=== PATIENT | male | born 1935 | race Caucasian/White ===

== ENCOUNTER → 2016-10-28 | Outpatient (CLI) | payer MEDICARE, BC ==
[~2016-10-28] MED LIST: AMIO200T2 PO; ASPI-1085 PO; ATOR10TA64 PO; BUPR-51 PO; BUPR300T57 PO; CHOL100055 PO; CLON2TAB4 PO; CLOP75TA33 PO; DILT120C91 PO; FAMO20TA8 PO; FERR325T40 PO; FURO20TA4 PO; HYDR-4180 PO; ISOS30TA6 PO; LACT1CAP80 PO; NITR0.4T SL; POTA20TA10 PO; PRED10TA PO; RISP0.5T14 PO; SERT100T PO
--- NOTE | 2016-10-28 11:15 | DI ---
Indication: ITS.REASON: R26.89 BALANCE PROBLEMS PROCEDURE: CT HEAD W/O CONTRAST: Encounter: Initial Comparison: Head CT dated May 15, 2016 Technique: Axial CT images through the head were performed without contrast. Iterative Reconstruction dose reducing technique was utilized. FINDINGS: Prominent frontal CSF spaces are again noted. The ventricles are unchanged. Generalized atrophy. There are scattered areas of low attenuation in the white matter which most likely represent changes from chronic microvascular ischemia. The brainstem, cerebellum, and cerebral hemispheres otherwise have a normal morphology and CT attenuation. There is no evidence of midline displacement. No hemorrhage, signs of acute territorial stroke, mass effect, mass lesions, or edema is evident. The visualized portions of the skull base, midface, and calvarium demonstrate no abnormality. The paranasal sinuses are well aerated and free of significant disease. The tympanic and mastoid cavities appear normal. IMPRESSION: No acute intracranial abnormality or hemorrhage. Stable head CT. .
== END ==
LOC: IMA 10:19
PROVIDERS: ATTEND Psychiatry & Neurology Neurology
DX: R26.89 Other abnormalities of gait and mobility (principal)

== ENCOUNTER 2016-11-05 02:41 | Emergency (ER) | payer MEDICARE, BC ==
[~2016-11-05] VITALS: Ht 177.8 cm; Wt 101.8 kg
--- OUTSIDE RECORDS SUMMARY | 2016-11-05 02:45 | XMS REPORT | Referral Summary ---
Author Author [facility] Organization [facility] Address Unknown Phone Unavailable Care Team Providers Care Weaver Apprentice Name Role Phone Codie Bhagat Primary Care Physician [phone] Encounter VC Date(s): 08/31/16 - 08/31/16 [facility] [address] [place] [address] Discharge Diagnosis: Benign essential hypertension Discharge Diagnosis: H/O falling Discharge Diagnosis: Depression Discharge Diagnosis: Chronic kidney disease, stage 4, severely decreased GFR Discharge Diagnosis: CAD (coronary artery disease) Discharge Disposition: 01-Home or Self Care Attending Physician: Roger Bhagat MD Admitting Physician: Roger Bhagat MD Vital Signs Most recent to 1 oldest [Reference Range]: Temperature Tympanic 36.3 degC [36.6-38.1 degC] *LOW* (08/31/16 10:21 AM) Peripheral Pulse 80 bpm Rate [60-100 bpm] (08/31/16 10:21 AM) Blood Pressure 150/68 mmHg [90-140/60-90 mmHg] *HI* (08/31/16 10:21 AM) Problem List Condition Effective Dates Status Health Status Informant Acute Active pain(Confirmed) Anxiety(Confirmed) Active Arthritis(Confirmed) Resolved At risk of pressure Active sore(Confirmed) Benign essential Active hypertension (disorder)(Confirmed ) Bowel Active dysfunction(Confirme d)1 Carpal tunnel Active syndrome (disorder)(Confirmed ) Sleep related Active hypoxia(Confirmed) Chronic kidney Active disease, stage 4, severely decreased GFR(Confirmed) CAD (coronary artery Active disease)(Confirmed) Depression(Confirmed Resolved ) Diastolic Resolved dysfunction(Confirme d) Disorder of kidney Active and/or ureter (disorder)(Confirmed ) Peripheral Active neuropathy(Confirmed ) Fall at 12/28/09 Resolved wsiq-krmjgtnhuhnl-wf tractable back pain(Confirmed) Fluid Active imbalance(Confirmed) 2 Hyperlipidemia(Confi Active rmed) Hypertension(Confirm Resolved ed) Knowledge Active deficit(Confirmed)3 Low back pain Active (finding)(Confirmed) Depression(Confirmed Active ) Morbid obesity Active (disorder)(Confirmed ) DURAN on Active CPAP(Confirmed) Osteoarthritis(Confi Resolved rmed) Renal Resolved cancer(Confirmed) Single major Active depressive episode (disorder)(Confirmed ) Tissue perfusion Active alteration(Confirmed )4 Abnormal gait Active (finding)(Confirmed) Restless leg Active syndrome(Confirmed) 1Problem added automatically by system based on initiation of Bowel Dysfunction Plan of Care 2Problem added automatically by system based on initiation of Fluid Volume Imbalance Plan of Care 3Problem added automatically by system based on initiation of Knowledge Deficit Plan of Care 4Problem added automatically by system based on initiation of Tissue Perfusion Cerebral Plan of Care Allergies, Adverse Reactions, Alerts No Known Allergies Medications amiodarone 200 mg oral tablet 200 mg 1 tabs, Oral, Daily, # 90 tabs, 3 Refill(s), Pharmacy: [facility], 1 tabs Oral TID Start Date: 06/13/15 Status: Ordered amoxicillin 2,000 mg, Oral, Daily, dental appointment, given 1 hour prior to the procedure, 0 Refill(s) Start Date: 05/20/15 Status: Ordered aspirin 81 mg oral tablet 81 mg 1 tabs, Oral, BID, # 30 tabs, 0 Refill(s) Start Date: 11/18/15 Status: Ordered atorvastatin 10 mg oral tablet See Instructions, TAKE ONE TABLET BY MOUTH AT BEDTIME, # 30 tabs, 5 Refill(s), eRx: [facility], TAKE ONE TABLET BY MOUTH AT BEDTIME Start Date: 11/04/15 Status: Ordered buPROPion 150 mg/24 hours (XL) oral tablet, extended release 150 mg 1 tabs, Oral, q24hr, # 30 tabs, 0 Refill(s) Start Date: 04/15/16 Status: Ordered Cardizem CD 120 mg/24 hours oral capsule, extended release 120 mg 1 caps, Oral, Daily, # 60 caps, 6 Refill(s), Pharmacy: [facility] [place], [place], 1 caps Oral BID Start Date: 08/27/15 Status: Ordered cholecalciferol 1000 intl units oral tablet 1,000 Intl_Units 1 tabs, Oral, Daily, # 30 tabs, 0 Refill(s) Start Date: 05/15/16 Status: Ordered clonazePAM 2 mg oral tablet 2 mg 1 tabs, Oral, Bedtime (once a day), 0 Refill(s) Start Date: 05/20/15 Status: Ordered clopidogrel 75 mg oral tablet 75 mg 1 tabs, Oral, Daily, # 90 tabs, 1 Refill(s), Pharmacy: [email or web address], 1 tabs Oral Daily Start Date: 04/22/16 Status: Ordered famotidine 20 mg oral tablet See Instructions, TAKE 1 TABLET BY MOUTH EVERY DAY, # 30 tabs, eRx: [facility], TAKE 1 TABLET BY MOUTH EVERY DAY Start Date: 04/20/16 Status: Ordered ferrous sulfate 325 mg (65 mg elemental iron) oral tablet See Instructions, TAKE 1 TABLET BY MOUTH TWO TIMES A DAY WITH FOOD, # 60 tabs, 5 Refill(s), eRx: [email or web address], TAKE 1 TABLET BY MOUTH TWO TIMES A DAY WITH FOOD Start Date: 11/04/15 Status: Ordered hydrALAZINE 25 mg oral tablet 25 mg 1 tabs, Oral, QID, 0 Refill(s) Start Date: 05/15/16 Status: Ordered isosorbide mononitrate 30 mg oral tablet, extended release 30 mg 1 tabs, Oral, BID, # 60 tabs, 6 Refill(s), Pharmacy: [email or web address] , 1 tabs Oral BID Start Date: 12/02/15 Status: Ordered lactobacillus acidophilus oral capsule 1 caps, Oral, Daily, 0 Refill(s) Start Date: 05/15/16 Status: Ordered Miscellaneous DME DME Item LARGE MANUAL WHEELCHAIR FAX TO [facility] [phone], See Instructions, # 1 Each, 0 Refill(s), Supply Start Date: 04/09/16 Status: Ordered Nitrostat 0.4 mg sublingual tablet 0.4 mg 1 tabs, SubLingual, q5min, as needed for chest pain, # 100 tabs, 0 Refill (s) Start Date: 10/31/15 Status: Ordered predniSONE 10 mg oral tablet 10 mg 1 tabs, Oral, Daily, 0 Refill(s) Start Date: 05/15/16 Status: Ordered risperiDONE 0.5 mg oral tablet 0.5 mg 1 tabs, Oral, Daily, and BID as needed, 0 Refill(s) Start Date: 05/15/16 Status: Ordered Wellbutrin XL 300 mg/24 hours oral tablet, extended release 300 mg 1 tabs, Oral, Daily, # 30 tabs, 6 Refill(s), Pharmacy: [place], [place], 1 tabs Oral Daily Start Date: 08/14/15 Status: Ordered Zoloft 100 mg oral tablet 100 mg 1 tabs, Oral, Daily, take 1.5 tabs daily (150mg), # 30 tabs, 0 Refill(s) , Pharmacy: [facility], 1 tabs Oral Daily Start Date: 01/23/16 Status: Ordered Results Chemistry Most recent to 1 oldest [Reference Range]: Sodium Lvl [135-144 143 mEq/L mEq/L] (08/31/16 11:19 AM) Potassium Lvl 3.7 mEq/L [3.5-5.2 mEq/L] (08/31/16 11:19 AM) Chloride [99-111 106 mEq/L mEq/L] (08/31/16 11:19 AM) CO2 [23-31 mEq/L] 28 mEq/L (08/31/16 11:19 AM) AGAP [3-20] 9 (08/31/16 11:19 AM) BUN [8-26 mg/dL] 31 mg/dL *HI* (08/31/16 11:19 AM) Glucose Lvl [70-99 87 mg/dL mg/dL] (08/31/16 11:19 AM) Creatinine Lvl 1.99 mg/dL [0.72-1.25 mg/dL] *HI* (08/31/16 11:19 AM) eGFR [>60 mL/min] 32 mL/min 1 *ABN* (08/31/16 11:19 AM) Calcium Lvl 8.6 mg/dL 2 [8.4-10.2 mg/dL] (08/31/16 11:19 AM) 1Result Comment: Multiply eGFR results by 1.21 for race. 2Result Comment: Please note reference range change effective 08/28/2016. Immunizations Given and Recorded Vaccine Date Status Refusal Reason influenza virus vaccine, H1N1, inactivat 06/27/09 Given influenza virus vaccine, inactivated 06/04/15 Given influenza virus vaccine, inactivated1 05/03/14 Recorded influenza virus vaccine, live 05/09/13 Given influenza virus vaccine, live 04/05/12 Given influenza virus vaccine, live 04/10/11 Given influenza virus vaccine, live 05/22/10 Given influenza virus vaccine, live 06/27/09 Given influenza virus vaccine, live 05/30/08 Given influenza virus vaccine, live 06/10/07 Given pneumococcal 13-valent conjugate vaccine 01/03/16 Given pneumococcal 23-polyvalent vaccine 05/13/06 Recorded tetanus-diphth toxoids (Td) adult/adol 05/18/09 Given zoster vaccine live 10/22/11 Given 1Result Comment: [05/03/2014] see scanne doc Procedures Procedure Date Related Diagnosis Body Site Colonoscopy1 05/26/15 Colonoscopy2 05/25/15 Colonoscopy 08/04/13 Colonoscopy 01/14/12 Implantation of heart pacemaker 2010 Colonoscopy 02/07/07 Colonoscopy 09/15/06 TKA - Through knee amputation Rt 2006 Surgery-extensive back 1999 History of lumbar spine surgery 1993 Hx of neck surgery 1992 Angiography w/stent Carpal tunnel release Cataract extraction Colonoscopy Hx of shoulder replacement Rt & Lt Knee arthropathy 1auto-populated from documented surgical case 2auto-populated from documented surgical case Social History Social History Type Response Smoking Status Former smoker; Type: Cigarettes1 140 years ago Assessment and Plan Extracted from: Title: HI Follow Up Author: Roger Bhagat MD Date: 08/31/16 Impression and Plan Diagnosis Benign essential hypertension (LFG56-ZV I10, Discharge, Medical). CAD (coronary artery disease) (ISI60-WV I25.10, Discharge, Medical). Chronic kidney disease, stage 4, severely decreased GFR (CYD92-LN N18.4, Discharge, Medical). Depression (ZJE58-WU F32.9, Discharge, Medical). H/O falling (MSE10-GY Z91.81, Discharge, Medical). Orders Orders (Selected) Outpatient Orders Future (On Hold) BMP: .
--- OUTSIDE RECORDS SUMMARY | 2016-11-05 02:49 | XMS REPORT | Referral Summary ---
Author Author [facility] [employer] Organization [facility] [place] Address Unknown Phone Unavailable Care Team Providers Care Cell Stripper Name Role Phone Codie Bhagat Primary Care Physician [phone] Encounter Date(s): 07/31/16 - 07/31/16 [facility] [place] [address] [place] [address] Discharge Diagnosis: DURAN on CPAP Discharge Diagnosis: Sleep related hypoxia Discharge Disposition: 01-Home or Self Care Attending Physician: Kalpesh Biswas MD Admitting Physician: Kalpesh Biswas MD Vital Signs Most recent to 1 oldest [Reference Range]: Peripheral Pulse 73 bpm Rate [60-100 bpm] (07/31/16 11:03 AM) Blood Pressure 140/82 mmHg [90-140/60-90 mmHg] (07/31/16 11:03 AM) SpO2 97 % (07/31/16 11:03 AM) Problem List Condition Effective Dates Status [...] ) Peripheral Active neuropathy(Confirmed ) Fall at 6/5/10 Resolved jqrr-utiwzjqzbokj-td tractable back pain(Confirmed) Fluid Active imbalance(Confirmed) 2 [...] Daily, # 90 tabs, 3 Refill(s), Pharmacy: [facility], 1 tabs Oral TID Start Date: 06/13/15 [...] BEDTIME, # 30 tabs, 5 Refill(s), eRx: [email or web address], TAKE ONE TABLET BY MOUTH AT BEDTIME Start Date: 11/04/15 Status: Ordered buPROPion 150 mg/24 hours (XL) oral tablet, extended release 150 mg 1 tabs, Oral, q24hr, # 30 tabs, 0 Refill(s) Start Date: 04/15/16 Status: Ordered Cardizem CD 120 mg/24 hours oral capsule, extended release 120 mg 1 caps, Oral, Daily, # 60 caps, 6 Refill(s), Pharmacy: [email or web address] [place], [place], 1 caps Oral BID Start Date: [...] Daily, # 90 tabs, 1 Refill(s), Pharmacy: [facility], 1 tabs Oral Daily Start Date: 04/22/16 Status: Ordered famotidine 20 mg oral tablet See Instructions, TAKE 1 TABLET BY MOUTH EVERY DAY, # 30 tabs, eRx: [facility], TAKE 1 TABLET BY MOUTH EVERY DAY Start Date: 04/20/16 Status: Ordered ferrous sulfate 325 mg (65 mg elemental iron) oral tablet See Instructions, TAKE 1 TABLET BY MOUTH TWO TIMES A DAY WITH FOOD, # 60 tabs, 5 Refill(s), eRx: [facility], TAKE 1 TABLET BY MOUTH TWO TIMES A DAY WITH FOOD Start Date: 11/04/15 Status: Ordered hydrALAZINE 25 mg oral tablet 25 mg 1 tabs, Oral, QID, 0 Refill(s) Start Date: 05/15/16 Status: Ordered isosorbide mononitrate 30 mg oral tablet, extended release 30 mg 1 tabs, Oral, BID, # 60 tabs, 6 Refill(s), Pharmacy: [facility] , 1 tabs Oral BID Start Date: 12/02/15 Status: Ordered lactobacillus acidophilus oral capsule 1 caps, Oral, Daily, 0 Refill(s) Start Date: 05/15/16 Status: Ordered Miscellaneous DME DME Item LARGE MANUAL WHEELCHAIR FAX TO [facility] [phone], See Instructions, # 1 Each, 0 Refill(s), [...] Daily, # 30 tabs, 6 Refill(s), Pharmacy: [facility] - [place], [place], 1 tabs Oral Daily Start Date: 08/14/15 Status: Ordered Zoloft 100 mg oral tablet 100 mg 1 tabs, Oral, Daily, take 1.5 tabs daily (150mg), # 30 tabs, 0 Refill(s) , Pharmacy: [facility], 1 tabs Oral Daily Start Date: 01/23/16 Status: Ordered Results No data available for this section Immunizations Given and Recorded Vaccine Date Status [...] 09/15/06 TKA - Through knee amputation Rt 2007 Surgery-extensive back 2000 History of lumbar spine surgery 1993 Hx of neck surgery 1992 Angiography w/stent Carpal tunnel release Cataract extraction Colonoscopy Hx of shoulder replacement Rt & Lt Knee arthropathy 1auto-populated from documented surgical case 2auto-populated from documented surgical case Social History Social History Type Response Smoking Status Former smoker; Type: Cigarettes1 140 years ago Assessment and Plan Extracted from: Title: Office Visit Note Author: Kalpesh Biswas Date: 07/31/16 Assessment/Plan 1.DURAN on CPAP 2.Sleep related hypoxia - Patient will need to resume CPAP. - We cannot make an adequate assessment at this time. - follow up after at least 3 weeks of regular use. We will re-assess at that point. - Patient advised to avoid driving and other potentially harmful activities if feeling sleepy, drowsy or otherwise impaired. Countermeasures such as pulling over to nap and napping before driving discussed. - All questions answered.
--- OUTSIDE RECORDS SUMMARY | 2016-11-05 02:49 | XMS REPORT ---
Author Pascual Hamm Organization [employer] Address Unknown Phone Unavailable Care Team Providers Care Air Shovel Operator Name Role Phone Pascual Hartman CP Unavailable Allergies No Known Allergies Problems Problem Type Condition Code Onset Dates Condition Status Problem Chest pain 786.50 Active Problem S/P cardiac pacemaker procedure Z95.0 Active Problem Syncope R55 Active Problem S/P drug eluting coronary stent placement Z95.5 Active Problem Edema, Lower Extremity Edema 782.3 Active Problem Hypertension I10 Active Problem Orthostatic hypotension I95.1 Active Problem Episodic atrial fibrillation I48.0 Active Problem CAD (coronary artery disease) I25.10 Active Problem Gastrointestinal bleed K92.2 Active Problem Depression F32.9 Active Problem Dyspnea on exertion 786.09 Active Problem 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
[2016-11-05 02:50] VITALS: Ht 177.8 cm; Wt 101.8 kg
--- OUTSIDE RECORDS SUMMARY | 2016-11-05 02:50 | XMS REPORT ---
Author Pascual Hamm Organization [employer] Address Unknown Phone Unavailable Care Team Providers Care Lead Section Supervisor Name Role Phone Pascual Hartman CP Unavailable [...]
--- OUTSIDE RECORDS SUMMARY | 2016-11-05 02:51 | XMS REPORT | Referral Summary ---
Author Author [facility] Organization [facility] Address Unknown Phone Unavailable Care Team Providers Care Pulp Piler Name Role Phone Codie Bhagat Primary Care Physician [phone] Encounter Date(s): 06/25/16 - 06/25/16 [facility] [address] [place] [address] Discharge Diagnosis: Frequent falls Discharge Diagnosis: Benign essential hypertension Discharge Diagnosis: Chronic kidney disease, stage 4, severely decreased GFR Discharge Diagnosis: Hypokalemia Discharge Diagnosis: Depression Discharge Diagnosis: Frail Elderly Discharge Disposition: 01-Home or Self Care Attending Physician: Roger Bhagat MD Admitting Physician: Roger Bhagat MD Vital Signs Most recent to 1 oldest [Reference Range]: Temperature Tympanic 36.2 degC [36.6-38.1 degC] *LOW* (06/25/16 11:24 AM) Peripheral Pulse 84 bpm Rate [60-100 bpm] (06/25/16 11:24 AM) Blood Pressure 147/80 mmHg [90-140/60-90 mmHg] *HI* (06/25/16 11:24 AM) Problem List Condition Effective Dates Status Health Status Informant Acute Active pain(Confirmed) Anxiety(Confirmed) Active Arthritis(Confirmed) Resolved At risk of pressure Active sore(Confirmed) Benign essential Active hypertension (disorder)(Confirmed ) Bowel Active dysfunction(Confirme d)1 Carpal tunnel Active syndrome (disorder)(Confirmed ) Chronic kidney Active disease, stage 4, severely decreased GFR(Confirmed) CAD (coronary artery Active disease)(Confirmed) Depression(Confirmed Resolved ) Diastolic Resolved dysfunction(Confirme d) Disorder of kidney Active and/or ureter (disorder)(Confirmed ) Peripheral Active neuropathy(Confirmed ) Fall at 12/28/09 Resolved ijwm-jbfjldhrysje-kz tractable back pain(Confirmed) Fluid Active imbalance(Confirmed) 2 Hyperlipidemia(Confi Active rmed) Hypertension(Confirm Resolved ed) Knowledge Active deficit(Confirmed)3 Low back pain Active (finding)(Confirmed) Depression(Confirmed Active ) Morbid obesity Active (disorder)(Confirmed ) Osteoarthritis(Confi Resolved rmed) Renal Resolved cancer(Confirmed) Single major Active depressive episode (disorder)(Confirmed ) Sleep apnea Active (disorder)(Confirmed ) Tissue perfusion Active alteration(Confirmed )4 [...] Daily, # 90 tabs, 3 Refill(s), Pharmacy: [facility], 1 tabs Oral TID Start Date: [...] BEDTIME, # 30 tabs, 5 Refill(s), eRx: [facility], TAKE ONE TABLET BY MOUTH AT BEDTIME Start Date: 11/04/15 Status: Ordered buPROPion 150 mg/24 hours (XL) oral tablet, extended release 150 mg 1 tabs, Oral, q24hr, # 30 tabs, 0 Refill(s) Start Date: 04/15/16 Status: Ordered Cardizem CD 120 mg/24 hours oral capsule, extended release 120 mg 1 caps, Oral, Daily, # 60 caps, 6 Refill(s), Pharmacy: [email or web address] [place], [place], 1 caps Oral BID Start Date: [...] Daily, # 90 tabs, 1 Refill(s), Pharmacy: [facility], 1 tabs Oral Daily Start Date: 04/22/16 Status: Ordered famotidine 20 mg oral tablet See Instructions, TAKE 1 TABLET BY MOUTH EVERY DAY, # 30 tabs, eRx: [facility], TAKE 1 TABLET BY MOUTH EVERY DAY Start Date: 04/20/16 Status: Ordered ferrous sulfate 325 mg (65 mg elemental iron) oral tablet See Instructions, TAKE 1 TABLET BY MOUTH TWO TIMES A DAY WITH FOOD, # 60 tabs, 5 Refill(s), eRx: [facility], TAKE 1 TABLET BY MOUTH TWO TIMES A DAY WITH FOOD Start Date: 11/04/15 Status: Ordered hydrALAZINE 25 mg oral tablet 25 mg 1 tabs, Oral, QID, 0 Refill(s) Start Date: 05/15/16 Status: Ordered isosorbide mononitrate 30 mg oral tablet, extended release 30 mg 1 tabs, Oral, BID, # 60 tabs, 6 Refill(s), Pharmacy: [facility] , 1 tabs Oral BID Start Date: 12/02/15 Status: Ordered lactobacillus acidophilus oral capsule 1 caps, Oral, Daily, 0 Refill(s) Start Date: 05/15/16 Status: Ordered Miscellaneous DME DME Item LARGE MANUAL WHEELCHAIR FAX TO [facility] [phone], See Instructions, # 1 Each, 0 Refill(s), [...] Daily, # 30 tabs, 6 Refill(s), Pharmacy: [email or web address] [place], 1 tabs Oral Daily Start Date: 08/14/15 Status: Ordered Zoloft 100 mg oral tablet 100 mg 1 tabs, Oral, Daily, take 1.5 tabs daily (150mg), # 30 tabs, 0 Refill(s) , Pharmacy: [facility], 1 tabs Oral Daily Start Date: 01/23/16 Status: Ordered Results No data available for this section Immunizations Vaccine Date Refusal Reason influenza virus vaccine, H1N1, inactivat 06/27/09 influenza virus vaccine, inactivated 06/04/15 influenza virus vaccine, inactivated1 05/03/14 influenza virus vaccine, live 05/09/13 influenza virus vaccine, live 04/05/12 influenza virus vaccine, live 04/10/11 influenza virus vaccine, live 05/22/10 influenza virus vaccine, live 06/27/09 influenza virus vaccine, live 05/30/08 influenza virus vaccine, live 06/10/07 pneumococcal 13-valent conjugate vaccine 01/03/16 pneumococcal 23-polyvalent vaccine 05/13/06 tetanus-diphth toxoids (Td) adult/adol 05/18/09 zoster vaccine live 10/22/11 1Result Comment: [05/03/2014] see scanne doc Procedures Procedure Date Related Diagnosis Body Site Colonoscopy1 05/26/15 Colonoscopy2 05/25/15 Colonoscopy 08/04/13 Colonoscopy 01/14/12 Implantation of heart pacemaker 2010 Colonoscopy 02/07/07 Colonoscopy 09/15/06 TKA - Through knee amputation Rt 2007 Surgery-extensive back 1999 History of lumbar spine surgery 1993 Hx of neck surgery 1992 Angiography w/stent Carpal tunnel release Cataract extraction Colonoscopy Hx of shoulder replacement Rt & Lt Knee arthropathy 1auto-populated from documented surgical case 2auto-populated from documented surgical case Social History Social History Type Response Smoking Status Former smoker; Type: Cigarettes1 140 years ago Assessment and Plan Extracted from: Title: OV Author: Roger Bhagat MD Date: 06/25/16 Impression and Plan Diagnosis Benign essential hypertension (NGU78-BY I10, Discharge, Medical). Chronic kidney disease, stage 4, severely decreased GFR (MZQ03-TR N18.4, Discharge, Medical). Hypokalemia (OUU34-KW E87.6, Discharge, Medical). Frequent falls (DEA93-GO R29.6, Discharge, Medical). Frail Elderly (CCL45-WY R54, Discharge, Medical). Depression (BCI95-LH F32.9, Discharge, Medical).
--- OUTSIDE RECORDS SUMMARY | 2016-11-05 02:51 | XMS REPORT | Referral Summary ---
Author Author [facility] [place] Organization [facility] [place] Address Unknown Phone Unavailable Care Team Providers Care Generator Mechanic Name Role Phone Codie Bhagat Primary Care Physician [phone] Encounter Date(s): 08/21/16 - 08/21/16 [facility] [place] [address] [place] [address] Discharge Diagnosis: Sleep related hypoxia Discharge Diagnosis: DURAN on CPAP Discharge Disposition: 01-Home or Self Care Attending Physician: Kalpesh Biswas MD Admitting Physician: Kalpesh Biswas MD Vital Signs Most recent to 1 oldest [Reference Range]: Peripheral Pulse 72 bpm Rate [60-100 bpm] (08/21/16 9:41 AM) Blood Pressure 140/80 mmHg [90-140/60-90 mmHg] (08/21/16 9:41 AM) SpO2 93 % (08/21/16 9:41 AM) Problem List Condition Effective Dates Status [...] Active neuropathy(Confirmed ) Fall at 6/5/10 Resolved qzcs-[id number]-mm tractable back pain(Confirmed) Fluid Active imbalance(Confirmed) 2 [...] Daily, # 90 tabs, 3 Refill(s), Pharmacy: [facility], 1 tabs Oral TID Start Date: [...] BEDTIME, # 30 tabs, 5 Refill(s), eRx: [place] [facility], TAKE ONE TABLET BY MOUTH AT BEDTIME Start Date: 11/04/15 Status: Ordered buPROPion 150 mg/24 hours (XL) oral tablet, extended release 150 mg 1 tabs, Oral, q24hr, # 30 tabs, 0 Refill(s) Start Date: 04/15/16 Status: Ordered Cardizem CD 120 mg/24 hours oral capsule, extended release 120 mg 1 caps, Oral, Daily, # 60 caps, 6 Refill(s), Pharmacy: [facility] [place], [place], 1 caps Oral BID Start Date: [...] Daily, # 90 tabs, 1 Refill(s), Pharmacy: [facility], 1 tabs Oral Daily Start Date: 04/22/16 Status: Ordered famotidine 20 mg oral tablet See Instructions, TAKE 1 TABLET BY MOUTH EVERY DAY, # 30 tabs, eRx: [facility], TAKE 1 TABLET BY MOUTH EVERY DAY Start Date: 04/20/16 Status: Ordered ferrous sulfate 325 mg (65 mg elemental iron) oral tablet See Instructions, TAKE 1 TABLET BY MOUTH TWO TIMES A DAY WITH FOOD, # 60 tabs, 5 Refill(s), eRx: [facility], TAKE 1 TABLET BY MOUTH TWO TIMES A DAY WITH FOOD Start Date: 11/04/15 Status: Ordered hydrALAZINE 25 mg oral tablet 25 mg 1 tabs, Oral, QID, 0 Refill(s) Start Date: 05/15/16 Status: Ordered isosorbide mononitrate 30 mg oral tablet, extended release 30 mg 1 tabs, Oral, BID, # 60 tabs, 6 Refill(s), Pharmacy: [facility] , 1 tabs Oral BID Start Date: 12/02/15 Status: Ordered lactobacillus acidophilus oral capsule 1 caps, Oral, Daily, 0 Refill(s) Start Date: 05/15/16 Status: Ordered Miscellaneous DME DME Item LARGE MANUAL WHEELCHAIR FAX TO [facility] [phone], See Instructions, # 1 Each, 0 Refill(s), [...] Daily, # 30 tabs, 6 Refill(s), Pharmacy: [facility] - [place], [place], 1 tabs Oral Daily Start Date: 08/14/15 Status: Ordered Zoloft 100 mg oral tablet 100 mg 1 tabs, Oral, Daily, take 1.5 tabs daily (150mg), # 30 tabs, 0 Refill(s) , Pharmacy: [facility], 1 tabs Oral Daily Start Date: 01/23/16 [...] Office Visit Note Author: Kalpesh Biswas Date: 08/21/16 Assessment/Plan 1.DURAN on CPAP 2.Sleep related hypoxia - Improved CPAP use. Continue current pressures. - Patient needs a new mask, or significant troubleshooting. - Will schedule a visit with RT for this. - May also need new supplies. - Once mask is addressed I would like to see him again. - Patient advised to avoid driving and other potentially harmful activities if feeling sleepy, drowsy or otherwise impaired. Countermeasures such as pulling over to nap and napping before driving discussed.
--- OUTSIDE RECORDS SUMMARY | 2016-11-05 02:52 | XMS REPORT | Referral Summary ---
Author Author [facility] Organization [facility] Address Unknown Phone Unavailable Care Team Providers Care Route Specialist Name Role Phone Codie Bhagat Primary Care Physician [phone] Encounter VC Date(s): 05/22/16 - 05/22/16 [facility] [address] [place] [address] Discharge Disposition: 01-Home or Self Care Attending Physician: Yovany Mckeon APRN Admitting Physician: Yovany Mckeon APRN Vital Signs Most recent to 1 oldest [Reference Range]: Peripheral Pulse 77 bpm Rate [60-100 bpm] (05/22/16 10:41 AM) Respiratory Rate 18 br/min [14-20 br/min] (05/22/16 10:41 AM) Blood Pressure 154/84 mmHg [90-140/60-90 mmHg] *HI* (05/22/16 10:41 AM) SpO2 92 % (05/22/16 10:41 AM) Problem List Condition Effective Dates Status [...] Active neuropathy(Confirmed ) Fall at 6/5/10 Resolved ykej-isyazigkdovi-yh tractable back pain(Confirmed) Fluid Active imbalance(Confirmed) 2 [...] Daily, # 90 tabs, 3 Refill(s), Pharmacy: [facility], 1 tabs Oral TID Start Date: [...] BEDTIME, # 30 tabs, 5 Refill(s), eRx: [facility], TAKE ONE TABLET BY MOUTH AT BEDTIME Start Date: 11/04/15 Status: Ordered buPROPion 150 mg/24 hours (XL) oral tablet, extended release 150 mg 1 tabs, Oral, q24hr, # 30 tabs, 0 Refill(s) Start Date: 04/15/16 Status: Ordered Cardizem CD 120 mg/24 hours oral capsule, extended release 120 mg 1 caps, Oral, Daily, # 60 caps, 6 Refill(s), Pharmacy: [facility] [place], [place], 1 caps Oral BID Start Date: [...] Daily, # 90 tabs, 1 Refill(s), Pharmacy: [facility], 1 tabs Oral Daily Start Date: 04/22/16 Status: Ordered famotidine 20 mg oral tablet See Instructions, TAKE 1 TABLET BY MOUTH EVERY DAY, # 30 tabs, eRx: [facility], TAKE 1 TABLET BY MOUTH EVERY DAY Start Date: 04/20/16 Status: Ordered ferrous sulfate 325 mg (65 mg elemental iron) oral tablet See Instructions, TAKE 1 TABLET BY MOUTH TWO TIMES A DAY WITH FOOD, # 60 tabs, 5 Refill(s), eRx: [facility], TAKE 1 TABLET BY MOUTH TWO TIMES A DAY WITH FOOD Start Date: 11/04/15 Status: Ordered furosemide 20 mg oral tablet 20 mg 1 tabs, Oral, Daily, # 30 tabs, 6 Refill(s), Pharmacy: [facility], 1 tabs Oral Daily Start Date: 04/28/16 Status: Ordered hydrALAZINE 25 mg oral tablet 25 mg 1 tabs, Oral, QID, 0 Refill(s) Start Date: 05/15/16 Status: Ordered isosorbide mononitrate 30 mg oral tablet, extended release 30 mg 1 tabs, Oral, BID, # 60 tabs, 6 Refill(s), Pharmacy: [facility] , 1 tabs Oral BID Start Date: 12/02/15 Status: Ordered lactobacillus acidophilus oral capsule 1 caps, Oral, Daily, 0 Refill(s) Start Date: 05/15/16 Status: Ordered Miscellaneous DME DME Item LARGE MANUAL WHEELCHAIR FAX TO [facility] [phone], See Instructions, # 1 Each, 0 Refill(s), Supply Start Date: 04/09/16 Status: Ordered Nitrostat 0.4 mg sublingual tablet 0.4 mg 1 tabs, SubLingual, q5min, as needed for chest pain, # 100 tabs, 0 Refill (s) Start Date: 10/31/15 Status: Ordered potassium chloride 20 mEq oral tablet, extended release See Instructions, 2 tabs Oral Daily, # 30 tabs, eRx: [facility], 1 tabs Oral Daily Start Date: 08/02/15 Status: Ordered predniSONE 10 mg oral tablet 10 mg 1 tabs, Oral, Daily, 0 Refill(s) Start Date: 05/15/16 Status: Ordered risperiDONE 0.5 mg oral tablet 0.5 mg 1 tabs, Oral, Daily, and BID as needed, 0 Refill(s) Start Date: 05/15/16 Status: Ordered Wellbutrin XL 300 mg/24 hours oral tablet, extended release 300 mg 1 tabs, Oral, Daily, # 30 tabs, 6 Refill(s), Pharmacy: [facility] [place], 1 tabs Oral Daily Start Date: 08/14/15 Status: Ordered Zoloft 100 mg oral tablet 100 mg 1 tabs, Oral, Daily, take 1.5 tabs daily (150mg), # 30 tabs, 0 Refill(s) , Pharmacy: [facility], 1 tabs Oral Daily Start Date: [...] Diagnosis Body Site Colonoscopy1 05/26/15 Colonoscopy2 05/25/15 Implantation of heart pacemaker 2010 Colonoscopy 02/07/07 TKA - Through knee amputation Rt 2007 [...] Cigarettes1 140 years ago Assessment and Plan No data available for this section
--- NOTE | 2016-11-05 03:28 | NUR ---
REST PT RESTING QUIETLY WITH EYES CLOSED AROUSES EASILY TO VERBAL STIMULI DENIES ANY NEEDS
--- NOTE | 2016-11-05 03:32 | NUR ---
WOUND CARE WOUND CLEANED WITH CHLORHEXADINE
--- NOTE | 2016-11-05 03:35 | NUR ---
EXAM EXAM COMPLETED BY DR CIFUENTES PT STATES HE IS GOOD TO GO HOME
--- NOTE | 2016-11-05 03:36 | ERPDOC ---
Departure Disposition Decision Date: Nov 05, 2016 Disposition Decision Time: 03:33 Disposition: 01 DISCHARGED HOME, SELF-CARE Impression Impression Impression: Primary Impression: Avulsion of scalp Encounter type: initial encounter Qualified Codes: S08.0XXA - Avulsion of scalp, initial encounter Severity: Mild Condition: Improved Seen By: Physician only Referrals: EZEQUIEL COLON MD (Family) 1 Week Patient Instructions: Skin Avulsion (ED) Problems/Meds/Labs Reviewed?: Yes Medications reviewed and manag: Yes Additional Instructions: You have a small, partial thickness avulsion (split in the skin) in the skin on the back of your head. Follow up care ordered?: Yes Mental Status: Alert, Oriented HPI - Fall/Injury General Chief Complaint: Fall Stated Complaint: FELL, HIT HEAD Time Seen by Provider: 03:32 Source: patient, EMS Exam Limitations: no limitations HPI - Fall/Injury Initial Comments 81yo man presented to the ER tonight by EMS for a fall. Pt was attempting to stand up from his bed to grab his walker, when he tripped over his own feet and fell. Pt twisted while falling and hit his head on the metal railing of his bed. Pts head was bleeding, so the [facility] home sent him to the ER for further evaluation. Occurred At: home Onset: Rapid Duration: 1 hr Pain Scale: Now & Worst: 2/10 Severity: mild Injuries/Pain Location: head 1 - 1.5cm avusion Context: tripped Loss of Consciousness: no loss of consciousness Modifying Factors: IMPROVES WITH: immobilization, WORSE WITH: jarring, movement Associated Symptoms: denies symptoms Hx of Similar Symptoms: No Allergies: Coded Allergies: No Known Allergies (Unverified , 11/05/16) Past History Patient Surgical History Bilateral shoulder surgery Stent placement Pacemaker Bilateral knee replacements Past Medical History Metabolic: cancer, hypertension ENMT: sleep apnea Cardiac: A-fib, CAD GI: GERD Male: kidney stones, renal insufficiency Neurological: neuropathy Musculoskeletal: back pain, osteoarthritis, other Hematologic: anemia Psychological: anxiety, bipolar, dementia, depression Surgical History General: back, colonoscopy, hernia, neck Cardiac: pacemaker Joint: hip, knee, shoulder Family History Family PMH: FOUND: CAD, OR Vaccines Hx Influenza Vaccination: Yes (06/09) Hx Pneumococcal Vaccination: Yes (10/08) Hx Tetanus Diptheria: Yes (10/2010) Social History Substance Use Type: does not use Alcohol Intake: none, daily, 2+ drinks per day Marital Status: Sexuality: female partner Housing: apartment Household Members: spouse Number of Children: 6 Current Occupational Status: retired Advance Directives: Yes Full Code Review of Systems Integumentary Comments Bleeding and cut. All other Systems All Other Systems: Reviewed and Negative Physical Exam General General Nourishment: well nourished, well developed, appears stated age, no acute distress, adult, obese General Body Habitus: well groomed Vitals and Pain Weight: Kilograms: Height (feet): 5 Height (inches): 10.00 Triage Pain Scale: RN VS reviewed by Provider: Yes ENMT (brief) Comments Avulsion without step off, depression, or pain. Integumentary (brief) Comments 1.5cm partial thickness avulsion. Bleeding had already ceased. No gapping of the wound with tension. Neurologic (brief) Neurological Brief: FOUND: CN w/o gross def to obs, DTR 2/4 all extremities, gait w/o gross def to obs, motor-no gross deficits, sensory-no gross deficits, NOT FOUND: Babinski Psychiatric (brief) Psychiatric Brief: FOUND: alert, normal affect, oriented Supervisory Exam Body Habitus: well groomed Eyes: PERRL Nares: no exudate Neck: trachea midline Chest: symmetric Abdomen: non-distended Musculoskeletal: no deformity or atrophy Neurological: no abnormal movements Psychological: alert, appropriate Differential Diagnoses Considering: Abrasion, Concussion, Contusion, Dislocation, Fracture, Other ( Avulsion, laceration) Progress Progress Progress Pt with partial thickness avulsion; bleeding has stopped. No indication for closure at this time. Pt is not on blood thinners and has no NV deficits. Will d /c pt to home; f/u with PCM as previously arranged. Pt voiced understanding of dx, prognosis, and treatment. No concerns; wants to go home. BETINA CIFUENTES DO Nov 05, 2016 03:36
--- NOTE | 2016-11-05 04:02 | NUR ---
REPORT REPORT CALLED TO [facility] TALKED WITH DIAMOND, WILL SEND TRANSPORT VAN TO GET PT
--- NOTE | 2016-11-05 04:45 | NUR ---
Federico osorio in ED - 11/05/16 at 0711 by JENNIFER REPORT REPORT CALLED TO [facility] TALKED WITH LAZ FIELDS SEND CAMRYN PÉREZ TO [facility]
[2016-11-05 05:45] VITALS: BP 149/86; PULSE 77; RESP 18; TEMP 98.4; O2SAT 91
--- NOTE | 2016-11-05 05:45 | NUR ---
DISMISS PT DISMISSED PER W/C WITH BETO STONE FROM [facility] ASSISTED INTO W/C BY 1 STAFF
[2016-11-05] MEDS ORDERED: DILT120T13 PO (07:08)
== END 2016-11-05 05:45 | disposition home or self-care (01) ==
LOC: ED 02:41
DX: S08.0XXA Avulsion of scalp, initial encounter (principal); W01.190A Fall on same level from slipping, tripping and stumbling with subsequent striking against furniture, initial encounter; Y93.89 Activity, other specified; Y92.122 Bedroom in nursing home as the place of occurrence of the external cause; Y99.8 Other external cause status

== ENCOUNTER → 2016-11-09 | Outpatient (CLI) | payer MEDICARE, BC ==
[~2016-11-09] MED LIST changes: -BUPR-51 PO; -DILT120C91 PO; +DILT120T13 PO; -FURO20TA4 PO; -RISP0.5T14 PO
[2016-11-09 08:51] LABS: ALBUMIN 3.2 G/DL (3.5-5.0); ALBUMIN/GLOBULIN RATIO 1.2 RATIO (1.1-2.2); ALKALINE PHOSPHATASE 85 U/L (38-126); ALT (SGPT) 79 U/L (21-72); AST (SGOT) 65 U/L (17-59); TOTAL PROTEIN 5.8 G/DL (6.3-8.2)
== END ==
LOC: LABN.SV 08:19
PROVIDERS: ATTEND Family Medicine
DX: R94.5 Abnormal results of liver function studies (principal)
CPT/HCPCS: 80076

== ENCOUNTER → 2016-12-18 | Outpatient (CLI) | payer MEDICARE, BC ==
[2016-12-18 16:16] LABS: BLOOD, URINE 1+ (NEGATIVE); COLOR,URINE YELLOW (YELLOW); LEUKOCYTE ESTERASE ,URINE TRACE (NEGATIVE); NITRITE,URINE NEGATIVE (NEGATIVE)
[2016-12-18 16:22] LABS: BACTERIA,URINE 1+ (NEGATIVE); CALCIUM OXALATE CRYSTALS,UR MODERATE; RBC,URINE 0-1 /HPF (0-3); WBC,URINE 0-1 /HPF (0-5)
== END ==
LOC: LABN.SV 16:09
PROVIDERS: ATTEND Urology
DX: Z87.442 Personal history of urinary calculi (principal)
CPT/HCPCS: 81001

== ENCOUNTER 2017-01-09 17:58 | Inpatient (IN) ==
[2017-01-09] MEDS ORDERED: CEFTRIAXONE 1 G in NS 100 ML IV ONE (18:45)
[2017-01-09] MEDS ORDERED: CEFTRIAXONE (ER USE ONLY) 1 GM in NS 100 ML IV ONE (19:10)
--- NOTE | 2017-01-09 19:30 | Emergency Department Report ---
General Adult HPI - General Chief complaint: Fever Stated complaint: fever, congestion, weakness, n/v, hbp Time Seen by Provider: 01/09/17 18:12 Source: patient, EMS, old records reviewed Mode of arrival: EMS Limitations: other (Dementia) - History of Present Illness HPI narrative: 82-year-old male presents to the emergency department with a chief complaint of a fever and elevated blood pressure. Patient was noted to be febrile at 101F by EMS. Patient was noted to have a blood pressure of 220/120 by EMS as well. Patient was given 2 sublingual nitroglycerin by EMS which improved his blood pressure. Patient denies any pain or discomfort. Patient is currently being treated for a urinary tract infection with amoxicillin. Patient was at his care facility when the symptoms began. Symptoms have been persistent in nature since onset. Patient states that he uses oxygen at 2-3 L nasal cannula as needed at his care facility. No other complaints or associated symptoms. - Related Data Home Medications Medication Instructions Recorded Confirmed Potassium Chloride ER Tab [K-Dur] 40 meq PO WB #0 11/17/14 01/09/17 Nitroglycerin [Nitrostat] 0.4 mg SL Q5MIN PRN #0 01/27/15 01/09/17 Amiodarone HCl 200 mg PO DAILY #0 09/16/15 01/09/17 Atorvastatin Calcium 10 mg PO HS #0 09/16/15 01/09/17 Ferrous Sulfate [Iron] 325 mg PO BID #0 09/16/15 01/09/17 Sertraline HCl [Zoloft] 100 mg PO DAILY #0 10/09/15 01/09/17 Aspirin [Aspirin EC] 81 mg PO DAILY #0 02/02/16 01/09/17 Famotidine 20 mg PO DAILY #0 02/02/16 01/09/17 Isosorbide Mononitrate [Isosorbide 30 mg PO BID #0 02/02/16 01/09/17 Mononitrate ER] Lactobacillus Combo No.10 1 cap PO DAILY #0 05/07/16 01/09/17 [Probiotic] Hydralazine HCl 25 mg PO QID #0 05/15/16 01/09/17 Acetaminophen 650 mg PO Q4H PRN 01/09/17 01/09/17 Cholecalciferol (Vitamin D3) 1 cap PO DAILY 01/09/17 01/09/17 [Vitamin D3] ClonazePAM [Klonopin] 1 mg PO HS 01/09/17 01/09/17 Clopidogrel Bisulfate [Clopidogrel] 75 mg PO DAILY 01/09/17 01/09/17 Cyanocobalamin (Vitamin B-12) 1,000 mcg PO DAILY 01/09/17 01/09/17 [Vitamin B-12] DiltiaZEM CD [Cardizem Cd] 240 mg PO DAILY 01/09/17 01/09/17 Guaifenesin/Dextromethorphan 1 - 2 tsp PO Q6-12HR PRN 01/09/17 01/09/17 [Robitussin Cough-Chest Dm Liq] Hydrocodone/APAP 5/325 [[place] 1 tab PO Q4H PRN 01/09/17 01/09/17 5/325] PredniSONE [Deltasone] 2 mg PO DAILY 01/09/17 01/09/17 buPROPion HCl [Bupropion Xl] 300 mg PO DAILY 01/09/17 01/09/17 Allergies Allergy/AdvReac Type Severity Reaction Status Date / Time No Known Allergies Allergy Unverified 11/05/16 03:18 Review of Systems Constitutional: Reports: fever. Denies: weakness Eyes: Denies: eye pain, vision change ENT: Reports: congestion. Denies: throat pain Cardiovascular: Denies: chest pain, dyspnea on exertion Respiratory: Denies: cough, wheezes Gastrointestinal: Denies: abdominal pain, nausea, vomiting, diarrhea Genitourinary: Reports: dysuria, frequency, other (UTI) Musculoskeletal: Denies: back pain, arthralgia Integumentary: Denies: erythema, rash Neurological: Denies: headache, numbness Psychiatric: Denies: anxiety, depression Endocrine: Denies: fatigue, heat or cold intolerance Hematological/Lymphatic: Denies: easy bleeding, easy bruising Allergic/Immunologic: Denies: facial swelling, urticaria PFSH Patient Stated Medical History Cerebrovascular Accident Yes Dementia Yes Peripheral Neuropathy Yes Cardiac Arrhythmia Yes: AFIB Hypertension Yes Sleep Apnea Yes Gastroesophageal Reflux Yes Disease Hx Incontinence Yes Hx Renal Disease Yes: STAGE 3 Anemia Yes Clotting Problems Yes: ON PLAVIX Shingles Yes: FINISHED ACYCLOVIR Bipolar Disorder Yes Dementia, chronic kidney disease, arthritis, heart failure, angiodysplasia, shingles, UTI, Bipolar disorder, CAD, thrombocytopenia Surgical History: Shoulder surgery, total knee replacement, pacemaker Family History: CAD - Social History Smoking status: Former smoker Substance use type: does not use Alcohol intake frequency: former alcohol drinker Physical Exam - Limitations Limitations: other (Dementia) - General General appearance: alert, in no apparent distress - Normal Exams: Head:: Normocephalic without trauma Eyes:: Pupils are PERRLA w/ EOMI, No scleral icterus, irritation, or foreign bodies noted ENMT:: No facial trauma, nasal exudates, pharyngeal erythema, or exudates are noted Dental: No fractured, loose, or missing teeth noted Neck:: Full range of motion, without adenopathy, JVD, bruits or thyromegaly Chest/Respirations:: Clear all ramirez, with good airflow, and symmetry bilaterally Cardiovascular:: Regular rate and rhythm, without murmur or gallop, Pulses 2+ all extremities, capillary refill, <2 seconds all extremities Abdomen:: Bowel sounds positive, soft, non-tender, non-distended, no hepatosplenomegaly, masses or bruits noted Lymphatic:: No lymphadenopathy, or lymphedema noted Musculoskeletal:: No tenderness, or deformity noted, good range of motion, all extremities (Pelvis: stable and nontender to compression. No midline tenderness of the thoracic/lumbar/cervical spine.) Integumentary:: No rashes, hives, or bruising noted, hair and nails, without abnormality (Old resolved rash noted containing scarring and scabs noted from resolved shingles rash to right upper thorax. No sign of infection.) Neurological:: Patient is alert, and oriented, cranial nerves, motor/sensory/ cerebellar, exams w/o gross deficits, to observation Psychiatric:: Patient exhibits, appropriate attention, emotion and affect Course Vital Signs Temperature 98.9 F 01/09/17 18:04 Pulse Rate 97 01/09/17 18:04 Respiratory Rate 24 01/09/17 18:04 Blood Pressure 220/119 H 01/09/17 18:04 Pulse Oximetry 89 L 01/09/17 18:04 Temperature 98.9 F 01/09/17 18:04 Pulse Rate 92 01/09/17 19:30 Respiratory Rate 24 01/09/17 18:04 Blood Pressure 190/92 H 01/09/17 19:30 Pulse Oximetry 92 01/09/17 19:30 Medical Decision Making - MDM Narrative Medical decision making narrative: Labs / imaging were discussed in detail with the patient and questions are answered. Patient is given 250 mL of normal saline intravenously times one. Patient is given Rocephin 1 g intravenously for a potentially partially treated urinary tract infection. Patient was given Rocephin after sepsis was considered at 1845. Patient was given 2 sublingual nitroglycerin which improved his blood pressure from 220 systolic to 181/90. Patient will undergo further lowering of blood pressure at a acceptable rates so as not to damage his cerebral perfusion pressure after admission to the hospital. I am hesitant to lower the patient's blood pressure any more at this time with respect to this. Patient is admitted to the hospital in improved condition. Patient was admitted to the hospital after discussion with Dr. Bhavin Robles. Patient is admitted to the service of Dr. Ibrahim in improved condition. Accepting physician is in agreement with the current plan of management. No further orders. - Differential Diagnosis UTI, Dehydration, Dementia, Metabolic - Lab Data Result diagrams: 01/09/17 18:43 01/09/17 18:43 Lab Results 01/09/17 01/09/17 01/09/17 Range/Units 18:43 18:43 18:43 WBC 10.6 (4.5-11.0) T/MM3 RBC 4.07 L (4.50-5.90) M/MM3 Hgb 12.4 L (13.5-17.5) GM/DL Hct 37.9 L (41-53) % MCV 93.1 (80-100) UM3 MCH 30.5 (26-34) UUG MCHC 32.7 (31-37) GM/DL RDW Std Deviation 50.5 H (36.9-50.2) FL Plt Count 157 (130-400) T/MM3 MPV 9.9 (9.4-12.4) UM3 Immature Gran % (Auto) Not performed Neut % (Auto) Not performed Lymph % (Auto) Not performed [place] % (Auto) Not performed Eos % (Auto) Not performed Baso % (Auto) Not performed Neut # Not performed Lymph # Not performed [place] # Not performed Baso # Not performed Abs Immat Gran (auto) Not performed Neutrophils % (Manual) 96.0 H (33-66) % Lymphocytes % (Manual) 2.0 L (23-45) % Reactive Lymphs % 2.0 H (0-0) % Neutrophils # (Manual) 10.2 H (1.8-7.7) T/MM3 Lymphocytes # (Manual) 0.2 L (1-4.8) T/MM3 Abs React Lymphs (Man) 0.2 H (0-0) T/MM3 RBC Morph Comment Normal Turbidity < 20 (0-20) Sodium 142 (134-144) MEQ/L Potassium 4.1 (3.6-5) MEQ/L Chloride 103 (98-107) MEQ/L Carbon Dioxide 27 (22-30) MEQ/L Anion Gap 12 (5-15) MEQ/L BUN 28.0 H (9-20) MG/DL Creatinine 1.8 H (0.8-1.5) MG/DL GFR Calculation 36 BUN/Creatinine Ratio 16 (6-26) RATIO Glucose 136 H (75-110) MG/DL Calculated Osmolality 281 H (261-280) MOSM/KG Calcium 9.2 (8.4-10.2) MG/DL Total Bilirubin 0.80 (0.20-1.30) MG/DL Icterus Index < 2 (0-7) AST 100 H (17-59) U/L ALT 140 H (21-72) U/L Alkaline Phosphatase 115 (38-126) U/L Troponin I 0.029 (0-0.12) ng/ml Total Protein 6.5 (6.3-8.2) G/DL Albumin 3.9 (3.5-5.0) G/DL Globulin 2.6 (2.4-3.6) G/DL Albumin/Globulin Ratio 1.5 (1.1-2.2) RATIO Plasma Lactate 1.0 (0.6-2.2) MMOL/L Procalcitonin 0.44 NG/ML Specimen Hemolysis < 15 (0-25) Ur Collection Type Urine Color (YELLOW) Urine Clarity Urine pH (5.0-8.0) Ur Specific [place] (1.015-1.025) Urine Protein (NEGATIVE) Urine Glucose (UA) (NEGATIVE) Urine Ketones (NEGATIVE) Urine Occult Blood (NEGATIVE) Urine Nitrate (NEGATIVE) Urine Bilirubin (NEGATIVE) Urine Urobilinogen (NORMAL) EU/DL Ur Leukocyte Esterase (NEGATIVE) Urine RBC (0-3) /HPF Urine WBC (0-5) /HPF Ur Squamous Epith Cells Urine Bacteria (NEGATIVE) Ur Culture Indicated? 01/09/17 Range/Units 19:31 WBC (4.5-11.0) T/MM3 RBC (4.50-5.90) M/MM3 Hgb (13.5-17.5) GM/DL Hct (41-53) % MCV (80-100) UM3 MCH (26-34) UUG MCHC (31-37) GM/DL RDW Std Deviation (36.9-50.2) FL Plt Count (130-400) T/MM3 MPV (9.4-12.4) UM3 Immature Gran % (Auto) Neut % (Auto) Lymph % (Auto) [place] % (Auto) Eos % (Auto) Baso % (Auto) Neut # Lymph # [place] # Baso # Abs Immat Gran (auto) Neutrophils % (Manual) (33-66) % Lymphocytes % (Manual) (23-45) % Reactive Lymphs % (0-0) % Neutrophils # (Manual) (1.8-7.7) T/MM3 Lymphocytes # (Manual) (1-4.8) T/MM3 Abs React Lymphs (Man) (0-0) T/MM3 RBC Morph Comment Turbidity (0-20) Sodium (134-144) MEQ/L Potassium (3.6-5) MEQ/L Chloride (98-107) MEQ/L Carbon Dioxide (22-30) MEQ/L Anion Gap (5-15) MEQ/L BUN (9-20) MG/DL Creatinine (0.8-1.5) MG/DL GFR Calculation BUN/Creatinine Ratio (6-26) RATIO Glucose (75-110) MG/DL Calculated Osmolality (261-280) MOSM/KG Calcium (8.4-10.2) MG/DL Total Bilirubin (0.20-1.30) MG/DL Icterus Index (0-7) AST (17-59) U/L ALT (21-72) U/L Alkaline Phosphatase (38-126) U/L Troponin I (0-0.12) ng/ml Total Protein (6.3-8.2) G/DL Albumin (3.5-5.0) G/DL Globulin (2.4-3.6) G/DL Albumin/Globulin Ratio (1.1-2.2) RATIO Plasma Lactate (0.6-2.2) MMOL/L Procalcitonin NG/ML Specimen Hemolysis (0-25) Ur Collection Type Urine, catheter Urine Color Yellow (YELLOW) Urine Clarity Clear Urine pH 6.5 (5.0-8.0) Ur Specific [place] 1.015 (1.015-1.025) Urine Protein 1+ A (NEGATIVE) Urine Glucose (UA) Negative (NEGATIVE) Urine Ketones Negative (NEGATIVE) Urine Occult Blood Trace-intact (NEGATIVE) Urine Nitrate Negative (NEGATIVE) Urine Bilirubin Negative (NEGATIVE) Urine Urobilinogen 1.0 (NORMAL) EU/DL Ur Leukocyte Esterase Negative (NEGATIVE) Urine RBC 1-3 (0-3) /HPF Urine WBC None seen (0-5) /HPF Ur Squamous Epith Cells 0-5 Urine Bacteria Trace H (NEGATIVE) Ur Culture Indicated? Cult not indicated - Radiology Data CXR - similar to comparison exam. No acute processes. CT HEAD: No acute findings. - EKG Data EKG #1 EKG results narrative: Sinus rhythm with PVCs. No STEMI. 92 bpm. Disposition Clinical Impression: Dehydration UTI (urinary tract infection) Qualifiers: Urinary tract infection type: site unspecified Hematuria presence: without hematuria Qualified Code(s): N39.0 - Urinary tract infection, site not specified Prescriptions: No Action Nitroglycerin [Nitrostat] 0.4 mg SL Q5MIN PRN #0 PRN Reason: CHEST PAIN Atorvastatin Calcium 10 mg PO HS #0 Lactobacillus Combo No.10 [Probiotic] 1 cap PO DAILY #0 Acetaminophen 650 mg PO Q4H PRN PRN Reason: Pain ClonazePAM [Klonopin] 1 mg PO HS PredniSONE [Deltasone] 2 mg PO DAILY Cyanocobalamin (Vitamin B-12) [Vitamin B-12] 1,000 mcg PO DAILY DiltiaZEM CD [Cardizem Cd] 240 mg PO DAILY Cholecalciferol (Vitamin D3) [Vitamin D3] 1 cap PO DAILY Potassium Chloride ER Tab [K-Dur] 40 meq PO WB #0 Amiodarone HCl 200 mg PO DAILY #0 Ferrous Sulfate [Iron] 325 mg PO BID #0 Sertraline HCl [Zoloft] 100 mg PO DAILY #0 Aspirin [Aspirin EC] 81 mg PO DAILY #0 Famotidine 20 mg PO DAILY #0 Isosorbide Mononitrate [Isosorbide Mononitrate ER] 30 mg PO BID #0 Hydralazine HCl 25 mg PO QID #0 Guaifenesin/Dextromethorphan [Robitussin Cough-Chest Dm Liq] 1 - 2 tsp PO Q6- 12HR PRN PRN Reason: Cough buPROPion HCl [Bupropion Xl] 300 mg PO DAILY Hydrocodone/APAP 5/325 [[place] 5/325] 1 tab PO Q4H PRN PRN Reason: Pain Clopidogrel Bisulfate [Clopidogrel] 75 mg PO DAILY Referrals: Roger Bhagat MD [Family Provider] - Time of Disposition: 19:30 - Seen By: physician
[2017-01-09] MEDS: NS 500 ML IV SCH ×4 (20:23→22:34)
--- NOTE | 2017-01-09 20:24 | History & Physical Report ---
History of Present Illness Date: 01/09/17 Chief complaint: high blood pressure, n/v/fever HPI: Very pleasant 82-year-old white male brought to the emergency room with a number of issues. He lives in a custodial. Reportedly had a blood pressure 220/120 field. He's recently been finishing some amoxicillin for reported UTI. Emergency services reported that he had a temperature of 101 202. Upon evaluation in the emergency room he was 98 9. He received 2 nitroglycerin for his elevated blood pressure that brought it down to 190/92. Emergency room physician noted to me some flank bruising and a rash that appeared to be scarring over. In the emergency room he received 1 g of Rocephin. There was concern that this is undertreated urinary tract infection. He is also noted to be oxygen dependent. No reported history of increased cough, etc. Review of Systems - Integumentary/Breasts Integumentary: Absent: erythema, rash PFSH Patient Stated Medical History Cerebrovascular Accident Yes Dementia Yes Peripheral Neuropathy Yes Cardiac Arrhythmia Yes: AFIB Hypertension Yes Sleep Apnea Yes Gastroesophageal Reflux Yes Disease Hx Incontinence Yes Hx Renal Disease Yes: STAGE 3 Anemia Yes Clotting Problems Yes: ON PLAVIX Shingles Yes: FINISHED ACYCLOVIR Bipolar Disorder Yes Surgical History: Shoulder surgery, total knee replacement, pacemaker Family History: noncontributory based on age - Social History Smoking status: Former smoker Medications Home Medications Medication Instructions Recorded Confirmed Type Potassium Chloride ER Tab [K-Dur] 40 meq PO WB #0 11/17/14 01/09/17 History Nitroglycerin [Nitrostat] 0.4 mg SL Q5MIN PRN #0 01/27/15 01/09/17 History Amiodarone HCl 200 mg PO DAILY #0 09/16/15 01/09/17 History Atorvastatin Calcium 10 mg PO HS #0 09/16/15 01/09/17 History Ferrous Sulfate [Iron] 325 mg PO BID #0 09/16/15 01/09/17 History Sertraline HCl [Zoloft] 100 mg PO DAILY #0 10/09/15 01/09/17 History Aspirin [Aspirin EC] 81 mg PO DAILY #0 02/02/16 01/09/17 History Famotidine 20 mg PO DAILY #0 02/02/16 01/09/17 History Isosorbide Mononitrate [Isosorbide 30 mg PO BID #0 02/02/16 01/09/17 History Mononitrate ER] Lactobacillus Combo No.10 1 cap PO DAILY #0 05/07/16 01/09/17 History [Probiotic] Hydralazine HCl 25 mg PO QID #0 05/15/16 01/09/17 History Acetaminophen 650 mg PO Q4H PRN 01/09/17 01/09/17 History Cholecalciferol (Vitamin D3) 1 cap PO DAILY 01/09/17 01/09/17 History [Vitamin D3] ClonazePAM [Klonopin] 1 mg PO HS 01/09/17 01/09/17 History Clopidogrel Bisulfate [Clopidogrel] 75 mg PO DAILY 01/09/17 01/09/17 History Cyanocobalamin (Vitamin B-12) 1,000 mcg PO DAILY 01/09/17 01/09/17 History [Vitamin B-12] DiltiaZEM CD [Cardizem Cd] 240 mg PO DAILY 01/09/17 01/09/17 History Guaifenesin/Dextromethorphan 1 - 2 tsp PO Q6-12HR PRN 01/09/17 01/09/17 History [Robitussin Cough-Chest Dm Liq] Hydrocodone/APAP 5/325 [[place] 1 tab PO Q4H PRN 01/09/17 01/09/17 History 5/325] PredniSONE [Deltasone] 2 mg PO DAILY 01/09/17 01/09/17 History buPROPion HCl [Bupropion Xl] 300 mg PO DAILY 01/09/17 01/09/17 History Allergies Allergy/AdvReac Type Severity Reaction Status Date / Time No Known Allergies Allergy Unverified 11/05/16 03:18 Exam Vital Signs: Temp Pulse Resp BP Pulse Ox 98.9 F 92 24 190/92 H 92 01/09/17 18:04 01/09/17 19:30 01/09/17 18:04 01/09/17 19:30 01/09/17 19:30 Height: 1.8 m Weight: 99.79 kg Results - Labs CBC & Chem 7: 01/09/17 18:43 01/09/17 18:43 Assessment and Plan (1) HTN (hypertension) Current visit: Yes Status: Acute blood pressure quite elevated, received nitroglycerin en route, apparently is on amiodarone, 01/09/17 20:31 (2) Sepsis Current visit: Yes Status: Acute suspected related to under untreated urinary tract infection. was reportedly previously on amoxicillin. he received rocephin in the emergency room. we'll attempt to get culture results from custodial. no iv fluids at this time with his blood pressure markedly elevated. does not have any indicators for severe sepsis at this time. 01/09/17 20:32 01/09/17 20:33 (3) UTI (urinary tract infection) Current visit: Yes Status: Acute 01/09/17 20:33 as noted above, rocephin 1 g given in the emergency room around 1900 within 1 hour of present. (4) Atrial fibrillation Current visit: Yes Status: Acute 01/09/17 20:33 amiodarone is on his medicine list, he is not on anticoagulants for whatever reason. we'll need to investigate. (5) CKD stage G3b/A1, 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 mg/g Current visit: Yes Status: Acute Sepsis Assessment - Focused Exam Vital Signs Temp Pulse Resp BP Pulse Ox 01/09/17 19:30 92 190/92 H 92 01/09/17 19:23 80 96 01/09/17 19:15 125/88 96 01/09/17 18:04 98.9 F 97 24 220/119 H 89 L Hospital Course Summary Disclaimer: The visit summary below is not to be considered part of the above Progress Note.
[2017-01-09] MEDS ORDERED: ONDANSETRON 4 MG/2 ML INJECTION IVP PRN (21:49)
[2017-01-09] MEDS ORDERED: SALINE FLUSH 10ml SYRINGE IVF PRN (21:49)
[2017-01-09] MEDS ORDERED: ACETAMINOPHEN 325 MG TABLET PO PRN (21:54)
[2017-01-09] MEDS ORDERED: NITROGLYCERIN 0.4 MG SUBLINGUAL TABLET SL PRN (21:54)
[2017-01-09] MEDS ORDERED: LEVOFLOXACIN PREMIX 750 MG/150 ML BAG IV SCH (22:00)
[2017-01-09] MEDS: ClonazePAM 1 MG TABLET PO SCH (22:17)
[2017-01-09] MEDS: HYDROCODONE/APAP 5mg/325mg TABLET PO PRN (22:17)
[2017-01-09] MEDS: ISOSORBIDE MONONITRATE ER 30 MG TABLET PO SCH (22:23)
[2017-01-09] MEDS: HYDRALAZINE 25 MG TABLET PO SCH (22:23)
[2017-01-09] MEDS: ATORVASTATIN 10 MG TABLET PO SCH (22:24)
[2017-01-10] MEDS: NS 500 ML IV SCH (01:02)
[2017-01-10] MEDS ORDERED: Pharmacy Consult for Fall Risk MC PRN (01:37)
[2017-01-10] MEDS: HYDROCODONE/APAP 5mg/325mg TABLET PO PRN (03:21)
[2017-01-10] MEDS ORDERED: HYDROMORPHONE 2 MG/ML INJECTION IVP PRN (03:37)
[2017-01-10] MEDS ORDERED: ACETAMINOPHEN 650 MG SUPPOSITORY PR PRN (04:16)
[2017-01-10] MEDS: HYDROMORPHONE 2 MG/ML INJECTION IVP PRN ×4 (05:31→20:07)
--- NOTE | 2017-01-10 08:19 | XRay Report ---
Indication: cough PROCEDURE: XR chest 1V: Encounter: Initial Comparison: May 05, 2016 Findings: The lungs are stable in appearance without new focal airspace consolidation. There is no pleural effusion or pneumothorax. The heart size, pulmonary vascularity and mediastinal contours are unchanged. Left pacemaker. Shoulder replacements. Cervical and thoracolumbar spinal hardware. IMPRESSION: Stable appearance of the chest without acute cardiopulmonary disease. .
--- NOTE | 2017-01-10 08:30 | CT Scan Report ---
Indication: confusion PROCEDURE: CT head/brain wo con: Encounter: Initial Comparison: October 28, 2016 Technique: Axial CT images through the head were performed without contrast. Iterative Reconstruction dose reducing technique was utilized. FINDINGS: Moderate to severe atrophy. The ventricles are unchanged. There are scattered areas of low attenuation in the white matter which most likely represent changes from chronic microvascular ischemia. The brainstem, cerebellum, and cerebral hemispheres otherwise have a normal morphology and CT attenuation. There is no evidence of midline displacement. No hemorrhage, signs of acute territorial stroke, mass effect, mass lesions, or edema is evident. The visualized portions of the skull base, midface, and calvarium demonstrate no abnormality. The paranasal sinuses are well aerated and free of significant disease. The tympanic and mastoid cavities appear normal. IMPRESSION: No acute intracranial abnormality or hemorrhage. Stable head CT. There is a preliminary report by virtual radiologic. .
[2017-01-10] MEDS ORDERED: NON-FORMULARY MEDICATION 1 EACH EACH (Ferrous Sulfate [Iron] 325 MG) PO SCH (09:00)
[2017-01-10] MEDS ORDERED: NON-FORMULARY MEDICATION 1 EACH EACH (Cyanocobalamin (Vitamin B-12) [Vitamin B-12] 1,000 M PO SCH (09:00)
[2017-01-10] MEDS ORDERED: LACTOBACILLUS COMBO NO 10 PO SCH (09:00)
[2017-01-10] MEDS: HYDRALAZINE 25 MG TABLET PO SCH ×4 (10:21→20:54)
[2017-01-10] MEDS: CLOPIDOGREL 75 MG TABLET PO SCH (10:21)
[2017-01-10] MEDS: ISOSORBIDE MONONITRATE ER 30 MG TABLET PO SCH ×2 (10:22→20:55)
[2017-01-10] MEDS: AMIODARONE 200 MG TABLET PO SCH (10:22)
[2017-01-10] MEDS: ASPIRIN *EC* 81 MG TABLET PO SCH (10:22)
[2017-01-10] MEDS: FAMOTIDINE 20 MG TABLET PO SCH (10:22)
[2017-01-10] MEDS: ENOXAPARIN 40 MG/0.4 ML INJECTION SQ SCH (10:23)
[2017-01-10] MEDS: SERTRALINE 100 MG TABLET PO SCH (10:26)
[2017-01-10] MEDS: BuPROPion XL 300mg (24HR) TABLET PO SCH (12:27)
[2017-01-10] MEDS: ATORVASTATIN 10 MG TABLET PO SCH (20:54)
[2017-01-10] MEDS: ClonazePAM 1 MG TABLET PO SCH (20:55)
[2017-01-11] MEDS ORDERED: HALOPERIDOL 5 MG/ML INJECTION IVP ONE (00:57)
[2017-01-11] MEDS: HYDROMORPHONE 2 MG/ML INJECTION IVP PRN (01:24)
[2017-01-11] MEDS: HYDROCODONE/APAP 5mg/325mg TABLET PO PRN (05:04)
[2017-01-11] MEDS: ATORVASTATIN 10 MG TABLET PO SCH (07:47)
[2017-01-11] MEDS: ClonazePAM 1 MG TABLET PO SCH (07:48)
[2017-01-11] MEDS: SERTRALINE 100 MG TABLET PO SCH (09:22)
[2017-01-11] MEDS: AMIODARONE 200 MG TABLET PO SCH (09:22)
[2017-01-11] MEDS: CLOPIDOGREL 75 MG TABLET PO SCH (09:23)
[2017-01-11] MEDS: BuPROPion XL 300mg (24HR) TABLET PO SCH (09:23)
[2017-01-11] MEDS: ASPIRIN *EC* 81 MG TABLET PO SCH (09:23)
[2017-01-11] MEDS: HYDRALAZINE 25 MG TABLET PO SCH (09:24)
[2017-01-11] MEDS: ISOSORBIDE MONONITRATE ER 30 MG TABLET PO SCH (09:24)
[2017-01-11] MEDS: FAMOTIDINE 20 MG TABLET PO SCH (09:24)
[2017-01-11] MEDS: ENOXAPARIN 40 MG/0.4 ML INJECTION SQ SCH (09:35)
--- NOTE | 2017-01-11 10:58 | Discharge Summary ---
Addendum entered and electronically signed by Irais Hunt, PAPER FOLDING MACHINE OPERATOR 01/11/17 12: 15: Saturations decreased to 87% on room air, but on 1L he was maintaining 93%. Will dc with orders to continue daytime oxygen to keep sats at 90% or greater. 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 Paranasal sinuses are well aerated and free of significant disease. History of Present Illness HPI: Very pleasant 82-year-old white male brought to the emergency room with a number of issues. He lives in a fdc. Reportedly had a blood pressure 220/120 field. He's recently been finishing some amoxicillin for reported UTI. Emergency services reported that he had a temperature of 101-102. Upon evaluation in the emergency room he was 98.9. He received 2 nitroglycerin for his elevated blood pressure that brought it down to 190/92. Emergency room physician noted to me some flank bruising and a rash that appeared to be scarring over. In the emergency room he received 1 g of Rocephin. There was concern that this is undertreated urinary tract infection. He is also noted to be oxygen dependent. No reported history of increased cough, etc. Hospital Course Hospital course: Mr. Kyle was admitted on 01/09/17 with concerns for sepsis. Initially he was started on Rocephin but this was later changed to Levaquin. Upon further evaluation, both UA and CXR were negative for acute infection. No other obvious source of infection was identified. He remained afebrile with a normal WBC. He continued to do well and was ready for discharge by 01/11/17. His only complaint was feeling "plugged up" but head CT did not demonstrate sinus disease. His oxygen flow rate had been 4L but was reduced to 2L on 01/11/17. His lung sounds were diminished in the bases but otherwise clear. Heart was RRR and he did not have significant pedal edema. Zoster-like rash persists on back. Abdomen was benign and he tolerated oral intake. He did have some problems with restlessness and agitation, and received Haldol early in the morning of . He was discharged back to [facility] in stable condition. Discharge instructions were provided via nursing staff - with pt's advanced dementia his ability to comprehend instructions is limited. This is a general summation of the patient's hospital course. For more details, please refer to the entire medical record. Time spent in discharge: 35 min. Discharge Plan - Med Rec/Dispo Referrals/Follow Up: Roger Bhagat MD [Family Provider] - 1 Week (Hospital follow up with Dr. Bhagat within 1 week) [place] Instructions: Fever in Adults (GEN) Additional Instructions: Continue CPAP at night with 5L of oxygen Oxygen as needed to maintain sats >90% Prescriptions: New Sodium Chloride [[place]] 1 - 2 drop NS Q2H PRN #1 bottle PRN Reason: Nasal Congestion Continue Nitroglycerin [Nitrostat] 0.4 mg SL Q5MIN PRN #0 PRN Reason: CHEST PAIN Atorvastatin Calcium 10 mg PO HS #0 Lactobacillus Combo No.10 [Probiotic] 1 cap PO DAILY #0 Acetaminophen 650 mg PO Q4H PRN PRN Reason: Pain PredniSONE [Deltasone] 2 mg PO DAILY Cyanocobalamin (Vitamin B-12) [Vitamin B-12] 1,000 mcg PO DAILY DiltiaZEM CD [Cardizem Cd] 240 mg PO DAILY Cholecalciferol (Vitamin D3) [Vitamin D3] 1 cap PO DAILY Hydrocodone/APAP 5/325 [Wall 5/325] 1 tab PO Q4H PRN #20 PRN Reason: Pain Potassium Chloride ER Tab [K-Dur] 40 meq PO WB #0 Amiodarone HCl 200 mg PO DAILY #0 Ferrous Sulfate [Iron] 325 mg PO BID #0 Sertraline HCl [Zoloft] 100 mg PO DAILY #0 Aspirin [Aspirin EC] 81 mg PO DAILY #0 Famotidine 20 mg PO DAILY #0 Isosorbide Mononitrate [Isosorbide Mononitrate ER] 30 mg PO BID #0 Hydralazine HCl 25 mg PO QID #0 Guaifenesin/Dextromethorphan [Robitussin Cough-Chest Dm Liq] 1 - 2 tsp PO Q6- 12HR PRN PRN Reason: Cough buPROPion HCl [Bupropion Xl] 300 mg PO DAILY Clopidogrel Bisulfate [Clopidogrel] 75 mg PO DAILY ClonazePAM [Klonopin] 1 mg PO #15 - Disposition 04 To [facility] Home/Facility <Lily Ibrahim - Last Filed: 01/12/17 11:27> Discharge Information Date of admission: 01/09/17 20:40 Attending Physician: Lily Ibrahim MD Primary care physician: Roger Bhagat MD - Discharge Diagnosis (1) HTN (hypertension) Status: Chronic (2) Sepsis Status: Ruled-out (3) UTI (urinary tract infection) Status: Ruled-out (4) Atrial fibrillation Status: Chronic (5) CKD stage G3b/A1, 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 Further work up did not reveal any source of infection and pt stayed stable the next day so pt was discharged back to facility.
--- NOTE | 2017-01-11 11:28 | Extended Care Facility Orders ---
Admission Orders Admit to:: ICF Allergies/Adverse Reactions: Allergies No Known Allergies Allergy (Verified 01/10/17 02:01) Admitting Diagnosis: fever, vomiting - resolved dementia HTN DURAN Admitting Physician: Lily Ibrahim MD Attending Physician: Lily Ibrahim MD Code Status: DNR Anticiapted Length of Stay: 30 days or less Rehab Potential: fair Rehab Prognosis: fair Diet: Regular Diet [DIET] Wound/Incision Care: Monitor rash on back May use Facility Protocol or Standing Orders: Yes May have flu vaccine: Yes Evaluations/Treatment: as needed Intermediate Certification: I certify that SNF services are required to be given on an Inpatient basis because of the patient's need for halfway care on a continuing basis for the condition(s) for which he received inpatient hospital services prior to his transfer to the SNF. SNF inpatient care is necessary for the following reasons Indication for Intermediate: Not Applicable - Additional Information In Event of Arrest: Do Not Start CPR Resident is Aware of Diagnosis: No (limited by dementia) Referrals: Roger Bhagat MD [Family Provider] - 1 Week (Hospital follow up with Dr. Bhagat within 1 week) Additional Orders: Oxygen as needed during the day to maintain sats >90%. Continue CPAP with 5L of oxygen at night. monitor weight 2x/week
== END 2017-01-11 14:54 | DRG 684 ==
LOC: ED 17:58 → MED 20:40
PROVIDERS: ADMIT Pediatrics; ATTEND Internal Medicine

== ENCOUNTER 2017-01-13 04:49 | Inpatient (IN) ==
[2017-01-13] MEDS ORDERED: ACETAMINOPHEN 500 MG TABLET PO ONE (05:00)
--- NOTE | 2017-01-13 05:03 | Emergency Department Report ---
General Adult HPI - General Stated complaint: pain all over <Sameer James - 01/13/17 09:24> Time Seen by Provider: 01/13/17 04:51 <Sameer James - 01/13/17 09:24> Source: patient, EMS <Porter Bray - 01/13/17 05:06> Limitations: no limitations <Porter Bray - 01/13/17 05:06> - History of Present Illness HPI narrative: Vision is sent from [facility], no nursing report was given. Apparently the patient was heard moaning and groaning in bed, which is not uncommon for him, but due to the patient's perceived decreased level of consciousness or alertness at this hour of the morning the patient was transferred for evaluation of elevated blood pressure and "decreased level of alertness." Patient has no new complaints according to his personal history, states that he hurts everywhere. Patient was seen 3 days ago through the ER for the same complaints, admitted for possible urosepsis, but ruled out. Patient was at that time reported to have a fever, but no fever was found in the ER or during hospitalization. In addition after the patient was watched and evaluated for several days, his blood pressure and all symptoms normalized and patient was dismissed home. Patient does have significant dementia, chronic pain with no certain cause, and hypertension. <Porter Bray - 01/13/17 05:06> - Related Data Home Medications Medication Instructions Recorded Confirmed Potassium Chloride ER Tab [K-Dur] 40 meq PO WB #0 11/17/14 01/09/17 Nitroglycerin [Nitrostat] 0.4 mg SL Q5MIN PRN #0 01/27/15 01/09/17 Amiodarone HCl 200 mg PO DAILY #0 09/16/15 01/09/17 Atorvastatin Calcium 10 mg PO HS #0 09/16/15 01/09/17 Ferrous Sulfate [Iron] 325 mg PO BID #0 09/16/15 01/09/17 Sertraline HCl [Zoloft] 100 mg PO DAILY #0 10/09/15 01/09/17 Aspirin [Aspirin EC] 81 mg PO DAILY #0 02/02/16 01/09/17 Famotidine 20 mg PO DAILY #0 02/02/16 01/09/17 Isosorbide Mononitrate [Isosorbide 30 mg PO BID #0 02/02/16 01/09/17 Mononitrate ER] Lactobacillus Combo No.10 1 cap PO DAILY #0 05/07/16 01/09/17 [Probiotic] Hydralazine HCl 25 mg PO QID #0 05/15/16 01/09/17 Acetaminophen 650 mg PO Q4H PRN 01/09/17 01/09/17 Cholecalciferol (Vitamin D3) 1 cap PO DAILY 01/09/17 01/09/17 [Vitamin D3] Clopidogrel Bisulfate [Clopidogrel] 75 mg PO DAILY 01/09/17 01/09/17 Cyanocobalamin (Vitamin B-12) 1,000 mcg PO DAILY 01/09/17 01/09/17 [Vitamin B-12] DiltiaZEM CD [Cardizem Cd] 240 mg PO DAILY 01/09/17 01/09/17 Guaifenesin/Dextromethorphan 1 - 2 tsp PO Q6-12HR PRN 01/09/17 01/09/17 [Robitussin Cough-Chest Dm Liq] PredniSONE [Deltasone] 2 mg PO DAILY 01/09/17 01/09/17 buPROPion HCl [Bupropion Xl] 300 mg PO DAILY 01/09/17 01/09/17 Previous Rx's Medication Instructions Recorded ClonazePAM [Klonopin] 1 mg PO HS #15 01/11/17 Hydrocodone/APAP 5/325 [Charmco 1 tab PO Q4H PRN #20 01/11/17 5/325] Sodium Chloride [[place]] 1 - 2 drop NS Q2H PRN #1 bottle 01/11/17 <Sameer James - 01/13/17 09:24> Allergies Allergy/AdvReac Type Severity Reaction Status Date / Time No Known Allergies Allergy Verified 01/10/17 02:01 <Sameer James - 01/13/17 09:24> Review of Systems All systems: reviewed and negative except as stated <Porter Bray - 05:06> [facility] Patient Stated Medical History Cerebrovascular Accident Yes: 2005 Dementia Yes Peripheral Neuropathy Yes Cataracts Yes Cardiac Arrhythmia Yes: AFIB Coronary Artery Disease Yes Hypertension Yes Pneumonia Yes Sleep Apnea Yes Gastroesophageal Reflux Yes Disease Gastrointestinal Bleeding Yes Ulcer Yes Other GI Yes: Constipation at times. Hx Incontinence Yes Hx Kidney Stones Yes Hx Renal Disease Yes: STAGE 3 Anemia Yes Clotting Problems Yes: ON PLAVIX MRSA Yes: Nasal Shingles Yes: FINISHED ACYCLOVIR Bipolar Disorder Yes <Sameer James 01/13/17 09:24> Surgical History: Shoulder surgery, total knee replacement, pacemaker [facility]> - Social History Current [facility]: Group Home [facility] 01/13/17 05:06> Physical Exam - Limitations Limitations: altered mental status (dementia, but patient is alert and directable) <[facility] 01/13/17 05:06> - General General appearance: alert (alert but confused), lethargic <[facility] 01/13/17 05:06> - Normal Exams: Head:: Normocephalic without trauma <[facility] 01/13/17 05:06> Eyes:: Pupils are PERRLA w/ EOMI, No scleral icterus, irritation, or foreign bodies noted <Bray,[facility] 01/13/17 05:06> ENMT:: No facial trauma, nasal exudates, pharyngeal erythema, or exudates are noted [facility] 05:06> Neck:: Full range of motion, without adenopathy, JVD, bruits or thyromegaly < Bray,[facility] 01/13/17 05:06> Chest/Respirations:: Clear all ramirez, with good airflow, and symmetry bilaterally <[facility] 01/13/17 05:06> Cardiovascular:: Regular rate and rhythm, without murmur or gallop, Pulses 2+ all extremities, capillary refill, <2 seconds all extremities <Bray,[facility] 01/13/17 05:06> Lymphatic:: No lymphadenopathy, or lymphedema noted <Bray,[facility] 05:06> Musculoskeletal:: No tenderness, or deformity noted, good range of motion, all extremities <Bray,[facility] 01/13/17 05:06> Integumentary:: No rashes, hives, or bruising noted, hair and nails, without abnormality <KatarinaPorter - 01/13/17 05:06> Neurological:: Patient is alert, and oriented, cranial nerves, motor/sensory/ cerebellar, exams w/o gross deficits, to observation <KatarinaPorter - 01/13 05:06> Psychiatric:: Patient exhibits, appropriate attention, emotion and affect < KatarinaPorter Richardson - 01/13/17 05:06> - Abdominal Exam Abdominal exam: Present: soft, tenderness (moderate diffuse tenderness,), hypoactive bowel sounds. Absent: Hussein's sign, Rovsing's sign, tenderness at [place] <[facility]inaPorter [facility] 01/13/17 05:06> Course Vital Signs Temperature 97.8 F 01/13/17 05:00 Pulse Rate 87 01/13/17 05:00 Respiratory Rate 20 01/13/17 05:00 Blood Pressure 185/90 H 01/13/17 05:00 Pulse Oximetry 95 01/13/17 05:00 Temperature 97.8 F 01/13/17 05:00 Pulse Rate 87 01/13/17 05:00 Respiratory Rate 22 01/13/17 05:00 Blood Pressure 185/90 H 01/13/17 05:00 Pulse Oximetry 95 01/13/17 05:00 <Sameer James E - 01/13/17 09:24> Vital Signs Temperature 97.8 F 01/13/17 05:00 Pulse Rate 87 01/13/17 05:00 Respiratory Rate 20 01/13/17 05:00 Blood Pressure 185/90 H 01/13/17 05:00 Pulse Oximetry 95 01/13/17 05:00 Temperature 97.8 F 01/13/17 05:00 Pulse Rate 87 01/13/17 05:00 Respiratory Rate 22 01/13/17 05:00 Blood Pressure 185/90 H 01/13/17 05:00 Pulse Oximetry 95 01/13/17 05:00 <KatarinaPorter Debra - 01/13/17 05:43> Medical Decision Making - [facility] Narrative Medical decision making narrative: Dr. James assumed care at 0600. CT was pending and returned showing distended gallbladder with large stone in gallbladder neck possibly some wall thickening concerning for cholecystitis. Ultrasound of gallbladder was then obtained which showed cholecystitis with stones and thickened wall. I spoke with Dr. Veloz who accepted the patient, recommending Invanz as an antibiotic to be given now by IV, and requested P2 Y 12 test for Pl[address] activity. Dr. Ibrahim was consulted from the hospitalist, and also graciously accepted the admission. He is familiar with the patient from recent admission, and will address patient's complex medical history. At time of transfer patient was stable. <Sameer James - 01/13/17 09:24> Acute abdominal series with chest x-ray - CBC - n CMP/L - n except mild liver enzyme elevation, mild elevated be when UA - pending Patient given Tylenol 1000 mg by mouth and Zofran 4 mg IV- to relief KUB/abdominal series inconclusive with questionable free air, small bowel obstruction. CT scan of the abdomen is ordered Past doctor none at [address] <Porter Bray - 01/13/17 06:11> - Lab Data Result diagrams: 01/13/17 04:57 01/13/17 04:57 <Sameer James - 01/13/17 09:24> Lab Results 01/13/17 01/13/17 01/13/17 Range/Units 04:57 04:57 08:41 WBC 4.8 (4.5-11.0) T/MM3 RBC 3.75 L (4.50-5.90) M/MM3 Hgb 11.4 L (13.5-17.5) GM/DL Hct 34.5 L (41-53) % MCV 92.0 (80-100) UM3 MCH 30.4 (26-34) UUG MCHC 33.0 (31-37) GM/DL RDW Std Deviation 48.3 (36.9-50.2) FL Plt Count 100 L (130-400) T/MM3 MPV 10.5 (9.4-12.4) UM3 Immature Gran % (Auto) 0.4 (0.0-0.5) % Neut % (Auto) 83.8 H (33-66) % Lymph % (Auto) 5.0 L (23-45) % [place] % (Auto) 10.0 H (0-9.0) % Eos % (Auto) 0.6 (0-4) % Baso % (Auto) 0.2 (0-2) % Neut # 4.0 (1.8-7.7) T/MM3 Lymph # 0.2 L (1-4.8) T/MM3 [place] # 0.5 (0-0.8) T/MM3 Eos # 0.0 (0-0.5) T/MM3 Baso # 0.0 (0-0.2) T/MM3 Abs Immat Gran (auto) 0.02 (0.00-0.03) T/MM3 Turbidity < 20 (0-20) Sodium 140 (134-144) MEQ/L Potassium 4.0 (3.6-5) MEQ/L Chloride 101 (98-107) MEQ/L Carbon Dioxide 27 (22-30) MEQ/L Anion Gap 12 (5-15) MEQ/L BUN 34.0 H (9-20) MG/DL Creatinine 1.6 H D (0.8-1.5) MG/DL GFR Calculation 41 BUN/Creatinine Ratio 21 (6-26) RATIO Glucose 96 (75-110) MG/DL Calculated Osmolality 277 (261-280) MOSM/KG Calcium 9.4 (8.4-10.2) MG/DL Total Bilirubin 1.10 (0.20-1.30) MG/DL Conjugated Bilirubin 0.00 (0.00-0.30) MG/DL Unconjugated Bilirubin 0.50 (0.00-11.10) MG/DL Icterus Index < 2 (0-7) AST 176 H (17-59) U/L ALT 174 H (21-72) U/L Alkaline Phosphatase 132 H (38-126) U/L Total Protein 6.2 L (6.3-8.2) G/DL Albumin 3.5 (3.5-5.0) G/DL Globulin 2.7 (2.4-3.6) G/DL Albumin/Globulin Ratio 1.3 (1.1-2.2) RATIO Lipase 35 (23-300) U/L Specimen Hemolysis 20 (0-25) Ur Collection Type Urine, catheter Urine Color Yellow (YELLOW) Urine Clarity Clear Urine pH 5.0 (5.0-8.0) Ur Specific [place] 1.010 L (1.015-1.025) Urine Protein 1+ A (NEGATIVE) Urine Glucose (UA) Negative (NEGATIVE) Urine Ketones Negative (NEGATIVE) Urine Occult Blood Trace-intact (NEGATIVE) Urine Nitrate Negative (NEGATIVE) Urine Bilirubin Negative (NEGATIVE) Urine Urobilinogen 1.0 (NORMAL) EU/DL Ur Leukocyte Esterase Negative (NEGATIVE) Urine RBC 0-1 (0-3) /HPF Urine WBC 0-1 (0-5) /HPF Urine WBC Clumps Few Ur Squamous Epith Cells None seen Urine Bacteria Trace H (NEGATIVE) Hyaline Casts 0-1 /LPF Urine Mucus Present Ur Culture Indicated? Cult not indicated <Sameer James - 01/13/17 09:24> Lab Results 01/13/17 01/13/17 01/13/17 Range/Units 04:57 04:57 08:41 WBC 4.8 (4.5-11.0) T/MM3 RBC 3.75 L (4.50-5.90) M/MM3 Hgb 11.4 L (13.5-17.5) GM/DL Hct 34.5 L (41-53) % MCV 92.0 (80-100) UM3 MCH 30.4 (26-34) UUG MCHC 33.0 (31-37) GM/DL RDW Std Deviation 48.3 (36.9-50.2) FL Plt Count 100 L (130-400) T/MM3 MPV 10.5 (9.4-12.4) UM3 Immature Gran % (Auto) 0.4 (0.0-0.5) % Neut % (Auto) 83.8 H (33-66) % Lymph % (Auto) 5.0 L (23-45) % [place] % (Auto) 10.0 H (0-9.0) % Eos % (Auto) 0.6 (0-4) % Baso % (Auto) 0.2 (0-2) % Neut # 4.0 (1.8-7.7) T/MM3 Lymph # 0.2 L (1-4.8) T/MM3 [place] # 0.5 (0-0.8) T/MM3 Eos # 0.0 (0-0.5) T/MM3 Baso # 0.0 (0-0.2) T/MM3 Abs Immat Gran (auto) 0.02 (0.00-0.03) T/MM3 Turbidity < 20 (0-20) Sodium 140 (134-144) MEQ/L Potassium 4.0 (3.6-5) MEQ/L Chloride 101 (98-107) MEQ/L Carbon Dioxide 27 (22-30) MEQ/L Anion Gap 12 (5-15) MEQ/L BUN 34.0 H (9-20) MG/DL Creatinine 1.6 H D (0.8-1.5) MG/DL GFR Calculation 41 BUN/Creatinine Ratio 21 (6-26) RATIO Glucose 96 (75-110) MG/DL Calculated Osmolality 277 (261-280) MOSM/KG Calcium 9.4 (8.4-10.2) MG/DL Total Bilirubin 1.10 (0.20-1.30) MG/DL Conjugated Bilirubin 0.00 (0.00-0.30) MG/DL Unconjugated Bilirubin 0.50 (0.00-11.10) MG/DL Icterus Index < 2 (0-7) AST 176 H (17-59) U/L ALT 174 H (21-72) U/L Alkaline Phosphatase 132 H (38-126) U/L Total Protein 6.2 L (6.3-8.2) G/DL Albumin 3.5 (3.5-5.0) G/DL Globulin 2.7 (2.4-3.6) G/DL Albumin/Globulin Ratio 1.3 (1.1-2.2) RATIO Lipase 35 (23-300) U/L Specimen Hemolysis 20 (0-25) Ur Collection Type Urine, catheter Urine Color Yellow (YELLOW) Urine Clarity Clear Urine pH 5.0 (5.0-8.0) Ur Specific [place] 1.010 L (1.015-1.025) Urine Protein 1+ A (NEGATIVE) Urine Glucose (UA) Negative (NEGATIVE) Urine Ketones Negative (NEGATIVE) Urine Occult Blood Trace-intact (NEGATIVE) Urine Nitrate Negative (NEGATIVE) Urine Bilirubin Negative (NEGATIVE) Urine Urobilinogen 1.0 (NORMAL) EU/DL Ur Leukocyte Esterase Negative (NEGATIVE) Urine RBC 0-1 (0-3) /HPF Urine WBC 0-1 (0-5) /HPF Urine WBC Clumps Few Ur Squamous Epith Cells None seen Urine Bacteria Trace H (NEGATIVE) Hyaline Casts 0-1 /LPF Urine Mucus Present Ur Culture Indicated? Cult not indicated <Porter Bray H - 01/13/17 05:43> Disposition Clinical Impression: Cholelithiasis and acute cholecystitis with obstruction <Sameer James - 01/13/17 09:24> Disposition: 02 To [facility] <Sameer James 01/13/17 09:24> Condition: Improved <Sameer James 01/13/17 09:24> Instructions: <Sameer James - 01/13/17 09:24> Prescriptions: No Action Nitroglycerin [Nitrostat] 0.4 mg SL Q5MIN PRN #0 PRN Reason: CHEST PAIN Atorvastatin Calcium 10 mg PO HS #0 Lactobacillus Combo No.10 [Probiotic] 1 cap PO DAILY #0 Acetaminophen 650 mg PO Q4H PRN PRN Reason: Pain PredniSONE [Deltasone] 2 mg PO DAILY Cyanocobalamin (Vitamin B-12) [Vitamin B-12] 1,000 mcg PO DAILY DiltiaZEM CD [Cardizem Cd] 240 mg PO DAILY Cholecalciferol (Vitamin D3) [Vitamin D3] 1 cap PO DAILY Hydrocodone/APAP 5/325 [Charmco 5/325] 1 tab PO Q4H PRN #20 PRN Reason: Pain Potassium Chloride ER Tab [K-Dur] 40 meq PO WB #0 Amiodarone HCl 200 mg PO DAILY #0 Ferrous Sulfate [Iron] 325 mg PO BID #0 Sertraline HCl [Zoloft] 100 mg PO DAILY #0 Aspirin [Aspirin EC] 81 mg PO DAILY #0 Famotidine 20 mg PO DAILY #0 Isosorbide Mononitrate [Isosorbide Mononitrate ER] 30 mg PO BID #0 Hydralazine HCl 25 mg PO QID #0 Guaifenesin/Dextromethorphan [Robitussin Cough-Chest Dm Liq] 1 - 2 tsp PO Q6- 12HR PRN PRN Reason: Cough buPROPion HCl [Bupropion Xl] 300 mg PO DAILY Clopidogrel Bisulfate [Clopidogrel] 75 mg PO DAILY ClonazePAM [Klonopin] 1 mg PO HS #15 Sodium Chloride [Mcnab] 1 - 2 drop NS Q2H PRN #1 bottle PRN Reason: Nasal Congestion <Sameer James 01/13/17 09:24> Referrals: Roger Bhagat MD [Family Provider] - <Sameer James 09:24> Forms: <Sameer James - 01/13/17 09:24> Time of Disposition: 09:23 <Sameer James - 01/13/17 09:24> - Seen By: physician <Sameer James - 01/13/17 09:24>
[2017-01-13] MEDS ORDERED: ONDANSETRON 4 MG/2 ML INJECTION IVP ONE (05:05)
[2017-01-13] MEDS ORDERED: NS 1,000 ML IV ONE (05:37)
[2017-01-13] MEDS ORDERED: NS 100 ML ONE (06:15)
[2017-01-13] MEDS ORDERED: SALINE FLUSH 10ml SYRINGE ONE (06:15)
[2017-01-13] MEDS ORDERED: IODIXANOL 320mg/ml 100ml INJECTION IV ONE (06:15)
[2017-01-13] MEDS: SALINE FLUSH 10ml SYRINGE IVF PRN ×2 (06:44→13:50)
--- NOTE | 2017-01-13 07:56 | CT Scan Report ---
Indication: ?? Small bowel obstruction/free abdominal air, abd Pain PROCEDURE: CT abdomen pelvis w con: Encounter: Initial Comparison: CT abdomen and pelvis April 19, 2016 Technique: Axial CT images were performed through the abdomen and pelvis after the administration of intravenous contrast. Coronal and sagittal two-dimensional reformats. Automated Exposure Control and Iterative Reconstruction dose reducing techniques were utilized. Contrast: Visipaque 320 100 mL Findings: Mild atelectasis in the lung bases. Heart is enlarged. Cardiac pacemaker. The liver is grossly unremarkable. Small nodule adjacent to the posterior right lobe of the liver is again seen and unchanged. Gallbladder is distended with a large lamellated gallstone present and some mild gallbladder wall thickening. The spleen is unremarkable. The pancreas, adrenal glands and kidneys are stable with multiple irregular left-sided renal cysts and prominent bilateral renal stones. No evidence of obstructing stone. Bladder is normal. Prostate and rectum are unremarkable. No evidence of bowel obstruction or free air. Bone windows show no acute findings. Degenerative and postoperative changes in the lumbar spine. Impression: Distended gallbladder with possible wall thickening and a large chronic lamellated gallstone could represent acute cholecystitis in the appropriate clinical setting. Further evaluation with gallbladder ultrasound may be helpful. There is a preliminary report by [facility]. .
--- NOTE | 2017-01-13 07:58 | XRay Report ---
Indication: diffuse abdominal pain, hypoxemia, confusion PROCEDURE: PA view of the chest with supine and upright AP views of the abdomen Encounter: Initial Comparison: CT abdomen and pelvis from the same date FINDINGS: Mild bibasilar atelectasis and hypoinflation. No gross pleural effusion or pneumothorax. The heart size, pulmonary vasculature and mediastinum are stable with an enlarged cardiac silhouette and left cardiac pacemaker. Mediastinal contours are widened but unchanged. Pulmonary vascularity is stable. Bilateral shoulder replacements and cervical spine hardware. There is no free air on the upright view. The bowel gas pattern is nonobstructive and nonspecific. Gas is seen in nondilated small and large bowel to the level of the rectum. Moderate stool is seen throughout the colon. Thoracolumbar spinal fusion. IMPRESSION: 1. Lower lobe atelectasis without focal pneumonia. 2. No evidence of acute obstruction or free air. .
--- NOTE | 2017-01-13 08:15 | Ultrasound Report ---
Indication: Abdominal pain, abnormal gallbladder on CT PROCEDURE: US gall bladder: Encounter: Initial Comparison: Abdominal CT from earlier today Technique: Grayscale and color Doppler sonographic imaging of the right upper quadrant of the abdomen was performed. Findings: Hepatic parenchyma is homogeneous without evidence for focal mass. The gallbladder is abnormal with wall thickening up to 7 mm and a large shadowing gallstone present. Both the intra and extrahepatic biliary system are of normal caliber with the common duct measuring 4 mm in dimension. Pancreas is not well seen due to shadowing bowel gas. The right kidney is present without collecting system dilatation. The right kidney measures 10.7 cm in length. Multiple right renal cysts which appear simple Impression: Acute cholecystitis. Surgical consultation is recommended. .
[2017-01-13] MEDS ORDERED: ERTAPENEM 1 G in NS 100 ML IV ONE (09:18)
[2017-01-13] MEDS: MORPHINE SULFATE 2 MG SYRINGE IVP PRN (11:27)
--- NOTE | 2017-01-13 12:27 | General Surgery Consult Note ---
Consult date: 01/14/17 Attending Physician: Lily Ibrahim MD Reason for consult: gallstones History of present illness: Per Dr. Veloz [facility] Patient Stated Medical History Cerebrovascular Accident Yes: 2004 Peripheral Neuropathy Yes Cataracts Yes Cardiac Arrhythmia Yes: AFIB Coronary Artery Disease Yes Hypertension Yes Pneumonia Yes Sleep Apnea Yes Gastroesophageal Reflux Yes Disease Gastrointestinal Bleeding Yes Ulcer Yes Other GI Yes: Constipation at times. 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 Bilateral total knee replacement ,. pacemaker. Cardiac stent Family History: noncontributory to current illness - Social History Smoking status: Former smoker Household members: spouse Current residence: [facility] Medications Home Medications Medication Instructions Recorded Confirmed Type Potassium Chloride ER Tab [K-Dur] 40 meq PO WB #0 11/17/14 01/13/17 History Nitroglycerin [Nitrostat] 0.4 mg SL Q5MIN PRN #0 01/27/15 01/13/17 History Amiodarone HCl 200 mg PO DAILY #0 09/16/15 01/13/17 History Atorvastatin Calcium 10 mg PO HS #0 09/16/15 01/13/17 History Ferrous Sulfate [Iron] 325 mg PO BID #0 09/16/15 01/13/17 History Sertraline HCl [Zoloft] 100 mg PO DAILY #0 10/09/15 01/13/17 History Aspirin [Aspirin EC] 81 mg PO DAILY #0 02/02/16 01/13/17 History Famotidine 20 mg PO DAILY #0 02/02/16 01/13/17 History Isosorbide Mononitrate [Isosorbide 30 mg PO BID #0 02/02/16 01/13/17 History Mononitrate ER] Lactobacillus Combo No.10 1 cap PO DAILY #0 05/07/16 01/13/17 History [Probiotic] Hydralazine HCl 25 mg PO QID #0 05/15/16 01/13/17 History Acetaminophen 650 mg PO Q4H PRN 01/09/17 01/13/17 History Cholecalciferol (Vitamin D3) 1 cap PO DAILY 01/09/17 01/13/17 History [Vitamin D3] Clopidogrel Bisulfate [Clopidogrel] 75 mg PO DAILY 01/09/17 01/13/17 History Cyanocobalamin (Vitamin B-12) 1,000 mcg PO DAILY 01/09/17 01/13/17 History [Vitamin B-12] DiltiaZEM CD [Cardizem Cd] 240 mg PO DAILY 01/09/17 01/13/17 History Guaifenesin/Dextromethorphan 1 - 2 tsp PO Q6-12HR PRN 01/09/17 01/13/17 History [Robitussin Cough-Chest Dm Liq] PredniSONE [Deltasone] 3 mg PO DAILY 01/09/17 01/13/17 History buPROPion HCl [Bupropion Xl] 300 mg PO DAILY 01/09/17 01/13/17 History Allergies Allergy/AdvReac Type Severity Reaction Status Date / Time No Known Allergies Allergy Verified 01/10/17 02:01 Review of Systems 10-point ROS: not fully reviewed ROS unobtainable: due to mental status - Respiratory Respiratory: Present: sleep apnea, use of CPAP - Psychiatric Psychiatric: Present: other (bipolar, , dementia, aggressive type unsocialized behavior) - Vital Signs Last Vital Signs Temp 97.5 F 01/13/17 10:54 Pulse 83 01/13/17 10:54 Resp 20 01/13/17 10:54 BP 180/90 H 01/13/17 10:54 Pulse Ox 94 01/13/17 11:32 - Laboratory Result Diagrams: 01/14/17 04:13 01/14/17 04:13 Plan: Per Dr. Veloz [facility] Course Summary Disclaimer: The visit summary below is not to be considered part of the above Progress Note. Sepsis Assessment - Evaluation Sepsis screening result: No Definite Risk
--- NOTE | 2017-01-13 12:28 | History & Physical Report ---
<Yasemin Victor V - Last Filed: 01/13/17 12:20> History of Present Illness Date: 01/13/17 Chief complaint: Cholecystitis HPI: Patient is an 82-year-old male who is known to the hospitalist services as he was recently admitted on 01/09/17 with fever and possible sepsis. Exact orgin of fever was unknown at that time. He had recently been on antibiotics for a urinary tract infection prior to that time. And had completed a round of amoxicillin. He was discharged on 01/11/17 2 [facility]. Early this morning. He was brought back to the emergency room for evaluation of concerned decreased in alertness a well as well as moaning and groaning. Further evaluation including laboratory studies and CT scan were obtained. WBC count was found to be 4.8, hemoglobin 11.4, hematocrit 34.5, platelet count 100. Sodium is 140, potassium 4.0, BUN 34, creatinine 1.6. LFTs are elevated with an AST of 176, ALT 174, alkaline phosphatase 132. A urinalysis is obtained showing 1+ protein with trace bacteria, otherwise unremarkable. The left function study is 248. Initially a CT scan of the abdomen is obtained does reveal distended gallbladder with questionable wall thickening with a chronic laminated gallstone. This was followed with a gallbladder ultrasound revealing acute cholecystitis. A chest x-ray did reveal some atelectasis without evidence of infiltrate. Given these findings. A hospitalist services were contacted and accepted patient for inpatient admission for further evaluation and treatment. Dr. Veloz was consulted and accepted patient for surgical consultation. Patient is seen on initial examination. He is sleeping, and does not arouse during examination. However, he has just received morphine prior to exam. is at the bedside and she does report that patient has had ongoing "problems" for approximately 1 month. Time he has had abdominal discomfort. She reports that he was treated in the outpatient setting for shingles and completed a course of acyclovir. He was then recently admitted on 01/09 for possible sepsis/ UTI and this was ruled out. This morning he appeared to be in increasing pain with questionable altered mentation in mild distress with moaning. Evaluation is challenging due to patient's chronic dementia. We did discuss advanced directives and patient's does verify that he is a do not resuscitate. Review of Systems ROS unobtainable: due to mental status Review of systems: Unable to obtain ROS due to mentation/Dementia REPLACED BY [facility] Patient Stated Medical History Cerebrovascular Accident Yes: 2004 Dementia Yes Peripheral Neuropathy Yes Cataracts Yes Cardiac Arrhythmia Yes: AFIB Coronary Artery Disease Yes Hypertension Yes Pneumonia Yes Sleep Apnea Yes Gastroesophageal Reflux Yes Disease Gastrointestinal Bleeding Yes Ulcer Yes Other GI Yes: Constipation at times. Hx Incontinence Yes Hx Kidney Stones Yes Hx Renal Disease Yes: STAGE 3 Anemia Yes Clotting Problems Yes: ON PLAVIX MRSA Yes: Nasal Shingles Yes Bipolar Disorder Yes August 2015. Patient was on a ventilator for 8 days with pneumonia. History of tobacco dependence Surgical History: Bilateral shoulder repair. Bilateral knee replacement. Tonsillectomy. Pacemaker placement. Multiple neck and back surgeries 5 Family History: Noncontributory - Social History Smoking status: Former smoker Medications Home Medications Medication Instructions Recorded Confirmed Type Potassium Chloride ER Tab [K-Dur] 40 meq PO WB #0 11/17/14 01/13/17 History Nitroglycerin [Nitrostat] 0.4 mg SL Q5MIN PRN #0 01/27/15 01/13/17 History Amiodarone HCl 200 mg PO DAILY #0 09/16/15 01/13/17 History Atorvastatin Calcium 10 mg PO HS #0 09/16/15 01/13/17 History Ferrous Sulfate [Iron] 325 mg PO BID #0 09/16/15 01/13/17 History Sertraline HCl [Zoloft] 100 mg PO DAILY #0 10/09/15 01/13/17 History Aspirin [Aspirin EC] 81 mg PO DAILY #0 02/02/16 01/13/17 History Famotidine 20 mg PO DAILY #0 02/02/16 01/13/17 History Isosorbide Mononitrate [Isosorbide 30 mg PO BID #0 02/02/16 01/13/17 History Mononitrate ER] Lactobacillus Combo No.10 1 cap PO DAILY #0 05/07/16 01/13/17 History [Probiotic] Hydralazine HCl 25 mg PO QID #0 05/15/16 01/13/17 History Acetaminophen 650 mg PO Q4H PRN 01/09/17 01/13/17 History Cholecalciferol (Vitamin D3) 1 cap PO DAILY 01/09/17 01/13/17 History [Vitamin D3] Clopidogrel Bisulfate [Clopidogrel] 75 mg PO DAILY 01/09/17 01/13/17 History Cyanocobalamin (Vitamin B-12) 1,000 mcg PO DAILY 01/09/17 01/13/17 History [Vitamin B-12] DiltiaZEM CD [Cardizem Cd] 240 mg PO DAILY 01/09/17 01/13/17 History Guaifenesin/Dextromethorphan 1 - 2 tsp PO Q6-12HR PRN 01/09/17 01/13/17 History [Robitussin Cough-Chest Dm Liq] PredniSONE [Deltasone] 3 mg PO DAILY 01/09/17 01/13/17 History buPROPion HCl [Bupropion Xl] 300 mg PO DAILY 01/09/17 01/13/17 History Allergies Allergy/AdvReac Type Severity Reaction Status Date / Time No Known Allergies Allergy Verified 01/10/17 02:01 Exam Vital Signs: Temp Pulse Resp BP Pulse Ox 97.5 F 83 20 180/90 H 94 01/13/17 10:54 01/13/17 10:54 01/13/17 10:54 01/13/17 10:54 01/13/17 11:32 Height: 1.73 m Weight: 97.5 kg Body Mass Index: 32.6 Results - Labs CBC & Chem 7: 01/13/17 04:57 01/13/17 04:57 Assessment and Plan (1) Cholelithiasis and acute cholecystitis with obstruction Current visit: No Status: Acute (2) Elevated LFTs Current visit: Yes Status: Acute (3) Anemia Current visit: Yes Status: Chronic (4) Thrombocytopenia Current visit: Yes Status: Chronic (5) Atrial fibrillation Current visit: No Status: Chronic (6) Pacemaker Current visit: Yes Status: Chronic (7) CKD stage G3b/A1, 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 mg/g Current visit: No Status: Chronic (8) HTN (hypertension) Current visit: No Status: Chronic (9) DURAN (obstructive sleep apnea) Current visit: No Status: Chronic (10) Dementia Current visit: Yes Status: Chronic Assessment and Plan: Admit patient to inpatient status under the care of Dr Ibrahim for acute cholecystitis, elevated LFTs. Appreciate consultation by Dr. Veloz for surgical evaluation and recommendations. Start Invantz IV for empiric antimicrobial coverage as recommended by Dr. Veloz. She was given IV fluid 1 liter of normal saline while in the emergency room. We will continue at 100 ML per hour for gentle hydration. Currently, patient is nothing by mouth until further surgical plan is recommended. Morphine as needed for pain control and Zofran as needed for nausea. Will continue to utilize oxygen as needed to maintain adequate saturations. Patient does have known obstructive sleep apnea and does utilize CPAP at night. Will need to reconcile home medications once patient is no longer nothing by mouth. Again, patient is a do not resuscitate and this orders written Recheck a CBC and CMP tomorrow morning to follow blood counts, renal function, LFTs and electrolytes. Discuss further orders and plan of care with attending, Dr Ibrahim Sepsis Assessment - Evaluation Sepsis screening result: No Definite Risk Hospital Course Summary Disclaimer: The visit summary below is not to be considered part of the above Progress Note. Hospital Course: 01/13/17 12:52 Admit patient to inpatient status under the care of Dr Ibrahim for acute cholecystitis, elevated LFTs. Appreciate consultation by Dr. Veloz for surgical evaluation and recommendations. Start Invantz IV for empiric antimicrobial coverage as recommended by Dr. Veloz. She was given IV fluid 1 liter of normal saline while in the emergency room. We will continue at 100 ML per hour for gentle hydration. Currently, patient is nothing by mouth until further surgical plan is recommended. Morphine as needed for pain control and Zofran as needed for nausea. Will continue to utilize oxygen as needed to maintain adequate saturations. Patient does have known obstructive sleep apnea and does utilize CPAP at night. Will need to reconcile home medications once patient is no longer nothing by mouth. Again, patient is a do not resuscitate and this orders written Recheck a CBC and CMP tomorrow morning to follow blood counts, renal function, LFTs and electrolytes. Discuss further orders and plan of care with attending, Dr Ibrahim <Lily Ibrahim - Last Filed: 01/13/17 13:47> History of Present Illness Date: 01/13/17 REPLACED BY [facility] Patient Stated Medical History Cerebrovascular Accident Yes: 2004 Dementia Yes Peripheral Neuropathy Yes Cataracts Yes Cardiac Arrhythmia Yes: AFIB Coronary Artery Disease Yes Hypertension Yes Pneumonia Yes Sleep Apnea Yes Gastroesophageal Reflux Yes Disease Gastrointestinal Bleeding Yes Ulcer Yes Other GI Yes: Constipation at times. Hx Incontinence Yes Hx Kidney Stones Yes Hx Renal Disease Yes: STAGE 3 Anemia Yes Clotting Problems Yes: ON PLAVIX MRSA Yes: Nasal Shingles Yes Bipolar Disorder Yes Exam Vital Signs: Temp Pulse Resp BP Pulse Ox 97.5 F 83 20 180/90 H 94 01/13/17 10:54 01/13/17 10:54 01/13/17 10:54 01/13/17 10:54 01/13/17 11:32 Height: 1.73 m Weight: 97.5 kg Results - Labs CBC & Chem 7: 01/13/17 04:57 01/13/17 04:57 Assessment and Plan (1) HTN (hypertension) Current visit: No Status: Chronic (2) Atrial fibrillation Current visit: No Status: Chronic (3) CKD stage G3b/A1, 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 mg/g Current visit: No Status: Chronic (4) DURAN (obstructive sleep apnea) Current visit: No Status: Chronic (5) Cholelithiasis and acute cholecystitis with obstruction Current visit: No Status: Acute (6) Elevated LFTs Current visit: Yes Status: Acute (7) Anemia Current visit: Yes Status: Chronic (8) Thrombocytopenia Current visit: Yes Status: Chronic (9) Pacemaker Current visit: Yes Status: Chronic (10) Dementia Current visit: Yes Status: Chronic Assessment and Plan: S: Pt alert but not oriented, not really able to provide much hx. O: Gen: alert but not oriented, in mild distress Cards: RRR, no rubs Resp: CTAB, no wheezes Abd: soft, not distended, mildly tender diffusely Ext: no clubbing or edema Skin: no rash, dry A/P: Cholecystitis -CT/US shows non-obstructing cholecystitis -Plan for surgery later this afternoon per , surgery consulted -Surgery requested Invanz for abx, will do IV fluids -Monitor closely, stable Hospital Course Summary Disclaimer: The visit summary below is not to be considered part of the above Progress Note.
[2017-01-13] MEDS ORDERED: ONDANSETRON 4 MG/2 ML INJECTION IVP PRN (12:49)
[2017-01-13] MEDS: NS 1,000 ML IV SCH ×2 (13:49→17:13)
--- NOTE | 2017-01-13 15:25 | Consultation ---
DATE OF CONSULTATION 01/13/2017 FINDINGS Mr. Kyle is an 82-year-old gentleman who I was asked to see today by the emergency room physician as a result of his history and physical findings of abdominal pain and abnormal radiographic evaluation revealing of possible acute cholecystitis. The patient's was present in the room and did provide the majority of the information. She informs me that her John has unfortunately developed early Alzheimer's. She states that he does live in a nearby [facility] facility. She states that typically he is fairly awake and alert and knows "who she is". Over the last couple of days he has had increasing confusion. She states that staff had found him trying to "escape from the facility". This apparently is quite unusual for the patient. The patient was fairly somnolent upon my entering the room. He at times did answer in one-word replies. It was very difficult to obtain much information from the patient himself. states that he was recently hospitalized at [facility] about a week ago with suspected bladder infection. Apparently he was having a component of some abdominal pain at that time and was found to have fever. She also states that they felt as if he may have had herpes zoster as well. PAST MEDICAL HISTORY Performed by my nurse practitioner, Javy Perdue. PAST SURGICAL HISTORY Performed by my nurse practitioner, Javy Perdue. MEDICATIONS Performed by my nurse practitioner, Javy Perdue. ALLERGIES Performed by my nurse practitioner, Javy Perdue. SOCIAL HISTORY Performed by my nurse practitioner, Javy Perdue. FAMILY HISTORY Performed by my nurse practitioner, Javy Perdue. REVIEW OF SYSTEMS Performed by my nurse practitioner, Javy Perdue. PHYSICAL EXAMINATION GENERAL: Mr. Kyle is an 82-year-old gentleman who, as above, was fairly somnolent and difficult to obtain much history from or examine given his decreased mental status. It did appear that he was in some discomfort. VITALS: Temperature 97.5. Pulse 83. Respirations 20. Blood pressure 180/90. SAO2 94% on 3 liters per nasal cannula.. HEENT: Normocephalic. Pupils are equally round and react to light and accommodation. CHEST: Clear to auscultation bilaterally. HEART: Regular rate and rhythm. Normal S1, S2, without gallops, murmurs or clicks. ABDOMEN: Palpation of the abdomen did indeed reveal what appeared to be localized tenderness to his right upper quadrant. The patient did begin to "moan and groan" upon firm palpation within the right upper quadrant. He did reach up and grab my hand and tried to pull my hand away upon palpating the right upper quadrant. The remaining abdomen appeared to be soft and nontender. I did not appreciate any evidence for hepatomegaly or other abnormal masses. EXTREMITIES: Without clubbing, cyanosis, or edema. NEURO: Cranial nerves II-XII grossly intact. Patient without focal, motor, or sensory deficits. LABORATORY/RADIOGRAPHIC EVALUATION The patient had a CBC upon admission that was unremarkable. White count was 4.8. He did have a left shift with 83% neutrophils. Hemoglobin was 11.4. Platelet count was 100. CMP was obtained and his AST, ALT, and alkaline phosphatase were elevated at 176, 174, and 132, respectively. Total bilirubin was normal at 1.1. UA was obtained and found to be essentially within normal limits. A P2Y12 platelet test was performed. This was normal at 248. Radiographically, the patient had gallbladder ultrasound obtained as well as a CT scan. Gallbladder ultrasound did reveal a large gallstone. Gallbladder was abnormal and the gallbladder wall was thickened up to 7 mm. Findings were consistent with acute cholecystitis and surgical consultation was recommended. There was no evidence for biliary dilatation. A CT scan of his abdomen and pelvis was also obtained. CT scan revealed a distended gallbladder with possible wall thickening and a large gallstone which "could represent acute cholecystitis". ASSESSMENT 82-year-old gentleman with multiple associated medical comorbidities who presents with apparent right upper quadrant abdominal pain, abnormal gallbladder ultrasound and CT scan, elevated liver function tests. PLAN I did have a discussion with the patient's . He did have a DO NOT RESUSCITATE order. The patient's states that they recently had made the patient DNR. I did question the patient's whether or not she would want to proceed with any type of surgical intervention if it was felt that the patient did indeed have acute cholecystitis or would prefer nonsurgical intervention and initiate medical therapy/broad-spectrum antibiotics to see if we can manage his acute cholecystitis nonoperatively. The patient's stated that her preference would be to proceed with surgery if it was indeed felt that he was suffering from acute cholecystitis. Given the fact that he is tender within his right upper quadrant, does have elevation of his liver function tests, and does have abnormal gallbladder ultrasound revealing a component of gallbladder wall thickening in conjunction with a large gallstone, it is my clinical intuition the patient is indeed suffering from acute cholecystitis. It was therefore my recommendation to the patient's that we proceed with surgical intervention/cholecystectomy. I did discuss in detail with the patient's what a robotic assisted laparoscopic cholecystectomy entailed and its associated risks which included but was not exclusive of, bleeding, infection, potential conversion to open procedure, as well as potential injury to adjacent structures, especially the common bile duct. CHANA
--- NOTE | 2017-01-13 15:27 | Anesthesia Preoperative Report ---
Anesthesia Preoperative Record - Date and Time Date: 01/13/17 Proposed Procedure: Lap. Tracey NPO Since Date: 01/12/17 NPO Since Time: 23:59 Allergies/Adverse Reactions: Allergies Allergy/AdvReac Type Severity Reaction Status Date / Time No Known Allergies Allergy Verified 01/10/17 02:01 - Vital Signs Vital Signs: Temp Pulse Resp BP Pulse Ox 97.5 F 83 20 180/90 H 94 01/13/17 10:54 01/13/17 10:54 01/13/17 10:54 01/13/17 10:54 01/13/17 11:32 Height and Weight: Height 5 ft 8 in Weight 97.5 kg Body Mass Index 32.6 - Medications Inpatient Medications: Current Medications Amiodarone HCl (Pacerone) 200 mg PO DAILY JULIA Atorvastatin Calcium (Lipitor) 10 mg PO HS JULIA Bupropion HCl (Wellbutrin Xl) 300 mg PO DAILY JULIA Diltiazem HCl (Cardizem Cd) 240 mg PO DAILY JULIA Famotidine (Pepcid) 20 mg PO DAILY JULIA Sodium Chloride (Normal Saline) 1,000 mls @ 100 mls/hr IV .Q10H JULIA Last Admin: 01/13/17 13:49 Dose: 100 mls/hr Ertapenem 1 g/ Sodium Chloride 100 mls @ 200 mls/hr IV DAILY JULIA Morphine Sulfate (Morphine Sulfate Inj) 1 mg IVP Q2H PRN PRN Reason: Pain Last Admin: 01/13/17 11:27 Dose: 1 mg Ondansetron HCl (Zofran) 4 mg IVP Q6H PRN PRN Reason: Nausea &/or vomiting Sertraline HCl (Zoloft) 100 mg PO DAILY JULIA Sodium Chloride (Iv Flush) 10 - 80 ml IVF PRN PRN PRN Reason: Flushing Last Admin: 01/13/17 13:50 Dose: 10 ml Home Medications: Home Medications Medication Instructions Recorded Confirmed Type Potassium Chloride ER Tab [K-Dur] 40 meq PO WB #0 11/17/14 01/13/17 History Nitroglycerin [Nitrostat] 0.4 mg SL Q5MIN PRN #0 01/27/15 01/13/17 History Amiodarone HCl 200 mg PO DAILY #0 09/16/15 01/13/17 History Atorvastatin Calcium 10 mg PO HS #0 09/16/15 01/13/17 History Ferrous Sulfate [Iron] 325 mg PO BID #0 09/16/15 01/13/17 History Sertraline HCl [Zoloft] 100 mg PO DAILY #0 10/09/15 01/13/17 History Aspirin [Aspirin EC] 81 mg PO DAILY #0 02/02/16 01/13/17 History Famotidine 20 mg PO DAILY #0 02/02/16 01/13/17 History Isosorbide Mononitrate [Isosorbide 30 mg PO BID #0 02/02/16 01/13/17 History Mononitrate ER] Lactobacillus Combo No.10 1 cap PO DAILY #0 05/07/16 01/13/17 History [Probiotic] Hydralazine HCl 25 mg PO QID #0 05/15/16 01/13/17 History Acetaminophen 650 mg PO Q4H PRN 01/09/17 01/13/17 History Cholecalciferol (Vitamin D3) 1 cap PO DAILY 01/09/17 01/13/17 History [Vitamin D3] Clopidogrel Bisulfate [Clopidogrel] 75 mg PO DAILY 01/09/17 01/13/17 History Cyanocobalamin (Vitamin B-12) 1,000 mcg PO DAILY 01/09/17 01/13/17 History [Vitamin B-12] DiltiaZEM CD [Cardizem Cd] 240 mg PO DAILY 01/09/17 01/13/17 History Guaifenesin/Dextromethorphan 1 - 2 tsp PO Q6-12HR PRN 01/09/17 01/13/17 History [Robitussin Cough-Chest Dm Liq] PredniSONE [Deltasone] 3 mg PO DAILY 01/09/17 01/13/17 History buPROPion HCl [Bupropion Xl] 300 mg PO DAILY 01/09/17 01/13/17 History Is Patient on Beta Ramiro?: No - Medical History Respiratory: Reports: Sleep Apnea (CPAP) Cardiovascular: Reports: Arrhythmia (Afib hx), Coronary Artery Disease (stents) , Hypertension Gastrointestional: DENIES: Gastroesophageal Reflux Disease Renal/Endocrine: DENIES: Diabetes Mellitus Type 1 Other History: DENIES: Anesthesia Reactions, Malignant Hyperthermia - Surgical History HEENT Surgeries: Reports: Tonsillectomy Cardiac Surgeries/Treatments: Reports: Cardiac Catheterization (Stents placed), Pacemaker Respiratory Surgery/Treatments: Reports: CPAP Use (At night), Oxygen Administration Surgery/Treatment: REPORT: Other Comment Only: Transurethral Resection (Kidney stones, and Kidney cancer removal) Musculoskeletal Surgery/Tx: Reports: Total Knee Replacement, Other (Shoulders, back, and neck surgery) - Social History Smoking Status: Former smoker (quit at age 29) Hx Chewing Tobacco Use: No Substance Use Type: does not use - Physical Exam Respiratory Exam: Present: lungs clear Cardiovascular Exam: Present: regular rate and rhythm - Airway Assessment Mallampati Score: II TMD: 3 Fingerbreadths Neck Extension: fair Overall Assessment: may be difficult mask vent (full barrientos), may be difficult intubation - ASA ASA Score: 4 - Plan Anesthesia: General Inhalation Gases - Discussion Discussion: Discussed risks/options/alternatives of anesthesia and questions answered. Patient consents. Nursing pain assessment noted. Present for Discussion: spouse Attestation Statement: Prior to the delivery of any anesthetic medication, I examined the patient, developed the plan, obtained the patient's consent and discussed the risk and benefits of the procedure with the patient/guardian. - Additional Information Seen by Anesthesia: Yes
[2017-01-13] MEDS ORDERED: BUPIVACAINE 0.25%/EPI 1:200,000 30ml SDV ONE (15:58)
[2017-01-13] MEDS ORDERED: FentaNYL 100 MCG/2 ML INJECTION ONE (16:02)
[2017-01-13] MEDS ORDERED: MIDAZOLAM 2mg/2ml INJECTION ONE (16:03)
[2017-01-13] MEDS ORDERED: KETAMINE 500 MG/10 ML INJECTION ONE (16:03)
[2017-01-13] MEDS ORDERED: SUCCINYLCHOLINE 20mg/mL 10mL INJECTION ONE (16:04)
[2017-01-13] MEDS ORDERED: ROCURONIUM 50 MG/5 ML INJECTION IVP ONE ×2 (16:04→16:42)
[2017-01-13] MEDS ORDERED: PROPOFOL 20 ML ONE (16:04)
[2017-01-13] MEDS ORDERED: IOHEXOL 300mg/ml 50ml INJECTION ONE (16:29)
[2017-01-13] MEDS ORDERED: LIDOCAINE 2% (100mg/5ml) SYRINGE (PF) IVP ONE (16:40)
[2017-01-13] MEDS ORDERED: BUPIVACAINE 0.25%/EPI 1:200,000 30ml SDV INFIL ONE (16:42)
[2017-01-13] MEDS ORDERED: OMNIPAQUE 300 MG/ML OPSITE ONE (17:30)
[2017-01-13] MEDS ORDERED: NS IRR MIX OPSITE ONE (17:30)
[2017-01-13] MEDS ORDERED: SUGAMMADEX 200mg/2ml INJECTION IVP ONE (17:35)
--- NOTE | 2017-01-13 17:52 | General Surgery Procedure Note ---
Date of Procedure: 01/13/17 Surgeon: Magdiel Elevator Constructor Helper: Javy Perdue APRN Postoperative Diagnosis: Acute cholecystitis cholelithiasis without obstruction Procedure: Laparoscopic cholecystectomy with intraoperative cholangiogram Estimated Blood Loss: See Anesthesia Record.
[2017-01-13] MEDS ORDERED: NITROGLYCERIN 0.4 MG SUBLINGUAL TABLET SL PRN (18:00)
--- NOTE | 2017-01-13 19:06 | Anesthesia Postoperative Note ---
- Date and Time Date: 01/13/17 Time: 19:05 - Status Patient Participated in Evaluation: Patient Participated in Person Vital Signs: Temp Pulse Resp BP Pulse Ox 98 F 78 33 H 200/101 H 96 01/13/17 18:36 01/13/17 18:30 01/13/17 18:30 01/13/17 18:30 01/13/17 18:30 Respiratory Function: Airway Patent (on home CPAP) Cardiovascular Function: Regular Pulse EKG Rhythm: Normal Sinus Rhythm, Premature Ventricular Contractions Mental Status: Alert and Oriented (return to pre op condition) Unable to Assess Pain Due to: Medicated/Sleeping Hydration: IV Infusing Complications During Recover: None Apparent - Follow-Up Instructions Instructions: Per Surgeon
[2017-01-13] MEDS: MORPHINE SULFATE 4 MG SYRINGE IVP PRN (19:51)
[2017-01-13] MEDS ORDERED: HYDRALAZINE 20 MG/ML INJECTION IVP ONE (20:20)
[2017-01-13] MEDS ORDERED: ALBUTEROL 2.5mg/3ml (0.083%) NEB AEROSOL PRN (20:27)
[2017-01-13] MEDS ORDERED: HYDRALAZINE 20 MG/ML INJECTION IVP PRN (20:27)
[2017-01-13] MEDS ORDERED: HYDRALAZINE 25 MG TABLET PO SCH (21:00)
[2017-01-13] MEDS: HYDRALAZINE 20 MG/ML INJECTION IVP PRN (21:15)
[2017-01-13] MEDS ORDERED: Pharmacy Consult for Fall Risk XX PRN (21:33)
[2017-01-13] MEDS: ClonazePAM 1 MG TABLET PO SCH (22:00)
[2017-01-13] MEDS: ATORVASTATIN 10 MG TABLET PO SCH (22:01)
[2017-01-14] MEDS: MORPHINE SULFATE 4 MG SYRINGE IVP PRN ×4 (00:01→14:04)
[2017-01-14] MEDS ORDERED: METOPROLOL 5mg/5ml INJECTION IVP ONE (00:29)
[2017-01-14] MEDS: SALINE FLUSH 10ml SYRINGE IVF PRN (00:36)
[2017-01-14] MEDS: MORPHINE SULFATE 2 MG SYRINGE IVP PRN (07:34)
[2017-01-14] MEDS ORDERED: BISACODYL E.C. 5 MG TABLET PO ONE (07:54)
--- NOTE | 2017-01-14 08:09 | General Surgery Progress Note ---
Subjective Narrative: Nursing is having a hard time getting him to wake up enough to even take PO sips of water. Does not follow commands accurately. He had some hypertension during the night, hospitalist addressed this and BP. Difficult to assess true level of discomfort, although he is moaning and does wince with RUQ palapation. Moderate size of ecchymosis right flank noted on post op exam by jennifer, about 20x11 cm this am, smaller area left flank. - Vital Signs Last Vital Signs Temp 97.9 F 01/14/17 04:08 Pulse 82 01/14/17 06:01 Resp 29 H 01/14/17 06:01 BP 168/81 H 01/14/17 06:01 Pulse Ox 93 01/14/17 06:01 - Laboratory Result Diagrams: 01/14/17 04:13 01/14/17 04:13 Laboratory Tests 01/13/17 01/14/17 04:57 04:13 Total Bilirubin 1.10 1.30 AST 176 H 512 H D ALT 174 H 313 H Alkaline Phosphatase 132 H 240 H D - Abnormal Exam General: other (non-verbal) Respiratory: other (moaning during exam, unable to assess accurately. Nasal bi- pap in place) Abdominal: hypoactive bowel sounds, other (some early ecchymosis at umbilical incision, trocar sites CDI with Dermabond glue in tact) Skin: Ecchymosis right flank, about 20x11 cm, present after surgery. - Normal Exam Cardiovascular: regular rhythm, regular rate, other (paced intermittently) Abdominal: soft, appropriately tender Assessment and Plan (1) Cholelithiasis and acute cholecystitis without obstruction Current Visit: Yes Status: Acute Assessment and plan: now POD #1 post Lap ines with cholangiogram, =GB found to be gangrenous with a VERY large stone stuck in the neck of the GB, making surgery difficult. (2) Postoperative ecchymosis Current Visit: Yes Status: Acute Assessment and plan: He has had some falls at his residence and has been on Plavix, this could account for brusing. There was also more bleeding than usual during surgery, controlled with cautery and clips, but we did not simran the preperitoneal space other than to go thru the peritoneum with trocars. No bleeding noted with repeated irrigation and inspection of surgical area prior to closing. Falls and Plavix could account for this, although bleed from trocars or peritoneal bleed must be considered. HGB stable at 10.8, will repeat this am. Dr. Veloz notified. (3) Atrial fibrillation Current Visit: No Status: Chronic Assessment and plan: Hospitalist team monitoring, currently SR, occasional pacer spikes. (4) Dementia Current Visit: Yes Status: Chronic (5) HTN (hypertension) Current Visit: No Status: Chronic Assessment and plan: HTN during the evening addressed by Hospitalist team, stable now (6) Elevated LFTs Current Visit: Yes Status: Acute Assessment and plan: Bilirubin up just a little, and LFT's markedly up from pre-op. No CDS noted on cholangiogram, dye passed through CD easily. Not unusual to have bump in LFT's after GB surgery, but levels still warrant watching. Plan: Will continue to monitory LFT.s and ecchymosis. Continue Invanz. Abd soft, winces with RUQ palpation, bowel sounds absent this am. Will order dulcolax PO to stimulate bowels. Daily labs, monitory HGB and LFTs Once we are sure he is stable, may restart Plavix. Thank you, hospitalist for management of his multiple comorbidities. Hospital Course Summary Disclaimer: The visit summary below is not to be considered part of the above Progress Note. Hospital Course: 01/13/17 12:52 Admit patient to inpatient status under the care of Dr Ibrahim for acute cholecystitis, elevated LFTs. Appreciate consultation by Dr. Veloz for surgical evaluation and recommendations. Start Invantz IV for empiric antimicrobial coverage as recommended by Dr. Veloz. She was given IV fluid 1 liter of normal saline while in the emergency room. We will continue at 100 ML per hour for gentle hydration. Currently, patient is nothing by mouth until further surgical plan is recommended. Morphine as needed for pain control and Zofran as needed for nausea. Will continue to utilize oxygen as needed to maintain adequate saturations. Patient does have known obstructive sleep apnea and does utilize CPAP at night. Will need to reconcile home medications once patient is no longer nothing by mouth. Again, patient is a do not resuscitate and this orders written Recheck a CBC and CMP tomorrow morning to follow blood counts, renal function, LFTs and electrolytes. Discuss further orders and plan of care with attending, Dr Ibrahim 01/14/17 08:34 Surgery note: Will continue to monitory LFT.s and ecchymosis. Continue Invanz. Abd soft, winces with RUQ palpation, bowel sounds absent this am. Will order dulcolax PO to stimulate bowels. Daily labs, monitory HGB and LFTs Once we are sure he is stable, may restart Plavix. Sepsis Assessment - Evaluation Sepsis screening result: No Definite Risk
--- NOTE | 2017-01-14 08:15 | Remote Fluorsocopy Report ---
Indication: CHOLELITHIASIS PROCEDURE: RF cholangiogram operative: Comparison: Gallbladder ultrasound dated January 13, 2017 Findings: 3 fluoroscopic spot images are submitted from an intraoperative cholangiogram. Images demonstrate injection of contrast into the cystic duct with filling of the common duct and intrahepatic biliary tree. No discrete filling defects are identified. Contrast flows into the duodenum. Impression: Intraoperative fluoroscopy as above. Please refer to the dictated operative note for further details. Fluoroscopy time is 13.6 seconds. Fluoroscopy dose is 536.4 mRad. .
[2017-01-14] MEDS: HYDRALAZINE 25 MG TABLET PO SCH ×4 (08:46→22:15)
[2017-01-14] MEDS: FAMOTIDINE 20 MG TABLET PO SCH (08:47)
[2017-01-14] MEDS: ERTAPENEM 1 G in NS 100 ML IV SCH (08:47)
[2017-01-14] MEDS: AMIODARONE 200 MG TABLET PO SCH (08:47)
[2017-01-14] MEDS: BuPROPion XL 300mg (24HR) TABLET PO SCH (08:47)
[2017-01-14] MEDS: SERTRALINE 100 MG TABLET PO SCH (08:48)
--- NOTE | 2017-01-14 11:52 | Progress Note ---
<Yasemin Vicotr V - Last Filed: 01/14/17 11:51> Subjective: John is seen today in follow up post Cholecystectomy. Nursing staff report that this morning. Patient was less responsive and would wince in pain. However , currently he is alert and answering questions appropriately. On examination. He denies having pain with gentle palpation of the abdomen. Noted. Bowel sounds are present. Blood pressure has been mildly elevated 174/84. Nursing staff reports patient took oral medications earlier this morning without difficulty. Patient is voiding without difficulty. Objective Vital signs: Temp Pulse Resp BP Pulse Ox 99.0 F 82 39 H 174/84 H 98 01/14/17 07:01 01/14/17 11:46 01/14/17 09:12 01/14/17 09:12 01/14/17 09:12 Weight: 94.3 kg - Constitutional Present: no acute distress - Routine HEENT Exam Head: Present: normocephalic Eye: Present: EOMI, PERRL ENT: Present: mucous membranes moist - Routine Respiratory Exam Present: CTA bilaterally - Routine Cardiovascular Exam Present: RRR, S1, S2, no murmur - Routine Abdominal Exam Present: soft, normoactive bowel sounds - Routine Skin Exam Present: intact - Routine Neurological Exam Present: alert, CN II-XII intact - Routine Psychiatric Exam Comments: Intermittently confused, however, history of dementia Results - Labs CBC & Chem 7: 01/14/17 10:23 01/14/17 04:13 Assessment and Plan (1) Elevated LFTs Current visit: Yes Status: Acute (2) Anemia Current visit: Yes Status: Chronic (3) Thrombocytopenia Current visit: Yes Status: Chronic (4) Atrial fibrillation Current visit: No Status: Chronic (5) Pacemaker Current visit: Yes Status: Chronic (6) Dementia Current visit: Yes Status: Chronic (7) CKD stage G3b/A1, 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 Abdomen is soft without tenderness on exam. He is tolerating PO medications without difficulty. [facility] with [facility]. Appreciate ongoing surgical management by Dr Veloz and Sadaf. Continue to follow labs. Renal function improving. Will monitor serial liver function. Can likely resume Plavix later today or tomorrow assuming he remains stable. Will discuss further plan of care with attending, Dr Ibrahim Sepsis Assessment - Evaluation Sepsis screening result: No Definite Risk Hospital Course Summary Disclaimer: The visit summary below is not to be considered part of the above Progress Note. Hospital Course: 01/13/17 12:52 Admit patient to inpatient status under the care of Dr Ibrahim for acute cholecystitis, elevated LFTs. Appreciate consultation by Dr. Veloz for surgical evaluation and recommendations. Start Invantz IV for empiric antimicrobial coverage as recommended by Dr. Veloz. She was given IV fluid 1 liter of normal saline while in the emergency room. We will continue at 100 ML per hour for gentle hydration. Currently, patient is nothing by mouth until further surgical plan is recommended. Morphine as needed for pain control and Zofran as needed for nausea. Will continue to utilize oxygen as needed to maintain adequate saturations. Patient does have known obstructive sleep apnea and does utilize CPAP at night. Will need to reconcile home medications once patient is no longer nothing by mouth. Again, patient is a do not resuscitate and this orders written Recheck a CBC and CMP tomorrow morning to follow blood counts, renal function, LFTs and electrolytes. Discuss further orders and plan of care with attending, Dr Ibrahim 01/14/17 08:34 Surgery note: Will continue to monitory LFT.s and ecchymosis. Continue Invanz. Abd soft, winces with RUQ palpation, bowel sounds absent this am. Will order dulcolax PO to stimulate bowels. Daily labs, monitory HGB and LFTs Once we are sure he is stable, may restart Plavix. 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 Current visit: No Status: Chronic (4) DURAN (obstructive sleep apnea) Current visit: No Status: Chronic (5) Elevated LFTs Current visit: Yes Status: Acute (6) Anemia Current visit: Yes Status: Chronic (7) Thrombocytopenia Current visit: Yes Status: Chronic (8) Pacemaker Current visit: Yes Status: Chronic (9) Dementia Current visit: Yes Status: Chronic (10) S/P cholecystectomy Current visit: Yes Status: Acute Assessment and Plan: Pt this morning was somnolent and wincing in pain as well as an echymoses was noted on right flank so the their was some concern of abdominal complication from surgery and so lipase, lactic acid, and repeat Hgb was ordered as well as the case was discussed with surgery. All labs resulted as unremarkable and PA for surgery noted that pt did have some bleeding during surgery around the area of echymoses. Later that morning pt was awake and much more alert, pt also was in much less abdominal pain but had also gotten pain medications. Pt seems to be doing much better now but will monitor closely and defer to surgery for any further abdominal imaging needed. Discussed case with surgery team. Re-started pt's BP meds last night as pt was having high BPs, doing better today. Hospital Course Summary Disclaimer: The visit summary below is not to be considered part of the above Progress Note.
--- NOTE | 2017-01-14 12:34 | Operative Note ---
DATE OF PROCEDURE 01/13/2017 SURGEON Richmond Veloz MD MANUAL LATHE OPERATOR Javy Perdue APRN PREOPERATIVE DIAGNOSIS Symptomatic cholelithiasis, acute/chronic cholecystitis. POSTOPERATIVE DIAGNOSIS Symptomatic cholelithiasis, acute/chronic cholecystitis. PROCEDURE Laparoscopic cholecystectomy with intraoperative angiogram. ANESTHESIA General endotracheal EBL AND FLUIDS Please see chart. BRIEF HISTORY/INDICATIONS Mr. Kyle is an 82-year-old gentleman whom I was asked to see earlier today as a result of his physical findings of right upper quadrant abdominal pain, finding of cholelithiasis upon ultrasonography, and elevation of his liver function tests. Patient does have a component of dementia. It was somewhat difficult to evaluate the patient earlier today as a result of the fact that he was fairly somnolent. The patient was found, however, to be quite tender upon examination within in the right upper quadrant. As stated above, he did have a CT scan and gallbladder sonogram revealing evidence for cholelithiasis with associated cholecystitis. Upon laboratory evaluation his liver function tests were found to be elevated. It was felt the patient was suffering from acute/ chronic cholecystitis and therefore recommended that he undergo surgical intervention. For completeness please refer to notes included in the patient's chart. FINDINGS Upon laparoscopy, liver edge was smooth without nodularities. Peritoneum, small bowel, colon, omentum which was visualized were within normal limits. The gallbladder was found be quite distended in nature. Gallbladder wall was found also be quite thickened in nature and contained a component of pericholecystic fluid consistent with acute cholecystitis. The patient was found have a fairly large stone within the gallbladder. The infraumbilical incision in fact had to be extended to allow removal of the gallstone and gallbladder. A standard laparoscopic cholecystectomy was able be completed without incident. DESCRIPTION OF PROCEDURE After informed consent was obtained the patient was brought to the operative suite and placed on the table in supine fashion. The abdomen was then prepped and draped in sterile fashion. 0.25% Marcaine with epinephrine was injected just beneath the level of the umbilicus. A 2 cm curved incision was then made through the area of analgesia. Dissection was carried down through deep subcuticular tissues to the underlying fascia. Fascia was then grasped with two Kenny clamp and retracted anteriorly. A 1 cm incision was then made between the two Kenny clamps. A hemostat was then introduced and the fascial incision gently spread. A U-stitch was then placed with 0 Vicryl. A 12 mm Zoraida port was then placed in the peritoneal cavity. Pneumoperitoneum was established to a patient pressure of 15 mmHg utilizing carbon dioxide. Next three additional 5 mm ports were then placed within the epigastric region, right midabdomen and right lateral abdominal wall. Each port site was placed under direct visualization and preinjected with 0.25% Marcaine with epinephrine. Abdominal cavity was explored via the laparoscopic. Findings were as noted above. The fundal portion of the gallbladder was grasped and retracted in an anterior fashion. There were some adhesions between the omentum and the gallbladder indicative of inflammation. These adhesions were taken down under direct visualization with blunt dissection as well as with use of electrocautery. At no point in time was electrocautery performed adjacent to a hollow viscus such as transverse colon, duodenum or stomach. Omentum was continued to be dissected away from the gallbladder, from the fundal portion down towards the infundibular portion of the gallbladder. One could see that the stomach and duodenum were also somewhat adherent to the infundibular portion of gallbladder as a result of the inflammatory changes that were present. The gallbladder wall was found be quite thickened in nature. There was a component pericholecystic fluid. Stomach and duodenum were bluntly and carefully dissected away from the infundibulum of the gallbladder. Gallbladder was then continued to be retracted in a cephalad fashion. Next, an additional grasping Pean was then placed upon the infundibular portion of the gallbladder and retracted in a lateral, slightly caudad fashion to provide exposure of the triangle of Calot. Dissection was begun high upon the infundibulum of the gallbladder. The gallbladder was found to be quite thickened in nature and there was a fair amount of inflammatory changes present. Eventually however the critical view of safety was able to be obtained with the only remaining structures coming forth from the infundibulum of the gallbladder were that of the cystic duct and cystic artery. Posterior aspect of the infundibulum and was also begun to be freed from the liver bed fossa. A single hemoclip was then placed upon the cystic artery upon the midportion of the infundibulum of the gallbladder. Two hemoclips were placed just proximally upon the cystic artery. The cystic artery was then divided between the two distal clips. An additional hemoclip was then placed upon the cystic duct adjacent to the infundibulum of the gallbladder. A ductotomy was then made just proximally upon the cystic duct. A cholangiocatheter was then placed within the cystic duct and a cholangiogram was obtained under fluoroscopy. Under fluoroscopy, one could see a moderate length of the cystic duct before entering the common bile duct. Additionally, one could see good flow of the contrast into the duodenum with an appropriate distal taper of the common bile duct. No filling defects were noted. Proximally, one could see the intrahepatic radicles, left and right hepatic duct and common hepatic. Again, no filling defects were noted. After obtaining a normal cholangiogram, cholangiocatheter was removed. Two hemoclips was just placed proximally upon the cystic duct. The cystic duct was then divided between the two distal clips. The gallbladder was then begun to be dice dissected off the liver bed fossa. There was somewhat of an aberrant vessel entering into the posterior aspect of the infundibulum of the gallbladder. A small amount of bleeding began to occur. Hemoclips were placed upon this vessel resulting in complete hemostasis. The gallbladder was then continued to be dissected off the liver bed fossa. Once the gallbladder had been dissected off of the gallbladder fossa with the exception the fundal portion, one could see an additional apparent vessel entering into the posterior aspect of the fundal portion of the gallbladder. To prevent bleeding , a hemoclip was placed just proximally and the gallbladder was then continued to be dissected off the gallbladder fossa. A few small rents were created within the gallbladder wall as the gallbladder was being dissected off the liver bed. This was considered to be inherent to the procedure given the marked inflammatory changes that were present. Gallbladder, however, was able to be completely excised in its entirety off the gallbladder fossa. Gallbladder and the large stone within it was then placed in a laparoscopic retrieval bag. The gallbladder was initially not able to be delivered up through the initial incision secondary to the large gallstone that was present. Fascial opening was then extended as well as the skin incision to allow delivery of the gallbladder and gallstone. The camera port was then replaced back through the infraumbilical port site and pneumoperitoneum was reestablished to a patient pressure of 15 mmHg utilizing carbon dioxide. No significant bleeding was noted along the gallbladder fossa after releasing the pneumoperitoneum. Prior to removing the gallbladder irrigation had been performed and all irrigant was suctioned until clear. Gallbladder fossa remained hemostatic in nature. Previously placed hemoclips were visualized and remained intact. Additional irrigation was then performed and all irrigant was once again suctioned until clear. Again, no evidence for bleeding was present. Ports were removed under direct visualization. Pneumoperitoneum was then released. The previously placed U stitch had been cut as the original fascial opening had been extended. The fascia at the camera port was now closed by placing three [id number] sutures of 0 Vicryl. All skin incisions were then closed in a subcuticular fashion with 4-0 Monocryl. Dermabond was then placed overlying the incisions. The patient is in the process of awakening from his anesthetic and will be sent back to the ICU once deemed in stable condition. Additionally, it should be noted that Javy Perdue APRN, was present throughout the entire case and played a pivotal role in providing assistance and exposure during the course of the procedure. [facility]
[2017-01-14] MEDS: ATORVASTATIN 10 MG TABLET PO SCH (22:14)
[2017-01-14] MEDS: ClonazePAM 1 MG TABLET PO SCH (22:16)
[2017-01-15] MEDS: MORPHINE SULFATE 4 MG SYRINGE IVP PRN (01:04)
[2017-01-15] MEDS: SALINE FLUSH 10ml SYRINGE IVF PRN (04:45)
[2017-01-15] MEDS: SERTRALINE 100 MG TABLET PO SCH (09:10)
[2017-01-15] MEDS: FAMOTIDINE 20 MG TABLET PO SCH (09:10)
[2017-01-15] MEDS: AMIODARONE 200 MG TABLET PO SCH (09:10)
[2017-01-15] MEDS: HYDRALAZINE 25 MG TABLET PO SCH ×4 (09:10→21:51)
--- NOTE | 2017-01-15 09:13 | Progress Note ---
DATE 01/14/2017 FINDINGS Mr. Kyle was somnolent this afternoon. Nursing states that he continues to have different degrees of level of consciousness. At times he is awake and very conversant and appropriate. Other times, he is quite somnolent and moans and only answers in one-word sentences. The patient did not appear to be in acute distress upon my entering the ICU room. OBJECTIVE VITALS: Temperature 99.0. Pulse 80. Respiratory rate 28. Blood pressure 154/ 93. SAO2 97% on 4 liters per nasal cannula. These are the last recorded vitals. CHEST: Clear auscultation bilaterally. HEART: Regular rate and rhythm. ABDOMEN: Soft, nontender. Some slight ecchymosis noted beneath the infraumbilical incision. There was some ecchymosis noted within the right flank region. It is difficult to know whether or not this was present prior to surgery. The patient has had numerous falls apparently at the correction facility. The ecchymosis does appear to be several days old and is more "purplish" in nature, than surrounding umbilicus. Palpation of the abdomen did not reveal any evidence for guarding or rebound. LABORATORY/RADIOGRAPHIC EVALUATION The patient's hemoglobin overall is stable at 11.0. Liver function tests were elevated today with an AST of 512, ALT of 313, alkaline phosphatase of 240. This is not to be unexpected given the degree of inflammation that was noted at the time of surgery. Bilirubin is normal at 1.3. ASSESSMENT 82-year-old gentleman status post robotic assisted laparoscopic cholecystectomy secondary to cholecystitis. Overall patient doing well. PLAN Will continue with current care. Slowly advance diet as tolerated. Will recheck hemoglobin later today to document stability. Continue with ongoing IV antibiotics given the degree of acute cholecystitis noted intraoperatively. [facility]
[2017-01-15] MEDS: ERTAPENEM 1 G in NS 100 ML IV SCH (09:20)
[2017-01-15] MEDS: BuPROPion XL 300mg (24HR) TABLET PO SCH (09:26)
[2017-01-15] MEDS ORDERED: SENNA + DOCUSATE TABLET PO PRN (09:34)
--- NOTE | 2017-01-15 09:40 | Progress Note ---
<Yasemin Victor V - Last Filed: 01/15/17 09:32> Subjective: John is seen this morning in follow up. He is awake and alert during examination. He is pleasantly confused which is baseline for him given known dementia. He complains of mild abdominal pain on gentle palpation. Bowel signs are present however bowels have note yet moved. Abdominal incisions without drainage or erythema. Ecchymosis noted below umbilicus incision He is voiding without difficulty and is eating well. Objective Vital signs: Temp Pulse Resp BP Pulse Ox 97.8 F 71 34 H 172/95 H 97 01/15/17 04:00 01/15/17 06:01 01/15/17 06:01 01/15/17 06:01 01/15/17 06:13 Weight: 94.3 kg - Constitutional Present: no acute distress, well nourished, well developed - Routine HEENT Exam Eye: Present: EOMI, PERRL - Routine Respiratory Exam Present: CTA bilaterally - Routine Cardiovascular Exam Present: RRR, S1, S2 - Routine Abdominal Exam Present: soft, normoactive bowel sounds Comments: mildly tender on palpation - Routine Extremities Exam Present: full ROM, pulses intact - Routine Back/Spine/Pelvis Exam Back/Spine: Present: full ROM - Routine Skin Exam Present: intact, warm, ecchymosis (below umbilical ) - Routine Neurological Exam Present: alert, CN II-XII intact - Routine Psychiatric Exam Present: normal affect, normal thought process Results - Labs CBC & Chem 7: 01/15/17 04:36 01/15/17 05:42 Assessment and Plan (1) Elevated LFTs Current visit: Yes Status: Acute (2) Anemia Current visit: Yes Status: Chronic (3) Thrombocytopenia Current visit: Yes Status: Chronic (4) Atrial fibrillation Current visit: No Status: Chronic (5) Pacemaker Current visit: Yes Status: Chronic (6) Dementia Current visit: Yes Status: Chronic (7) CKD stage G3b/A1, 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 mg/g Current visit: No Status: Chronic (8) HTN (hypertension) Current visit: No Status: Chronic (9) DURAN (obstructive sleep apnea) Current visit: No Status: Chronic (10) S/P cholecystectomy Current visit: Yes Status: Acute Assessment and Plan: 01/15/17 Will work on bowel motivation today. Obtain KUB Continue with Senna plus. May consider adding additional agents to motivate stools postoperatively Post op blood counts have remained stable. Hgb today is 10.0. Liver enzymes continue to trend down Continue on Invantz for antimicrobial coverage Can work on weaning down oxygen. Monitor blood pressure as it is mildly elevated at 172/95. Can likely move out to surgical floor today Will discuss further with attending Dr Ibrahim Sepsis Assessment - Evaluation Sepsis screening result: No Definite Risk Hospital Course Summary Disclaimer: The visit summary below is not to be considered part of the above Progress Note. Hospital Course: 01/13/17 12:52 Admit patient to inpatient status under the care of Dr Ibrahim for acute cholecystitis, elevated LFTs. Appreciate consultation by Dr. Veloz for surgical evaluation and recommendations. Start Invantz IV for empiric antimicrobial coverage as recommended by Dr. Veloz. She was given IV fluid 1 liter of normal saline while in the emergency room. We will continue at 100 ML per hour for gentle hydration. Currently, patient is nothing by mouth until further surgical plan is recommended. Morphine as needed for pain control and Zofran as needed for nausea. Will continue to utilize oxygen as needed to maintain adequate saturations. Patient does have known obstructive sleep apnea and does utilize CPAP at night. Will need to reconcile home medications once patient is no longer nothing by mouth. Again, patient is a do not resuscitate and this orders written Recheck a CBC and CMP tomorrow morning to follow blood counts, renal function, LFTs and electrolytes. Discuss further orders and plan of care with attending, Dr Ibrahim 01/14/17 08:34 Surgery note: Will continue to monitory LFT.s and ecchymosis. Continue Invanz. Abd soft, winces with RUQ palpation, bowel sounds absent this am. Will order dulcolax PO to stimulate bowels. Daily labs, monitory HGB and LFTs Once we are sure he is stable, may restart Plavix. 01/15/17 Will work on bowel motivation today. Obtain KUB Continue with Senna plus. May consider adding additional agents to motivate stools postoperatively Post op blood counts have remained stable. Hgb today is 10.0. Liver enzymes continue to trend down Continue on Invantz for antimicrobial coverage Can work on weaning down oxygen. Monitor blood pressure as it is mildly elevated at 172/95. Can likely move out to surgical floor today Will discuss further with attending Dr Ibrahim <Lily Ibrahim - Last Filed: 01/15/17 11:25> Objective Vital signs: Temp Pulse Resp BP Pulse Ox 97.8 F 71 34 H 172/95 H 97 01/15/17 04:00 01/15/17 06:01 01/15/17 06:01 01/15/17 06:01 01/15/17 06:13 Results - Labs CBC & Chem 7: 01/15/17 04:36 01/15/17 05:42 Assessment and Plan (1) HTN (hypertension) Current visit: No Status: Chronic (2) Atrial fibrillation Current visit: No Status: Chronic (3) CKD stage G3b/A1, 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 mg/g Current visit: No Status: Chronic (4) DURAN (obstructive sleep apnea) Current visit: No Status: Chronic (5) Elevated LFTs Current visit: Yes Status: Acute (6) Anemia Current visit: Yes Status: Chronic (7) Thrombocytopenia Current visit: Yes Status: Chronic (8) Pacemaker Current visit: Yes Status: Chronic (9) Dementia Current visit: Yes Status: Chronic (10) S/P cholecystectomy Current visit: Yes Status: Acute Assessment and Plan: Pt improving, still has some bowel tenderness diffusely and some distention likely mild ileus and constipation. Pt still tolerating PO intake well, no n/v, will cont. with liquid/soft diet and do bowel regimen and monitor. Get KUB. If any concern for worsening ileus then will back off bowel regimen and diet. Cont. abx, transfer out of icu. Hospital Course Summary Disclaimer: The visit summary below is not to be considered part of the above Progress Note.
--- NOTE | 2017-01-15 10:37 | XRay Report ---
Indication: post gb, no bm PROCEDURE: XR KUB: Encounter: Initial Comparison: January 13, 2017 Findings: Contrast material in the right colon. No abnormally dilated small bowel loops appreciated. Degenerative and postoperative changes throughout the visualized thoracolumbar spine. Moderate stool in the right colon. Impression: Findings compatible with a colonic ileus. .
[2017-01-15] MEDS: HYDRALAZINE 20 MG/ML INJECTION IVP PRN (11:13)
[2017-01-15] MEDS ORDERED: MORPHINE SULFATE 2 MG SYRINGE IVP PRN (11:21)
[2017-01-15] MEDS: POLYETHYL GLYCOL 3350 17gm PACKET PO SCH (12:52)
[2017-01-15] MEDS: HYDROCODONE/APAP 5mg/325mg TABLET PO PRN ×3 (12:53→21:51)
--- NOTE | 2017-01-15 20:07 | Progress Note ---
DATE OF VISIT 01/15/2017 REASON FOR VISIT Covering surgical care for Dr. Veloz. KRYSTIAN Lopez is sitting up in a chair and says that his abdomen is somewhat achy but he is not having any significant pain. He has been tolerating a soft diet. He does have transfer orders to be moved to the floor. OBJECTIVE VITAL SIGNS: Temperature 97.7, pulse 72, respiratory rate 18, blood pressure 152 /72. Oxygen saturation 95% on 4 L/min. GENERAL: The patient is awake and alert, in no acute distress. ABDOMEN: Soft, appropriately tender. He has stable ecchymosis inferior to the umbilicus and ecchymosis of the right flank. His incisions are all clean, dry and intact. LABORATORY DATA Hemoglobin is 10.0 this morning. Yesterday morning was 10.8. His liver enzymes are improving. ASSESSMENT 1. Status post robotic-assisted laparoscopic cholecystectomy for cholecystitis - healing appropriately. 2. Dementia. PLAN 1. Agree with transfer to the floor. 2. Continuation of IV antibiotics was recommended by Dr. Veloz given the degree of acute cholecystitis noted intraoperatively. 3. Advance diet as tolerated. He is currently on a soft diet. [facility]
[2017-01-15] MEDS: ATORVASTATIN 10 MG TABLET PO SCH (21:52)
[2017-01-15] MEDS: ClonazePAM 1 MG TABLET PO SCH (21:52)
[2017-01-16] MEDS: POLYETHYL GLYCOL 3350 17gm PACKET PO SCH (11:26)
[2017-01-16] MEDS: HYDRALAZINE 25 MG TABLET PO SCH ×4 (11:27→21:27)
[2017-01-16] MEDS: AMIODARONE 200 MG TABLET PO SCH (11:27)
[2017-01-16] MEDS: SERTRALINE 100 MG TABLET PO SCH (11:27)
[2017-01-16] MEDS: FAMOTIDINE 20 MG TABLET PO SCH (11:27)
[2017-01-16] MEDS: BuPROPion XL 300mg (24HR) TABLET PO SCH (11:28)
[2017-01-16] MEDS: ERTAPENEM 1 G in NS 100 ML IV SCH (11:28)
[2017-01-16] MEDS: SALINE FLUSH 10ml SYRINGE IVF PRN ×2 (11:31→21:27)
[2017-01-16] MEDS ORDERED: NS FLUSH BAG 500ml IV PRN (11:37)
--- NOTE | 2017-01-16 13:36 | Progress Note ---
Subjective: Mr. Kyle was pleasantly confused when seen. He reported no abdominal pain initially then went on to tell me his abdomen was uncomfortable but improving. He denied nausea or vomiting and is tolerated liquids without difficulty. He denied flatus or bowel movement since surgery. He denied lightheadedness, palpitations, or difficulty breathing. Nursing reports that he is not keeping his oxygen or pulse oximeter on consistently. Objective Vital signs: Temp Pulse Resp BP Pulse Ox 97.7 F 82 18 165/94 H 94 01/16/17 11:20 01/16/17 11:20 01/16/17 11:20 01/16/17 11:20 01/16/17 11:20 EXAM General-NAD, alert, confused HEENT-conjunctiva clear, conjugate gaze, sclera anicteric Lungs-respirations nonlabored, good airflow, breath sounds clear anteriorly/ laterally Cardiac-regular rhythm, S1-S2 Abd-soft, minor tenderness right upper quadrant without guarding, otherwise abdomen is nontender, mild distention but not tight; active bowel sounds. There is moderate bruising around the surgical sites-especially the inferior port but the incisions themselves are clean and dry and healing well. Ext-without edema Neuro-moving all extremities spontaneously Psych-rambling speech, oriented to name only - Weight: 97.1 kg Results - Labs CBC & Chem 7: 01/16/17 11:52 01/16/17 11:52 Labs: Segs 92, lymphocytes 2, monocytes 3, eosinophils 2 AST 135, ALT 190, alkaline phosphatase 239, bilirubin 1.1-all improving - Imaging and Cardiology Abdominal x-ray Status: image reviewed by me (prior spinal fusion, residual contrast in right colon, no evidence of obstruction) Assessment and Plan (1) Cholelithiasis and acute cholecystitis without obstruction Current visit: Yes Status: Acute (2) Elevated LFTs Current visit: Yes Status: Acute (3) HTN (hypertension) Current visit: No Status: Chronic (4) Atrial fibrillation Current visit: No Status: Chronic (5) CKD stage G3b/A1, 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 mg/g Current visit: No Status: Chronic (6) DURAN (obstructive sleep apnea) Current visit: No Status: Chronic (7) Anemia Current visit: Yes Status: Chronic (8) Thrombocytopenia Current visit: Yes Status: Chronic (9) Pacemaker Current visit: Yes Status: Chronic (10) Dementia Current visit: Yes Status: Chronic (11) S/P cholecystectomy Current visit: Yes Status: Acute Personal topic cholecystectomy 01/13/17-Dr. Veloz 01/16/17 13:47 (12) Hypoxia Current visit: Yes Status: Chronic Assessment and Plan: Generally doing well. Poor oral intake per nursing. Recheck KUB in a.m. Increase activity, PT consult. Liver enzymes slowly normalizing-monitor intermittently. Hemoglobin stable. Renal function stable, blood pressure is modestly elevated-on home regimen, continue to monitor. Continues to require supplemental oxygen/CPAP although wears both inconsistently per nursing. Continue IV antibiotics for acute cholecystitis. Discontinue morphine-minimal pain. Sepsis Assessment - Evaluation Sepsis screening result: No Definite Risk Hospital Course Summary Disclaimer: The visit summary below is not to be considered part of the above Progress Note. Hospital Course: 01/13/17 12:52 Admit patient to inpatient status under the care of Dr Ibrahim for acute cholecystitis, elevated LFTs. Appreciate consultation by Dr. Veloz for surgical evaluation and recommendations. Start Invantz IV for empiric antimicrobial coverage as recommended by Dr. Veloz. She was given IV fluid 1 liter of normal saline while in the emergency room. We will continue at 100 ML per hour for gentle hydration. Currently, patient is nothing by mouth until further surgical plan is recommended. Morphine as needed for pain control and Zofran as needed for nausea. Will continue to utilize oxygen as needed to maintain adequate saturations. Patient does have known obstructive sleep apnea and does utilize CPAP at night. Will need to reconcile home medications once patient is no longer nothing by mouth. Again, patient is a do not resuscitate and this orders written Recheck a CBC and CMP tomorrow morning to follow blood counts, renal function, LFTs and electrolytes. Discuss further orders and plan of care with attending, Dr Ibrahim 01/14/17 08:34 Surgery note: Will continue to monitory LFT.s and ecchymosis. Continue Invanz. Abd soft, winces with RUQ palpation, bowel sounds absent this am. Will order dulcolax PO to stimulate bowels. Daily labs, monitory HGB and LFTs Once we are sure he is stable, may restart Plavix. 01/15/17 Will work on bowel motivation today. Obtain KUB Continue with Senna plus. May consider adding additional agents to motivate stools postoperatively Post op blood counts have remained stable. Hgb today is 10.0. Liver enzymes continue to trend down Continue on Invantz for antimicrobial coverage Can work on weaning down oxygen. Monitor blood pressure as it is mildly elevated at 172/95. Can likely move out to surgical floor today Will discuss further with attending Dr Ibrahim 01/16/17 13:57 Generally doing well. Poor oral intake per nursing. Increase activity, PT consult. Liver enzymes slowly normalizing-monitor intermittently. Hemoglobin stable. Renal function stable, blood pressure is modestly elevated-on home regimen, continue to monitor. Continues to require supplemental oxygen/CPAP although wears both inconsistently per nursing. Continue IV antibiotics for acute cholecystitis.
[2017-01-16] MEDS: ClonazePAM 1 MG TABLET PO SCH (21:27)
[2017-01-16] MEDS: ATORVASTATIN 10 MG TABLET PO SCH (21:27)
[2017-01-16] MEDS: HYDROCODONE/APAP 5mg/325mg TABLET PO PRN (23:31)
[2017-01-16] MEDS ORDERED: HALOPERIDOL 5 MG/ML INJECTION IVP PRN (23:55)
[2017-01-17] MEDS: HYDROCODONE/APAP 5mg/325mg TABLET PO PRN ×2 (03:54→21:11)
[2017-01-17] MEDS: HYDRALAZINE 20 MG/ML INJECTION IVP PRN (04:15)
[2017-01-17] MEDS: AMIODARONE 200 MG TABLET PO SCH (09:38)
[2017-01-17] MEDS: HYDRALAZINE 25 MG TABLET PO SCH ×4 (09:38→21:10)
[2017-01-17] MEDS: SERTRALINE 100 MG TABLET PO SCH (09:38)
[2017-01-17] MEDS: BuPROPion XL 300mg (24HR) TABLET PO SCH (09:39)
[2017-01-17] MEDS: FAMOTIDINE 20 MG TABLET PO SCH (09:39)
[2017-01-17] MEDS: ERTAPENEM 1 G in NS 100 ML IV SCH (09:39)
[2017-01-17] MEDS: POLYETHYL GLYCOL 3350 17gm PACKET PO SCH (10:21)
--- NOTE | 2017-01-17 10:51 | Progress Note ---
DATE OF VISIT 01/16/2017 REASON FOR VISIT Covering surgical care for Dr. Veloz. SUBJECTIVE John is confused this evening but is resting comfortably in his chair. He has been eating poorly. He says that dinner is going "poor." He only ate 5% of his lunch. OBJECTIVE VITAL SIGNS: Temperature 97.1, pulse 69, blood pressure 161/94, respiratory rate 18, oxygen saturation 98% on 5 L/nasal cannula. GENERAL: The patient is awake and alert. He is resting in his chair, in no acute distress. ABDOMEN: Soft, appropriately tender. His incisions are clean, dry and intact. There is some increasing ecchymosis around the umbilicus but this appears to be only ongoing evolution of his prior ecchymosis. His right flank ecchymosis is stable. LABORATORY DATA White blood cell count 5.2. ALT and AST are both improved from yesterday. ASSESSMENT 1. Status post robotic-assisted laparoscopic cholecystectomy for acute cholecystitis - healing appropriately. 2. Dementia. PLAN 1. Continue to advance diet as tolerated and improve amount of oral intake. 2. Continue IV antibiotics due to acute cholecystitis and recommendation of Dr. Veloz. CHANA
[2017-01-17] MEDS ORDERED: HYDRALAZINE 25 MG TABLET PO SCH (12:21)
--- NOTE | 2017-01-17 12:28 | Progress Note ---
<KenEdith Emeka - Last Filed: 01/17/17 12:25> Subjective: John is seen today in follow up. He is up in wheelchair, alert but very confused. Nursing is with pt to prevent falls. Chart is reviewed for collateral information. Pt is reportedly not eating much. Not drinking much per I&O record. He denies pain when I ask. Objective Vital signs: Temp Pulse Resp BP Pulse Ox 96.3 F L 79 16 158/92 H 91 01/17/17 12:12 01/17/17 12:12 01/17/17 12:12 01/17/17 12:12 01/17/17 12:12 Weight: 95.1 kg - Constitutional Present: no acute distress, well nourished, well developed, cooperative, other ( Confused) - Routine HEENT Exam Head: Present: normocephalic, atraumatic Eye: Present: EOMI, PERRL ENT: Present: mucous membranes dry - Routine Respiratory Exam Present: decreased breath sounds, CTA bilaterally. Absent: rales, rhonchi, wheezes, crackles - Routine Cardiovascular Exam Present: RRR, S1, S2. Absent: murmur, no murmur - Routine Abdominal Exam Present: soft, non tender, distended. Absent: normoactive bowel sounds (Quiet BS x 4 quad.) - Routine Extremities Exam Present: edema (Trace) - Routine Skin Exam Present: dry, warm - Routine Neurological Exam Present: alert. Absent: oriented X3 - Routine Psychiatric Exam Present: cooperative. Absent: normal thought process, good insight, good judgment Results - Labs CBC & Chem 7: 01/16/17 11:52 01/16/17 11:52 - Impressions KUB- I reviewed images. Appears to have significant stool retention. Colonic ileus? Final report is pending. - Imaging and Cardiology Abdominal x-ray Status: image reviewed by me, pending Assessment and Plan (1) S/P cholecystectomy Current visit: Yes Status: Acute Personal topic cholecystectomy 01/13/17-Dr. Veloz 01/16/17 13:47 (2) Cholelithiasis and acute cholecystitis without obstruction Current visit: Yes Status: Acute (3) HTN (hypertension) Current visit: No Status: Chronic (4) Atrial fibrillation Current visit: No Status: Chronic (5) CKD stage G3b/A1, 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 mg/g Current visit: No Status: Chronic (6) DURAN (obstructive sleep apnea) Current visit: No Status: Chronic (7) Elevated LFTs Current visit: Yes Status: Acute (8) Anemia Current visit: Yes Status: Chronic (9) Thrombocytopenia Current visit: Yes Status: Chronic (10) Pacemaker Current visit: Yes Status: Chronic (11) Dementia Current visit: Yes Status: Chronic (12) Hypoxia Current visit: Yes Status: Chronic DVT Prophylaxis: SCD's GI Prophylaxis: Pepcid Resuscitation Status: Do Not Resuscitate Assessment and Plan: 01/17/17- *Acute Cholecystitis s/p lap ines Christenanz D#4. Surgery 01/13- Will DC Abx and monitor per IDSA guidelines. Poor intake. Will resume IVF until he is eating better. *Colonic ileus, extensive stool burden. Increase Laxatives. Add Dulcolax [place] x 3 days. Continue to monitor. *HTN- Remains quite elevated. Continue Diltiazem. Increase Hydralazine to 25mg PO TID for BP control. Avoid JUAN/ARB given hx CKD. *Atrial Fib- Continue rate control. Hold ASA, Plavix given surgery, low platelets. *Dementia-Continue support and monitoring. Monitor for worsening delirium. *Px- start SCDs. Sepsis Assessment - Evaluation Sepsis screening result: No Definite Risk Hospital Course Summary Disclaimer: The visit summary below is not to be considered part of the above Progress Note. Hospital Course: 01/13/17 12:52 Admit patient to inpatient status under the care of Dr Ibrahim for acute cholecystitis, elevated LFTs. Appreciate consultation by Dr. Veloz for surgical evaluation and recommendations. Start Invantz IV for empiric antimicrobial coverage as recommended by Dr. Veloz. She was given IV fluid 1 liter of normal saline while in the emergency room. We will continue at 100 ML per hour for gentle hydration. Currently, patient is nothing by mouth until further surgical plan is recommended. Morphine as needed for pain control and Zofran as needed for nausea. Will continue to utilize oxygen as needed to maintain adequate saturations. Patient does have known obstructive sleep apnea and does utilize CPAP at night. Will need to reconcile home medications once patient is no longer nothing by mouth. Again, patient is a do not resuscitate and this orders written Recheck a CBC and CMP tomorrow morning to follow blood counts, renal function, LFTs and electrolytes. Discuss further orders and plan of care with attending, Dr Ibrahim 01/14/17 08:34 Surgery note: Will continue to monitory LFT.s and ecchymosis. Continue Invanz. Abd soft, winces with RUQ palpation, bowel sounds absent this am. Will order dulcolax PO to stimulate bowels. Daily labs, monitory HGB and LFTs Once we are sure he is stable, may restart Plavix. 01/15/17 Will work on bowel motivation today. Obtain KUB Continue with Senna plus. May consider adding additional agents to motivate stools postoperatively Post op blood counts have remained stable. Hgb today is 10.0. Liver enzymes continue to trend down Continue on Invantz for antimicrobial coverage Can work on weaning down oxygen. Monitor blood pressure as it is mildly elevated at 172/95. Can likely move out to surgical floor today Will discuss further with attending Dr Ibrahim 01/16/17 13:57 Generally doing well. Poor oral intake per nursing. Increase activity, PT consult. Liver enzymes slowly normalizing-monitor intermittently. Hemoglobin stable. Renal function stable, blood pressure is modestly elevated-on home regimen, continue to monitor. Continues to require supplemental oxygen/CPAP although wears both inconsistently per nursing. Continue IV antibiotics for acute cholecystitis. 01/17/17 12:37 *Acute Cholecystitis s/p lap ines Kyree D#4. Surgery 01/13- Will DC Abx and monitor per IDSA guidelines. Poor intake. Will resume IVF until he is eating better. *Colonic ileus, extensive stool burden. Increase Laxatives. Add Dulcolax [place] x 3 days. Continue to monitor. *HTN- Remains quite elevated. Continue Diltiazem. Increase Hydralazine to 25mg PO TID for BP control. Avoid JUAN/ARB given hx CKD. *Atrial Fib- Continue rate control. Hold ASA, Plavix given surgery, low platelets. *Dementia-Continue support and monitoring. Monitor for worsening delirium. *Px- start SCDs. <Aleshia Sands - Last Filed: 01/17/17 16:22> Objective Vital signs: Temp Pulse Resp BP Pulse Ox 96.3 F L 79 16 158/92 H 91 01/17/17 12:12 01/17/17 12:12 01/17/17 12:12 01/17/17 12:12 01/17/17 12:12 Results - Labs CBC & Chem 7: 01/16/17 11:52 01/16/17 11:52 Assessment and Plan (1) Cholelithiasis and acute cholecystitis without obstruction Current visit: Yes Status: Acute (2) Hypoxia Current visit: Yes Status: Chronic (3) HTN (hypertension) Current visit: No Status: Chronic (4) Atrial fibrillation Current visit: No Status: Chronic (5) CKD stage G3b/A1, 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 mg/g Current visit: No Status: Chronic (6) DURAN (obstructive sleep apnea) Current visit: No Status: Chronic (7) Elevated LFTs Current visit: Yes Status: Acute (8) Anemia Current visit: Yes Status: Chronic (9) Thrombocytopenia Current visit: Yes Status: Chronic (10) Pacemaker Current visit: Yes Status: Chronic (11) Dementia Current visit: Yes Status: Chronic (12) S/P cholecystectomy Current visit: Yes Status: Acute Assessment and Plan: I have independently evaluated and examined this patient. I reviewed the chart, the patient's history, and the HYDROTECHNICAL SPECIALIST's documented findings as above. We discussed and formulated the assessment and plan as above with additions as below: Mr. Escalera was seated at the nursing station when seen. He was talkative but provided little content. He complained of hip pain but denied dyspnea. Nursing reported that he had a bowel movement prior to my visit. He reported that he was sleeping well. Nursing additionally reported that he continues to decline supplemental oxygen and CPAP frequently although oxygen saturations are marginal /low on room air. NAD, drowsy. Respirations are nonlabored with good airflow, breath sounds are clear anteriorly and in the upper posterior ramirez. Regular cardiac rhythm. Abdomen is obese/soft with diminished bowel sounds. KUB reviewed by myself demonstrating nonspecific bowel gas pattern and no dilated bowel loops. There is retained contrast in the colon. Continue bowel motivation. Reassess laboratory data with liver enzymes in a.m. Hydralazine continued at 25 mg 4 times a day as previously dosed for blood pressure, Cardizem increased to 300 mg daily for blood pressure and heart rate control. Supplemental history provided by nursing, KUB reviewed by myself, his medications modified, laboratory data requested for a.. Hospital Course Summary Disclaimer: The visit summary below is not to be considered part of the above Progress Note.
--- NOTE | 2017-01-17 13:21 | XRay Report ---
Indication: post op ines PROCEDURE: XR KUB: Encounter: Initial Comparison: January 15, 2017 Findings: Persistent contrast material in the colon. No gross free air. No abnormally dilated small bowel loops appreciated. Bony structures are unchanged. Impression: Nonobstructive nonspecific bowel gas pattern. .
[2017-01-17] MEDS: NS 1,000 ML IV SCH (15:44)
[2017-01-17] MEDS: BISACODYL 10 MG SUPPOSITORY RECTALLY SCH (16:05)
[2017-01-17] MEDS: ISOSORBIDE MONONITRATE ER 30 MG TABLET PO SCH (20:36)
[2017-01-17] MEDS: ClonazePAM 1 MG TABLET PO SCH (21:10)
[2017-01-17] MEDS: SENNA + DOCUSATE TABLET PO SCH (21:10)
[2017-01-17] MEDS: ATORVASTATIN 10 MG TABLET PO SCH (21:10)
--- NOTE | 2017-01-17 21:32 | Progress Note ---
DATE OF VISIT 01/17/2017 REASON FOR VISIT Covering surgical care for Dr. Veloz. KRYSTIAN Lopez is seated in the wheelchair this evening. He says that his stomach is achy at times but does not complain of any significant pain. He did have a moderate firm bowel movement after a suppository just a little while ago. He still has not been eating well. OBJECTIVE VITAL SIGNS: Temperature 97.6, pulse 71. Blood pressure 156/91, respiratory rate 18, oxygen saturation 91% on 3 L/nasal cannula. GENERAL: The patient is awake and alert, in no acute distress. He is seated in the wheelchair. ABDOMEN: Soft, obese, nontender. His incisions are clean, dry and intact. Ecchymosis of the umbilicus and right flank are stable. ASSESSMENT 1. Status post robotic-assisted laparoscopic cholecystectomy for acute cholecystitis - appropriate clinical progress. 2. Dementia. PLAN 1. Continue to follow oral intake and increase p.o. intake as able. 2. Invanz was discontinued by the hospitalist team. I think this is reasonable given the time frame since surgery. CHANA
[2017-01-18] MEDS: NS 1,000 ML IV SCH ×2 (05:27→18:34)
[2017-01-18] MEDS: ISOSORBIDE MONONITRATE ER 30 MG TABLET PO SCH ×2 (06:04→22:23)
[2017-01-18] MEDS: HYDRALAZINE 25 MG TABLET PO SCH ×4 (08:39→22:23)
[2017-01-18] MEDS: POLYETHYL GLYCOL 3350 17gm PACKET PO SCH (08:40)
[2017-01-18] MEDS: AMIODARONE 200 MG TABLET PO SCH (08:40)
[2017-01-18] MEDS: BuPROPion XL 300mg (24HR) TABLET PO SCH (08:41)
[2017-01-18] MEDS: SERTRALINE 100 MG TABLET PO SCH (08:41)
[2017-01-18] MEDS: SENNA + DOCUSATE TABLET PO SCH ×2 (08:41→23:27)
[2017-01-18] MEDS: FAMOTIDINE 20 MG TABLET PO SCH (08:41)
[2017-01-18] MEDS: BISACODYL 10 MG SUPPOSITORY RECTALLY SCH (09:06)
--- NOTE | 2017-01-18 14:38 | Progress Note ---
<Yasemin Victor Codie - Last Filed: 01/18/17 14:33> Subjective: Mr Kyle is seen today in follow up. He is alert and pleasant during examination. He jokes with staff and asks where his of "56" years is. Nursing staff does report that he continues to require 3 liters of oxygen by nasal cannula to maintain adequate saturations. It is reported that he not normally on home oxygen. He has been using his CPAP at night. He has been having incontinent voids and bowels did move his prior to examination. He complains of lower abdominal pain during transfer from / to bed. Ecchymosis noted to the lower abdomen below the umbilicus. Objective Vital signs: Temp Pulse Resp BP Pulse Ox 96.0 F L 67 16 160/84 H 91 01/18/17 07:49 01/18/17 11:44 01/18/17 11:44 01/18/17 11:44 01/18/17 11:44 Weight: 95.1 kg - Constitutional Present: no acute distress, well nourished, well developed, cooperative, other ( Confused) - Routine HEENT Exam Head: Present: normocephalic, atraumatic Eye: Present: EOMI ENT: Present: mucous membranes moist - Routine Respiratory Exam Present: CTA bilaterally - Routine Cardiovascular Exam Present: RRR, S1, S2 - Routine Abdominal Exam Present: soft, normoactive bowel sounds, distended (mild) Comments: Ecchymosis to lower abdomen as well as around right side to right flank - Routine Extremities Exam Present: full ROM - Routine Back/Spine/Pelvis Exam Back image: 1 - Ecchymosis radiating around right side - Routine Musculoskeletal Exam Musculoskeletal: Present: no tenderness - Routine Skin Exam Present: intact, warm, ecchymosis (right side/flank) - Routine Neurological Exam Present: alert, CN II-XII intact, moving all extremities Intermittent confused Results - Labs CBC & Chem 7: 01/18/17 04:23 01/18/17 04:23 Assessment and Plan (1) HTN (hypertension) Current visit: No Status: Chronic (2) Atrial fibrillation Current visit: No Status: Chronic (3) CKD stage G3b/A1, 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 Veloz 01/16/17 13:47 (12) Hypoxia Current visit: Yes Status: Chronic Assessment and Plan: 01/18/17 Continues to require oxygen therapy to maintain adequate saturations. Currently on 3 liters,work on weaning down. Weight has trended down. Monitor bowel movements. Continues on Senna plus BID, Miralax, and scheduled dulcolax. Will obtain KUB tomorrow morning to follow ileus. Tolerating soft diet SCDs to bilateral lower ext for DVT prophylaxis Hemoglobin has remained stable postoperatively at 10.9 today. Liver function continues to trend down. HTN/cardiac- mildly elevated at times. continue on current regimen including Cardizem, amiodarone, Imdur, hydralazine Did discuss status and plan of care with . She is concerned about his bed at [facility] as he has fell out of bed. Spoke with CM- Ros Dementia appears to be stable without agressive behaviors. Sepsis Assessment - Evaluation Sepsis screening result: No Definite Risk Hospital Course Summary Disclaimer: The visit summary below is not to be considered part of the above Progress Note. Hospital Course: 01/13/17 Admit patient to inpatient status under the care of Dr Ibrahim for acute cholecystitis, elevated LFTs. Appreciate consultation by Dr. Veloz for surgical evaluation and recommendations. Start Invantz IV for empiric antimicrobial coverage as recommended by Dr. Veloz. She was given IV fluid 1 liter of normal saline while in the emergency room. We will continue at 100 ML per hour for gentle hydration. Currently, patient is nothing by mouth until further surgical plan is recommended. Morphine as needed for pain control and Zofran as needed for nausea. Will continue to utilize oxygen as needed to maintain adequate saturations. Patient does have known obstructive sleep apnea and does utilize CPAP at night. Will need to reconcile home medications once patient is no longer nothing by mouth. Again, patient is a do not resuscitate and this orders written Recheck a CBC and CMP tomorrow morning to follow blood counts, renal function, LFTs and electrolytes. Discuss further orders and plan of care with attending, Dr Ibrahim 01/14/17 Surgery note: Will continue to monitory LFT.s and ecchymosis. Continue Invanz. Abd soft, winces with RUQ palpation, bowel sounds absent this am. Will order dulcolax PO to stimulate bowels. Daily labs, monitory HGB and LFTs Once we are sure he is stable, may restart Plavix. 01/15/17 Will work on bowel motivation today. Obtain KUB Continue with Senna plus. May consider adding additional agents to motivate stools postoperatively Post op blood counts have remained stable. Hgb today is 10.0. Liver enzymes continue to trend down Continue on Invantz for antimicrobial coverage Can work on weaning down oxygen. Monitor blood pressure as it is mildly elevated at 172/95. Can likely move out to surgical floor today Will discuss further with attending Dr Ibrahim 01/16/17 Generally doing well. Poor oral intake per nursing. Increase activity, PT consult. Liver enzymes slowly normalizing-monitor intermittently. Hemoglobin stable. Renal function stable, blood pressure is modestly elevated-on home regimen, continue to monitor. Continues to require supplemental oxygen/CPAP although wears both inconsistently per nursing. Continue IV antibiotics for acute cholecystitis. 01/17/17 *Acute Cholecystitis s/p lap ines Invanz D#4. Surgery 01/13- Will DC Abx and monitor per IDSA guidelines. Poor intake. Will resume IVF until he is eating better. *Colonic ileus, extensive stool burden. Increase Laxatives. Add Dulcolax [place] x 3 days. Continue to monitor. *HTN- Remains quite elevated. Continue Diltiazem. Increase Hydralazine to 25mg PO TID for BP control. Avoid JUAN/ARB given hx CKD. *Atrial Fib- Continue rate control. Hold ASA, Plavix given surgery, low platelets. *Dementia-Continue support and monitoring. Monitor for worsening delirium. *Px- start SCDs. 01/18/17 Continues to require oxygen therapy to maintain adequate saturations. Currently on 3 liters,work on weaning down. Weight has trended down. Monitor bowel movements. Continues on Senna plus BID, Miralax, and scheduled dulcolax. Will obtain KUB tomorrow morning to follow ileus. Tolerating soft diet SCDs to bilateral lower ext for DVT prophylaxis Hemoglobin has remained stable postoperatively at 10.9 today. Liver function continues to trend down. HTN/cardiac- mildly elevated at times. continue on current regimen including Cardizem, amiodarone, Imdur, hydralazine Did discuss status and plan of care with . She is concerned about his bed at [facility] as he has fell out of bed. Spoke with CM- Ros Dementia appears to be stable without agressive behaviors. 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 I reviewed the chart, the patient's history, and the VENETIAN BLIND CLEANER AND REPAIRER's documented findings as above. We discussed and formulated the assessment and plan as above with additions as below: Mr. Kyle was eating lunch when seen. He denied dyspnea, nausea, or vomiting. He was in good spirits than was talkative. Nursing reports an oxygen saturation is stable on 3 L but he desaturates quickly when he removes oxygen as he frequently does. The patient has rambling speech. Sclerae anicteric. Respirations are nonlabored with good airflow; breath sounds are clear posteriorly. There is persistent mild tenderness in the right upper quadrant but no guarding and bowel sounds are present. Patient has had several bowel movements in the past 48 hours and liver enzymes continue to improve progressively. Recheck KUBs in a.m.; discussed with Dr. Mayo-agrees with discontinuation of antibiotics. Provided abdominal films stable anticipate discharge to [facility] tomorrow. Hospital Course Summary Disclaimer: The visit summary below is not to be considered part of the above Progress Note. Addendum entered and electronically signed by Yasemin Victor APRN 01/18/17 15 :24:
[2017-01-18] MEDS: SALINE FLUSH 10ml SYRINGE IVF PRN (15:13)
--- NOTE | 2017-01-18 17:08 | Progress Note ---
DATE OF VISIT 01/18/2017 REASON FOR VISIT Covering surgical care for Dr. Veloz. KRYSTIAN Lopez is seated in a wheelchair. He has no complaints today. He says that his stomach is tender at times but not painful. He only ate about 10% of breakfast because he did not like the food. He has not had any more bowel movements since yesterday. OBJECTIVE VITAL SIGNS: Temperature 96.0, pulse 70, blood pressure 156/90, respiratory rate 18, oxygen saturation 92% on 3 L/nasal cannula. GENERAL: The patient is awake and alert in no acute distress. ABDOMEN: Soft, nontender, obese, nondistended. Incisions are clean, dry and intact. Ecchymosis continues to develop in the periumbilical area but is not worsening. Right flank ecchymosis is also stable. LABORATORY DATA White blood cell count remains normal at 6.1. Liver enzymes are all improved. ASSESSMENT 1. Status post robotic-assisted laparoscopic cholecystectomy for acute cholecystitis - appropriate clinical progress. 2. Minimal oral intake. 3. Dementia. PLAN Continue current care. I did encourage the patient to increase his oral intake. MTDD
[2017-01-18] MEDS: ATORVASTATIN 10 MG TABLET PO SCH (22:22)
[2017-01-18] MEDS: ClonazePAM 1 MG TABLET PO SCH (22:22)
[2017-01-19] MEDS: ISOSORBIDE MONONITRATE ER 30 MG TABLET PO SCH (07:06)
[2017-01-19] MEDS: NS 1,000 ML IV SCH (08:00)
--- NOTE | 2017-01-19 08:16 | XRay Report ---
Indication: post-op ileus PROCEDURE: XR KUB w upright: Encounter: Initial Comparison: 01/17/2017 Findings: Residual contrast seen in portions of the colon. No abnormally dilated small bowel appreciated. No gross free air. Gas is seen throughout small and large bowel to the level of the rectum. Postoperative changes in the thoracolumbar spine. Cholecystectomy clips. Impression: Improving ileus. .
[2017-01-19] MEDS ORDERED: DiltiaZEM CD 360 MG CAPSULE PO SCH (09:00)
[2017-01-19] MEDS: POLYETHYL GLYCOL 3350 17gm PACKET PO SCH (09:14)
[2017-01-19] MEDS: HYDRALAZINE 25 MG TABLET PO SCH ×2 (09:14→12:40)
[2017-01-19] MEDS: BISACODYL 10 MG SUPPOSITORY RECTALLY SCH (09:15)
[2017-01-19] MEDS: AMIODARONE 200 MG TABLET PO SCH (09:15)
[2017-01-19] MEDS: BuPROPion XL 300mg (24HR) TABLET PO SCH (09:16)
[2017-01-19] MEDS: SERTRALINE 100 MG TABLET PO SCH (09:16)
[2017-01-19] MEDS: FAMOTIDINE 20 MG TABLET PO SCH (09:16)
[2017-01-19] MEDS: SENNA + DOCUSATE TABLET PO SCH (09:16)
--- NOTE | 2017-01-19 12:25 | Discharge Summary ---
Discharge Plan - Med Rec/Dispo Referrals/Follow Up: Roger Bhagat MD [Family Provider] - 1 Week Richmond Veloz MD [Physician] - 1 Week Prescriptions: New PEG 3350 17gm PACKET [Miralax] 17 gm PO DAILY packet Senna + Docusate [Senna Plus Tablet] 2 tab PO BID tablet DiltiaZEM CD [Cardizem Cd] 360 mg PO DAILY #30 capsule Continue Nitroglycerin [Nitrostat] 0.4 mg SL Q5MIN PRN #0 PRN Reason: CHEST PAIN Atorvastatin Calcium 10 mg PO HS #0 Lactobacillus Combo No.10 [Probiotic] 1 cap PO DAILY #0 Acetaminophen 650 mg PO Q4H PRN PRN Reason: Pain PredniSONE [Deltasone] 3 mg PO DAILY Cyanocobalamin (Vitamin B-12) [Vitamin B-12] 1,000 mcg PO DAILY Cholecalciferol (Vitamin D3) [Vitamin D3] 1 cap PO DAILY ClonazePAM [Klonopin] 1 mg PO HS #15 tablet Hydrocodone/APAP 5/325 [[place] 5/325] 1 tab PO Q4H PRN #20 tablet PRN Reason: Pain Amiodarone HCl 200 mg PO DAILY #0 Ferrous Sulfate [Iron] 325 mg PO BID #0 Sertraline HCl [Zoloft] 100 mg PO DAILY #0 Aspirin [Aspirin EC] 81 mg PO DAILY #0 Famotidine 20 mg PO DAILY #0 Isosorbide Mononitrate [Isosorbide Mononitrate ER] 30 mg PO BID #0 Hydralazine HCl 25 mg PO QID #0 Guaifenesin/Dextromethorphan [Robitussin Cough-Chest Dm Liq] 1 - 2 tsp PO Q6- 12HR PRN PRN Reason: Cough buPROPion HCl [Bupropion Xl] 300 mg PO DAILY Clopidogrel Bisulfate [Clopidogrel] 75 mg PO DAILY Sodium Chloride [Stone] 1 - 2 drop NS Q2H PRN #1 bottle PRN Reason: Nasal Congestion Changed Potassium Chloride ER Tab [K-Dur] 20 meq PO WB #0 Discontinued DiltiaZEM CD [Cardizem Cd] 240 mg PO DAILY Discharge Instructions/Outpatient Orders: Final Provider Discharge Instructions Location: Determined By Patient - [facility]position [facility] ([facility])
--- NOTE | 2017-01-19 12:39 | Extended Care Facility Orders ---
Admission Orders Allergies/Adverse Reactions: Allergies No Known Allergies Allergy (Verified 01/10/17 02:01) Admitting Diagnosis: cholecystitis Admitting Physician: Aleshia Sands MD Attending Physician: Aleshia Sands MD Code Status: Do Not Resuscitate Anticiapted Length of Stay: 30 days or less Rehab Potential: fair Rehab Prognosis: fair Diet: Regular Diet -soft May use Facility Protocol or Standing Orders: Yes May have flu vaccine: Yes Evaluations/Treatment: PT, OT Long Term Certification: I certify that SNF services are required to be given on an Inpatient basis because of the patients need for fdc care on a continuing basis for the condition(s) for which he/she received inpatient hospital services prior to his/her transfer to the SNF. SNF inpatient care is necessary for the following reasons Indication for Long Term: Wound Care/Assessment, Postop Assessment Care, Other (strenghtening) - Additional Information In Event of Arrest: Do Not Start CPR Resident is Aware of Diagnosis: No (dementia) Referrals: Roger Bhagat MD [Family Provider] - 1 Week Richmond Veloz MD [Physician] - 1 Week Additional Orders: CMP, CBC in 1 week-dx cholesystitis, abn LFTs, HTN. Recovering from post-op ileus-may not require bowel stimulants much longer. O2 as needed-has been on 3L most recently but often refuses to wear. Continue CPAP as before.
--- NOTE | 2017-01-19 16:09 | Discharge Summary ---
Discharge Information Date of admission: 01/13/17 10:47 Anticipated date of discharge: 01/19/17 Attending Physician: Aleshia Sands MD Primary care physician: Roger Bhagat MD Consults: Dr. 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 mg/g Status: Chronic (6) DURAN (obstructive sleep apnea) Status: Chronic (7) Elevated LFTs Status: Acute (8) Anemia Qualifiers: Anemia type: unspecified type Qualified Code(s): D64.9 - Anemia, unspecified Status: Chronic (9) Thrombocytopenia Status: Resolved (10) Pacemaker Status: Chronic (11) Dementia Qualifiers: Dementia type: unspecified type Dementia behavioral disturbance: without behavioral disturbance Qualified Code(s): F03.90 - Unspecified dementia without behavioral disturbance Status: Chronic (12) S/P cholecystectomy Status: Acute - Procedures Procedures: Laparoscopic cholecystectomy with intraoperative cholangiogram 01/13/17 - Laboratory Labs: On admission white count 4.8, hemoglobin 11.4, platelet count 100,000. Creatinine 1.6, AST 176, ALT 174, alk phosphatase 132, bilirubin 1.1, and lipase 35. At discharge bilirubin 1.0, AST 93, ALT 116, alk phosphatase 167. 01/19/17 04:20 01/19/17 04:20 - Microbiology Blood cultures 2 drawn 01/13 negative after 5 days - Radiology Radiology: CT of the abdomen/pelvis on 01/13/17: Findings: Mild atelectasis in the lung bases. Heart is enlarged. Cardiac pacemaker. The liver is grossly unremarkable. Small nodule adjacent to the posterior right lobe of the liver is again seen and unchanged. Gallbladder is distended with a large lamellated gallstone present and some mild gallbladder wall thickening. The spleen is unremarkable. The pancreas, adrenal glands and kidneys are stable with multiple irregular left-sided renal cysts and prominent bilateral renal stones. No evidence of obstructing stone. Bladder is normal. Prostate and rectum are unremarkable. No evidence of bowel obstruction or free air. Bone windows show no acute findings. Degenerative and postoperative changes in the lumbar spine. Impression: Distended gallbladder with possible wall thickening and a large chronic lamellated gallstone could represent acute cholecystitis in the appropriate clinical setting. Further evaluation with gallbladder ultrasound may be helpful. Chest x-ray on 01/13/17: Mild bibasilar atelectasis and hypoinflation. No gross pleural effusion or pneumothorax. The heart size, pulmonary vasculature and mediastinum are stable with an enlarged cardiac silhouette and left cardiac pacemaker. Mediastinal contours are widened but unchanged. Pulmonary vascularity is stable. Bilateral shoulder replacements and cervical spine hardware. There is no free air on the upright view. The bowel gas pattern is nonobstructive and nonspecific. Gas is seen in nondilated small and large bowel to the level of the rectum. Moderate stool is seen throughout the colon. Thoracolumbar spinal fusion. Impression: 1. Lower lobe atelectasis without focal pneumonia. 2. No evidence of acute obstruction or free air. Ultrasound of the gallbladder on 01/13/17: Hepatic parenchyma is homogeneous without evidence for focal mass. The gallbladder is abnormal with wall thickening up to 7 mm and a large shadowing gallstone present. Both the intra and extrahepatic biliary system are of normal caliber with the common duct measuring 4 mm in dimension. Pancreas is not well seen due to shadowing bowel gas. The right kidney is present without collecting system dilatation. The right kidney measures 10.7 cm in length. Multiple right renal cysts which appear simple Impression: Acute cholecystitis. Surgical consultation is recommended. KUB 01/15/17 was consistent with a colonic ileus with retained contrast in the right colon. Follow-up KUBs on 01/17 and 01/19 demonstrated nonobstructive bowel gas pattern and slow clearance of contrast although there was some residual contrast on the final film. - Pathology Final surgical pathology reported mild acute and chronic cholecystitis with reactive mucosal atypia but no dysplasia or malignant neoplasia. Benign regional lymph nodes were reported in addition to cholelithiasis. Full report documented in electronic medical record. History of Present Illness HPI: Patient is an 82-year-old male who is known to the hospitalist services as he was recently admitted on 01/09/17 with fever and possible sepsis. Exact orgin of fever was unknown at that time. He had recently been on antibiotics for a urinary tract infection prior to that time. And had completed a round of amoxicillin. He was discharged on 01/11/17 2 [facility]. Early this morning. He was brought back to the emergency room for evaluation of concerned decreased in alertness a well as well as moaning and groaning. Further evaluation including laboratory studies and CT scan were obtained. WBC count was found to be 4.8, hemoglobin 11.4, hematocrit 34.5, platelet count 100. Sodium is 140, potassium 4.0, BUN 34, creatinine 1.6. LFTs are elevated with an AST of 176, ALT 174, alkaline phosphatase 132. A urinalysis is obtained showing 1+ protein with trace bacteria, otherwise unremarkable. The left function study is 248. Initially a CT scan of the abdomen is obtained does reveal distended gallbladder with questionable wall thickening with a chronic laminated gallstone. This was followed with a gallbladder ultrasound revealing acute cholecystitis. A chest x-ray did reveal some atelectasis without evidence of infiltrate. Given these findings. A hospitalist services were contacted and accepted patient for inpatient admission for further evaluation and treatment. Dr. Veloz was consulted and accepted patient for surgical consultation. Patient is seen on initial examination. He is sleeping, and does not arouse during examination. However, he has just received morphine prior to exam. is at the bedside and she does report that patient has had ongoing "problems" for approximately 1 month. Time he has had abdominal discomfort. She reports that he was treated in the outpatient setting for shingles and completed a course of acyclovir. He was then recently admitted on 01/09 for possible sepsis/ UTI and this was ruled out. This morning he appeared to be in increasing pain with questionable altered mentation in mild distress with moaning. Evaluation is challenging due to patient's chronic dementia. We did discuss advanced directives and patient's does verify that he is a do not resuscitate. Hospital Course This is a general summary of the patient's hospital course. For more details refer to the complete medical record. Hospital course: Mr. Kyle was hospitalized on 01/13 with acute cholecystitis and abnormal liver enzymes. He was seen in consultation by Dr. Veloz. He was started on IV fluids and IV antibiotics with Invanz. IV antiemetics and narcotics for utilize for symptomatic management. The patient underwent bypass, cholecystectomy on . Bowel regimen was initiated subsequent days and diet slowly advanced. Liver enzymes trended down slowly although transaminases remain modestly elevated at discharge. Postoperatively the patient developed an ileus but was having frequent bowel movements at discharge after bowel regimen was initiated. IV antibiotics were discontinued on the third postoperative day with stable white counts and temperatures thereafter. Blood pressure medications were resumed postoperatively with persistent hypertension and low-grade tachycardia demonstrated prompting increased dose in diltiazem from 240 mg daily to 360 mg daily. Supplemental oxygen was utilized throughout the hospitalization when the patient would permit, additionally CPAP was used per home regimen as patient tolerated/permitted. Mild hypokalemia was present on the date of discharge at which time potassium supplementation was resumed. Electrolytes and liver enzymes will be reassessed in the outpatient setting in approximately one week. No additional medical problems occurred during the hospital course and the patient was felt stable for discharge to [facility] nursing on . On the morning of discharge the patient denied dyspnea and reported having some abdominal discomfort but clarified that the discomfort occurred only when "the kids throw a softball at him". Confusion was at baseline, respirations nonlabored with diminished airflow but clear breath sounds. Abdomen was soft with mild tenderness in the right lower quadrant and persistent bruising especially in the lower abdomen. Laparoscopic port sites are healing well. Patient is to follow-up with Dr. Veloz in approximately [address] Bhagat in 1-2 weeks. He is on a soft diet without other restrictions and requires assistance to transfer from bed to chair. Changes in medications as noted on the discharge medication list. Time spent with patient: Greater than 35 minutes Discharge Plan - Med Rec/Dispo Referrals/Follow Up: Roger Bhagat MD [Family Provider] - 1 Week Richmond Veloz MD [Physician] - 1 Week Ming Instructions: Laparoscopic Cholecystectomy (DC) Prescriptions: New PEG 3350 17gm PACKET [Miralax] 17 gm PO DAILY packet Senna + Docusate [Senna Plus Tablet] 2 tab PO BID tablet DiltiaZEM CD [Cardizem Cd] 360 mg PO DAILY #30 capsule Continue Nitroglycerin [Nitrostat] 0.4 mg SL Q5MIN PRN #0 PRN Reason: CHEST PAIN Atorvastatin Calcium 10 mg PO HS #0 Lactobacillus Combo No.10 [Probiotic] 1 cap PO DAILY #0 Acetaminophen 650 mg PO Q4H PRN PRN Reason: Pain PredniSONE [Deltasone] 3 mg PO DAILY Cyanocobalamin (Vitamin B-12) [Vitamin B-12] 1,000 mcg PO DAILY Cholecalciferol (Vitamin D3) [Vitamin D3] 1 cap PO DAILY ClonazePAM [Klonopin] 1 mg PO HS #15 tablet Hydrocodone/APAP 5/325 [[place] 5/325] 1 tab PO Q4H PRN #20 tablet PRN Reason: Pain Amiodarone HCl 200 mg PO DAILY #0 Ferrous Sulfate [Iron] 325 mg PO BID #0 Sertraline HCl [Zoloft] 100 mg PO DAILY #0 Aspirin [Aspirin EC] 81 mg PO DAILY #0 Famotidine 20 mg PO DAILY #0 Isosorbide Mononitrate [Isosorbide Mononitrate ER] 30 mg PO BID #0 Hydralazine HCl 25 mg PO QID #0 Guaifenesin/Dextromethorphan [Robitussin Cough-Chest Dm Liq] 1 - 2 tsp PO Q6- 12HR PRN PRN Reason: Cough buPROPion HCl [Bupropion Xl] 300 mg PO DAILY Clopidogrel Bisulfate [Clopidogrel] 75 mg PO DAILY Sodium Chloride [Falls] 1 - 2 drop NS Q2H PRN #1 bottle PRN Reason: Nasal Congestion Changed Potassium Chloride ER Tab [K-Dur] 20 meq PO WB #0 Discontinued DiltiaZEM CD [Cardizem Cd] 240 mg PO DAILY Discharge Instructions/Outpatient Orders: Final Provider Discharge Instructions Location: Determined By Patient - Disposition [facility] ([facility])
--- NOTE | 2017-01-20 12:42 | Right on Track Program ---
Right on Track Program Date of Discharge: 01/19/17 Home Medications: Home Medications Medication Instructions Recorded Confirmed Nitroglycerin [Nitrostat] 0.4 mg SL Q5MIN PRN #0 01/27/15 01/13/17 Amiodarone HCl 200 mg PO DAILY #0 09/16/15 01/13/17 Atorvastatin Calcium 10 mg PO HS #0 09/16/15 01/13/17 Ferrous Sulfate [Iron] 325 mg PO BID #0 09/16/15 01/13/17 Sertraline HCl [Zoloft] 100 mg PO DAILY #0 10/09/15 01/13/17 Aspirin [Aspirin EC] 81 mg PO DAILY #0 02/02/16 01/13/17 Famotidine 20 mg PO DAILY #0 02/02/16 01/13/17 Isosorbide Mononitrate [Isosorbide 30 mg PO BID #0 02/02/16 01/13/17 Mononitrate ER] Lactobacillus Combo No.10 1 cap PO DAILY #0 05/07/16 01/13/17 [Probiotic] Hydralazine HCl 25 mg PO QID #0 05/15/16 01/13/17 Acetaminophen 650 mg PO Q4H PRN 01/09/17 01/13/17 Cholecalciferol (Vitamin D3) 1 cap PO DAILY 01/09/17 01/13/17 [Vitamin D3] Clopidogrel Bisulfate [Clopidogrel] 75 mg PO DAILY 01/09/17 01/13/17 Cyanocobalamin (Vitamin B-12) 1,000 mcg PO DAILY 01/09/17 01/13/17 [Vitamin B-12] Guaifenesin/Dextromethorphan 1 - 2 tsp PO Q6-12HR PRN 01/09/17 01/13/17 [Robitussin Cough-Chest Dm Liq] PredniSONE [Deltasone] 3 mg PO DAILY 01/09/17 01/13/17 buPROPion HCl [Bupropion Xl] 300 mg PO DAILY 01/09/17 01/13/17 Previous Rx's Medication Instructions Recorded Sodium Chloride [[place]] 1 - 2 drop NS Q2H PRN #1 bottle 01/11/17 ClonazePAM [Klonopin] 1 mg PO HS #15 tablet 01/19/17 DiltiaZEM CD [Cardizem Cd] 360 mg PO DAILY #30 capsule 01/19/17 Hydrocodone/APAP 5/325 [[place] 1 tab PO Q4H PRN #20 tablet 01/19/17 5/325] PEG 3350 17gm PACKET [Miralax] 17 gm PO DAILY packet 01/19/17 Potassium Chloride ER Tab [K-Dur] 20 meq PO WB #0 01/19/17 Senna + Docusate [Senna Plus 2 tab PO BID tablet 01/19/17 Tablet] - Right on Track Program PHONE CALL #1 Date: 01/20/17 Right on Track Program: 24 Hour Follow-Up Follow Up: Follow Up Appointment Scheduled (will be scheduled per transportation at [facility] - Dr. Veloz in 2 wks; Dr. Bhagat in 1-2 wks) Education: Diagnosis Education Reviewed, Education Provided To Caregiver Referral: Primary Care Physician Comments: I spoke with Lelo, the nurse taking care of John Kyle. She stated that last night was rough - he was trying to climb out of bed frequently; he thought he lived in [facility] with his . He's required 1:1 care. He threw his first breakfast tray in his lap; but he ate his 2nd tray well. He hasn't been complaining of pain. She denies any questions on the discharge instructions. She noticed that he no longer has a PRN Clonazepam available (only Rx for HS) - she is going to contact Dr. Bhagat to inquire about a PRN Rx. At this time the primary concern is ongoing confusion. Will continue to follow. Recommendations For Follow-up: 1. Continue SNF 2. Provide safe supportive environment 3. F/U with providers as planned 4. [id number] visit next week FACE TO FACE Date: 01/22/17 Right on Track Program: 7-14 Day [id number] Discharge Summary Received: No Care Plan Received: Yes Follow Up: Follow Up Appointment Scheduled Education: Diagnosis Education Reviewed, Education Provided To Caregiver Referral: Primary Care Physician Comments: I visited Mr. Kyle at [facility] on 01/22/17. He was lying supine in his low bed with his feet on the floor. He woke up easily and denied any concerns. He told me someone was just in to check on him and see if he wanted to get up. He stated that he's been very weak but denied other symptoms such as dyspnea, chest pain, abdominal pain, vomiting, or bowel problems. Exam: Gen: drowsy but responded easily, NAD CV: RRR Lungs: CTAB Abd: eccymosis especially lower abd; incisions healing well; soft; hypoactive bowel sounds; nontender Ext: no edema I then visited with his [employer], Stephan. They are worried about his safety - he fell again last night by reportedly sliding out of his wheelchair. He did not injure himself. He's been requiring 2 assists and sometimes the full lift for transfers. He has been extremely confused and requires 1:1 care. Last night he spilled his dinner tray and was having problems with the sequencing of eating and drinking. Since then, speech therapy has been consulted. He hasn't been complaining of pain. There is no evidence of urinary retention and his bowels have been moving. Medications reviewed with Stephan - he is on a handful of centrally acting meds, many of which appear to be long-standing medications. We reviewed delirium and multiple causes; the importance of providing a safe, supportive environment; and the lack of medical treatment for this condition. Discussed With Patient and Caregiver: Yes Recommendations For Follow-up: 1. Will fax this note to Dr. Bhagat to simply let him know that Mr. Kyle continues to have postop delirium. 2. Stephan is going to check with transportation to see when the f/u appointment has been scheduled. 3. Will fax the DC summary to [facility]. We couldn't find this in his chart. 4. Continue to follow through transitional care. 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 mg/g Code(s): N18.3 - Chronic kidney disease, stage 3 (moderate) Status: Chronic (5) Dementia Qualifiers: Dementia type: unspecified type Dementia behavioral disturbance: without behavioral disturbance Qualified Code(s): F03.90 - Unspecified dementia without behavioral disturbance Code(s): F03.90 - Unspecified dementia without behavioral disturbance Status: Chronic (6) HTN (hypertension) Qualifiers: Hypertension type: essential hypertension Qualified Code(s): I10 - Essential (primary) hypertension Code(s): I10 - Essential (primary) hypertension Status: Chronic (7) DURAN (obstructive sleep apnea) Code(s): G47.33 - Obstructive sleep apnea (adult) (pediatric) Status: Chronic
== END 2017-01-19 15:15 | DRG 419 ==
LOC: ED 04:49 → SRG 10:32 → CCU 17:45 → SRG 01-15 19:05
PROVIDERS: ADMIT Internal Medicine; ATTEND Internal Medicine

== ENCOUNTER 2017-04-27 05:10 | Inpatient (IN) ==
[2017-04-27] MEDS ORDERED: ALBUTEROL/IPRATROPIUM 2.5mg-0.5mg/3ml NEB AEROSOL ONE (05:17)
--- NOTE | 2017-04-27 05:27 | Emergency Department Report ---
Asthma HPI - General Stated Complaint: diff breathing <Kevin Reynoso - 04/27/17 07:25> Time Seen by Provider: 04/27/17 05:16 <Kevin Reynoso - 04/27/17 07:25> Source: patient <Porter Bray - 04/27/17 05:27> Mode of arrival: ambulatory <Porter Bray - 04/27/17 05:27> Limitations: no limitations <Porter Bray 04/27/17 05:27> - History of Present Illness HPI Narrative: Patient has had progressive difficulty breathing since around midnight. When the 2 AM nurse check time, patient was mildly hypoxemic, she placed O2 running and that seemed improving to the point that he could sleep. Within an hour however, the patient was having worsening dyspnea, and she had increase his O2 multiple times, without relief. Patient has oxygen when necessary for periodic hypoxemia, but no history of CHF. Patient does have history of pneumonia in the past as well as coronary disease. EMS picked the patient up, he was found to be hypoxemic on 5 L nasal cannula, with a nonrebreather mask at 15 L, he was able to get his oxygen up to 100%, it became more alert and oriented, and states that now he is feeling much better. In the ER when he is taken off the nonrebreather, his O2 sats did drop down into the low 90s to high 80s, but with supplemental oxygen he improves again. <Porter Bray - 04/27/17 05:27> - Related Data Home Medications Medication Instructions Recorded Confirmed Nitroglycerin [Nitrostat] 0.4 mg SL Q5MIN PRN #0 01/27/15 04/27/17 Amiodarone HCl 200 mg PO DAILY #0 09/16/15 04/27/17 Atorvastatin Calcium 10 mg PO HS #0 09/16/15 04/27/17 Ferrous Sulfate [Iron] 325 mg PO BIDLS #0 09/16/15 04/27/17 Sertraline HCl [Zoloft] 150 mg PO DAILY #0 10/09/15 04/27/17 Aspirin [Aspirin EC] 81 mg PO DAILY #0 02/02/16 04/27/17 Isosorbide Mononitrate [Isosorbide 30 mg PO BID #0 02/02/16 04/27/17 Mononitrate ER] Hydralazine HCl 25 mg PO BID #0 05/15/16 04/27/17 Cholecalciferol (Vitamin D3) 1,000 unit PO DAILY 01/09/17 04/27/17 [Vitamin D3] Clopidogrel Bisulfate [Clopidogrel] 75 mg PO DAILY 01/09/17 04/27/17 Cyanocobalamin (Vitamin B-12) 1,000 mcg PO DAILY 01/09/17 04/27/17 [Vitamin B-12] BuPROPion XL [Wellbutrin Xl] 300 mg PO DAILY 02/06/17 04/27/17 Famotidine [Pepcid] 20 mg PO DAILY 02/06/17 04/27/17 Acetaminophen [Acetaminophen Extra 500 mg PO Q4H PRN 03/27/17 04/27/17 Strength] Hydralazine [Apresoline] 25 mg PO HS 03/27/17 04/27/17 Lactobacillus Acidophilus 1 each PO DAILY 04/27/17 04/27/17 [Probiotic] predniSONE [Prednisone] 10 mg PO DAILY 04/27/17 04/27/17 Previous Rx's Medication Instructions Recorded Sodium Chloride [[place]] 1 - 2 drop NS Q2H PRN #1 bottle 01/11/17 ClonazePAM [Klonopin] 1 mg PO HS #15 tablet 01/19/17 DiltiaZEM CD [Cardizem Cd] 360 mg PO DAILY #30 capsule 01/19/17 PEG 3350 17gm PACKET [Miralax] 17 gm PO DAILY packet 01/19/17 Potassium Chloride [K-Dur] 20 meq PO WB #0 01/19/17 Senna + Docusate [Senna Plus 2 tab PO BID tablet 01/19/17 Tablet] <Kevin Reynoso - 04/27/17 07:25> Allergies Allergy/AdvReac Type Severity Reaction Status Date / Time No Known Allergies Allergy Verified 04/27/17 05:26 <Kevin Reynoso - 04/27/17 07:25> Review of Systems All systems: reviewed and negative except as stated <Porter Bray - 05:27> [facility] Patient Stated Medical History Cerebrovascular Accident Yes: 2004 Dementia Yes Peripheral Neuropathy Yes Cataracts Yes Cardiac Arrhythmia Yes: Afib hx Coronary Artery Disease Yes: stents Hypertension Yes Pneumonia Yes Sleep Apnea Yes Diabetes Mellitus Type 1 No Gastroesophageal Reflux Yes Disease Gastrointestinal Bleeding Yes Ulcer Yes Other GI Yes: Constipation at times. Hx Incontinence Yes Hx Kidney Stones Yes Hx Renal Disease Yes Anemia Yes Clotting Problems Yes: ON PLAVIX MRSA Yes: Nasal Shingles Yes Anesthesia Reactions No Malignant Hyperthermia No Bipolar Disorder Yes Clinic Medical History (Last Reviewed 02/25/17 @ 11:05 by YOLANDA Louis) Abnormal gait (Acute Medical) Anxiety (Acute Medical) Arthritis (Acute Medical) Carpal tunnel syndrome (Acute Medical) Chronic kidney disease, stage 4 (severe) (Acute Medical) Coronary artery disease (Acute Medical) Depression (Acute Medical) Essential hypertension (Acute Medical) Hyperlipemia (Acute Medical) Low back pain at multiple sites (Acute Medical) Osteoarthritis (Acute Medical) Renal cancer (Acute Medical) Sleep apnea (Acute Medical) <Kevin Reynoso 04/27/17 07:25> Surgical History: Colonoscopy 2014. Heart pacemaker 2010. Coronary artery stents 03/2014. Back surgeries x5 <Porter Bray 04/27/17 05:27> Family History: Family History (Last Reviewed 02/25/17 @ 11:05 by YOLANDA Louis) Mother Stroke Migraine Depression Father High blood pressure Congestive heart failure due to hypertension Sister Migraine <Kevin Reynoso 04/27/17 07:25> - Social History Smoking status: Never smoker <Porter Bray 04/27/17 05:27> Physical Exam - Limitations Limitations: no limitations <Porter Bray 04/27/17 05:27> - General General appearance: alert <Porter Bray 04/27/17 05:27> - Normal Exams: Head:: Normocephalic without trauma <Porter Bray 04/27/17 05:27> Eyes:: Pupils are PERRLA w/ EOMI, No scleral icterus, irritation, or foreign bodies noted <Porter Bray 04/27/17 05:27> ENMT:: No facial trauma, nasal exudates, pharyngeal erythema, or exudates are noted <Porter Bray 04/27/17 05:27> Neck:: Full range of motion, without adenopathy, JVD, bruits or thyromegaly < Porter Bray 04/27/17 05:27> Abdomen:: Bowel sounds positive, soft, non-tender, non-distended, no hepatosplenomegaly, masses or bruits noted <[facility] 04/27[facility] 05:27> Lymphatic:: No lymphadenopathy, or lymphedema noted <[facility] 05:27> Musculoskeletal:: No tenderness, or deformity noted, good range of motion, all extremities <[facility] 04/27/17 05:27> Integumentary:: No rashes, hives, or bruising noted, hair and nails, without abnormality <[facility] 04/27/17 05:27> Neurological:: Patient is alert, and oriented, cranial nerves, motor/sensory/ cerebellar, exams w/o gross deficits, to observation <[facility] 04/27 05:27> Psychiatric:: Patient exhibits, appropriate attention, emotion and affect < [facility] 04/27/17 05:27> - Chest Chest inspection: Present: normal inspection, symmetric chest wall rise. Absent : tenderness <[facility] 04/27/17 05:27> - Respiratory Respiratory exam: Present: respiratory distress, wheezes, accessory muscle use, prolonged expiratory phase. Absent: normal lung sounds bilaterally (mild bilateral wheezes with extended expiratory phase, inspiratory crackles with coarse rhonchi in the bases bilaterally right greater than left) <[facility] 04/27[facility] 05:27> Course Vital Signs Temperature 98.3 F 04/27/17 05:10 Pulse Rate 87 04/27/17 05:10 Respiratory Rate 24 04/27/17 05:10 Blood Pressure 180/92 H 04/27/17 05:10 Pulse Oximetry 98 04/27/17 05:10 Temperature 98.3 F 04/27/17 05:10 Pulse Rate 79 04/27/17 07:15 Respiratory Rate 24 04/27/17 07:15 Blood Pressure 159/88 H 04/27/17 07:15 Pulse Oximetry 90 04/27/17 06:45 <Kevin Reynoso - 04/27/17 07:25> Vital Signs Temperature 98.3 F 04/27/17 05:10 Pulse Rate 87 04/27/17 05:10 Respiratory Rate 24 04/27/17 05:10 Blood Pressure 180/92 H 04/27/17 05:10 Pulse Oximetry 98 04/27/17 05:10 Temperature 98.3 F 04/27/17 05:10 Pulse Rate 79 04/27/17 07:15 Respiratory Rate 24 04/27/17 07:15 Blood Pressure 159/88 H 04/27/17 07:15 Pulse Oximetry 90 04/27/17 06:45 <Porter Bray - 04/27/17 06:01> Dyspnea - MDM Narrative Medical decision making narrative: Patient was given 324 mg of aspirin by mouth 1 after troponin was found to be elevated. Patient's EKG does not show ST elevation IA and patient has no chest discomfort. Elevated troponin is most likely secondary to pneumonia. Patient was given Levaquin 750 mg intravenously times one in the emergency department after blood cultures and lactic acid were drawn. Patient is admitted to the ICU to the service of the hospitalist Dr. Dennis Wells after discussion with Dr. Taylor from the hospitalist service. Patient is DO NOT RESUSCITATE is verified with durable power of deputy county attorney and family. Patient is admitted to the service of the hospitalist in improved condition. <Kevin Reynoso - 04/27/17 07:25> Patient given DuoNeb treatment 1 - EKG shows a paced atrial rhythm with occasional PVCs only CBC - mild elevation of white cells 14,000, no significant left shift CMP - Pending Troponin - Pending CXR - large right lower lobe consolidation consistent with pneumonia Pro BNP - Pending Lactate/pro-calcitonin - lactate normal Patient remained stable on 10 L nonrebreather mask, tolerates masks poorly, and has to be reminded to leave his mask on. When the mask is on the patient feels "normal"without dyspnea. Patient is started on Levaquin 750 mg IV in the ER, while lab is pending. Was remainder of the lab is back, Dr. Reynoso will reassess the patient and call the hospitalist to let them know of admission. I did forewarned the hospitalist that the patient would be coming in, and they request call later when the patient's lab is all verified. <Porter Bray - 04/27/17 06:01> - Lab Data Result diagrams: 04/27/17 05:26 04/27/17 05:26 <ReynosoKevin - 04/27/17 07:25> Lab Results 04/27/17 04/27/17 04/27/17 Range/Units 05:26 05:26 05:26 WBC 12.2 H (4.5-11.0) T/MM3 RBC 3.38 L (4.50-5.90) M/MM3 Hgb 10.2 L (13.5-17.5) GM/DL Hct 32.3 L (41-53) % MCV 95.6 (80-100) UM3 MCH 30.2 (26-34) UUG MCHC 31.6 (31-37) GM/DL RDW Std Deviation 46.8 (36.9-50.2) FL Plt Count 180 (130-400) T/MM3 MPV 10.2 (9.4-12.4) UM3 Immature Gran % (Auto) 0.2 (0.0-0.5) % Neut % (Auto) 85.9 H (33-66) % Lymph % (Auto) 5.6 L (23-45) % West[place] % (Auto) 7.3 (0-9.0) % Eos % (Auto) 0.8 (0-4) % Baso % (Auto) 0.2 (0-2) % Neut # (Auto) 10.5 H (1.8-7.7) T/MM3 Lymph # (Auto) 0.7 L (1-4.8) T/MM3 Weston # (Auto) 0.9 H (0-0.8) T/MM3 Eos # (Auto) 0.1 (0-0.5) T/MM3 Baso # (Auto) 0.0 (0-0.2) T/MM3 Abs Immat Gran (auto) 0.03 (0.00-0.03) T/MM3 Turbidity (0-20) Sodium (134-144) MEQ/L Potassium (3.6-5) MEQ/L Chloride (98-107) MEQ/L Carbon Dioxide (22-30) MEQ/L Anion Gap (5-15) MEQ/L BUN (9-20) MG/DL Creatinine (0.8-1.5) MG/DL GFR Calculation BUN/Creatinine Ratio (6-26) RATIO Glucose (75-110) MG/DL Calculated Osmolality (261-280) MOSM/KG Calcium (8.4-10.2) MG/DL Total Bilirubin (0.20-1.30) MG/DL Icterus Index (0-7) AST (17-59) U/L ALT (21-72) U/L Alkaline Phosphatase (38-126) U/L Troponin I 0.687 H (0-0.12) ng/ml B-Natriuretic Peptide 6880 H (0-175) pg/mL Total Protein (6.3-8.2) G/DL Albumin (3.5-5.0) G/DL Globulin (2.4-3.6) G/DL Albumin/Globulin Ratio (1.1-2.2) RATIO Plasma Lactate 1.1 (0.6-2.2) MMOL/L Procalcitonin 0.18 NG/ML Specimen Hemolysis < 15 (0-25) 04/27/17 Range/Units 05:26 WBC (4.5-11.0) T/MM3 RBC (4.50-5.90) M/MM3 Hgb (13.5-17.5) GM/DL Hct (41-53) % MCV (80-100) UM3 MCH (26-34) UUG MCHC (31-37) GM/DL RDW Std Deviation (36.9-50.2) FL Plt Count (130-400) T/MM3 MPV (9.4-12.4) UM3 Immature Gran % (Auto) (0.0-0.5) % Neut % (Auto) (33-66) % Lymph % (Auto) (23-45) % Weston % (Auto) (0-9.0) % Eos % (Auto) (0-4) % Baso % (Auto) (0-2) % Neut # (Auto) (1.8-7.7) T/MM3 Lymph # (Auto) (1-4.8) T/MM3 Weston # (Auto) (0-0.8) T/MM3 Eos # (Auto) (0-0.5) T/MM3 Baso # (Auto) (0-0.2) T/MM3 Abs Immat Gran (auto) (0.00-0.03) T/MM3 Turbidity < 20 (0-20) Sodium 146 H (134-144) MEQ/L Potassium 3.6 (3.6-5) MEQ/L Chloride 110 H (98-107) MEQ/L Carbon Dioxide 25 (22-30) MEQ/L Anion Gap 11 (5-15) MEQ/L BUN 31.0 H (9-20) MG/DL Creatinine 1.5 (0.8-1.5) MG/DL GFR Calculation 45 BUN/Creatinine Ratio 21 (6-26) RATIO Glucose 89 (75-110) MG/DL Calculated Osmolality 287 H (261-280) MOSM/KG Calcium 9.4 (8.4-10.2) MG/DL Total Bilirubin 0.70 (0.20-1.30) MG/DL Icterus Index < 2 (0-7) AST 77 H (17-59) U/L ALT 84 H (21-72) U/L Alkaline Phosphatase 119 (38-126) U/L Troponin I (0-0.12) ng/ml B-Natriuretic Peptide (0-175) pg/mL Total Protein 6.3 (6.3-8.2) G/DL Albumin 3.4 L (3.5-5.0) G/DL Globulin 2.9 (2.4-3.6) G/DL Albumin/Globulin Ratio 1.2 (1.1-2.2) RATIO Plasma Lactate (0.6-2.2) MMOL/L Procalcitonin NG/ML Specimen Hemolysis < 15 (0-25) <Reynoso,Kevin C - 04/27/17 07:25> Lab Results 04/27/17 04/27/17 04/27/17 Range/Units 05:26 05:26 05:26 WBC 12.2 H (4.5-11.0) T/MM3 RBC 3.38 L (4.50-5.90) M/MM3 Hgb 10.2 L (13.5-17.5) GM/DL Hct 32.3 L (41-53) % MCV 95.6 (80-100) UM3 MCH 30.2 (26-34) UUG MCHC 31.6 (31-37) GM/DL RDW Std Deviation 46.8 (36.9-50.2) FL Plt Count 180 (130-400) T/MM3 MPV 10.2 (9.4-12.4) UM3 Immature Gran % (Auto) 0.2 (0.0-0.5) % Neut % (Auto) 85.9 H (33-66) % Lymph % (Auto) 5.6 L (23-45) % Weston % (Auto) 7.3 (0-9.0) % Eos % (Auto) 0.8 (0-4) % Baso % (Auto) 0.2 (0-2) % Neut # (Auto) 10.5 H (1.8-7.7) T/MM3 Lymph # (Auto) 0.7 L (1-4.8) T/MM3 Weston # (Auto) 0.9 H (0-0.8) T/MM3 Eos # (Auto) 0.1 (0-0.5) T/MM3 Baso # (Auto) 0.0 (0-0.2) T/MM3 Abs Immat Gran (auto) 0.03 (0.00-0.03) T/MM3 Turbidity (0-20) Sodium (134-144) MEQ/L Potassium (3.6-5) MEQ/L Chloride (98-107) MEQ/L Carbon Dioxide (22-30) MEQ/L Anion Gap (5-15) MEQ/L BUN (9-20) MG/DL Creatinine (0.8-1.5) MG/DL GFR Calculation BUN/Creatinine Ratio (6-26) RATIO Glucose (75-110) MG/DL Calculated Osmolality (261-280) MOSM/KG Calcium (8.4-10.2) MG/DL Total Bilirubin (0.20-1.30) MG/DL Icterus Index (0-7) AST (17-59) U/L ALT (21-72) U/L Alkaline Phosphatase (38-126) U/L Troponin I 0.687 H (0-0.12) ng/ml B-Natriuretic Peptide 6880 H (0-175) pg/mL Total Protein (6.3-8.2) G/DL Albumin (3.5-5.0) G/DL Globulin (2.4-3.6) G/DL Albumin/Globulin Ratio (1.1-2.2) RATIO Plasma Lactate 1.1 (0.6-2.2) MMOL/L Procalcitonin 0.18 NG/ML Specimen Hemolysis < 15 (0-25) 04/27/17 Range/Units 05:26 WBC (4.5-11.0) T/MM3 RBC (4.50-5.90) M/MM3 Hgb (13.5-17.5) GM/DL Hct (41-53) % MCV (80-100) UM3 MCH (26-34) UUG MCHC (31-37) GM/DL RDW Std Deviation (36.9-50.2) FL Plt Count (130-400) T/MM3 MPV (9.4-12.4) UM3 Immature Gran % (Auto) (0.0-0.5) % Neut % (Auto) (33-66) % Lymph % (Auto) (23-45) % Weston % (Auto) (0-9.0) % Eos % (Auto) (0-4) % Baso % (Auto) (0-2) % Neut # (Auto) (1.8-7.7) T/MM3 Lymph # (Auto) (1-4.8) T/MM3 [place]on # (Auto) (0-0.8) T/MM3 Eos # (Auto) (0-0.5) T/MM3 Baso # (Auto) (0-0.2) T/MM3 Abs Immat Gran (auto) (0.00-0.03) T/MM3 Turbidity < 20 (0-20) Sodium 146 H (134-144) MEQ/L Potassium 3.6 (3.6-5) MEQ/L Chloride 110 H (98-107) MEQ/L Carbon Dioxide 25 (22-30) MEQ/L Anion Gap 11 (5-15) MEQ/L BUN 31.0 H (9-20) MG/DL Creatinine 1.5 (0.8-1.5) MG/DL GFR Calculation 45 BUN/Creatinine Ratio 21 (6-26) RATIO Glucose 89 (75-110) MG/DL Calculated Osmolality 287 H (261-280) MOSM/KG Calcium 9.4 (8.4-10.2) MG/DL Total Bilirubin 0.70 (0.20-1.30) MG/DL Icterus Index < 2 (0-7) AST 77 H (17-59) U/L ALT 84 H (21-72) U/L Alkaline Phosphatase 119 (38-126) U/L Troponin I (0-0.12) ng/ml B-Natriuretic Peptide (0-175) pg/mL Total Protein 6.3 (6.3-8.2) G/DL Albumin 3.4 L (3.5-5.0) G/DL Globulin 2.9 (2.4-3.6) G/DL Albumin/Globulin Ratio 1.2 (1.1-2.2) RATIO Plasma Lactate (0.6-2.2) MMOL/L Procalcitonin NG/ML Specimen Hemolysis < 15 (0-25) <Porter Bray 04/27/17 06:01> Critical Care Time Critical Care Time: Yes <Porter Bray 04/27/17 06:01> Total Critical Care Time: 40 <Porter Bray Duong 04/27/17 06:01> Attestation: Patient required aggressive therapy for hypoxemia and tachycardia initially with resultant diagnosis right lower lobe consolidation/pneumonia with hypoxemia <Porter Bray Duong 04/27/17 06:01> Disposition Clinical Impression: Elevated troponin I level Right lower lobe pneumonia Qualifiers: Pneumonia type: due to unspecified organism Qualified Code(s): J18.1 - Lobar pneumonia, unspecified organism <Kevin Reynoso 04/27/17 07:25> Disposition: 02 To [facility] [place] Acute Care <Kevin Reynoso 04/27/17 07:25> Condition: Improved <Kevin Reynoso 04/27/17 07:25> Instructions: <Kevin Reynoso 04/27/17 07:25> Prescriptions: No Action Nitroglycerin [Nitrostat] 0.4 mg SL Q5MIN PRN #0 PRN Reason: CHEST PAIN Atorvastatin Calcium 10 mg PO HS #0 Cyanocobalamin (Vitamin B-12) [Vitamin B-12] 1,000 mcg PO DAILY Cholecalciferol (Vitamin D3) [Vitamin D3] 1,000 unit PO DAILY ClonazePAM [Klonopin] 1 mg PO HS #15 tablet PEG 3350 17gm PACKET [Miralax] 17 gm PO DAILY packet Senna + Docusate [Senna Plus Tablet] 2 tab PO BID tablet BuPROPion XL [Wellbutrin Xl] 300 mg PO DAILY Famotidine [Pepcid] 20 mg PO DAILY Hydralazine [Apresoline] 25 mg PO HS predniSONE [Prednisone] 10 mg PO DAILY Amiodarone HCl 200 mg PO DAILY #0 Ferrous Sulfate [Iron] 325 mg PO BIDLS #0 Sertraline HCl [Zoloft] 150 mg PO DAILY #0 Aspirin [Aspirin EC] 81 mg PO DAILY #0 Isosorbide Mononitrate [Isosorbide Mononitrate ER] 30 mg PO BID #0 Hydralazine HCl 25 mg PO BID #0 Clopidogrel Bisulfate [Clopidogrel] 75 mg PO DAILY Sodium Chloride [[place]] 1 - 2 drop NS Q2H PRN #1 bottle PRN Reason: Nasal Congestion DiltiaZEM CD [Cardizem Cd] 360 mg PO DAILY #30 capsule Potassium Chloride [K-Dur] 20 meq PO WB #0 Acetaminophen [Acetaminophen Extra Strength] 500 mg PO Q4H PRN PRN Reason: Pain Lactobacillus Acidophilus [Probiotic] 1 each PO DAILY <Kevin Reynoso - 10/09 07:25> Referrals: Roger Bhagat MD [Family Provider] - <Kevin Reynoso - 07:25> Forms: <Kevin Reynoso - 04/27/17 07:25> Time of Disposition: 06:30 (Admit. Dr. Boyle. ) <Kevin Reynoso - 04/27/17 07:25> - Seen By: physician <Porter Bray - 04/27/17 06:01>
--- OUTSIDE RECORDS SUMMARY | 2017-04-27 05:43 | External Medical Summary ---
:1935 Author Organization [employer] Care Team Providers Name Role Phone Devan Pascual Provider Role Unavailable Allergies No Known Allergies Problems Problem Type Condition Code Onset Dates Condition Status Problem Chest pain 786.50 Active Problem S/P cardiac pacemaker procedure Z95.0 Active Problem Syncope R55 Active Problem S/P drug eluting coronary stent Z95.5 Active placement Problem Edema, Lower Extremity Edema 782.3 Active [...]
--- OUTSIDE RECORDS SUMMARY | 2017-04-27 05:44 | External Medical Summary ---
:1935 Author Organization [employer] Care Team Providers Name Role Phone Pascual Hartman Provider Role Unavailable Allergies, Adverse Reactions, Alerts Substance Reaction Event Type N.K.D.A. Info Not Available Non Drug Allergy Problems Problem Type Condition Code Onset Dates Condition Status Problem Coronary Artery Disease 414.01 Active Problem Bradycardia 427.89 Active Problem Syncope 780.2 Active Problem CAD (coronary artery disease) I25.10 Active Problem S/P cardiac pacemaker procedure Z95.0 Active Problem Episodic atrial fibrillation I48.0 Active Problem Atrial fibrillation 427.31 Active Problem Esophageal reflux 530.81 Active Problem Syncope R55 Active Problem Chest pain 786.50 Active Assessment CAD (coronary artery disease) I25.10 Active Assessment Episodic atrial fibrillation I48.0 Active Assessment Syncope R55 Active Assessment S/P cardiac pacemaker procedure Z95.0 Active Problem Aortic Valve Stenosis 424.1 Active Problem Dyspnea on exertion 786.09 Active Problem Edema, Lower Extremity Edema 782.3 Active Problem S/P Pacemaker Placement - Dual V45.01 Active Problem Hypertension 401.9 Active Problem s/p stenting, coronary V45.82 Active Medications Medication Code Code Instructions Start End Status Dosage [place] [address]-71 75 MG Orally qd 1 tab Bisulfate 14-05 BuPROPion HCl [facility] 03589-12 150 MG Orally qd 3 tabs 80-01 Isosorbide [facility] 90063-96 60 MG Orally 1 tablet Mononitrate CR 60-01 [place] [address]-18 150 MG Orally hs 1.5 tab 73-01 [place] [address]-83 50 MG Orally bid 1 tablet as 58-01 [place] [address]-53 325 (65 Fe) MG 1 tablet 28-01 Orally [place] [address]-91 120 MG Orally 1 tablet 21-01 [place] [address]-96 20 MG Orally 1 tab 97-25 [place] [address]-70 20 MG Orally 1 tablet at 63-31 Once a day bedtime Lexapro NDC 35623-27 20 MG Orally qd 3 tabs 20-01 MiraLax NDC 00923-68 Orally Once a 1 packet 34-01 day mixed with 8 ounces of fluid Nitrostat NDC 89921-50 0.4 MG not defined 18-13 Sublingual Potassium NDC 31870-67 20 MEQ qd 1 tab Chloride 98-01 Risperidone NDC 76109-29 0.25 MG Orally 1tab 21-05 qd Multivitamins NDC 87653-00 Orally qd 1 tablet 041 Oxygen NDC 0 q[address] dir Vitamin C NDC 61766-12 500 MG Orally 1 tablet 44-20 Once a day Nystatin NDC 60010-25 not defined 42-00 Clonazepam NDC 25514-09 2 MG Orally qd 1 tab 34-01 C-PAP NDC 0 qhs as directed Famotidine NDC 90971-62 20 MG Orally qd 1 tab 28-00 Procedures Procedure Coding System Code Date Ofc Program PM Dual, Staff CPT-4 51472 Jun 26, 2015 Office Visit, Est Pt., Level 3 CPT-4 02129 Jun 26, 2015 Vital Signs Date/Time: Jun 26, 2015 BMI 38.39 Index Weight 260 lbs Height 5 ft 9 in in Cardiac Monitoring Heart Rate 81 /min Oximetry 95 % Blood Pressure Diastolic 80 mm Hg Blood Pressure Systolic 120 mm Hg Results No Known Results Summary Purpose [employer] Submission
--- OUTSIDE RECORDS SUMMARY | 2017-04-27 05:44 | External Medical Summary ---
:1935 Author Organization [employer] Care Team Providers Name Role Phone Devan Pascual Provider Role Unavailable Allergies No Known Allergies Problems Problem Type Condition Code Onset Dates Condition Status Problem Atrial fibrillation 427.31 Active Problem Syncope R55 Active Problem Chest pain 786.50 Active Problem Hypertension I10 Active Problem Gastrointestinal bleed K92.2 Active Problem S/P drug eluting coronary stent Z95.5 Active placement Problem CAD (coronary artery disease) I25.10 Active Problem S/P cardiac pacemaker procedure Z95.0 Active Problem Depression F32.9 Active Problem Episodic atrial fibrillation I48.0 Active Problem Aortic Valve Stenosis 424.1 Active Problem Dyspnea on exertion 786.09 Active Problem Edema, Lower Extremity Edema 782.3 Active Problem Hypertension 401.9 Active Problem Coronary Artery Disease 414.01 Active Problem Syncope 780.2 Active Problem S/P Pacemaker Placement - Dual V45.01 Active Problem Bradycardia 427.89 Active Problem s/p stenting, coronary V45.82 Active Problem Esophageal reflux 530.81 Active Medications No Known Medications Results No Known Results Summary Purpose [employer] App Submission
--- OUTSIDE RECORDS SUMMARY | 2017-04-27 05:45 | External Medical Summary ---
:1935 Author Organization [employer] Care Team Providers Name Role Phone Pascual Hartman Provider Role Unavailable Allergies, Adverse Reactions, Alerts Substance Reaction Event Type N.K.D.A. 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 Problem Chest pain 786.50 Active Problem Coronary Artery Disease 414.01 Active Problem s/p stenting, coronary V45.82 Active Problem Bradycardia 427.89 Active Problem Syncope 780.2 Active Assessment Aortic Valve Stenosis 424.1 Active Assessment Edema, Lower Extremity Edema 782.3 Active Assessment Hypertension 401.9 Active Assessment Atrial fibrillation 427.31 Active Assessment s/p stenting, coronary V45.82 Active Assessment Coronary Artery Disease 414.01 Active Assessment Esophageal reflux 530.81 Active Problem Edema, Lower Extremity Edema 782.3 Active Assessment Dyspnea on exertion 786.09 Active Problem Hypertension 401.9 Active Medications Medication Code Code Instructions Start End Status Dosage System Date Date Furosemide [facility] [place] 86170-32 20 MG Orally 1 tab 97-25 Once a day BuPROPion HCl [facility] [place] 2] 37371-52 150 MG Orally qd 3 tabs 80-01 Metoprolol [facility] [place] 2] 14151-31 50 MG Orally 1 tablet Tartrate 33-01 Twice a day Trazodone HCl [facility] [place] 2] 92838-72 100 MG Orally hs 1.5 tab 60-00 Diltiazem HCl [facility] [place] 2] 35687-16 120 MG Orally 1 tablet 21-01 bid before meals Risperidone [facility] [place] 2] 04636-72 0.25 MG Orally 1tab 21-05 qd Gemfibrozil [facility] [place] 2] 17230-18 600 MG Orally 1 tab 70-05 bid Digoxin [facility] [place] 2] 47922-25 125 MCG Orally 1 tablet 11-01 Once a day Clonazepam [facility] [place]NOTE 2] 44638-19 2 MG Orally qd 1 tab 34-01 Famotidine NDC 59726-39 20 MG Orally qd 1 tab 28-00 Ferrous Sulfate NDC 64182-66 325 (65 Fe) MG 1 tablet 28-01 Orally Once a day Potassium NDC 31742-35 20 MEQ qd 1 tab Chloride 98-01 Tramadol HCl NDC 82517-98 50 MG Orally bid 1 tablet as 58-01 needed Oxygen NDC 0 qhs as dir Multivitamins NDC 15114-41 Orally qd 1 tablet 041 Lexapro NDC 35978-15 20 MG Orally qd 3 tabs 20-01 Vitamin C NDC 41099-55 500 MG Orally 1 tablet 44-20 Once a day Isosorbide NDC 73758-78 60 MG Orally 1 tablet Mononitrate CR 60-01 Once a day Clopidogrel NDC 61231-26 75 MG Orally qd 1 tab Bisulfate 14-05 C-PAP NDC 0 qhs as directed Procedures Procedure Coding System Code Date Ofc Program PM Dual, Staff CPT-4 40972 February 20, 2015 Office Visit, Est Pt., Level 4 CPT-4 46157 February 20, 2015 Vital Signs Date/Time: February 20, 2015 BMI 36.15 Index Weight 244.8 lbs Height 5 ft 9 in in Cardiac Monitoring Heart Rate 84 /min Oximetry 94% % Blood Pressure Diastolic 64 mm Hg Blood Pressure Systolic 110 mm Hg Results No Known Results Summary Purpose [employer] Submission
--- OUTSIDE RECORDS SUMMARY | 2017-04-27 05:47 | External Medical Summary | Continuity of Care Document ---
:1935 Author Organization [facility] Allergies Active Description Code Type Severity Reaction Onset Reported/ Identified Relationship Clinical to Patient Status Yes NKDA N/A N/A Yes Morphine Drug Mild Pruritus 01/10/2010 Aller gy Yes No Known No Drug Unknown . 06/30/2011 Drug Known Aller Allergies Drug gy Aller gies Yes No Known No Drug Unknown . 06/30/2011 Drug Known Aller Allergies Drug gy Aller gies Yes No Known Drug 10/30/2012 Drug Aller Allergies gy Yes No Known Food 10/30/2012 Food Aller Allergies gy Yes No Known Drug N/A N/A 08/04/2013 Allergies Aller gy Yes No Known Drug N/A N/A 08/04/2013 Drug Aller Allergies gy Yes No Known Food N/A N/A 08/04/2013 Food Aller Allergies gy Yes No Known NKMA N/A N/A 03/02/2014 Allergies Yes No Known NKMA N/A N/A 03/02/2014 Allergies Yes No Known No Drug Unknown N/A 07/21/2014 Allergies Known Aller Aller gy gies Medications Medication Packaging Start Stop Route Dosage Sig Date Date 10/01/19 ORAL [id number] 13 daily 01/12/20 ORAL [id number] 13 q6h 1 tabs 02/16/20 Oral 600 mg 14 015 1 tabs, gemfibrozil(gemfi Oral, BID, 60 brozil 600 mg tabs oral tablet) 1 tabs 02/16/20 Oral 20 mg 14 015 1 tabs, famotidine(famoti Oral, Daily, 30 dine 20 mg oral tabs tablet) 1 tabs 02/23/20 Oral 20 mEq potassium 14 015 20 mEq=1 chloride(potassiu tabs, Oral, m chloride 20 mEq Daily, 30 tabs, oral tablet, 5 Refill(s) extended release) 1 tabs 03/01/20 Oral 14 015 1 tabs, multivitamin(mult Oral, Daily ivitamin) 1 tabs 03/01/20 Oral 20 mg 14 015 1 tabs, escitalopram(esci Oral, Daily talopram 20 mg oral tablet) 1 tabs 03/01/20 SubLingual 0.4 mg 14 014 1 tabs, nitroglycerin(nit SubLingual, roglycerin 0.4 mg q5min, 100 sublingual tabs, PRN: as tablet) needed for chest pain 1 tabs 03/01/20 Oral 300 mg 14 015 1 tabs, buPROPion(Wellbut Oral, Daily rin XL 300 mg/24 hours oral tablet, extended release) 1.5 tabs 03/01/20 Oral 150 mg 14 015 1.5 tabs, traZODone(traZODo Oral, Bedtime ne 100 mg oral (once a day) tablet) 1 tabs 03/01/20 Oral 0.25 mg 14 015 1 tabs, risperiDONE(Rispe Oral, Bedtime rDAL 0.25 mg oral (once a day) tablet) 1 tabs 03/01/20 Oral 2 mg 14 015 1 tabs, clonazePAM(clonaz Oral, Bedtime ePAM 2 mg oral (once a day) tablet) 2 tabs 03/01/20 Oral 650 mg 14 014 2 tabs, acetaminophen(Tyl Oral, TID, PRN: enol Regular as needed for Strength 325 mg pain oral tablet) 1 tabs 03/01/20 Oral 20 mg 14 014 1 tabs, famotidine(Pepcid Oral, Daily 20 mg oral tablet) 1 tabs 03/01/20 Oral 81 mg aspirin(aspirin 14 014 1 tabs, 81 mg oral Oral, Daily tablet) 1 tabs 03/01/20 Oral 20 mg 14 014 1 tabs, furosemide(furose Oral, Daily mide 20 mg oral tablet) 1 tabs 03/01/20 Oral 250 mcg digoxin(digoxin 14 014 1 tabs, 250 mcg (0.25 mg) Oral, Daily oral tablet) 1 tabs 03/01/20 Oral 50 mg 14 015 1 tabs, losartan(losartan Oral, Daily 50 mg oral tablet) 1 caps 03/01/20 Oral 120 mg 14 015 1 caps, diltiazem(Cardize Oral, BID m CD 120 mg/24 hours oral capsule, extended release) 1 tabs 03/02/20 Oral 125 mcg digoxin(digoxin 14 014 1 tabs, 125 mcg (0.125 Oral, Daily, 30 mg) oral tablet) tabs 1 tabs 03/02/20 Oral 20 mg 14 015 1 tabs, furosemide(furose Oral, Daily, 90 mide 20 mg oral tabs tablet) 03/22/20 digoxin(digoxin 14 014 See 125 mcg (0.125 Instructions, mg) oral tablet) TAKE 1 TABLET BY MOUTH EVERY DAY AT NOON [1200], 30 tabs 03/27/20 ORAL [id number] 14 at bedtime 1 inch 04/18/20 Topical 1 g 14 014 1 g, nitroglycerin(Nit Topical, Once ro-Bid) 2 mL 04/18/20 IV Push 4 mg 14 014 4 mg, IV morphine(morphine Push, Once, ) PRN: Pain Severe (7-10) 1 tabs 04/18/20 Oral 81 mg 14 014 81 mg, aspirin(aspirin) Oral, Daily 1 caps 04/18/20 Oral 100 mg 14 014 100 mg, docusate(Colace) Oral, BID, PRN: Constipation 2 mL 04/18/20 IV Push 4 mg 14 014 4 mg, IV ondansetron(Zofra Push, q6hr, n) PRN: Nausea 1,000 mL 04/18/20 IV Sodium Chloride 14 014 75 mL/hr, 0.9%(Sodium IV Chloride 0.9% 1,000 mL) 2 tabs 04/18/20 Oral 650 mg 14 014 650 mg, acetaminophen(joann Oral, q4hr, taminophen) PRN: Other (See Comment) 1 tabs 04/18/20 Oral 600 mg 14 014 600 mg, gemfibrozil(gemfi Oral, BID brozil) 1 tabs 04/18/20 Oral 20 mg 14 014 20 mg, famotidine(famoti Oral, Daily dine) 1 tabs 04/18/20 Oral 125 mcg 14 014 125 mcg, digoxin(digoxin) Oral, Daily 3 tabs 04/18/20 Oral 60 mg 14 014 60 mg, escitalopram(esci Oral, Daily talopram) 4 tabs 04/18/20 Oral 2 mg 14 014 2 mg, Oral, clonazePAM(clonaz Bedtime (once a ePAM) day) 1 tabs 04/18/20 Oral 0.25 mg 14 014 0.25 mg, risperiDONE(Rispe Oral, Bedtime rDAL) (once a day) 2 tabs 04/18/20 Oral 300 mg 14 014 300 mg, traZODone(traZODo Oral, Bedtime ne) (once a day) 0.5 mL 04/18/20 IV 1 mg 14 014 1 mg, IV, morphine(morphine q4hr, PRN: 2 mg/mL syringe 1 Other (See mL) Comment) 1 inch 04/18/20 Topical 1 g 14 014 1 g, nitroglycerin(Nit Topical, Daily ro-Bid) 04/18/20 Oral 14 014 1-2 tabs, HYDROcodone-aceta Oral, q4hr, minophen(Lockwood 5 PRN: Pain mg-325 mg oral Moderate (4-6) tablet) 1 tabs 04/19/20 Oral 10 mg 14 014 10 mg, atorvastatin(ator Oral, Bedtime vastatin) (once a day) 1 caps 04/19/20 Oral 120 mg 14 014 120 mg, diltiazem(diltiaz Oral, BID em) 1 tabs 04/20/20 Oral 50 mg 14 014 50 mg, hydrALAZINE(hydrA Oral, BID LAZINE) 04/20/20 IV Push 85.95 mg 14 014 85.95 mg, bivalirudin(Angio IV Push, Once max) 1 mL 04/20/20 IV Push 2 mg 14 014 2 mg, IV morphine(morphine Push, q4hr, ) PRN: Pain Severe (7-10) 2 mL 04/20/20 IV Push 4 mg 14 014 4 mg, IV ondansetron(Zofra Push, q6hr, n) PRN: Nausea 1 tabs 04/20/20 SubLingual 0.4 mg 14 014 0.4 mg, nitroglycerin(nit SubLingual, roglycerin) q5min, PRN: Angina/Chest Pain 1 tabs 04/20/20 Oral 5 mg 14 014 5 mg, Oral, oxyCODONE(Roxicod q4hr, PRN: Pain one) 1 tabs 04/20/20 Oral 75 mg 14 014 75 mg, clopidogrel(Plavi Oral, Daily x) 2 mL 04/20/20 IV Push 10 mg 14 014 10 mg, IV labetalol(labetal Push, q1hr, ol) PRN: Hypertension/Hi gh Blood Pressure 1 tabs 04/20/20 Oral 300 mg 14 014 300 mg, clopidogrel(Plavi Oral, Once x) 1 tabs 04/21/20 Oral 25 mg 14 014 25 mg, hydrALAZINE(hydrA Oral, Once LAZINE) 1 tabs 04/22/20 Oral 10 mg 14 014 1 tabs, atorvastatin(ator Oral, Bedtime vastatin 10 mg (once a day) oral tablet) 1 tabs 04/22/20 Oral 81 mg aspirin(aspirin 14 015 1 tabs, 81 mg oral Oral, Daily delayed release tablet) 1 tabs 04/22/20 Oral 75 mg 14 015 1 tabs, clopidogrel(Plavi Oral, Daily x 75 mg oral tablet) 1 tabs 04/22/20 Oral 25 mg 14 014 1 tabs, hydrALAZINE(hydrA Oral, BID, 60 LAZINE 25 mg oral tabs tablet) 1 tabs 07/30/19 Oral 20 mg 15 015 1 tabs, furosemide(Lasix Oral, Daily 20 mg oral tablet) 1 tabs 07/30/19 Oral 500 mg 15 015 1 tabs, amoxicillin(amoxi Oral, BID cillin 500 mg oral tablet) 1 tabs 07/30/19 Oral 1 mg 15 015 1 tabs, clonazePAM(clonaz Oral, Bedtime ePAM 1 mg oral (once a day), tablet) 30 tabs 09/06/19 15 015 amphetamine(amphe tamine) 09/12/19 15 015 See gemfibrozil(gemfi Instructions, brozil 600 mg TAKE 1 TABLET oral tablet) BY MOUTH TWO TIMES A DAY G/F LOPID [0700,1999], 60 tabs 10/03/19 15 015 See famotidine(famoti Instructions, 1 dine 20 mg oral tabs Oral tablet) Daily, 30 tabs 1 tabs 10/31/19 Oral 600 mg 15 015 1 tabs, gemfibrozil(gemfi Oral, BID, 60 brozil 600 mg tabs oral tablet) 1 tabs 11/16/19 Oral 2 mg 15 015 1 tabs, clonazePAM(clonaz Oral, Bedtime ePAM 2 mg oral (once a day), tablet) filled by marta alegre 11/29/19 15 015 See traZODone(traZODo Instructions, ne 50 mg oral 1-1 2 AT HS tablet) PRESCRIBED BY DR ALEGRE, 0 Refill(s) 1 tabs 11/29/19 Oral 150 mg 15 015 150 mg=1 buPROPion(Wellbut tabs, Oral, rin XL 150 mg/24 q24hr, 0 hours oral Refill(s) tablet, extended release) tabs 11/29/19 Oral mg 15 015 tabs, Oral, clopidogrel(Plavi Daily x 75 mg oral tablet) 1 tabs 11/29/19 Oral 60 mg isosorbide 15 015 1 tabs, mononitrate(Imdur Oral, qAM, 30 60 mg oral tabs tablet, extended release) 1 tabs 11/29/19 Oral 50 mg 15 015 1 tabs, metoprolol(Lopres Oral, BID, 60 sor 50 mg oral tabs tablet) 1 tabs 11/29/19 Oral 1 mg 15 015 1 tabs, clonazePAM(clonaz Oral, Daily ePAM 1 mg oral tablet) 12/04/19 IV 40 mg 15 015 40 mg, IV, pantoprazole(pant Daily, 1 Each, oprazole 40 mg 0 Refill(s) intravenous injection) 1 caps 12/20/19 Oral 120 mg 15 016 120 mg=1 diltiazem(Cardize caps, Oral, m CD 120 mg/24 BID, 60 caps, 6 hours oral Refill(s) capsule, extended release) 1 tabs 12/20/19 Oral 50 mg 15 015 50 mg=1 metoprolol(Lopres tabs, Oral, sor 50 mg oral BID, 60 tabs, 6 tablet) Refill(s) 1 tabs 01/10/20 Oral 20 mg 15 016 20 mg=1 furosemide(Lasix tabs, Oral, 20 mg oral Daily, 30 tabs, tablet) 6 Refill(s) 1 tabs 02/02/20 Oral 20 mg 15 015 20 mg=1 escitalopram(esci tabs, Oral, talopram 20 mg Daily, 30 tabs, oral tablet) 6 Refill(s) 2 tabs 02/13/20 Oral 40 mg 15 015 40 mg=2 escitalopram(esci tabs, Oral, talopram 20 mg Daily, 60 tabs, oral tablet) 0 Refill(s) 1 tabs 02/13/20 Oral 150 mg 15 015 150 mg=1 traZODone(traZODo tabs, Oral, ne 150 mg oral BID, 1 tabs, 0 tablet) Refill(s) 03/27/20 ORAL [id number] 15 at bedtime 2 mL 05/20/20 IV Push 10 mg 15 015 10 mg=2 mL, metoclopramide(Re IV Push, q6hr, glan) PRN: Nausea 0.5 mL 05/20/20 IV Push 1 mg 15 015 1 mg=0.5 morphine(morphine mL, IV Push, ) q2hr, PRN: Pain - Breakthrough 2 mL 05/20/20 IV Push 4 mg 15 015 4 mg=2 mL, ondansetron(Zofra IV Push, q6hr, n) PRN: Nausea 1,000 mL 05/20/20 IV Sodium Chloride 15 015 100 mL/hr, 0.9%(Sodium IV Chloride 0.9% 1,000 mL) 1 tabs 05/20/20 Oral 500 mg calcium 15 015 500 mg=1 carbonate(Tums) tabs, Oral, q4hr, PRN: GERD/Heartburn 1 tabs 05/20/20 Oral 0.25 mg 15 015 0.25 mg=1 risperiDONE(rispe tabs, Oral, riDONE 0.25 mg Bedtime (once a oral tablet) day), 0 Refill(s) 1 tabs 05/20/20 Oral 2 mg 15 017 2 mg=1 clonazePAM(clonaz tabs, Oral, ePAM 2 mg oral Bedtime (once a tablet) day), 0 Refill(s) 1 tabs 05/20/20 Oral 300 mg 15 016 300 mg=1 buPROPion(Wellbut tabs, Oral, rin XL 300 mg/24 Daily, 0 hours oral Refill(s) tablet, extended release) 05/20/20 Oral 2,000 mg 15 2,000 mg, amoxicillin(amoxi Oral, Daily, cillin) given 1 hour prior to the procedure, PRN: dental appointment, 0 Refill(s) 1 tabs 05/20/20 Oral 81 mg aspirin(aspirin 15 015 81 mg=1 81 mg oral tabs, Oral, tablet, chewable) Daily, 0 Refill(s) 05/20/20 Oral 20 mg 15 016 20 mg, famotidine(famoti Oral, Bedtime dine) (once a day), 0 Refill(s) 1 tabs 05/20/20 Oral 60 mg isosorbide 15 016 60 mg=1 mononitrate(Imdur tabs, Oral, 60 mg oral Daily, 0 tablet, extended Refill(s) release) 1 tabs 05/21/20 Oral 15 015 1 tabs, bilberry(bilberry Oral, qAM, 0 ) Refill(s) 1 tabs 05/21/20 Oral vitamin 15 015 1 tabs, E(vitamin E) Oral, Daily, OTC, 0 Refill(s) 05/21/20 Oral 75 mg 15 015 75 mg, clopidogrel(clopi Oral, Daily, 0 dogrel) Refill(s) 1 caps 05/21/20 Oral 520 mg 15 015 520 mg=1 psyllium(psyllium caps, Oral, 520 mg oral Daily, 0 capsule) Refill(s) 1 tabs 05/21/20 Oral 50 mg 15 015 50 mg=1 metoprolol(metopr tabs, Oral, olol tartrate 50 BID, with mg oral tablet) meals, 0 Refill(s) 3 mL 05/21/20 IV Piggyback 150 mg 15 015 150 mg=3 amiodarone(amioda mL, 600 mL/hr, verena) IV Piggyback, Once 0.5 mL 05/21/20 IV Push 1 mg 15 015 1 mg=0.5 LORazepam(Ativan) mL, IV Push, QID, PRN: Anxiety 1 patches 05/21/20 TransDermal 15 015 1 patches, nitroglycerin(Nit TransDermal, ro-Dur 0.3 mg/hr Daily transdermal film, extended release) 0.5 mL 05/21/20 IV Push 10 mg 15 015 10 mg=0.5 hydrALAZINE(hydrA mL, IV Push, LAZINE) q4hr, PRN: Hypertension/Hi gh Blood Pressure 3 tabs 05/22/20 Oral 300 mg 15 015 300 mg=3 buPROPion(buPROPi tabs, Oral, on) Once 50 mL 05/22/20 IV Piggyback 10 mEq potassium 15 015 10 mEq=50 chloride(potassiu mL, 50 mL/hr, m chloride 10 IV Piggyback, mEq/50 mL q1hr intravenous solution) 2 tabs 05/22/20 Oral 40 mg 15 015 40 mg=2 escitalopram(esci tabs, Oral, talopram) Daily 4 tabs 10/28/20 11/02/2 Oral 2 mg 15 015 2 mg=4 clonazePAM(clonaz tabs, Oral, ePAM) Bedtime (once a day) 1 tabs 05/22/20 SubLingual 0.4 mg 15 015 0.4 mg=1 nitroglycerin(Nit tabs, rostat 0.4 mg SubLingual, sublingual q5min, PRN: tablet) Angina/Chest Pain 1 tabs 05/22/20 Oral 60 mg isosorbide 15 015 60 mg=1 mononitrate(Imdur tabs, Oral, ) Daily 1 tabs 05/22/20 Oral 50 mg 15 015 50 mg=1 metoprolol(metopr tabs, Oral, olol tartrate 50 BIDWM mg oral tablet) 1 tabs 05/22/20 Oral 20 mg 15 015 20 mg=1 furosemide(Lasix) tabs, Oral, Daily 1 tabs 05/22/20 Oral 200 mg 15 015 200 mg=1 amiodarone(amioda tabs, Oral, TID verena) 20.3 mL 05/23/20 Oral 650 mg 15 015 650 mg=20.3 acetaminophen(joann mL, Oral, q6hr, taminophen) PRN: Pain 2 tabs 05/23/20 Oral 650 mg 15 015 650 mg=2 acetaminophen(joann tabs, Oral, taminophen) q6hr, PRN: Pain Mild (1-3) 1 tabs 05/23/20 Oral 10 mg 15 015 10 mg=1 atorvastatin(Lipi tabs, Oral, tor) Bedtime (once a day) 4.5 tabs 05/23/20 Oral 225 mg 15 015 225 mg=4.5 traZODone(traZODo tabs, Oral, ne) Bedtime (once a day) 05/24/20 Oral 238 g polyethylene 15 015 238 g, glycol Oral, Once 3350(MiraLax) 1 tabs 05/24/20 Oral 5 mg 15 015 5 mg=1 amLODIPine(Norvas tabs, Oral, c) Daily 1,000 mL 05/25/20 IV Lactated 15 015 10 mL/hr, Ringers IV Injection(Lactate d Ringers Injection 1,000 mL) 1 mL 05/25/20 IV Push 1 mg 15 015 1 mg=1 mL, midazolam(Versed) IV Push, Once 05/25/20 Oral 238 g polyethylene 15 015 238 g, glycol Oral, Once 3350(MiraLax) 1 tabs 05/25/20 Oral 325 mg ferrous 15 015 325 mg=1 sulfate(ferrous tabs, Oral, sulfate) BIDWM 1 tabs 05/25/20 Oral 40 mg 15 015 40 mg=1 pantoprazole(Prot tabs, Oral, BID dayami) 2 packets 05/26/20 Oral 34 g polyethylene 15 015 34 g=2 glycol packets, Oral, 3350(MiraLax) Once 2 tabs 05/26/20 Oral 40 mEq potassium 15 015 40 mEq=2 chloride(potassiu tabs, Oral, QID m chloride 20 mEq oral tablet, extended release) 1 tabs 05/27/20 Oral 20 mEq potassium 15 015 20 mEq=1 chloride(potassiu tabs, Oral, m chloride 20 mEq Daily oral tablet, extended release) 1 tabs 05/27/20 Oral 200 mg 15 015 200 mg=1 amiodarone(amioda tabs, Oral, verena 200 mg oral TID, 90 tabs, 0 tablet) Refill(s) 1 tabs 05/27/20 Oral 10 mg 15 015 10 mg=1 atorvastatin(Lipi tabs, Oral, tor 10 mg oral Bedtime (once a tablet) day), 30 tabs, 0 Refill(s) 1 tabs 05/27/20 Oral 325 mg ferrous 15 015 325 mg=1 sulfate(ferrous tabs, Oral, sulfate 325 mg BIDWM, 60 tabs, (65 mg elemental 0 Refill(s) iron) oral delayed release tablet) 05/27/20 Oral 75 mg 15 016 75 mg, clopidogrel(clopi Oral, Daily, 30 dogrel 75 mg oral tabs, 0 tablet) Refill(s) 0.5 mL 06/04/20 IntraMuscular influenza virus 15 015 0.5 mL, vaccine, IntraMuscular, inactivated(influ Once ivelisse virus vaccine, inactivated) 1 tabs 06/13/20 Oral 200 mg 15 200 mg=1 amiodarone(amioda tabs, Oral, verena 200 mg oral Daily, 90 tabs, tablet) 3 Refill(s) 1 tabs 06/13/20 Oral 10 mg 15 016 10 mg=1 atorvastatin(Lipi tabs, Oral, tor 10 mg oral Bedtime (once a tablet) day), 30 tabs, 3 Refill(s) 1 tabs 06/13/20 Oral 325 mg ferrous 15 016 325 mg=1 sulfate(ferrous tabs, Oral, sulfate 325 mg BIDWM, 60 tabs, (65 mg elemental 3 Refill(s) iron) oral delayed release tablet) 1 tabs 08/14/19 Oral 300 mg 16 300 mg=1 buPROPion(Wellbut tabs, Oral, rin XL 300 mg/24 Daily, 30 tabs, hours oral 6 Refill(s) tablet, extended release) 1 caps 08/27/19 Oral 120 mg 16 017 120 mg=1 diltiazem(Cardize caps, Oral, m CD 120 mg/24 Daily, Inc from hours oral 180 to 240 capsule, extended today., 60 release) caps, 6 Refill(s) 09/09/19 16 See furosemide(furose Instructions, mide 20 mg oral TAKE 2 TABLET tablet) BY MOUTH EVERY DAY, 30 Each, 5 Refill(s) tabs 10/16/19 Oral mg aspirin(aspirin 16 016 mg=tabs, 81 mg oral Oral, Daily, 0 tablet) Refill(s) 1 tabs 10/16/19 Oral 100 mg 16 016 100 mg=1 sertraline(Zoloft tabs, Oral, 100 mg oral Daily, 30 tabs, tablet) 0 Refill(s) 1 tabs 10/16/19 Oral 25 mg 16 016 25 mg=1 QUEtiapine(SEROqu tabs, Oral, el 25 mg oral Daily, 30 tabs, tablet) 0 Refill(s) 10/16/19 Oral 3 mg 16 016 3 mg, Oral, haloperidol(halop every 4 hrs or eridol) prn, 0 Refill(s) 10/31/19 16 016 0 Refill(s) famotidine(Pepcid ) 1 tabs 10/31/19 SubLingual 0.4 mg 16 0.4 mg=1 nitroglycerin(Nit tabs, rostat 0.4 mg SubLingual, sublingual q5min, PRN: as tablet) needed for chest pain, 100 tabs, 0 Refill(s) 11/04/19 16 See atorvastatin(ator Instructions, vastatin 10 mg TAKE ONE TABLET oral tablet) BY MOUTH AT BEDTIME, 30 tabs, 5 Refill(s) 11/04/19 ferrous 16 See sulfate(ferrous Instructions, sulfate 325 mg TAKE 1 TABLET (65 mg elemental BY MOUTH TWO iron) oral TIMES A DAY tablet) WITH FOOD, 60 tabs, 5 Refill(s) 11/04/19 16 016 See famotidine(famoti Instructions, dine 20 mg oral TAKE 1 TABLET tablet) BY MOUTH EVERY DAY, 30 tabs, 5 Refill(s) 11/04/19 16 016 See clopidogrel(clopi Instructions, dogrel 75 mg oral TAKE 1 TABLET tablet) BY MOUTH EVERY DAY (G/F PLAVIX), 90 tabs, 1 Refill(s) 1 tabs 11/18/19 Oral 81 mg aspirin(aspirin 16 81 mg=1 81 mg oral tabs, Oral, tablet) Daily, 30 tabs, 0 Refill(s) 1 tabs 12/02/19 Oral 30 mg isosorbide 16 30 mg=1 mononitrate(isoso tabs, Oral, rbide mononitrate BID, 60 tabs, 6 30 mg oral Refill(s) tablet, extended release) 3 caps 12/16/19 Oral 900 mg 16 016 900 mg=3 gabapentin(gabape caps, Oral, ntin 300 mg oral Bedtime (once a capsule) day), 0 Refill(s) 0.5 mL 01/03/20 IntraMuscular pneumococcal 16 016 0.5 mL, 13-valent IntraMuscular, conjugate Once vaccine(Prevnar 13 intramuscular suspension) 1 caps 02/25/20 Oral 250 mg 16 016 250 mg=1 amoxicillin(amoxi caps, Oral, cillin 250 mg TID, for 10 oral capsule) days, 30 caps, 0 Refill(s) 1 caps 03/23/20 Oral 300 mg 16 016 300 mg=1 cefdinir(cefdinir caps, Oral, 300 mg oral q12hr, for 10 capsule) days, 20 caps, 0 Refill(s) 1 tabs 04/14/20 Oral 50 mg traMADol(Ultram 16 016 50 mg=1 50 mg oral tabs, Oral, tablet) QID, PRN: as needed for pain, 30 tabs, 0 Refill(s) 2 tabs 04/15/20 Oral 300 mg 16 017 300 mg=2 buPROPion(buPROPi tabs, Oral, on 150 mg/24 q24hr, 30 tabs, hours (XL) oral 0 Refill(s) tablet, extended release) 04/20/20 16 See famotidine(famoti Instructions, dine 20 mg oral TAKE 1 TABLET tablet) BY MOUTH EVERY DAY, 30 tabs 1 tabs 04/22/20 Oral 75 mg 16 75 mg=1 clopidogrel(clopi tabs, Oral, dogrel 75 mg oral Daily, 90 tabs, tablet) 1 Refill(s) 1 tabs 04/28/20 Oral 20 mg 16 016 20 mg=1 furosemide(furose tabs, Oral, mide 20 mg oral Daily, 30 tabs, tablet) 6 Refill(s) 1 tabs 12/23/19 Oral 240 mg 17 017 240 mg=1 diltiazem(dilTIAZ tabs, Oral, em 240 mg/24 Daily, 0 hours oral Refill(s) tablet, extended release) 12/23/19 Oral 20 mEq potassium 17 20 mEq, chloride(Klor-Con Oral, Daily, 0 ) Refill(s) 1 caps 12/31/19 Oral 250 mg 17 017 250 mg=1 amoxicillin(amoxi caps, Oral, cillin 250 mg TID, for 10 oral capsule) days, for uti, 0 Refill(s) 1 tabs 01/09/20 Oral 17 017 1 tabs, HYDROcodone-aceta Oral, q4hr, MAY minophen(Lockwood 5 HAVE 3 DOSES IN mg-325 mg oral 24 HRS THIS IS tablet) TO IN 3 WEEKS, PRN: as needed for pain, 63 tabs, 0 Refill(s) 1 tabs 02/03/20 Oral 1 mg 17 1 mg=1 clonazePAM(KlonoP tabs, Oral, IN 1 mg oral Bedtime (once a tablet) day), 0 Refill(s) 1 caps 02/03/20 Oral 360 mg 17 360 mg=1 diltiazem(dilTIAZ caps, Oral, em 360 mg/24 Daily, 0 hours oral Refill(s) capsule, extended release) 1 tabs 02/03/20 Oral 100 mg 17 100 mg=1 sertraline(Zoloft tabs, Oral, 100 mg oral Daily, 0 tablet) Refill(s) 02/03/20 17 See predniSONE(predni Instructions, 3 SONE) MG QD AM AND 1 MG QOD., 0 Refill(s) 02/03/20 Oral 17 g polyethylene 17 17 g, Oral, glycol Daily, 0 3350(MiraLax) Refill(s) 03/12/20 Oral 100 mg 17 017 100 mg, doxycycline(doxyc Oral, BID, for ycline) 7 days, ORDERS GIVEN TO DENITA AT [facility], 0 Refill(s) 1 caps 03/12/20 Oral 10 mEq potassium 17 017 10 mEq=1 chloride(potassiu caps, Oral, m chloride 10 mEq Daily, for 3 oral capsule, days, ORDERS extended release) GIVEN TO DENITA AT [facility], 0 Refill(s) 1 tabs 03/12/20 Oral 20 mg 17 017 20 mg=1 furosemide(Lasix tabs, Oral, 20 mg oral Daily, for 3 tablet) days, ORDERS GIVEN TO [facility] [place], 0 Refill(s) Problems Date Dx Attending Type Code Diagnosis Diagnosed By Coded 03/01/2012 Walker Mayo MD Final 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 03/01/2012 Gael NULL, Walker Admitting 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 03/01/2012 Gael NULL, Walker Final 562.10 COLON DIVERTICULOSIS N 03/01/2012 Gael NULL, Walker Final 574.20 GB CALCULUS W/O CHOL N 03/01/2012 Gael NULL, Walker Final 591 HYDRONEPHROSIS N 03/01/2012 Gael NULL, Walker Final 592.0 KIDNEY CALCULUS N 03/01/2012 Gael NULL, Walker Final 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 03/01/2012 Gael NULL, Walker Final V81.5 NEPHROPATHY SCREENING N 03/23/2012 Gael NULL, Walker Final 300.00 ANXIETY STATE NOS N 03/23/2012 Gael NULL, Walker Final 311 DEPRESSIVE DISORDER N NEC 03/23/2012 Gael NULL, Walker Final 401.9 HYPERTENSION NOS N 03/23/2012 Gael NULL, Walker Final 592.1 URETERAL CALCULUS N 03/23/2012 Gael NULL, Walker Final 716.90 ARTHROPATHY NOS-SITE N NOS 03/23/2012 Gael NULL, Walker Final 780.57 SLEEP APNEA NOS N 07/26/2012 Tiffany NULL, R Final 278.00 OBESITY NOS Alexis 07/26/2012 Tiffany NULL, R Final 311 DEPRESSIVE DISORDER Alexis NEC 07/26/2012 Tiffany NULL, R Final 327.23 OBSTRUCTIVE SLEEP Alexis APNEA 07/26/2012 Tiffany NULL, R Final 403.90 HTN CKD NOS I-IV/NOS Alexis 07/26/2012 Tiffany NULL, R Final 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 07/26/2012 Tiffany NULL, R Final 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 07/26/2012 Tiffany NULL, R Final 535.60 DUODENITIS W/O HEMOR Alexis 07/26/2012 Tiffany NULL, R Admitting 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 07/26/2012 Tiffany NULL, R Final 578.1 BLOOD IN STOOL Alexis 07/26/2012 Tiffany NULL, R Final 585.9 CHRONIC KIDNEY DIS Alexis NOS 07/26/2012 Tiffany NULL, R Final 715.90 OSTEOARTHOSIS NOS-NOS Alexis 09/26/2012 Gael NULL, Walker Admitting 189.0 KIDNEY CA NEC N 09/29/2012 Gael NULL, Walker Final 189.0 KIDNEY CA NEC N 09/29/2012 Gael NULL, Walker Final 429.3 CARDIOMEGALY N 09/29/2012 Gael NULL, Walker Final 562.10 COLON DIVERTICULOSIS N 09/29/2012 Gael NULL, Walker Final 574.20 GB CALCULUS W/O CHOL N 09/29/2012 Gael NULL, Walker Final 592.0 KIDNEY CALCULUS N 09/29/2012 Gael NULL, Walker Admitting 189.0 KIDNEY CA NEC N 09/29/2012 Gael NULL, Walker Admitting 189.0 KIDNEY CA NEC N 10/30/2012 Daylin NULL, Final 401.9 HYPERTENSION NOS Jose D 10/30/2012 Daylin NULL, Final 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 D 10/30/2012 Daylin NULL, Final 574.20 GB CALCULUS W/O CHOL Jose D 10/30/2012 Daylin NULL, Final 592.0 KIDNEY CALCULUS Jose D 10/30/2012 Daylin NULL, Final 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 Jose D 10/30/2012 Daylin NULL, 789.02 LUQ ABDOMINAL PAIN Jose D 10/30/2012 Daylin NULL, Final 789.04 LLQ ABDOMINAL PAIN Jose D 10/30/2012 Daylin NULL, Admitting 789.09 ABDOMINAL PAIN-SITE Jose D NEC 12/05/2012 Vallapu Leslie Final 278.01 MORBID OBESITY , Master K 12/05/2012 Vallapu Leslie Final 311 DEPRESSIVE DISORDER , Master K NEC 12/05/2012 Vallapu Leslie Final 327.23 OBSTRUCTIVE SLEEP , Master K APNEA 12/05/2012 Vallapu Leslie Final 403.90 HTN CKD NOS I-IV/NOS , Master K 12/05/2012 Vallapu Leslie Final 414.01 COR -LA POSTA VESSEL , Master K 12/05/2012 Vallapu Leslie Final 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 , Master K NEC 12/05/2012 Vallapu Leslie Final 427.9 CARDIAC DYSRHYTHMIA , Master K NOS 12/05/2012 Vallapu Leslie Final 585.9 CHRONIC KIDNEY DIS , Master K NOS 12/05/2012 Valbandaru Anuj Final 780.2 SYNCOPE COLLAPSE Master NULL 12/05/2012 Jesse Leslie Admitting 959.01 HEAD INJURY NOS Master NULL 12/05/2012 Jesse Leslie External E888.9 FALL NOS Master NULL 12/05/2012 Jesse Leslie Final V85.38 BMI 38.0-38.9 ADULT Master NULL 05/29/2013 Joshua GURROLA MD, Final 294.20 DEMENTIA NOS W/O Willis J BEHAV 05/29/2013 Joshua GURROLA MD, Final 401.9 HYPERTENSION NOS Willis J 05/29/2013 Joshua GURROLA MD, Final 719.45 JOINT PAIN-PELVIS Willis J 05/29/2013 Joshua GURROLA MD, Final 780.57 SLEEP APNEA NOS Willis J 05/29/2013 Joshua GURROLA MD, Admitting 789.09 ABDOMINAL PAIN-SITE Willis J NEC 05/29/2013 Joshua GURROLA MD, Final 843.9 HIP THIGH SPRAIN Willis J NOS 05/29/2013 Joshua GURROLA MD, External E927.3 CUM TRAUM REPETIT Willis J MOTION 07/13/2013 Tiffany NULL, R Final 278.01 MORBID OBESITY Alexis 07/13/2013 Tiffany NULL, R Final 327.23 OBSTRUCTIVE SLEEP Alexis APNEA 07/13/2013 Tiffany NULL, R Final 403.90 HTN CKD NOS I-IV/NOS Alexis 07/13/2013 Tiffany NULL, R Final 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 07/13/2013 Tiffany NULL, R Final 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 07/13/2013 Tiffany NULL, R Final 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 07/13/2013 Tiffany NULL, R Final 585.9 CHRONIC KIDNEY DIS Alexis NOS 07/13/2013 Tiffany NULL, R Final V85.34 BMI 34.0-34.9 ADULT Alexis 08/04/2013 Tiffany NULL, R Final 285.1 ACUTE POSTHEMOR Alexis ANEMIA 08/04/2013 Tiffany NULL, R Final 403.90 HTN CKD NOS I-IV/NOS Alexis 08/04/2013 Tiffany NULL, R Final 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 08/04/2013 Tiffany NULL, R Final 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 08/04/2013 Tiffany NULL, R Final 562.12 COLON DIVERTICULOS W Alexis HEM 08/04/2013 Tiffany NULL, R Admitting 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 08/04/2013 Tiffany NULL, R Final 585.9 CHRONIC KIDNEY DIS Alexis NOS 08/04/2013 Tiffany NULL, R Final 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 10/03/2013 Gael NULL, Walker Final 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 10/03/2013 Gael NULL, Walker Final V64.3 NO PX/REASONS NEC N 10/03/2013 Gael NULL, Walker Final V81.5 NEPHROPATHY SCREENING N 10/03/2013 Gael NULL, Walker Admitting 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 05/11/2014 Nay NULL, Hillary F 272.4 HYPERLIPIDEMIA T NEC/NOS 05/11/2014 Nay NULL, Hillary F 276.51 DEHYDRATION T 05/11/2014 Nay NULL, Hillary F 278.00 OBESITY, NOS T 05/11/2014 Nay NULL, Hillary F 294.10 DEMENTIA IN T CONDITIONS W/O BEHAVIORAL DISTURB 05/11/2014 Nay NULL, Hillary F 300.00 ANXIETY STATE NOS T 05/11/2014 Nay NULL, Hillary F 311 DEPRESSIVE DISORDER T NEC 05/11/2014 Nay NULL, Hillary F 327.23 OBSTRUCTIVE SLEEP T APNEA (ADULT) (PEDIATRIC) 05/11/2014 Nay NULL, Hillary F 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 05/11/2014 Nay NULL, Hillary F 333.94 RESTLESS LEGS T SYNDROME 05/11/2014 Nay NULL, Hillary F 338.29 OTHER CHRONIC PAIN T 05/11/2014 Nay NULL, Hillary F 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 05/11/2014 Nay NULL, Hillary F 403.90 HYPTNSV CHR KID DIS, T UNSPEC, W CHR KD STAGE I-IV O 05/11/2014 Nay NULL, Hillary F 414.01 CORONARY T ATHEROSCLEROSIS OF [place] CORONARY VESSEL 05/11/2014 Nay NULL, Hillary F 428.0 CONGESTIVE HEART T FAILURE NOS 05/11/2014 Nay NULL, Hillary F 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 05/11/2014 Nay NULL, Hillary F 458.0 ORTHOSTATIC T HYPOTENSION 05/11/2014 Nay NULL, Hillary F 530.81 ESOPHAGEAL REFLUX T 05/11/2014 Nay NULL, Hillary F 584.9 ACUTE RENAL FAILURE, T UNSPECIFIED 05/11/2014 Nay NULL, Hillary F 585.4 CHRONIC KIDNEY T DISEASE, STAGE IV (SEVERE) 05/11/2014 Nay NULL, Hillary F 592.0 CALCULUS OF KIDNEY T 05/11/2014 Nay NULL, Hillary F V10.52 HX OF KIDNEY T MALIGNANCY 05/11/2014 Nay NULL, Hillary F V15.82 HISTORY OF TOBACCO T USE 05/11/2014 Nay NULL, Hillary F V15.88 HISTORY OF FALL T 05/11/2014 Nay NULL, Hillary F 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 05/11/2014 Nay NULL, Hillary F V45.82 PERCUTANEOUS TRANSLUM T CORON ANGIOPLASTY STATUS 05/11/2014 Nay NULL, Hillary F V85.38 BODY MASS INDEX T 38.0-38.9, ADULT 05/31/2015 Joan Yang Final D62 Acute posthemorrhagic anemia 05/31/2015 Asaf Yanga Final D69.6 Thrombocytopenia, unspecified 05/31/2015 Trey Joan Final E66.01 Morbid (severe) obesity due to excess calories 05/31/2015 Trey Joan Final F32.9 Major depressive disorder, single episode, unspecified 05/31/2015 Trey Joan Final F41.9 Anxiety disorder, unspecified 05/31/2015 Trey Joan Final G47.33 Obstructive sleep apnea (adult) (pediatric) 05/31/2015 Asaf Yanga Final 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 05/31/2015 Trey Joan Final I25.119 Atherosclerotic heart disease of [place] coronary artery with unspecified an 05/31/2015 Asaf Yanga Final I48.91 Unspecified atrial fibrillation 05/31/2015 Tannoury, Joan Admitting K92.2 Gastrointestinal hemorrhage, unspecified 05/31/2015 Asaf Yanga Final N18.3 Chronic kidney disease, stage 3 (moderate) 05/31/2015 Asaf Yanga Final 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 05/31/2015 Asaf Yanga Final Z66 Do not resuscitate 05/31/2015 Asaf Yanga Final 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 07/02/2015 Asaf Yanga Final K57.31 Diverticulosis of large intestine without perforation or abscess with bleed 12/16/2015 Goering, Final 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 Goering, Final I10 Essential (primary) Roger V hypertension 2016 Goering, Final I25.10 Atherosclerotic heart Roger V disease of [place] coronary artery without angina pectoris 2016 Goering, Final N18.4 Chronic kidney Roger V disease, stage 4 (severe) 2016 Goering, Final R05 Cough Roger V 2016 Goering, Final G62.9 Polyneuropathy, Roger V unspecified 2016 Goering, Final R79.89 Other specified Roger V abnormal findings of blood chemistry 2016 Goering, Final M62.81 Muscle weakness Roger V (generalized) 2016 Goering, Final R29.6 Repeated falls Roger V 01/30/2016 Goering, Final G25.81 Restless legs Roger V syndrome 01/30/2016 Goering, Final R05 Cough Roger V 01/30/2016 Goering, Final S50.01XA Contusion of right Roger V elbow, initial encounter 01/30/2016 Goering, Final W19.XXXA Unspecified fall, Roger V initial encounter 02/20/2016 Goering, Final I10 Essential (primary) Roger V hypertension 02/20/2016 Goering, Final I95.1 Orthostatic Roger V hypotension 02/20/2016 Goering, Final G62.9 Polyneuropathy, Roger V unspecified 02/20/2016 Goering, Final R13.10 Dysphagia, Roger V unspecified 02/20/2016 Goering, Final R29.6 Repeated falls Roger V 02/20/2016 Goering, Final R44.3 Hallucinations, Roger V unspecified 02/20/2016 Goering, Final R05 Cough Roger V 03/05/2016 Goering, Final N39.0 Urinary tract Roger V infection, site not specified 03/05/2016 Goering, Final R29.6 Repeated falls Roger V 03/09/2016 Goering, Final N18.4 Chronic kidney Roger V disease, stage 4 (severe) 03/09/2016 Goering, Final R29.6 Repeated falls Roger V 03/09/2016 Goering, Final R44.3 Hallucinations, Roger V unspecified 03/09/2016 Goering, Final Z71.89 Other specified Roger V counseling 03/23/2016 Mckeon, Final J18.9 Pneumonia, Yovany A unspecified organism 03/23/2016 Mckeon, Final J98.8 Other specified Yovany A respiratory disorders 03/31/2016 Mckeon, Final R53.83 Other fatigue Yovany A 05/25/2016 Mckeon, Final W19.XXXA Unspecified fall, Yovany A initial encounter 06/25/2016 Goering, Final I10 Essential (primary) Roger V hypertension 06/25/2016 Goering, Final E87.6 Hypokalemia Roger V 06/25/2016 Goering, Final N18.4 Chronic kidney Roger V disease, stage 4 (severe) 06/25/2016 Goering, Final F32.9 Major depressive Roger V disorder, single episode, unspecified 06/25/2016 Goering, Final R29.6 Repeated falls Roger V 06/25/2016 Goering, Final R54 Age-related physical Roger V debility 08/01/2016 Vinod Final G47.33 Obstructive sleep Arellano, apnea (adult) Kalpesh A (pediatric) 08/01/2016 Vinod Final 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, related Kalpesh A nonobstructive alveolar hypoventilation 08/21/2016 Vinod Final G47.33 Obstructive sleep Arellano, apnea (adult) Kalpesh A (pediatric) 08/21/2016 Vinod Final 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, related Kalpesh A nonobstructive alveolar hypoventilation 08/31/2016 Goering, Final I10 Essential (primary) Roger V hypertension 08/31/2016 Goering, Final F32.9 Major depressive Roger V disorder, single episode, unspecified 08/31/2016 Goering, Final I25.10 Atherosclerotic heart Roger V disease of [place] coronary artery without angina pectoris 08/31/2016 Goering, Final N18.4 Chronic kidney Roger V disease, stage 4 (severe) 08/31/2016 Goering, Final Z91.81 History of falling Roger V 10/29/2016 Goering, Final I10 Essential (primary) Roger V hypertension 10/29/2016 Goering, Final J06.9 Acute upper Roger V respiratory infection, unspecified 10/29/2016 Goering, Final R29.6 Repeated falls Roger V 10/29/2016 Goering, Final N18.4 Chronic kidney Roger V disease, stage 4 (severe) 10/29/2016 Goering, Final Z51.81 Encounter for Roger V therapeutic drug level monitoring 11/10/2016 Catalina Pacheco Final I10 Essential (primary) E hypertension 11/10/2016 Catalina Pacheco Final W19.XXXA Unspecified fall, E initial encounter 12/22/2016 Goering, Final B02.9 Zoster without Roger V complications 12/22/2016 Goering, Final F32.9 Major depressive Roger V disorder, single episode, unspecified 12/22/2016 Goering, Final I10 Essential (primary) Roger V hypertension 12/22/2016 Goering, Final N18.4 Chronic kidney Roger V disease, stage 4 (severe) 12/22/2016 Goering, Final R29.6 Repeated falls Roger V 12/22/2016 Goering, Final Z92.241 Personal history of Roger V systemic steroid therapy 12/22/2016 Goering, Final R41.89 Other symptoms and Roger V signs involving cognitive functions and awareness 12/25/2016 Luinstra, Final B02.9 Zoster without Sampson W complications 12/25/2016 Luinstra, Final 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, except renal pelvis 12/25/2016 Luinstra, Final E66.01 Morbid (severe) Sampson W obesity due to excess calories 12/25/2016 Luinstra, Final F32.9 Major depressive Sampson W disorder, single episode, unspecified 12/25/2016 Luinstra, Final G47.33 Obstructive sleep Sampson Santiago apnea (adult) (pediatric) 12/25/2016 Luinstra, Final I10 Essential (primary) Sampson Santiago hypertension 12/25/2016 Luinstra, Final I25.10 Atherosclerotic heart Sampson Santiago disease of [place] coronary artery without angina pectoris 12/25/2016 Luinstra, Final N18.4 Chronic kidney Sampson Santiago disease, stage 4 (severe) 12/25/2016 Luinstra, Final R41.0 Disorientation, Sampson W unspecified 12/25/2016 Luinstra, Final R50.9 Fever, unspecified Sampson W 12/25/2016 Luinstra, Final R94.5 Abnormal results of Sampson Santiago liver function studies 01/04/2017 Vinod Final Z78.9 Other specified Arellano, health status Kalpesh A 01/04/2017 Vinod Final Z91.14 Patient''s other Arellano, noncompliance with Kalpesh A medication regimen 01/04/2017 Vinod Final G47.33 Obstructive sleep Arellano, apnea (adult) Kalpesh A (pediatric) 01/28/2017 Catalina Pacheco Final R41.0 Disorientation, E unspecified 01/28/2017 Catalina Pacheco Final R53.83 Other fatigue E 01/28/2017 Catalina Pacheco Final R63.0 Anorexia E 02/02/2017 Richmond Alarcon Final Z90.49 Acquired absence of M other specified parts of digestive tract 02/11/2017 Goering, Final R10.11 Right upper quadrant Roger V pain 02/11/2017 Goering, Final D64.9 Anemia, unspecified Roger V 02/11/2017 Goering, Final F31.9 Bipolar disorder, Roger V unspecified 02/11/2017 Goering, Final I25.10 Atherosclerotic heart Roger V disease of [place] coronary artery without angina pectoris 02/11/2017 Goering, Final R29.6 Repeated falls Roger V 02/11/2017 Goering, Final R41.89 Other symptoms and Roger V signs involving cognitive functions and awareness 02/11/2017 Goering, Final E78.5 Hyperlipidemia, Roger V unspecified 02/11/2017 Goering, Final I10 Essential (primary) Roger V hypertension 03/01/2017 Goering, Final M54.5 Low back pain Roger V 03/01/2017 Goering, Final R29.6 Repeated falls Roger V 03/01/2017 Goering, Final R63.4 Abnormal weight loss Roger V 03/01/2017 Goering, Final D64.9 Anemia, unspecified Roger V 03/01/2017 Goering, Final F32.9 Major depressive Roger V disorder, single episode, unspecified 03/01/2017 Goering, Final R10.84 Generalized abdominal Roger V pain 03/01/2017 Goering, Final R41.0 Disorientation, Roger V unspecified 03/23/2017 Richmond Brown Final G47.33 Obstructive sleep apnea (adult) (pediatric) 03/23/2017 Richmond Brown Final Z86.69 Personal history of other diseases of the nervous system and sense organs 04/08/2017 Goering, Final D64.9 Anemia, unspecified Roger V 04/08/2017 Goering, Final F03.90 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 04/08/2017 Goering, Final R29.6 Repeated falls Roger V 04/08/2017 Goering, Final R53.83 Other fatigue Roger V 04/08/2017 Goering, Final R54 Age-related physical Roger V debility 04/08/2017 Goering, Final R70.0 Elevated erythrocyte Roger V sedimentation rate 04/08/2017 Goering, Final Z87.01 Personal history of Roger V pneumonia (recurrent) Procedures Code Description Performed By Performed On Gael NULL, Walker N 03/23/2012 27890 CYSTOSCOPY AND TREATMENT Gael NULL, Walker N 03/23/2012 65288 CYSTOURETERO W/LITHOTRIPSY EGD Karina Allen MD 07/28/2012 45.16 WITH CLOSED BIOPSY Karina Allen MD 08/04/2013 44000 DIAGNOSTIC COLONOSCOPY Nay NULL, [facility] 05/11/2014 93.90 NON-INVASIVE MECHANICAL VENTILATION 05/21/2015 [id number] Fluoroscopy of Superior Mesenteric Artery using Low Osmolar Contrast 05/26/2015 [id number] Inspection of Lower Intestinal Tract, Via Natural or Artificial Opening End 2016 79724 Radiologic examination, chest, 2 views, frontal and lateral; 2016 10392 Immunization administration (includes percutaneous, intradermal, subcutaneous, or intramuscular injections); 1 vaccine (single or combination vaccine/toxoid).. 2016 15711 Pneumococcal conjugate vaccine, 13 valent (PCV13), for intramuscular use Office 2016 or other outpatient visit for the evaluation and management of an established patient, which requires at least 2 of these 3 dumont components: A detailed history; A detailed examination; Medical d Office 01/30/2016 or other outpatient visit for the evaluation and management of an established patient, which requires at least 2 of these 3 dumont components: A detailed history; A detailed examination; Medical d Office 02/20/2016 or other outpatient visit for the evaluation and management of an established patient, which requires at least 2 of these 3 dumont components: A comprehensive history; A comprehensive examination; Office 03/05/2016 or other outpatient visit for the evaluation and management of an established patient, which requires at least 2 of these 3 dumont components: An expanded problem focused history; An expanded prob Office 03/09/2016 or other outpatient visit for the evaluation and management of an established patient, which requires at least 2 of these 3 dumont components: A comprehensive history; A comprehensive examination; 03/09/2016 26428 Advance care planning including the explanation and discussion of advance directives such as standard forms (with completion of such forms, when performed), by the physician or other qualified health 03/23/2016 70891 Radiologic examination, chest, 2 views, frontal and lateral; Office 03/23/2016 or other outpatient visit for the evaluation and management of an established patient, which requires at least 2 of these 3 dumont components: A detailed history; A detailed examination; Medical d 03/31/2016 88668 Radiologic examination, chest, 2 views, frontal and lateral; Office 03/31/2016 or other outpatient visit for the evaluation and management of an established patient, which requires at least 2 of these 3 dumont components: A detailed history; A detailed examination; Medical d Office 05/22/2016 or other outpatient visit for the evaluation and management of an established patient, which requires at least 2 of these 3 dumont components: A detailed history; A detailed examination; Medical d Office 06/25/201698396 or other outpatient visit for the evaluation and management of an established patient, which requires at least 2 of these 3 dumont components: A detailed history; A detailed examination; Medical d Office 07/31/2016 29795 or other outpatient visit for the evaluation and management of an established patient, which requires at least 2 of these 3 dumont components: An expanded problem focused history; An expanded prob Office 08/21/2016 19627 or other outpatient visit for the evaluation and management of an established patient, which requires at least 2 of these 3 dumont components: An expanded problem focused history; An expanded prob Office 08/31/2016 24428 or other outpatient visit for the evaluation and management of an established patient, which requires at least 2 of these 3 dumont components: A detailed history; A detailed examination; Medical d Office 10/29/201650565 or other outpatient visit for the evaluation and management of an established patient, which requires at least 2 of these 3 dumont components: A detailed history; A detailed examination; Medical d Office 11/10/2016 82745 or other outpatient visit for the evaluation and management of an established patient, which requires at least 2 of these 3 dumont components: An expanded problem focused history; An expanded prob Office 12/22/201634845 or other outpatient visit for the evaluation and management of an established patient, which requires at least 2 of these 3 dumont components: A detailed history; A detailed examination; Medical d 12/25/2016 60747 Radiologic examination, chest, 2 views, frontal and lateral; Office 12/25/2016 53382 or other outpatient visit for the evaluation and management of an established patient, which requires at least 2 of these 3 dumont components: A comprehensive history; A comprehensive examination; Office 01/04/201710172 or other outpatient visit for the evaluation and management of an established patient, which requires at least 2 of these 3 dumont components: A detailed history; A detailed examination; Medical d Office 01/28/2017 59308 or other outpatient visit for the evaluation and management of an established patient, which requires at least 2 of these 3 dumont components: An expanded problem focused history; An expanded prob 02/02/2017 18121 Postoperative follow-up visit, normally included in the surgical package, to indicate that an evaluation and management service was performed during a postoperative period for a reason(s) related to t Office 02/11/2017 81895 or other outpatient visit for the evaluation and management of an established patient, which requires at least 2 of these 3 dumont components: A detailed history; A detailed examination; Medical d Office 03/01/2017 72701 or other outpatient visit for the evaluation and management of an established patient, which requires at least 2 of these 3 dumont components: A comprehensive history; A comprehensive examination; Office 03/23/2017 90221 or other outpatient visit for the evaluation and management of an established patient, which requires at least 2 of these 3 dumont components: An expanded problem focused history; An expanded prob Office 04/08/2017 99260 or other outpatient visit for the evaluation and management of an established patient, which requires at least 2 of these 3 dumont components: A comprehensive history; A comprehensive examination; Encounters ACCT No. Visit Discharge Status Pt. Type Provider Facility Loc./Unit Complaint Date/Time [id number] 06/30/2013 06/30/2013 CLS Outpatien 11:18:00 23:59:59 t [id number] 10/03/2013 10/03/2013 CLS Outpatien Gael NULL, Via TOP 3 10:01:00 23:59:59 t [facility] [id number] 08/04/2013 08/04/2013 CLS Outpatien Tiffany Via FOP 5 06:08:00 23:59:59 t Karina NULL [facility] [id number] 08/04/2013 08/04/2013 DIS Outpatien Tiffany Via F3E 0 06:27:00 17:45:00 Karina garcia MD [facility] [id number] 07/13/2013 07/15/2013 DIS Outpatien Tiffany Via F5SE 9 12:40:00 18:16:00 Karina garcia MD [facility] [id number] 06/04/2013 06/04/2013 CLS Emergency Dena NULL, Via JERM 8 02:24:00 23:59:59 [facility] [id number] 05/29/2013 05/29/2013 DIS Emergency Joshua III Via FERM 9 16:25:00 17:35:00 Maryann NULL [facility] [id number] 04/24/2013 04/24/2013 CLS Emergency Other Via JERM 7 18:27:00 23:59:59 Doctor, [facility] on [facility] [id number] 12/05/2012 12/07/2012 DIS Inpatient Vallapu Via F4SE 2 11:20:00 17:40:00 Anuj NULL, [facility] [place] [id number] 10/30/2012 10/30/2012 DIS Emergency Meinecke Via FERM 8 09:15:00 12:25:00 Jose NULL [facility] [place] [id number] 09/29/2012 09/29/2012 JEFFREY Mayo MD, Via FOP 9 09:29:00 23:59:59 [facility] [id number] 09/26/2012 09/26/2012 CLS Amanda Mayo MD, Via FOP 2 09:45:00 23:59:59 [facility] [id number] 07/26/2012 07/29/2012 DIS Inpatient Tiffany Via F8SE 3 13:53:00 12:22:00 Karina NULL [facility] [id number] 03/01/2012 04/22/2012 DIS Amanda Mayo MD, Via JOP 2 10:00:00 18:45:00 [facility] [id number] 03/23/2012 03/24/2012 DIS Amanda Mayo MD, Via J7W 1 12:32:00 10:10:00 [facility] [id number] 03/01/2012 03/01/2012 CLS Amanda Mayo MD, Via JOP 8 11:09:00 23:59:59 [facility] [id number] 05/11/2014 05/16/2014 DIS Inpatient Nay Meraz7TN 67 13:40:00 16:28:00 , [facility] [id number] 08/03/2014 Document 84 15:00:00 Registrat ion [id number] 03/27/2015 03/27/2015 CLS Outpatien [id number] 16:53:41 23:59:59 t 1 [id number] 03/27/2015 03/27/2015 CLS Outpatien [id number] 14:22:19 23:59:59 t 9 [id number] 03/27/2015 03/27/2015 CLS Outpatien [id number] 14:22:13 23:59:59 t 3 [id number] 03/27/2015 03/27/2015 CLS Outpatien [id number] 14:21:37 23:59:59 t 7 [id number] 03/27/2015 03/27/2015 CLS Outpatien [id number] 14:20:20 23:59:59 t 0 [id number] 03/27/2015 03/27/2015 DIS Outpatien [id number] 14:19:42 14:19:45 t 2 [id number] 03/28/2015 Document 1058 07:10:58 Registrat ion [id number] 03/28/2015 Document 1056 07:10:56 Registrat ion [id number] 03/28/2015 Document 1053 07:10:53 Registrat ion [id number] 03/28/2015 Document 1051 07:10:51 Registrat ion [id number] 03/28/2015 Document 1048 07:10:48 Registrat ion [id number] 03/28/2015 Document 1045 07:10:45 Registrat ion [id number] 03/28/2015 Document 1043 07:10:43 Registrat ion [id number] 03/28/2015 Document 1040 07:10:40 Registrat ion [id number] 03/28/2015 Document 1037 07:10:37 Registrat ion [id number] 03/28/2015 Document 1035 07:10:35 Registrat ion [id number] 03/28/2015 Document 1031 07:10:31 Registrat ion [id number] 03/28/2015 Document 1029 07:10:29 Registrat ion [id number] 03/28/2015 Document 1026 07:10:26 Registrat ion [id number] 03/28/2015 Document 1023 07:10:23 Registrat ion [id number] 03/28/2015 Document 1021 07:10:21 Registrat ion [id number] 03/28/2015 Document 1018 07:10:18 Registrat ion [id number] 03/28/2015 Document 1015 07:10:15 Registrat ion [id number] 03/28/2015 Document 1012 07:10:12 Registrat ion [id number] 03/28/2015 Document 1004 07:10:04 Registrat ion [id number] 03/28/2015 Document 1002 07:10:02 Registrat ion [id number] 03/28/2015 Document 0956 07:09:56 Registrat ion [id number] 03/28/2015 Document 0953 07:09:53 Registrat ion [id number] 03/28/2015 Document 0951 07:09:51 Registrat ion [id number] 03/28/2015 Document 0948 07:09:48 Registrat ion [id number] 03/28/2015 Document 0945 07:09:45 Registrat ion [id number] 03/28/2015 Document 0943 07:09:43 Registrat ion [id number] 03/28/2015 Document 0937 07:09:37 Registrat ion [id number] 03/28/2015 Document 0935 07:09:35 Registrat ion [id number] 03/28/2015 Document 0932 07:09:32 Registrat ion [id number] 03/28/2015 Document 0918 07:09:18 Registrat ion [id number] 03/28/2015 Document 0915 07:09:15 Registrat ion [id number] 03/27/2015 Document [id number] 14:35:00 Registrat ion [id number] 03/27/2015 Document [id number] 14:34:00 Registrat ion [id number] 05/20/2015 05/27/2015 DIS Inpatient Tannoury, Via VCF F4SW [facility] Bleed 74 18:41:00 14:18:00 [facility] [id number] 03/13/2017 Document 1623 05:16:23 Registrat ion [id number] 02/03/2017 Document 1532 05:15:32 Registrat ion [id number] 01/09/2017 Document 1552 05:15:52 Registrat ion [id number] 12/31/2016 Document 1550 05:15:50 Registrat ion [id number] 12/23/2016 Document 1553 05:15:53 Registrat ion [id number] 04/29/2016 Document 1629 05:16:29 Registrat ion [id number] 04/23/2016 Document 1655 05:16:55 Registrat ion [id number] 04/21/2016 Document 1631 05:16:31 Registrat ion [id number] 04/16/2016 Document 1728 05:17:28 Registrat ion [id number] 04/15/2016 Document 1707 05:17:07 Registrat ion [id number] 03/24/2016 Document 1857 05:18:57 Registrat ion [id number] 02/26/2016 Document 1610 05:16:10 Registrat ion [id number] 01/04/2016 Document 1644 05:16:44 Registrat ion [id number] 12/17/2015 Document 1657 05:16:57 Registrat ion [id number] 12/03/2015 Document 1702 05:17:02 Registrat ion [id number] 11/19/2015 Document 1701 05:17:01 Registrat ion [id number] 11/05/2015 Document 1714 05:17:14 Registrat ion [id number] 11/01/2015 Document 1554 05:15:54 Registrat ion [id number] 10/17/2015 Document 1615 05:16:15 Registrat ion [id number] 09/10/2015 Document 1701 05:17:01 Registrat ion [id number] 08/28/2015 Document 1706 05:17:06 Registrat ion [id number] 08/15/2015 Document 1651 05:16:51 Registrat ion [id number] 06/14/2015 Document 1630 05:16:30 Registrat ion [id number] 06/05/2015 Document 1611 05:16:11 Registrat ion [id number] 05/28/2015 Document 1614 05:16:14 Registrat ion [id number] 05/27/2015 Document 1531 05:15:31 Registrat ion [id number] 05/26/2015 Document 1537 05:15:37 Registrat ion [id number] 05/25/2015 Document 1626 05:16:26 Registrat ion [id number] 05/24/2015 Document 1640 05:16:40 Registrat ion [id number] 05/23/2015 Document 1552 05:15:52 Registrat ion [id number] 05/22/2015 Document 1821 05:18:21 Registrat ion [id number] 05/21/2015 Document 1645 05:16:45 Registrat ion [id number] 05/15/2015 Document 1226 13:12:26 Registrat ion [id number] 05/15/2015 Document 0444 13:04:44 Registrat ion [id number] 05/15/2015 Document 4340 12:43:40 Registrat ion [id number] 05/15/2015 Document 3547 12:35:47 Registrat ion [id number] 05/15/2015 Document 2831 12:28:31 Registrat ion [id number] 05/15/2015 Document 2120 12:21:20 Registrat ion [id number] 05/15/2015 Document 1437 12:14:37 Registrat ion [id number] 05/15/2015 Document 0727 12:07:27 Registrat ion [id number] 05/15/2015 Document 0031 12:00:31 Registrat ion [id number] 05/15/2015 Document 4727 11:47:27 Registrat ion [id number] 05/15/2015 Document 3313 11:33:13 Registrat ion [id number] 05/15/2015 Document 4932 10:49:32 Registrat ion [id number] 05/15/2015 Document 3143 10:31:43 Registrat ion [id number] 05/15/2015 Document 2634 10:26:34 Registrat ion [id number] 05/15/2015 Document 2114 10:21:14 Registrat ion [id number] 05/15/2015 Document 5806 09:58:06 Registrat ion [id number] 05/15/2015 Document 5311 09:53:11 Registrat ion [id number] 05/15/2015 Document 3703 09:37:03 Registrat ion [id number] 05/15/2015 Document 2708 09:27:08 Registrat ion [id number] 05/15/2015 Document 1903 09:19:03 Registrat ion [id number] 02/24/2015 Document 85 10:44:00 Registrat ion [id number] 09/19/2015 10/03/2015 DIS Inpatient Frank NULL, Bryan MoonT4 43 20:00:00 13:10:00 [facility] & [id number] 04/08/2017 04/08/2017 DIS Outpatien Leola, Via [facility] New FM recheck per 66 11:16:00 23:59:00 t Roger Bhagat Clinic request [id number] 03/23/2017 03/23/2017 DIS Outpatien Kevin, Via [facility] REF BY 95 13:15:00 23:59:00 t [place] Wolf CP VINOD 4 Clinic TO 8 WK CK CPAP [id number] 03/11/2017 03/11/2017 DIS Outpatien Goering, Via [facility] New 80 13:03:00 23:59:00 t Roger Wolf Rad Clinic [id number] 03/01/2017 03/01/2017 DIS Outpatien Goering, Via [facility] FM 20LB WEIGHT 92 15:39:00 23:59:00 jose Wolf LOSS IN Clinic LAST MONTH [id number] 02/11/2017 02/11/2017 DIS Outpatien Goering, Via [facility] FM 2 mo 09:57:00 23:59:00 jose Wolf recheck Clinic [id number] 02/02/2017 02/02/2017 DIS Outpatien Dorian [facility] post op 50 13:13:00 23:59:00 [place] garcia Surg Clinic [id number] 01/28/2017 01/28/2017 DIS Outpatien Tandoc, Via [facility] FM TCM, IP, 95 08:23:00 23:59:00 jose Wolf [facility] [place] 01/19/17 [id number] 01/04/2017 01/04/2017 CLS Outpatien Vinod [facility] MASK FIT 10 14:35:00 23:59:59 Maryann Parra CP [facility] [id number] 01/04/2017 01/04/2017 CLS Outpatien Vinod [facility] 2 mo ck 89 13:25:00 23:59:59 Maryann Parra CP with new [facility] supplies [id number] 12/25/2016 12/25/2016 DIS Outpatien Luinstra, Via [facility] FM DOC Fever 48 15:02:00 23:59:00 jose Wolf Clinic [id number] 12/22/2016 12/22/2016 DIS Outpatien Goering, Via [facility] FM consult 94 13:10:00 23:59:00 jose Wolf indepen, Clinic living [id number] 11/10/2016 11/10/2016 DIS Outpatien Tandoc, Via [facility] FM TCM ER NMC 72 14:59:00 23:59:00 jose Wolf 11.05.2016 Clinic FALL FOLLOW UP [id number] 10/29/2016 10/29/2016 DIS Outpatien Goering, Via [facility] FM FOLLOW UP 69 09:14:00 23:59:00 t Roger Wolf HIGH BP Clinic [id number] 08/31/2016 08/31/2016 DIS Outpatien Goering, Via [facility] FM 2 mth F/U 52 10:17:00 23:59:00 jose Wolf Clinic [id number] 08/21/2016 08/21/2016 DIS Outpatien Vinod [facility] 3 week rck 96 09:27:00 23:59:00 Maryann Parra CP cpap [facility] [id number] 07/31/2016 07/31/2016 DIS Outpatien Vinod [facility] 1 yr rck 86 10:41:00 23:59:00 Maryann Parra CP cpap [facility] [id number] 06/25/2016 06/25/2016 DIS Outpatien Goering, Via [facility] FM 1 mth 23 11:15:00 23:59:00 jose Wolf recheck Clinic [id number] 05/22/2016 05/22/2016 DIS Outpatien Mckeon, Via [facility] FM 1 wk fu 81 10:19:00 23:59:00 jose Wolf from hosp A Clinic [id number] 03/31/2016 03/31/2016 DIS Outpatien Mckeon, [facility] FM 1 week 32 10:36:00 23:59:00 jose Wolf follow up A Clinic [id number] 03/23/2016 03/23/2016 CLS Outpatien Mckeon, [facility] FM POSSIBLE 22 13:05:00 23:59:59 jose Wolf SINUS A Clinic INFECTION [id number] 03/09/2016 03/09/2016 DIS Outpatien Goering, [facility] FM TCPA 53 09:28:00 23:59:00 jose oWlf hallucinati Clinic on. falling [id number] 03/05/2016 03/05/2016 DIS Outpatien Goering, Via [facility] New FM TCPA follow 14 16:11:00 23:59:00 jose Wolf up from Clinic 7.28 [id number] 02/20/2016 02/20/2016 DIS Outpatien Goering, Via [facility] New FM no balance 99 09:39:00 23:59:00 jose Wolf ongoing Clinic issue [id number] 01/30/2016 01/30/2016 DIS Outpatien Goering, Via [facility] New FM FINISHED 17 10:14:00 23:59:00 jose Wolf ANTIBIOTIC Clinic STILL HAS COLD SX [id number] 2016 2016 CLS Outpatien Goering, Via [facility] New FM 2 WK RCK 90 12:55:00 23:59:59 jose Wolf FROM Clinic 5.23.16 [id number] 12/16/2015 12/16/2015 DIS Outpatien Goering, Via [facility] New FM CONCERNS 77 12:55:00 23:59:00 jose Wolf FOR Clinic HEMOTOMA PER FEELS HE IS DECLINING [id number] 11/18/2015 11/18/2015 DIS Outpatien Goering, Via [facility] New FM 2-3 week 43 12:44:00 23:59:00 jose Wolf follow up Clinic [id number] 10/31/2015 10/31/2015 DIS Outpatien Goering, Via [facility] New FM WOULD 44 13:47:00 23:59:00 jose Wolf LIKE TO Clinic HAVE HIM GO HOME FROM SKILLED [facility]URSING [id number] 10/16/2015 10/16/2015 DIS Outpatien Goering, Via [facility] New FM follow up 20 09:51:00 23:59:00 jose Wolf from ER Clinic [id number] 10/11/2015 10/11/2015 DIS Outpatien Mckeon, Via [facility] New FM RCK RT 92 10:17:00 23:59:00 jose Wolf SHOULDER A Clinic AFTER ER VISIT ON 3.16 [id number] 08/05/2015 08/05/2015 DIS Outpatien Goering, Via [facility] New FM RECHECK 59 11:21:00 23:59:00 jose Wolf Clinic [id number] 08/02/2015 08/02/2015 CLS Outpatien Vinod [facility] Sleep YRLY GEORGE 27 11:08:00 23:59:59 Maryann Parra CP CPAP [facility] MEDICARE [id number] 06/27/2015 06/27/2015 DIS Outpatien Goering, Via [facility] New FM SNU follow 32 14:48:00 23:59:00 t Roger Wolf up Clinic [id number] 06/04/2015 06/04/2015 DIS Outpatien Goering, Via [facility] New FM HOS FU NEW 51 15:43:00 23:59:00 t Roger Wolf RES TO Clinic [facility] [id number] 06/04/2015 06/04/2015 DIS Outpatien Goering, Via [facility] New FM HOS FU NEW 27 14:53:00 23:59:00 t Roger Wolf RES Clinic [id number] 02/12/2015 02/12/2015 DIS Outpatien Goering, Via [facility] New FM FU HOS STAY 91 10:22:00 23:59:00 t Roger Wolf [facility] [place] [facility] ANEMIA [id number] 02/05/2015 02/05/2015 DIS Outpatien Goering, Via [facility] New FM 3 month 72 10:53:00 23:59:00 t Roger Wolf followup Clinic [id number] 01/15/2015 01/15/2015 DIS Outpatien Goering, Via [facility] New FM 1mth fu bp 81 09:45:00 23:59:00 jose Wolf Clinic [id number] 09/06/2014 09/06/2014 DIS Outpatien Goering, Via [facility] New FM NPT EST 40 09:56:00 23:59:00 jose Wolf VISIT Clinic [id number] 07/30/2014 07/30/2014 DIS Outpatien Skinner, Via [facility] Cyp FM med check 89 10:23:00 23:59:00 jose Wolf 7-11 ck Clinic [id number] 07/03/2014 07/03/[address] [facility] Sleep ref dr 79 10:18:00 23:59:00 jose skinner[facility] sl apnea/[place]st [place] pt [id number] 12/03/2014 Document 75 09:49:00 Registrat ion [id number] 11/28/2014 Document 70 10:33:00 Registrat ion [id number] 11/06/2014 Document 25 09:53:00 Registrat ion
[2017-04-27] MEDS ORDERED: SALINE FLUSH 10ml SYRINGE IVF PRN (05:49)
[2017-04-27] MEDS ORDERED: LEVOFLOXACIN PB 750 MG/150 ML BAG IV ONE (05:50)
[2017-04-27] MEDS ORDERED: NS 1,000 ML IV SCH ×2 (06:00→09:45)
[2017-04-27] MEDS: SALINE FLUSH 10ml SYRINGE IVF PRN ×2 (06:35→21:30)
[2017-04-27] MEDS ORDERED: ASPIRIN 81 MG CHEWABLE TABLET PO ONE (06:36)
[2017-04-27] MEDS ORDERED: MORPHINE SULFATE 2mg INJECTION IVP PRN (06:37)
[2017-04-27] MEDS ORDERED: ONDANSETRON 4 MG/2 ML INJECTION IVP PRN (06:37)
[2017-04-27] MEDS ORDERED: AZITHROMYCIN IV 500 MG in NS 250ml 250 ML IV SCH (06:45)
[2017-04-27] MEDS ORDERED: LR 1,000 ML IV SCH (06:45)
--- NOTE | 2017-04-27 07:02 | History & Physical Report ---
History of Present Illness Date: 04/27/17 Chief complaint: chest tightness/ cough HPI: The pt is a 82 yo who was [facility] from his [facility] after being found hypoxic with worsening cough and confusion. He states he has had a cough for the past 4 weeks. no fevers, chills, but c/o worsening dyspnea but he is not very active. During my exam he was very confused and fell asleep a couple of times. Review of Systems - Constitutional Constitutional: Present: as per HPI, chills, daytime sleepiness. Absent: fever( s) - Cardiovascular Cardiovascular: Present: chest pain - Respiratory Respiratory: Present: cough, dyspnea, chest congestion. Absent: hemoptysis, dyspnea on exertion, wheezing PFSH Patient Stated Medical History Cerebrovascular Accident Yes: 2005 Dementia Yes Peripheral Neuropathy Yes Cataracts Yes Cardiac Arrhythmia Yes: Afib hx Coronary Artery Disease Yes: stents Hypertension Yes Pneumonia Yes Sleep Apnea Yes Diabetes Mellitus Type 1 No Gastroesophageal Reflux Yes Disease Gastrointestinal Bleeding Yes Ulcer Yes Other GI Yes: Constipation at times. Hx Incontinence Yes Hx Kidney Stones Yes Hx Renal Disease Yes Anemia Yes Clotting Problems Yes: ON PLAVIX MRSA Yes: Nasal Shingles Yes Anesthesia Reactions No Malignant Hyperthermia No Bipolar Disorder Yes Clinic Medical History (Last Reviewed 02/25/17 @ 11:05 by YOLANDA Louis) Abnormal gait (Acute Medical) Anxiety (Acute Medical) Arthritis (Acute Medical) Carpal tunnel syndrome (Acute Medical) Chronic kidney disease, stage 4 (severe) (Acute Medical) Coronary artery disease (Acute Medical) Depression (Acute Medical) Essential hypertension (Acute Medical) Hyperlipemia (Acute Medical) Low back pain at multiple sites (Acute Medical) Osteoarthritis (Acute Medical) Renal cancer (Acute Medical) Sleep apnea (Acute Medical) Surgical History: Colonoscopy 2014. Heart pacemaker 2010. Coronary artery stents 03/2014. Back surgeries x5 Family History: Family History (Last Reviewed 02/25/17 @ 11:05 by YOLANDA Louis) Mother Stroke Migraine Depression Father High blood pressure Congestive heart failure due to hypertension Sister Migraine - Social History Smoking status: Never smoker Medications Home Medications Medication Instructions Recorded Confirmed Type Nitroglycerin [Nitrostat] 0.4 mg SL Q5MIN PRN #0 01/27/15 04/27/17 History Amiodarone HCl 200 mg PO DAILY #0 09/16/15 04/27/17 History Atorvastatin Calcium 10 mg PO HS #0 09/16/15 04/27/17 History Ferrous Sulfate [Iron] 325 mg PO BIDLS #0 09/16/15 04/27/17 History Sertraline HCl [Zoloft] 150 mg PO DAILY #0 10/09/15 04/27/17 History Aspirin [Aspirin EC] 81 mg PO DAILY #0 02/02/16 04/27/17 History Isosorbide Mononitrate [Isosorbide 30 mg PO BID #0 02/02/16 04/27/17 History Mononitrate ER] Hydralazine HCl 25 mg PO BID #0 05/15/16 04/27/17 History Cholecalciferol (Vitamin D3) 1,000 unit PO DAILY 01/09/17 04/27/17 History [Vitamin D3] Clopidogrel Bisulfate [Clopidogrel] 75 mg PO DAILY 01/09/17 04/27/17 History Cyanocobalamin (Vitamin B-12) 1,000 mcg PO DAILY 01/09/17 04/27/17 History [Vitamin B-12] BuPROPion XL [Wellbutrin Xl] 300 mg PO DAILY 02/06/17 04/27/17 History Famotidine [Pepcid] 20 mg PO DAILY 02/06/17 04/27/17 History Acetaminophen [Acetaminophen Extra 500 mg PO Q4H PRN 03/27/17 04/27/17 History Strength] Hydralazine [Apresoline] 25 mg PO HS 03/27/17 04/27/17 History Lactobacillus Acidophilus 1 each PO DAILY 04/27/17 04/27/17 History [Probiotic] predniSONE [Prednisone] 10 mg PO DAILY 04/27/17 04/27/17 History Allergies Allergy/AdvReac Type Severity Reaction Status Date / Time No Known Allergies Allergy Verified 04/27/17 05:26 Exam Vital Signs: Temperature 98.3 F 04/27/17 05:10 Pulse Rate 79 04/27/17 06:45 Respiratory Rate 24 04/27/17 06:45 Blood Pressure 164/100 H 04/27/17 06:45 Pulse Oximetry 90 04/27/17 06:45 Height/Weight/BMI: Height 1.78 m Weight 89.6 kg - Constitutional Present: somnolent - Routine HEENT Exam Head: Present: normocephalic - Routine Neck Exam Present: supple - Routine Respiratory Exam Present: rales, rhonchi. Absent: respiratory distress, wheezes - Routine Cardiovascular Exam Present: RRR, no murmur - Routine Abdominal Exam Present: soft, normoactive bowel sounds - Routine Extremities Exam Present: edema Comments: R>L Results - Labs CBC & Chem 7: 04/27/17 05:26 04/27/17 05:26 Microbiology Results: Microbiology 04/27/17 06:18 Peripheral/Iv Start Blood Culture - Preliminary Culture Initiated - Results Pending 04/27/17 06:33 Peripheral/Iv Start Blood Culture - Preliminary Culture Initiated - Results Pending Assessment and Plan (1) Right lower lobe pneumonia Current visit: Yes Status: Acute (2) Elevated troponin I level Current visit: Yes Status: Acute (3) HTN (hypertension) Current visit: No Status: Chronic (4) Atrial fibrillation Current visit: No Status: Chronic Hospital Course Summary Disclaimer: The visit summary below is not to be considered part of the above Progress Note.
[2017-04-27] MEDS ORDERED: INFLUENZA VAC. INJ. ADMIN CHARGE INJ ONE (07:38)
[2017-04-27] MEDS ORDERED: NITROGLYCERIN 0.4 MG SUBLINGUAL TABLET SL PRN (07:50)
[2017-04-27] MEDS ORDERED: ACETAMINOPHEN 500 MG TABLET PO PRN (07:50)
--- NOTE | 2017-04-27 08:09 | XRay Report ---
Indication: dyspnea, hypoxemia PROCEDURE: XR chest 1V: Encounter: Initial Comparison: January 09, 2017 Findings: New airspace consolidation in the right lower lobe. No pneumothorax or pleural effusion. Heart size and mediastinal contours are stable. Pulmonary vascularity is prominent. Impression: Right lower lobe pneumonia or aspiration with mild superimposed edema. .
[2017-04-27 08:23] VITALS: BMI 29.2
[2017-04-27] MEDS: CEFTRIAXONE 1 G in NS 100 ML IV SCH (08:30)
[2017-04-27] MEDS ORDERED: PredniSONE 10 MG TABLET PO SCH (09:00)
[2017-04-27] MEDS ORDERED: ISOSORBIDE MONONITRATE ER 30 MG TABLET PO SCH (09:00)
[2017-04-27] MEDS ORDERED: DiltiaZEM CD 360 MG CAPSULE PO SCH (09:00)
[2017-04-27] MEDS ORDERED: BISACODYL 10 MG SUPPOSITORY RECTALLY PRN (09:52)
[2017-04-27] MEDS: LACTOBACILLUS (15B cfu) CAPSULE PO SCH (10:15)
[2017-04-27] MEDS: POLYETHYL GLYCOL 3350 17gm PACKET PO SCH (10:16)
[2017-04-27] MEDS: SENNA + DOCUSATE TABLET PO SCH ×2 (10:16→21:11)
[2017-04-27] MEDS: AMIODARONE 200 MG TABLET PO SCH (10:16)
[2017-04-27] MEDS: FAMOTIDINE 20 MG TABLET PO SCH (10:16)
[2017-04-27] MEDS: CLOPIDOGREL 75 MG TABLET PO SCH (10:16)
[2017-04-27] MEDS: BuPROPion XL 300mg (24HR) TABLET PO SCH (10:16)
[2017-04-27] MEDS: SERTRALINE 100 MG TABLET PO SCH (10:16)
[2017-04-27] MEDS: ASPIRIN *EC* 81 MG TABLET PO SCH (10:19)
[2017-04-27] MEDS: BUDESONIDE INH.SOLN 0.5mg/2ml NEB AEROSOL SCH ×2 (10:58→19:49)
[2017-04-27] MEDS ORDERED: FUROSEMIDE 20 MG/2 ML INJECTION IVP ONE (12:18)
[2017-04-27] MEDS ORDERED: INFLUENZA VAC High Dose 2017-18 (Fluzone HD*) (>=65yo) 0.5ml IM ONE (12:18)
--- NOTE | 2017-04-27 13:30 | Cardiology Consult Note ---
History of Present Illness Consult date: 04/27/17 <Jennifer Caicedo - 04/27/17 14:32> Requesting physician: Dennis Wells <Jennifer Caicedo - 04/27/17 14:32> Consult reason: shortness of breath <Jennifer Caicedo - 04/27/17 13:31> Chief complaint: breathing difficulty <Jennifer Caicedo - 04/27/17 13:31> History of present illness: John is a 82 year old male who has a history of CAD with stents, atrial fibrillation and PPM who presented to [facility] ED via EMS secondary to difficulty breathing. Uses CPAP at night but not oxygen. Nursing checked on patient and found he was having increasing work to breath and saturations low. Applies O2 which helped initially, but about 1 hour later respiratory distress increased and sats very decreased despite high flow O2. Reports cough and chest congestion and pain. No pain with breathing, but hard to take deep breath due to congestion. Reports cough 'for weeks' - but increased overnight. No increased pedal edema. More tired, weak, and less active. He was found to have RLL pneumonia and troponin is elevated 0.687 and BNP 6880. Patient was admitted to CCU under the care of the hospitalist and Dr. Beck is consulted. <Jennifer Caicedo 04/28/17 14:13> Review of Systems - Constitutional Constitutional: Present: fatigue. Absent: chills, fever(s) <Jennifer Caicedo [facility] 04/27/17 14:32> - EENMT Eyes: Absent: change in vision <Jennifer Caicedo 04/27/17 14:32> Balance: Absent: vertigo <Jennifer Caicedo [facility] 04/27/17 14:32> Mouth/Throat: Absent: sore throat <Jennifer Caicedo [facility] 04/27/17 14:32> - Cardiovascular Cardiovascular: Present: dyspnea on exertion, orthopnea. Absent: chest pain, palpitations, syncope <Jennifer Caicedo 04/27/17 14:32> - Respiratory Respiratory: Present: cough, dyspnea, dyspnea on exertion, chest congestion < MariferJennifer Banks 04/27/17 14:32> - Gastrointestinal Gastrointestinal: Present: diarrhea. Absent: abdominal pain, nausea, vomiting <Jennifer Caicedo - 04/27/17 14:32> - Genitourinary Genitourinary: Absent: dysuria <Jennifer Caicedo 04/27/17 14:32> - Integumentary/Breasts Integumentary: Absent: rash <Jennifer Caicedo - 04/27/17 14:32> - Neurological Neurological: Absent: dizziness <Jennifer Caicedo - 04/27/17 14:32> [facility] Medical History (Last Reviewed 02/25/17 @ 11:05 by YOLANDA Louis) Abnormal gait (Acute Medical) Anxiety (Acute Medical) Arthritis (Acute Medical) Carpal tunnel syndrome (Acute Medical) Chronic kidney disease, stage 4 (severe) (Acute Medical) Coronary artery disease (Acute Medical) Depression (Acute Medical) Essential hypertension (Acute Medical) Hyperlipemia (Acute Medical) Low back pain at multiple sites (Acute Medical) Osteoarthritis (Acute Medical) Renal cancer (Acute Medical) Sleep apnea (Acute Medical) <Benjie Beck - 04/30/17 15:40> Clinic Medical History (Last Reviewed 02/25/17 @ 11:05 by YOLANDA Louis) Abnormal gait (Acute Medical) Anxiety (Acute Medical) Arthritis (Acute Medical) Carpal tunnel syndrome (Acute Medical) Chronic kidney disease, stage 4 (severe) (Acute Medical) Coronary artery disease (Acute Medical) Depression (Acute Medical) Essential hypertension (Acute Medical) Hyperlipemia (Acute Medical) Low back pain at multiple sites (Acute Medical) Osteoarthritis (Acute Medical) Renal cancer (Acute Medical) Sleep apnea (Acute Medical) <Jennifer Caicedo 04/27/17 13:31> Surgical History: Colonoscopy 2014. Heart pacemaker 2010. Coronary artery stents 03/2014. Back surgeries x5 <Jennifer Caicedo 04/27/17 13:31> Family History: Family History (Last Reviewed 02/25/17 @ 11:05 by YOLANDA Louis) Mother Stroke Migraine Depression Father High blood pressure Congestive heart failure due to hypertension Sister Migraine <Benjie Beck 04/30/17 15:40> Family History (Last Reviewed 02/25/17 @ 11:05 by Helene Shantz, RMA) Mother Stroke Migraine Depression Father High blood pressure Congestive heart failure due to hypertension Sister Migraine <Jennifer Caicedo M - 04/27/17 13:31> - Social History Smoking status: Never smoker <Jennifer Caicedo - 04/28/17 14:13> Substance use type: does not use <Jennifer Caicedo - 04/28/17 14:13> Alcohol intake frequency: does not drink <Jennifer Caicedo - 04/28/17 14:13> Housing: custodial <Jennifer Caicedo - 04/27/17 13:37> Current residence: [place] <Jennifer Caicedo - 04/27/17 13:31> Medications Home Medications Medication Instructions Recorded Confirmed Type Nitroglycerin [Nitrostat] 0.4 mg SL Q5MIN PRN #0 01/27/15 04/27/17 History Amiodarone HCl 200 mg PO DAILY #0 09/16/15 04/27/17 History Atorvastatin Calcium 10 mg PO HS #0 09/16/15 04/27/17 History Ferrous Sulfate [Iron] 325 mg PO BIDLS #0 09/16/15 04/27/17 History Sertraline HCl [Zoloft] 150 mg PO DAILY #0 10/09/15 04/27/17 History Aspirin [Aspirin EC] 81 mg PO DAILY #0 02/02/16 04/27/17 History Isosorbide Mononitrate [Isosorbide 30 mg PO BID #0 02/02/16 04/27/17 History Mononitrate ER] Hydralazine HCl 25 mg PO BID #0 05/15/16 04/27/17 History Cholecalciferol (Vitamin D3) 1,000 unit PO DAILY 01/09/17 04/27/17 History [Vitamin D3] Clopidogrel Bisulfate [Clopidogrel] 75 mg PO DAILY 01/09/17 04/27/17 History Cyanocobalamin (Vitamin B-12) 1,000 mcg PO DAILY 01/09/17 04/27/17 History [Vitamin B-12] BuPROPion XL [Wellbutrin Xl] 300 mg PO DAILY 02/06/17 04/27/17 History Famotidine [Pepcid] 20 mg PO DAILY 02/06/17 04/27/17 History Acetaminophen [Acetaminophen Extra 500 mg PO Q4H PRN 03/27/17 04/27/17 History Strength] Hydralazine [Apresoline] 25 mg PO HS 03/27/17 04/27/17 History Lactobacillus Acidophilus 1 each PO DAILY 04/27/17 04/27/17 History [Probiotic] predniSONE [Prednisone] 10 mg PO DAILY 04/27/17 04/27/17 History <Benjie Beck - 04/30/17 15:40> Allergies Allergy/AdvReac Type Severity Reaction Status Date / Time No Known Allergies Allergy Verified 04/27/17 05:26 <Benjie Beck - 04/30/17 15:40> Exam Vital signs: Temperature 95.4 F L 04/30/17 13:03 Pulse Rate 65 04/30/17 13:03 Respiratory Rate 21 04/30/17 13:03 Blood Pressure 123/76 04/30/17 13:03 Pulse Oximetry 96 04/30/17 13:03 <Benjie Beck - 04/30/17 15:40> Temperature 97.6 F 04/27/17 12:01 Pulse Rate 69 04/27/17 12:45 Respiratory Rate 24 04/27/17 12:45 Blood Pressure 160/93 H 04/27/17 12:01 Pulse Oximetry 94 04/27/17 12:45 <Jennifer Caicedo - 04/27/17 13:31> - Constitutional mild distress, cooperative <Jennifer Caicedo - 04/27/17 14:32> - Routine HEENT Exam Head: Present: normocephalic <Jennifer Caicedo - 04/27/17 14:32> ENT: Present: mucous membranes moist <Jennifer Caicedo - 04/27/17 14:32> - Routine Neck Exam Absent: JVD, carotid bruit <Jennifer Caicedo - 04/27/17 14:32> - Routine Chest/Breast/Axilla Exam Chest wall: Absent: tenderness <Jennifer Caicedo - 04/27/17 14:32> - Routine Respiratory Exam Present: diminished air movement <Jennifer Caicedo - 04/27/17 13:37> - Routine Cardiovascular Exam Present: no murmur, irregularly irregular. Absent: JVD <Jennifer Caicedo - 10/09 14:32> - Routine Abdominal Exam Present: soft, normoactive bowel sounds <Jennifer Caicedo - 04/27/17 14:32> - Routine Extremities Exam Present: no edema <Jennifer Caicedo - 04/27/17 14:32> - Routine Skin Exam Present: intact, dry, warm <Jennifer Caicedo - 04/27/17 14:32> - Routine Neurological Exam Present: alert <Jennifer Caicedo - 04/27/17 14:32> - Routine Psychiatric Exam Present: normal affect <Jennifer Caicedo - 04/27/17 14:32> Results 04/30/17 06:52 04/30/17 04:53 <KiranCarliBenjie - 04/30/17 15:40> CBC 04/30/17 Range/Units 06:52 WBC 7.7 (4.5-11.0) T/MM3 RBC 3.32 L (4.50-5.90) M/MM3 Hgb 10.0 L (13.5-17.5) GM/DL Hct 32.6 L (41-53) % Plt Count 149 (130-400) T/MM3 Neut # (Auto) 6.5 (1.8-7.7) T/MM3 Lymph # (Auto) 0.5 L (1-4.8) T/MM3 [place] # (Auto) 0.6 (0-0.8) T/MM3 Eos # (Auto) 0.2 (0-0.5) T/MM3 Baso # (Auto) 0.0 (0-0.2) T/MM3 Comprehensive Metabolic Panel 04/30/17 Range/Units 04:53 Sodium 146 H (134-144) MEQ/L Potassium 3.7 (3.6-5) MEQ/L Chloride 108 H (98-107) MEQ/L Carbon Dioxide 27 (22-30) MEQ/L BUN 30.0 H (9-20) MG/DL Creatinine 1.7 H D (0.8-1.5) MG/DL Glucose 83 (75-110) MG/DL Calcium 9.2 (8.4-10.2) MG/DL Intake and Output 04/30/17 04/30/17 04/30/17 06:59 14:59 22:59 Intake Total 460 / 460 150 / 150 Output Total 1000 / 1000 350 / 350 Balance -540 / -540 -200 / -200 Intake: IV 100 / 100 Ceftriaxone 1 g In Ns 100 100 / 100 ml @ 200 mls/hr IV Q24H PENDING SALE TO [facility] Rx#:[id number] Oral 360 / 360 150 / 150 Output: Urine Amount (Catheter) 1000 / 1000 350 / 350 Other: Urine Appearance Cloudy Cloudy Hematuria Urine Color Light Janet Straw Urine Odor Normal Stool Color Brown Brown Stool Consistency Soft Soft Size of Bowel Movement Smear Moderate # Bowel Movements 1 # Incontinent Bowel 1 Movements Weight 84.9 kg Patient Weight 05/01/17 06:59 Weight 84.9 kg <Benjie Beck - 04/30/17 15:40> Cardiac Enzymes 04/27/17 Range/Units 10:13 Troponin I 0.738 H (0-0.12) ng/ml Intake and Output 04/26/17 04/27/17 04/27/17 22:59 06:59 14:59 Intake Total 638.75 / 881.25 Output Total 315 / 315 Balance 323.75 / 566.25 Intake: IV 638.75 / 881.25 Zithromax 500 mg In 250 / 250 Normal Saline 250 ml @ 167 mls/hr IV O PENDING SALE TO [facility] Rx#: [id number] Rocephin 1 G In Normal 100 / 100 Saline 100 ml @ 200 mls/ hr IV Q24H PENDING SALE TO [facility] Rx#: [id number] LEVAQUIN PREMIX 750 mg In 55 / 150 150 ml @ 100 mls/hr IV Q24H ONE Rx#:[id number] Normal Saline 1,000 ml @ 233.75 / 381.25 150 mls/hr IV .Q6H40M PENDING SALE TO [facility] Rx#:[id number] Output: Urine Amount (Catheter) 315 / 315 Other: Urine Appearance Clear Urine Color Yellow Weight 192 lb 0.362 oz Patient Weight 04/28/17 06:59 Weight 192 lb 0.362 oz Laboratory Results - last 48 hr 04/27/17 04/27/17 04/27/17 05:26 05:26 05:26 WBC 12.2 H RBC 3.38 L Hgb 10.2 L Hct 32.3 L MCV 95.6 MCH 30.2 MCHC 31.6 RDW Std Deviation 46.8 Plt Count 180 MPV 10.2 Immature Gran % (Auto) 0.2 Neut % (Auto) 85.9 H Lymph % (Auto) 5.6 L [place] % (Auto) 7.3 Eos % (Auto) 0.8 Baso % (Auto) 0.2 Neut # (Auto) 10.5 H Lymph # (Auto) 0.7 L [place] # (Auto) 0.9 H Eos # (Auto) 0.1 Baso # (Auto) 0.0 Abs Immat Gran (auto) 0.03 Turbidity Sodium Potassium Chloride Carbon Dioxide Anion Gap BUN Creatinine GFR Calculation BUN/Creatinine Ratio Glucose Calculated Osmolality Calcium Total Bilirubin Icterus Index AST ALT Alkaline Phosphatase Troponin I 0.687 H C-Reactive Protein B-Natriuretic Peptide 6880 H Total Protein Albumin Globulin Albumin/Globulin Ratio Prealbumin Plasma Lactate 1.1 Procalcitonin 0.18 Specimen Hemolysis < 15 Ur Collection Type Urine Color Urine Clarity Urine pH Ur Specific [place] Urine Protein Urine Glucose (UA) Urine Ketones Urine Occult Blood Urine Nitrate Urine Bilirubin Urine Urobilinogen Ur Leukocyte Esterase Urine RBC Urine WBC Ur Squamous Epith Cells Calcium Oxalate Crystal Urine Bacteria Hyaline Casts Ur Culture Indicated? Adenovirus (PCR) B.parapertussis DNA PCR C. pneumoniae DNA (PCR) Coronavirus OC43 (PCR) Coronavirus HKU1 (PCR) Coronavirus 229E (PCR) Coronavirus NL63 (PCR) Human Metapneumovir PCR Influenza Type A (PCR) Influenza Type B (PCR) M. pneumoniae (PCR) Parainfluenza 1 (PCR) Parainfluenza 2 (PCR) Parainfluenza 3 (PCR) Parainfluenza 4 (PCR) RSV (PCR) Entero/Rhino (PCR) 04/27/17 04/27/17 04/27/17 05:26 08:18 08:18 WBC RBC Hgb Hct MCV MCH MCHC RDW Std Deviation Plt Count MPV Immature Gran % (Auto) Neut % (Auto) Lymph % (Auto) [place] % (Auto) Eos % (Auto) Baso % (Auto) Neut # (Auto) Lymph # (Auto) [place] # (Auto) Eos # (Auto) Baso # (Auto) Abs Immat Gran (auto) Turbidity < 20 Sodium 146 H Potassium 3.6 Chloride 110 H Carbon Dioxide 25 Anion Gap 11 BUN 31.0 H Creatinine 1.5 GFR Calculation 45 BUN/Creatinine Ratio 21 Glucose 89 Calculated Osmolality 287 H Calcium 9.4 Total Bilirubin 0.70 Icterus Index < 2 AST 77 H ALT 84 H Alkaline Phosphatase 119 Troponin I C-Reactive Protein B-Natriuretic Peptide Total Protein 6.3 Albumin 3.4 L Globulin 2.9 Albumin/Globulin Ratio 1.2 Prealbumin Plasma Lactate Procalcitonin Specimen Hemolysis < 15 Ur Collection Type Urine, clean catch Urine Color Yellow Urine Clarity Clear Urine pH 5.0 Ur Specific [place] 1.025 Urine Protein 1+ A Urine Glucose (UA) Negative Urine Ketones Negative Urine Occult Blood Trace-intact Urine Nitrate Negative Urine Bilirubin Negative Urine Urobilinogen 0.2 Ur Leukocyte Esterase Trace A Urine RBC 0-1 Urine WBC 0-1 Ur Squamous Epith Cells 0-5 Calcium Oxalate Crystal Few Urine Bacteria 2+ H Hyaline Casts 1-3 Ur Culture Indicated? Cult not indicated Adenovirus (PCR) Negative B.parapertussis DNA PCR Negative C. pneumoniae DNA (PCR) Negative Coronavirus OC43 (PCR) Negative Coronavirus HKU1 (PCR) Negative Coronavirus 229E (PCR) Negative Coronavirus NL63 (PCR) Negative Human Metapneumovir PCR Negative Influenza Type A (PCR) Negative Influenza Type B (PCR) Negative M. pneumoniae (PCR) Negative Parainfluenza 1 (PCR) Negative Parainfluenza 2 (PCR) Negative Parainfluenza 3 (PCR) Negative Parainfluenza 4 (PCR) Negative RSV (PCR) Negative Entero/Rhino (PCR) Negative 04/27/17 04/27/17 10:13 10:13 WBC RBC Hgb Hct MCV MCH MCHC RDW Std Deviation Plt Count MPV Immature Gran % (Auto) Neut % (Auto) Lymph % (Auto) [place] % (Auto) Eos % (Auto) Baso % (Auto) Neut # (Auto) Lymph # (Auto) [place] # (Auto) Eos # (Auto) Baso # (Auto) Abs Immat Gran (auto) Turbidity Sodium Potassium Chloride Carbon Dioxide Anion Gap BUN Creatinine GFR Calculation BUN/Creatinine Ratio Glucose Calculated Osmolality Calcium Total Bilirubin Icterus Index AST ALT Alkaline Phosphatase Troponin I 0.738 H C-Reactive Protein 19.5 H B-Natriuretic Peptide Total Protein Albumin Globulin Albumin/Globulin Ratio Prealbumin 20.9 Plasma Lactate 1.1 Procalcitonin Specimen Hemolysis < 15 Ur Collection Type Urine Color Urine Clarity Urine pH Ur Specific [place] Urine Protein Urine Glucose (UA) Urine Ketones Urine Occult Blood Urine Nitrate Urine Bilirubin Urine Urobilinogen Ur Leukocyte Esterase Urine RBC Urine WBC Ur Squamous Epith Cells Calcium Oxalate Crystal Urine Bacteria Hyaline Casts Ur Culture Indicated? Adenovirus (PCR) B.parapertussis DNA PCR C. pneumoniae DNA (PCR) Coronavirus OC43 (PCR) Coronavirus HKU1 (PCR) Coronavirus 229E (PCR) Coronavirus NL63 (PCR) Human Metapneumovir PCR Influenza Type A (PCR) Influenza Type B (PCR) M. pneumoniae (PCR) Parainfluenza 1 (PCR) Parainfluenza 2 (PCR) Parainfluenza 3 (PCR) Parainfluenza 4 (PCR) RSV (PCR) Entero/Rhino (PCR) <Jennifer Caicedo - 04/27/17 13:37> - Imaging and Cardiology Echo: report reviewed <Jennifer Caicedo - 04/27/17 14:32> EKG results: image reviewed <Jennifer Caicedo - 04/27/17 14:32> Imaging & Cardiology Narrative: Date of Exam: 04/27/17 Ordering Provider: Porter Bray MD Type of Exam(s): XR chest 1V Reason for Exam(s): dyspnea, hypoxemia Indication: dyspnea, hypoxemia PROCEDURE: XR chest 1V: Encounter: Initial Comparison: January 09, 2017 Findings: New airspace consolidation in the right lower lobe. No pneumothorax or pleural effusion. Heart size and mediastinal contours are stable. Pulmonary vascularity is prominent. Impression: Right lower lobe pneumonia or aspiration with mild superimposed edema. 13:35 <Jennifer Caicedo - 04/27/17 13:37> EKG interpretations - [place], pacemaker, normal Pacemaker: atrial pacing w/capture (except when refractory) <Jennifer Caicedo - 04/27/17 13:37> Assessment and Plan - Attestation Attestation Narrative: 04/30/17 15:40 Recommendation After examining the patient I agree with the above assessment. I am involved in the formulation of the patient's plan of care. <Benjie Beck - 04/30/17 15:40> - Assessment and Plan (1) HTN (hypertension) Current visit: Yes Status: Chronic (2) Atrial fibrillation Current visit: Yes Status: Chronic (3) CKD stage G3b/A1, 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 mg/g Current visit: No Status: Chronic (4) Pacemaker Current visit: No Status: Chronic (5) Hypoxia Current visit: No Status: Acute (6) Right lower lobe pneumonia Current visit: Yes Status: Acute (7) Elevated troponin I level Problem details: NSTEMI type II Current visit: Yes Status: Acute (8) Systolic CHF Current visit: Yes Status: Acute <KiranStaceyBenjie - 04/30/17 15:40> (1) Right lower lobe pneumonia Current visit: Yes Status: Acute per attending (2) Elevated troponin I level Problem details: NSTEMI type II Current visit: Yes Status: Acute Trend serial troponins, have been flat: 1)0.738, 2) 0,794, 3) 0.807 (3) Hypoxia Current visit: No Status: Acute Wears Bi-PAP as needed (4) Pacemaker Current visit: No Status: Chronic (5) Atrial fibrillation Current visit: No Status: Chronic Continue amiodarone. Stop Cardizem, Start Metoprolol 50mg po BID (6) HTN (hypertension) Current visit: No Status: Chronic Amlodipine 5mg and Metoprolol 50mg BID. Continue Imdur and Hydralazine. (7) CKD stage G3b/A1, 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 mg/g Current visit: No Status: Chronic (8) Systolic CHF Current visit: Yes Status: Acute - EF is 40% - PAP 57 - Diurese with Lasix 20mg IV BID <Jennifer Caicedo - 04/28/17 14:01> Hospital Course Summary Disclaimer: The visit summary below is not to be considered part of the above Progress Note. <Benjie Beck - 04/30/17 15:40> The visit summary below is not to be considered part of the above Progress Note. <Jennifer Caicedo - 04/27/17 13:31> Hospital Course: 04/27/17 Systolic HF: - EF is 40% - PAP 57 - Diurese with Lasix 20mg IV BID RLL pneumonia Hypoxia Elevated troponin - NSTEMI type II - Trend serial troponins, have been flat: 1)0.738, 2) 0,794, 3) 0.807 AFib: Continue amiodarone. Stop Cardizem, Start Metoprolol 50mg po BID HTN: Amlodipine 5mg and Metoprolol 50mg BID. Continue Imdur and Hydralazine. PPM: [employer] CKD 04/28/17 14:12 <Jennifer Caicedo - 04/28/17 14:13>
[2017-04-27] MEDS ORDERED: HYDRALAZINE 25 MG TABLET PO SCH (13:36)
[2017-04-27] MEDS ORDERED: AMLODIPINE 5 MG TABLET PO SCH (14:30)
[2017-04-27] MEDS: HYDRALAZINE 25 MG TABLET PO SCH ×2 (16:10→17:07)
--- NOTE | 2017-04-27 16:27 | Echocardiogram ---
DATE OF PROCEDURE April 27, 2017 This is a two-dimensional echo with spectral Doppler, color-flow and M-mode. It was obtained in a patient with elevated troponin. Left atrium is dilated. Left ventricular end-diastolic dimension is increased. Left ventricular wall thickness is normal. Global hypokinesia is present with ejection fraction of about 40%. Right atrium is dilated. Right ventricle is normal. Aortic root dimension is normal. Mitral annulus is calcified. Mitral valve leaflets are normal with mild mitral regurgitation. Aortic valve shows fibrocalcific changes with no stenosis. Mild aortic insufficiency is present. Tricuspid valve shows mild tricuspid regurgitation with moderate pulmonary hypertension with estimated pulmonary artery systolic pressure of 57. Pulmonary valve shows no pulmonary insufficiency. There is no pericardial effusion. Pacemaker present in right heart. IMPRESSION 1. Global hypokinesia with ejection fraction of 40%. 2. Pacemaker present in right heart. 3. Biatrial dilation. 4. Left ventricular dilation. 5. Mitral annulus calcification with mild mitral regurgitation. 6. Aortic sclerosis with mild aortic insufficiency. 7. Mild tricuspid regurgitation with moderate pulmonary hypertension with estimated pulmonary artery systolic pressure of 57. MTDD
[2017-04-27] MEDS: HEPARIN SUB-Q 5,000 UNITS/0.5 ML INJECTION SQ SCH (17:07)
[2017-04-27] MEDS: ATORVASTATIN 10 MG TABLET PO SCH (21:12)
[2017-04-27] MEDS: FUROSEMIDE 20 MG/2 ML INJECTION IVP SCH (21:12)
[2017-04-27] MEDS: ClonazePAM 1 MG TABLET PO SCH (21:12)
[2017-04-27] MEDS: ISOSORBIDE MONONITRATE ER 30 MG TABLET PO SCH (21:12)
[2017-04-28] MEDS: HEPARIN SUB-Q 5,000 UNITS/0.5 ML INJECTION SQ SCH ×3 (01:46→18:07)
[2017-04-28] MEDS ORDERED: ALBUTEROL/IPRATROPIUM 2.5mg-0.5mg/3ml NEB AEROSOL PRN ×2 (02:36→02:40)
[2017-04-28] MEDS: ISOSORBIDE MONONITRATE ER 30 MG TABLET PO SCH ×2 (06:26→20:36)
[2017-04-28] MEDS: CEFTRIAXONE 1 G in NS 100 ML IV SCH (06:38)
[2017-04-28] MEDS: BUDESONIDE INH.SOLN 0.5mg/2ml NEB AEROSOL SCH ×2 (07:24→19:11)
[2017-04-28] MEDS: ALBUTEROL/IPRATROPIUM 2.5mg-0.5mg/3ml NEB AEROSOL SCH ×2 (07:45→19:11)
[2017-04-28] MEDS: AMIODARONE 200 MG TABLET PO SCH (08:40)
[2017-04-28] MEDS: CLOPIDOGREL 75 MG TABLET PO SCH (08:41)
[2017-04-28] MEDS: HYDRALAZINE 25 MG TABLET PO SCH ×3 (08:41→18:01)
[2017-04-28] MEDS: BuPROPion XL 300mg (24HR) TABLET PO SCH (08:42)
[2017-04-28] MEDS: PredniSONE 10 MG TABLET PO SCH (08:42)
[2017-04-28] MEDS: LACTOBACILLUS (15B cfu) CAPSULE PO SCH (08:43)
[2017-04-28] MEDS: SENNA + DOCUSATE TABLET PO SCH ×2 (08:44→20:36)
[2017-04-28] MEDS: SERTRALINE 100 MG TABLET PO SCH (08:44)
[2017-04-28] MEDS: ASPIRIN *EC* 81 MG TABLET PO SCH (08:44)
--- NOTE | 2017-04-28 08:49 | XRay Report ---
Indication: F/U PROCEDURE: XR chest 1V: Encounter: Initial Comparison: April 27, 2017 Findings: Persistent airspace consolidation in the right lung somewhat diffusely. No gross pneumothorax. Small pleural effusions. Cardiac silhouette remains enlarged. Mediastinal contours are stable. Pulmonary vascularity is indistinct. Left pacemaker. Impression: Continued diffuse airspace disease in the right lung. .
[2017-04-28] MEDS: FUROSEMIDE 20 MG/2 ML INJECTION IVP SCH ×2 (08:50→20:37)
[2017-04-28] MEDS ORDERED: AZITHROMYCIN IV 500 MG in NS 250ml 250 ML IV SCH (09:00)
[2017-04-28] MEDS: POLYETHYL GLYCOL 3350 17gm PACKET PO SCH (09:17)
[2017-04-28] MEDS: AMLODIPINE 10 MG TABLET PO SCH (12:13)
--- NOTE | 2017-04-28 14:17 | Cardiology Progress Note ---
Subjective Principal diagnosis: systolic HF, elevated troponin, afib <Jennifer Caicedo - 14:20> Interval history: John is seen in follow up for systolic heart failure, elevated troponins - NSTEMI, typeII,. and Afib. He is in bed in CCU. He requires occasional reorientation to place. He denies chest pain or palpitations. <Jennifer Caicedo - 04/28/17 14:20> Exam Vital signs: Temperature 95.4 F L 04/30/17 13:03 Pulse Rate 65 04/30/17 13:03 Respiratory Rate 21 04/30/17 13:03 Blood Pressure 123/76 04/30/17 13:03 Pulse Oximetry 96 04/30/17 13:03 <SelmajonahBenjie - 04/30/17 15:42> Temperature 98.6 F 04/28/17 11:45 Pulse Rate 69 04/28/17 11:45 Respiratory Rate 39 H 04/28/17 11:45 Blood Pressure 134/72 04/28/17 11:01 Pulse Oximetry 93 04/28/17 11:45 <Jennifer Caicedo - 04/28/17 14:20> - Constitutional no acute distress, well nourished, cooperative <MariferJennifer [facility] 04/28/17 14: 20> - Routine HEENT Exam Head: Present: normocephalic <Jennifer Caicedo 04/28/17 14:20> ENT: Present: mucous membranes moist <MariferJennifer [facility] 04/28/17 14:20> - Routine Neck Exam Absent: JVD, carotid bruit <MariferJennifer [facility] 04/28/17 14:20> - Routine Chest/Breast/Axilla Exam Chest wall: Absent: tenderness <MariferJennifer [facility] 04/28/17 14:20> - Routine Respiratory Exam Present: rales (bibasilar), diminished air movement. Absent: CTA bilaterally <MariferJennifer willams Jocelyn 04/28/17 14:20> - Routine Cardiovascular Exam Present: no murmur, irregularly irregular. Absent: JVD <Jennifer Caicedo Jocelyn 11/09 14:20> - Routine Abdominal Exam Present: soft, normoactive bowel sounds <Jennifer Caicedo - 04/28/17 14:20> - Routine Extremities Exam Present: no edema <Jennifer Caicedo - 04/28/17 14:20> - Routine Skin Exam Present: intact, dry, warm <Jennifer Caicedo - 04/28/17 14:20> - Routine Neurological Exam Present: alert <Jennifer aCicedo - 04/28/17 14:20> - Routine Psychiatric Exam Present: normal affect <Jennifer Caicedo - 04/28/17 14:20> - Additional findings Additional findings: Date of Exam: 04/27/17 Type of Exam(s): US echo doppler complete DATE OF PROCEDURE April 27, 2017 This is a two-dimensional echo with spectral Doppler, color-flow and M-mode. It was obtained in a patient with elevated troponin. Left atrium is dilated. Left ventricular end-diastolic dimension is increased. Left ventricular wall thickness is normal. Global hypokinesia is present with ejection fraction of about 40%. Right atrium is dilated. Right ventricle is normal. Aortic root dimension is normal. Mitral annulus is calcified. Mitral valve leaflets are normal with mild mitral regurgitation. Aortic valve shows fibrocalcific changes with no stenosis. Mild aortic insufficiency is present. Tricuspid valve shows mild tricuspid regurgitation with moderate pulmonary hypertension with estimated pulmonary artery systolic pressure of 57. Pulmonary valve shows no pulmonary insufficiency. There is no pericardial effusion. Pacemaker present in right heart. IMPRESSION 1. Global hypokinesia with ejection fraction of 40%. 2. Pacemaker present in right heart. 3. Biatrial dilation. 4. Left ventricular dilation. 5. Mitral annulus calcification with mild mitral regurgitation. 6. Aortic sclerosis with mild aortic insufficiency. 7. Mild tricuspid regurgitation with moderate pulmonary hypertension with estimated pulmonary artery systolic pressure of 57. Date of Exam: 04/28/17 Ordering Provider: Dennis Wells MD Type of Exam(s): XR chest 1V Reason for Exam(s): F/U Indication: F/U PROCEDURE: XR chest 1V: Encounter: Initial Comparison: April 27, 2017 Findings: Persistent airspace consolidation in the right lung somewhat diffusely. No gross pneumothorax. Small pleural effusions. Cardiac silhouette remains enlarged. Mediastinal contours are stable. Pulmonary vascularity is indistinct. Left pacemaker. Impression: Continued diffuse airspace disease in the right lung <Jennifer Caicedo - 04/28/17 14:20> - Urinary Catheter Management Urethral Cath placed during this visit: no <Benjie Beck - 04/30/17 15:42> yes <Jennifer Caicedo - 04/29/17 12:01> Insertion date: 04/27/17 <Jennifer Caicedo - 04/28/17 14:20> Insertion time: 09:24 <Jennifer Caicedo - 04/28/17 14:20> Assessment and Plan - Assessment and Plan (1) HTN (hypertension) Current visit: Yes Status: Chronic (2) Atrial fibrillation Current visit: Yes Status: Chronic (3) CKD stage G3b/A1, 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 mg/g Current visit: No Status: Chronic (4) Pacemaker Current visit: No Status: Chronic (5) Hypoxia Current visit: No Status: Acute (6) Right lower lobe pneumonia Current visit: Yes Status: Acute (7) Elevated troponin I level Problem details: NSTEMI type II Current visit: Yes Status: Acute (8) Systolic CHF Current visit: Yes Status: Acute <Benjie Beck - 04/30/17 15:42> (1) Right lower lobe pneumonia Current visit: Yes Status: Acute (2) Elevated troponin I level Problem details: NSTEMI type II Current visit: Yes Status: Acute (3) Hypoxia Current visit: No Status: Acute (4) Pacemaker Current visit: No Status: Chronic (5) Atrial fibrillation Current visit: Yes Status: Chronic (6) HTN (hypertension) Current visit: Yes Status: Chronic Increase Amlodipine to 10mg (7) CKD stage G3b/A1, 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 mg/g Current visit: No Status: Chronic (8) Systolic CHF Current visit: Yes Status: Acute Continue IV Lasix 20mg IV BID <Jennifer Caicedo - 04/29/17 12:01> - Attestation Attestation Narrative: 04/30/17 15:42 Recommendation After examining the patient I agree with the above assessment. I am involved in the formulation of the patient's plan of care. <Benjie Beck - 04/30/17 15:42> Hospital Course Summary Disclaimer: The visit summary below is not to be considered part of the above Progress Note. <Benjie Beck - 04/30/17 15:42> The visit summary below is not to be considered part of the above Progress Note. <Jennifer Caicedo - 04/28/17 14:20> Hospital Course: 04/27/17 Systolic HF: - EF is 40% - PAP 57 - Diurese with Lasix 20mg IV BID RLL pneumonia Hypoxia Elevated troponin - NSTEMI type II - Trend serial troponins, have been flat: 1)0.738, 2) 0,794, 3) 0.807 AFib: Continue amiodarone. Stop Cardizem, Start Metoprolol 50mg po BID HTN: Amlodipine 5mg and Metoprolol 50mg BID. Continue Imdur and Hydralazine. PPM: [employer] CKD 04/28/17 Increase Amlodipine to 10mg daily. Continue Lasix 20mg IV BID repeat troponin and BNP <Jennifer Caicedo - 04/28/17 14:25>
--- NOTE | 2017-04-28 16:09 | Progress Note ---
Subjective: F/U: Pneumonia, Acute respiratory insufficiency, pulmonary edema, NSTEMI-Type II Doing fair. Still feeling SOA and congested. O2 needs decreased to 5L. Frequent cough-patient feels is moving some secretions but nursing reports mostly dry and nonproductive. No pain with breathing. No chest wall pain. Not reporting nausea or ab pain. Oral drive variable, but is getting some foods in. Feels weak in general. Objective Vital signs: Temperature 97.4 F 04/28/17 12:00 Pulse Rate 72 04/28/17 15:15 Respiratory Rate 35 H 04/28/17 15:15 Blood Pressure 115/55 04/28/17 15:01 Pulse Oximetry 92 04/28/17 15:15 Height/Weight/BMI: Height 1.73 m Weight 84.2 kg Body Mass Index 29.2 - Constitutional Present: mild distress, well nourished, well developed, cooperative - Routine HEENT Exam Head: Present: normocephalic, atraumatic Eye: Present: EOMI, PERRL ENT: Present: mucous membranes moist - Routine Respiratory Exam Present: decreased breath sounds (Congested, shallow respirations. ), respiratory distress. Absent: rhonchi, stridor, wheezes, crackles - Routine Cardiovascular Exam Present: RRR - Routine Abdominal Exam Present: soft, non distended, non tender. Absent: normoactive bowel sounds ( decreased ), guarding - Routine Extremities Exam Present: no edema, pulses intact. Absent: cyanosis, clubbing - Routine Musculoskeletal Exam Musculoskeletal: Present: no clubbing or cyanosis - Routine Skin Exam Present: dry, warm - Routine Neurological Exam Present: alert, CN II-XII intact, moving all extremities, vision grossly intact , hearing grossly intact - Routine Psychiatric Exam Present: normal affect, cooperative. Absent: anxious, agitated Results - Labs CBC & Chem 7: 04/28/17 04:18 04/28/17 04:18 Assessment and Plan (1) Right lower lobe pneumonia Current visit: Yes Status: Acute (2) Elevated troponin I level Problem details: NSTEMI type II Current visit: Yes Status: Acute (3) HTN (hypertension) Current visit: Yes Status: Chronic (4) Atrial fibrillation Current visit: Yes Status: Chronic DVT Prophylaxis: SQ Heparin Resuscitation Status: Do Not Resuscitate Assessment and Plan: ASSESSMENT Pneumonia Acute respiratory insufficiency Pulmonary edema Elevated troponin - Type II NSTEMI Leukocytosis Acute systolic Heart failure - EF decreased to 40% CAD HTN HDL Chronic afib DURAN Stage III CKD Bipolar affective disorder 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 WBC with decrease to 7.7 this morning. Start Mucinex DM BID to help decrease cough and secretions. Ricola prn. Continue with supplemental O2, weaning as able. Lasix 20mg IV BID to help decrease edema. Creatinine stable, potassium with decrease secondary to loop diuretics. Start oral potassium 20mEq BID with meals. Will add lisinopril 5mg at night as EF with decrease. Recheck BMP and Mg in am due to diuretics. Monitor CBC due to pneumonia and leukocytosis. Continue supportive CCU care. Clinically improving, but do not feel stable enough for floor transition. Case discussed with CCU nursing and patient's . Time spent with patient care 25 minutes. - Time spent with patient Time with patient PN: 25 minutes Hospital Course Summary Disclaimer: The visit summary below is not to be considered part of the above Progress Note. 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 IVF started - decrease secondary to pulmonary edema and discontinued. Trend troponin and lactate (of note-repeat lactate delayed secondary to patient refusing blood draw) ECHO due to elevated troponin and pulm edema Consult Dr Beck due to elevated troponin. SCD for DVT prevention Monitor lab. DNR as per his requests. Care to return to Dr Bhagat at time of discharge from [facility]. 04/27/17 Cardiology Systolic HF: - EF is 40% - PAP 57 - Diurese with Lasix 20mg IV BID RLL pneumonia Hypoxia Elevated troponin - NSTEMI type II - Trend serial troponins, have been flat: 1)0.738, 2) 0,794, 3) 0.807 AFib: Continue amiodarone. Stop Cardizem, Start Metoprolol 50mg po BID HTN: Amlodipine 5mg and Metoprolol 50mg BID. Continue Imdur and Hydralazine. PPM: [employer] CKD 04/28/17 Cardiology Increase Amlodipine to 10mg daily. Continue Lasix 20mg IV BID repeat troponin and BNP 04/28/17 Hospitalist Continue Rocephin for pulmonary coverage, will stop azithromycin secondary to potential interaction with amiodarone. WBC with decrease to 7.7 this morning. Start Mucinex DM BID to help decrease cough and secretions. Ricola prn. Continue with supplemental O2, weaning as able. Lasix 20mg IV BID to help decrease edema. Creatinine stable, potassium with decrease secondary to loop diuretics. Start oral potassium 20mEq BID with meals. Will add lisinopril 5mg at night as EF with decrease. Recheck BMP and Mg in am due to diuretics. Monitor CBC due to pneumonia and leukocytosis. Continue supportive CCU care. Clinically improving, but do not feel stable enough for floor transition.
[2017-04-28] MEDS ORDERED: MENTHOL COUGH DROPS (RICOLA) MM PRN (16:23)
[2017-04-28] MEDS: FAMOTIDINE 20 MG TABLET PO SCH (16:52)
[2017-04-28] MEDS: GUAIFENESIN/D-METHORPHAN 600mg/30mg TABLET PO SCH ×2 (18:01→20:36)
[2017-04-28] MEDS: ClonazePAM 1 MG TABLET PO SCH (20:36)
[2017-04-28] MEDS: LISINOPRIL 5 MG TABLET PO SCH (20:36)
[2017-04-28] MEDS: ATORVASTATIN 10 MG TABLET PO SCH (20:36)
[2017-04-28] MEDS: SALINE FLUSH 10ml SYRINGE IVF PRN (20:37)
[2017-04-29] MEDS: HEPARIN SUB-Q 5,000 UNITS/0.5 ML INJECTION SQ SCH ×3 (00:16→18:09)
[2017-04-29] MEDS: SALINE FLUSH 10ml SYRINGE IVF PRN (01:35)
[2017-04-29] MEDS: ISOSORBIDE MONONITRATE ER 30 MG TABLET PO SCH ×2 (06:08→21:59)
[2017-04-29] MEDS: CEFTRIAXONE 1 G in NS 100 ML IV SCH (06:08)
[2017-04-29] MEDS: NS FLUSH BAG 500ml IV PRN (06:09)
[2017-04-29] MEDS: LACTOBACILLUS (15B cfu) CAPSULE PO SCH (09:00)
[2017-04-29] MEDS: PredniSONE 10 MG TABLET PO SCH (09:00)
[2017-04-29] MEDS: BuPROPion XL 300mg (24HR) TABLET PO SCH (09:00)
[2017-04-29] MEDS: ASPIRIN *EC* 81 MG TABLET PO SCH (09:00)
[2017-04-29] MEDS: POLYETHYL GLYCOL 3350 17gm PACKET PO SCH (09:00)
[2017-04-29] MEDS: GUAIFENESIN/D-METHORPHAN 600mg/30mg TABLET PO SCH ×2 (09:00→21:59)
[2017-04-29] MEDS: FUROSEMIDE 20 MG/2 ML INJECTION IVP SCH (09:00)
[2017-04-29] MEDS: SENNA + DOCUSATE TABLET PO SCH ×2 (09:00→21:59)
[2017-04-29] MEDS: CLOPIDOGREL 75 MG TABLET PO SCH (09:00)
[2017-04-29] MEDS: AMIODARONE 200 MG TABLET PO SCH (09:00)
[2017-04-29] MEDS: HYDRALAZINE 25 MG TABLET PO SCH ×3 (09:00→18:26)
[2017-04-29] MEDS: AMLODIPINE 10 MG TABLET PO SCH (09:00)
[2017-04-29] MEDS: SERTRALINE 100 MG TABLET PO SCH (09:00)
[2017-04-29] MEDS: BUDESONIDE INH.SOLN 0.5mg/2ml NEB AEROSOL SCH ×2 (09:20→21:25)
[2017-04-29] MEDS: ALBUTEROL/IPRATROPIUM 2.5mg-0.5mg/3ml NEB AEROSOL SCH ×2 (09:20→21:25)
[2017-04-29] MEDS ORDERED: acetaZOLAMIDE 250 MG TABLET PO ONE (10:15)
--- NOTE | 2017-04-29 12:00 | Progress Note ---
Subjective: F/U: Pneumonia, Acute respiratory insufficiency, pulmonary edema, NSTEMI-Type II Resting in bed this morning. Feels like he is doing well. Breathing improving- not feeling SOA or congested. Cough decreasing. No pain with breathing or chest wall pain. Able to take deep breaths well. Denies chest pressure, pain, or fullness. Appetite stable. No nausea or ab pain. Stools slow. Strength 'average. ' No f/c. Nursing reports has been up in chair today. Objective Vital signs: Temperature 97.6 F 04/29/17 04:00 Pulse Rate 69 04/29/17 06:00 Respiratory Rate 16 04/29/17 09:20 Blood Pressure 152/80 H 04/29/17 05:00 Pulse Oximetry 98 04/29/17 09:20 Height/Weight/BMI: Height 1.73 m Weight 84.2 kg Body Mass Index 29.2 - Constitutional Present: well nourished, well developed, cooperative. Absent: agitated - Routine HEENT Exam Head: Present: normocephalic, atraumatic Eye: Present: EOMI, PERRL ENT: Present: mucous membranes moist - Routine Respiratory Exam Present: decreased breath sounds (Upper airway noises. ). Absent: respiratory distress, wheezes, crackles - Routine Cardiovascular Exam Present: RRR, no murmur - Routine Abdominal Exam Present: soft, normoactive bowel sounds, non distended, non tender. Absent: guarding - Routine Extremities Exam Present: no edema. Absent: cyanosis, clubbing Comments: SCD in place - Routine Musculoskeletal Exam Musculoskeletal: Present: no clubbing or cyanosis, no joint swelling - Routine Skin Exam Present: dry, warm - Routine Neurological Exam Present: alert, CN II-XII intact, vision grossly intact, hearing grossly intact. Absent: motor deficit - Routine Psychiatric Exam Present: normal affect, cooperative. Absent: anxious, agitated Results - Labs CBC & Chem 7: 04/29/17 05:33 04/29/17 05:33 Assessment and Plan (1) Right lower lobe pneumonia Current visit: Yes Status: Acute (2) Elevated troponin I level Problem details: NSTEMI type II Current visit: Yes Status: Acute (3) HTN (hypertension) Current visit: Yes Status: Chronic (4) Atrial fibrillation Current visit: Yes Status: Chronic DVT Prophylaxis: SCD's, SQ Heparin Resuscitation Status: Do Not Resuscitate Assessment and Plan: ASSESSMENT Pneumonia Acute respiratory insufficiency Pulmonary edema Elevated troponin - Type II NSTEMI Leukocytosis Acute systolic Heart failure - EF decreased to 40% CAD HTN HDL Chronic afib DURAN Stage III CKD Bipolar affective disorder 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 WBC normalized. O2 needs decreasing. No febrile process. Continue with Rocephin. Recheck CXR for f/u pneumonia and pulmonary edema. Discussed with cardiology about decreasing Lasix - could move to 20mg BID. Sodium with increase to 146. Additional potassium give as potassium low. Diamox 500mg orally x1 as CO2 with increase. Bladder retraining with cath. Work on bowel function. Medically improving, possible floor transfer unless cardiology wants cath. Will recheck BMP and Magnesium in am due to hypokalemia and med use. Check CBC in am due to pneumonia. Case discussed with cardiology and CCU nursing. Time spent with patient care 25 minutes. Hospital Course Summary Disclaimer: The visit summary below is not to be considered part of the above Progress Note. 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 IVF started - decrease secondary to pulmonary edema and discontinued. Trend troponin and lactate (of note-repeat lactate delayed secondary to patient refusing blood draw) ECHO due to elevated troponin and pulm edema Consult Dr Beck due to elevated troponin. SCD for DVT prevention Monitor lab. DNR as per his requests. Care to return to Dr Bhagat at time of discharge from [facility]. 04/27/17 Cardiology Systolic HF: - EF is 40% - PAP 57 - Diurese with Lasix 20mg IV BID RLL pneumonia Hypoxia Elevated troponin - NSTEMI type II - Trend serial troponins, have been flat: 1)0.738, 2) 0,794, 3) 0.807 AFib: Continue amiodarone. Stop Cardizem, Start Metoprolol 50mg po BID HTN: Amlodipine 5mg and Metoprolol 50mg BID. Continue Imdur and Hydralazine. PPM: [employer] CKD 04/28/17 Cardiology Increase Amlodipine to 10mg daily. Continue Lasix 20mg IV BID repeat troponin and BNP 04/28/17 Hospitalist Continue Rocephin for pulmonary coverage, will stop azithromycin secondary to potential interaction with amiodarone. WBC with decrease to 7.7 this morning. Start Mucinex DM BID to help decrease cough and secretions. Ricola prn. Continue with supplemental O2, weaning as able. Lasix 20mg IV BID to help decrease edema. Creatinine stable, potassium with decrease secondary to loop diuretics. Start oral potassium 20mEq BID with meals. Will add lisinopril 5mg at night as EF with decrease. Recheck BMP and Mg in am due to diuretics. Monitor CBC due to pneumonia and leukocytosis. Continue supportive CCU care. Clinically improving, but do not feel stable enough for floor transition. 04/29/17 Hospitalist Pneumonia improving clinically. WBC normalized. O2 needs decreasing. No febrile process. Continue with Rocephin. Recheck CXR for f/u pneumonia and pulmonary edema. Discussed with cardiology about decreasing Lasix - could move to 20mg BID. Sodium with increase to 146. Additional potassium give as potassium low. Diamox 500mg orally x1 as CO2 with increase. Bladder retraining with cath. Work on bowel function. Medically improving, possible floor transfer unless cardiology wants cath.
--- NOTE | 2017-04-29 12:07 | Cardiology Progress Note ---
Subjective Principal diagnosis: systolic HF, elevated troponin, afib <Jennifer Caicedo - 12:08> Interval history: John is seen in follow up for systolic heart failure, elevated troponins - NSTEMI, typeII,. and Afib. He is in bed in CCU. He is confused about his health and thinks he is ready to discharge, he continues to require reorientation to place. He denies chest pain or palpitations. <Jennifer Caciedo - 04/29/17 12:08> Exam Vital signs: Temperature 98.5 F 05/03/17 08:00 Pulse Rate 71 05/03/17 08:00 Respiratory Rate 20 05/03/17 08:00 Blood Pressure 139/82 05/03/17 08:00 Pulse Oximetry 96 05/03/17 08:00 <Benjie Beck - 05/03/17 13:11> Temperature 97.6 F 04/29/17 04:00 Pulse Rate 69 04/29/17 06:00 Respiratory Rate 16 04/29/17 09:20 Blood Pressure 152/80 H 04/29/17 05:00 Pulse Oximetry 98 04/29/17 09:20 <Jennifer Caicedo - 04/29/17 12:08> - Constitutional no acute distress, well nourished, cooperative <Jennifer Caicedo 04/29/17 12: 08> - Routine HEENT Exam Head: Present: normocephalic <Jennifer Caicedo 04/29/17 12:08> ENT: Present: mucous membranes moist <Jennifer Caicedo 04/29/17 12:08> - Routine Neck Exam Absent: JVD, carotid bruit <Jennifer Caicdeo 04/29/17 12:08> - Routine Chest/Breast/Axilla Exam Chest wall: Absent: tenderness <Jennifer Caicedo 04/29/17 12:08> - Routine Respiratory Exam Present: decreased breath sounds, diminished air movement. Absent: CTA bilaterally <Jennifer Caicedo 04/29/17 12:08> - Routine Cardiovascular Exam Present: no murmur. Absent: JVD <Jennifer Caicedo 04/29/17 12:08> - Routine Abdominal Exam Present: soft, normoactive bowel sounds <Jennifer Caicedo - 04/29/17 12:08> - Routine Extremities Exam Present: no edema <Jennifer Caicedo - 04/29/17 12:08> - Routine Skin Exam Present: intact, dry, warm <Jennifer Caicedo - 04/29/17 12:08> - Routine Neurological Exam Present: alert, oriented X3 <Jennifer Caicedo - 04/29/17 12:08> - Routine Psychiatric Exam Present: normal affect, normal thought process <Jennifer Caicedo - 04/29/17 12: 08> - Additional findings Additional findings: Laboratory Results - last 24 hr 04/28/17 04/29/17 04/29/17 04:10 05:33 05:33 WBC 6.6 RBC 3.15 L Hgb 9.6 L Hct 30.5 L MCV 96.8 MCH 30.5 MCHC 31.5 RDW Std Deviation 47.3 Plt Count 143 MPV 10.1 Immature Gran % (Auto) Not performed Neut % (Auto) Not performed Lymph % (Auto) Not performed [place] % (Auto) Not performed Eos % (Auto) Not performed Baso % (Auto) Not performed Neut # (Auto) Not performed Lymph # (Auto) Not performed [place] # (Auto) Not performed Eos # (Auto) Not performed Baso # (Auto) Not performed Abs Immat Gran (auto) Not performed Neutrophils % (Manual) 89.0 H Lymphocytes % (Manual) 3.0 L Monocytes % (Manual) 8.0 Neutrophils # (Manual) 5.9 Lymphocytes # (Manual) 0.2 L Monocytes # (Manual) 0.5 Anisocytosis 1+ RBC Morph Comment Abnormal Turbidity < 20 Sodium 146 H Potassium 3.2 L Chloride 105 Carbon Dioxide 34 H Anion Gap 7 BUN 27.0 H Creatinine 1.5 GFR Calculation 45 BUN/Creatinine Ratio 18 Glucose 77 Calculated Osmolality 285 H Calcium 9.0 Magnesium 2.0 Icterus Index < 2 Troponin I 0.987 H B-Natriuretic Peptide 8850 H Specimen Hemolysis < 15 < 15 Acetaminophen (Tylenol) 500 mg PO Q4H PRN PRN Reason: Pain Albuterol/Ipratropium (Duoneb) 3 ml AEROSOL BID JULIA Last Admin: 04/29/17 09:20 Dose: 3 ml Albuterol/Ipratropium (Duoneb) 3 ml AEROSOL PRN PRN Amiodarone HCl (Pacerone) 200 mg PO DAILY [facility] Last Admin: 04/29/17 09:00 Dose: 200 mg Amlodipine Besylate (Norvasc) 10 mg PO DAILY [facility] Last Admin: 04/29/17 09:00 Dose: 10 mg Aspirin (Ecotrin) 81 mg PO DAILY [facility] Last Admin: 04/29/17 09:00 Dose: 81 mg Atorvastatin Calcium (Lipitor) 10 mg PO HS [facility] Last Admin: 04/28/17 20:36 Dose: 10 mg Bisacodyl (Dulcolax) 10 mg RECTALLY DAILY PRN PRN Reason: Constipation Budesonide (Pulmicort Inhalation) 0.5 mg AEROSOL RTBID [facility] Last Admin: 04/29/17 09:20 Dose: 0.5 mg Bupropion HCl (Wellbutrin Xl) 300 mg PO DAILY [facility] Last Admin: 04/29/17 09:00 Dose: 300 mg Clonazepam (Klonopin) 1 mg PO HS [facility] Last Admin: 04/28/17 20:36 Dose: 1 mg Clopidogrel Bisulfate (Plavix) 75 mg PO DAILY [facility] Last Admin: 04/29/17 09:00 Dose: 75 mg Famotidine (Pepcid) 20 mg PO DAILY [facility] Last Admin: 04/28/17 16:52 Dose: 20 mg Furosemide (Lasix) 20 mg IVP Q12HR [facility] Last Admin: 04/29/17 09:00 Dose: 20 mg Guaifenesin/Dextromethorphan (Mucinex Dm) 1 tab PO BID [facility] Last Admin: 04/29/17 09:00 Dose: 1 tab Heparin Sodium (Porcine) (Heparin Sq) 5,000 units SQ Q8HR [facility] Last Admin: 04/29/17 09:00 Dose: 5,000 units Hydralazine HCl (Apresoline) 25 mg PO TIDWM [facility] Last Admin: 04/29/17 09:00 Dose: 25 mg Ceftriaxone Sodium 1 g/ Sodium (Chloride) 100 mls @ 200 mls/hr IV Q24H [facility] Last Infusion: 04/29/17 06:46 Dose: Infused Isosorbide Mononitrate (Imdur) 30 mg PO BID/E [facility] Last Admin: 04/29/17 06:08 Dose: 30 mg Lactobacillus Acidophilus (Culturelle) 1 cap PO DAILY [facility] Last Admin: 04/29/17 09:00 Dose: 1 cap Lisinopril (Prinivil) 5 mg PO HS [facility] Last Admin: 04/28/17 20:36 Dose: 5 mg Lorazepam (Ativan Inj) 0.5 mg IVP Q6H PRN Last Admin: 04/29/17 01:34 Dose: 0.5 mg Magnesium Hydroxide (Mom) 30 ml PO DAILY PRN PRN Reason: Constipation Menthol (Ricola Sf) 1 lozenge MM PRN PRN PRN Reason: Cough Metoprolol Tartrate (Lopressor) 50 mg PO BIDWM [facility] Last Admin: 04/29/17 09:00 Dose: 50 mg Morphine Sulfate (Morphine Sulfate Inj) 1 - 2 mg IVP Q2H PRN PRN Reason: Pain Last Admin: 04/27/17 19:38 Dose: 2 mg Nitroglycerin (Nitrostat) 0.4 mg SL Q5MIN PRN PRN Reason: CHEST PAIN Ondansetron HCl (Zofran) 4 mg IVP Q6H PRN PRN Reason: Nausea Polyethylene Glycol (Miralax) 17 gm PO DAILY [facility] Last Admin: 04/29/17 09:00 Dose: 17 gm Potassium Chloride (K-Dur) 20 meq PO BIDWM [facility] Last Admin: 04/29/17 09:00 Dose: 20 meq Potassium Chloride (K-Dur) 20 meq PO O ONE Stop: 04/29/17 12:31 Prednisone (Deltasone) 10 mg PO WB [facility] Last Admin: 04/29/17 09:00 Dose: 10 mg Senna/Docusate Sodium (Senna Plus Tablet) 2 tab PO BID [facility] Last Admin: 04/29/17 09:00 Dose: 2 tab Sertraline HCl (Zoloft) 150 mg PO DAILY [facility] Last Admin: 04/29/17 09:00 Dose: 150 mg Sodium Chloride (Iv Flush) 10 - 80 ml IVF PRN PRN PRN Reason: Flushing Last Admin: 04/29/17 01:35 Dose: 10 ml Sodium Chloride (Normal Saline) 500 ml IV PRN PRN Last Admin: 04/29/17 06:09 Dose: 500 ml <Jennifer Caicedo - 04/29/17 12:08> - Urinary Catheter Management Urethral Cath placed during this visit: no <Benjie Bcek - 05/03/17 13:11> yes <MariferJennifer willams - 04/30/17 16:51> Insertion date: 04/27/17 <Jennifer Caicedo - 04/29/17 12:08> Insertion time: 09:24 <Jennifer Caicedo - 04/29/17 12:08> Assessment and Plan - Assessment and Plan (1) HTN (hypertension) Current visit: Yes Status: Chronic (2) Atrial fibrillation Current visit: Yes Status: Chronic (3) CKD stage G3b/A1, 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 mg/g Current visit: No Status: Chronic (4) Pacemaker Current visit: No Status: Chronic (5) Hypoxia Current visit: No Status: Acute (6) Right lower lobe pneumonia Current visit: Yes Status: Acute (7) Elevated troponin I level Problem details: NSTEMI type II Current visit: Yes Status: Acute (8) Systolic CHF Current visit: Yes Status: Acute <Benjie Beck - 05/03/17 13:11> (1) Right lower lobe pneumonia Current visit: Yes Status: Acute (2) Elevated troponin I level Problem details: NSTEMI type II Current visit: Yes Status: Acute (3) Hypoxia Current visit: No Status: Acute (4) Pacemaker Current visit: No Status: Chronic (5) Atrial fibrillation Current visit: Yes Status: Chronic (6) HTN (hypertension) Current visit: Yes Status: Chronic (7) CKD stage G3b/A1, 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 I am involved in the formulation of the patient's plan of care. <Benjie Beck - 05/03/17 13:11> Hospital Course Summary Disclaimer: The visit summary below is not to be considered part of the above Progress Note. <Benjie Beck - 05/03/17 13:11> The visit summary below is not to be considered part of the above Progress Note. <Jennifer Caicedo - 04/29/17 12:08> Hospital Course: 04/27/17 Systolic HF: - EF is 40% - PAP 57 - Diurese with Lasix 20mg IV BID RLL pneumonia Hypoxia Elevated troponin - NSTEMI type II - Trend serial troponins, have been flat: 1)0.738, 2) 0,794, 3) 0.807 AFib: Continue amiodarone. Stop Cardizem, Start Metoprolol 50mg po BID HTN: Amlodipine 5mg and Metoprolol 50mg BID. Continue Imdur and Hydralazine. PPM: [employer] CKD 04/28/17 Increase Amlodipine to 10mg daily. Continue Lasix 20mg IV BID repeat troponin and BNP 04/29/17 16:48 Change Lasix to oral, continue to monitor. <Jennifer Caicedo - 04/30/17 16:48>
[2017-04-29] MEDS: FAMOTIDINE 20 MG TABLET PO SCH (17:02)
[2017-04-29] MEDS: FUROSEMIDE 20 MG TABLET PO SCH (17:50)
[2017-04-29] MEDS: ATORVASTATIN 10 MG TABLET PO SCH (21:59)
[2017-04-29] MEDS: ClonazePAM 1 MG TABLET PO SCH (21:59)
[2017-04-29] MEDS: LISINOPRIL 5 MG TABLET PO SCH (21:59)
[2017-04-30] MEDS: SALINE FLUSH 10ml SYRINGE IVF PRN ×2 (00:30→12:24)
[2017-04-30] MEDS: HEPARIN SUB-Q 5,000 UNITS/0.5 ML INJECTION SQ SCH ×3 (02:19→17:17)
[2017-04-30] MEDS: ISOSORBIDE MONONITRATE ER 30 MG TABLET PO SCH ×2 (05:47→22:23)
[2017-04-30] MEDS: CEFTRIAXONE 1 G in NS 100 ML IV SCH (05:59)
[2017-04-30] MEDS: NS FLUSH BAG 500ml IV PRN (06:01)
[2017-04-30] MEDS: BUDESONIDE INH.SOLN 0.5mg/2ml NEB AEROSOL SCH ×2 (08:37→20:45)
[2017-04-30] MEDS: ALBUTEROL/IPRATROPIUM 2.5mg-0.5mg/3ml NEB AEROSOL SCH ×2 (08:38→20:45)
--- NOTE | 2017-04-30 09:26 | XRay Report ---
Indication: dyspnea PROCEDURE: XR chest 1V: Encounter: Initial Comparison: April 28, 2017 Findings: Improving aeration of the right lung with a mild amount of residual consolidation. No new infiltrates. No pneumothorax. Unchanged small effusions. Heart size and mediastinal contours are stable. Left pacemaker. Impression: Improving aeration of the lungs. .
[2017-04-30] MEDS: LACTOBACILLUS (15B cfu) CAPSULE PO SCH (10:19)
[2017-04-30] MEDS: HYDRALAZINE 25 MG TABLET PO SCH ×3 (10:19→17:17)
[2017-04-30] MEDS: SERTRALINE 100 MG TABLET PO SCH (10:20)
[2017-04-30] MEDS: AMIODARONE 200 MG TABLET PO SCH (10:20)
[2017-04-30] MEDS: PredniSONE 10 MG TABLET PO SCH (10:20)
[2017-04-30] MEDS: CLOPIDOGREL 75 MG TABLET PO SCH (10:20)
[2017-04-30] MEDS: GUAIFENESIN/D-METHORPHAN 600mg/30mg TABLET PO SCH ×2 (10:21→22:24)
[2017-04-30] MEDS: ASPIRIN *EC* 81 MG TABLET PO SCH (10:21)
[2017-04-30] MEDS: BuPROPion XL 300mg (24HR) TABLET PO SCH (10:21)
[2017-04-30] MEDS: AMLODIPINE 10 MG TABLET PO SCH (10:21)
[2017-04-30] MEDS: FUROSEMIDE 20 MG TABLET PO SCH (10:22)
[2017-04-30] MEDS: FAMOTIDINE 20 MG TABLET PO SCH (10:22)
[2017-04-30] MEDS: POLYETHYL GLYCOL 3350 17gm PACKET PO SCH (10:22)
[2017-04-30] MEDS: SENNA + DOCUSATE TABLET PO SCH ×2 (10:22→22:24)
--- NOTE | 2017-04-30 11:10 | Progress Note ---
<Yasmein Victor V - Last Filed: 04/30/17 10:58> Subjective: John is seen in follow up this morning. He was just placed back on Bi-pap by RT prior to exam and is currently sleeping. He will not arouse or open eyes only moans on verbal stimulation. Nursing staff reports agitated and confused overnight. Baseline mentation is orientation to person only per [facility] staff. Objective Vital signs: Temperature 96 F L 04/30/17 07:57 Pulse Rate 74 04/30/17 07:57 Respiratory Rate 18 04/30/17 08:48 Blood Pressure 144/85 H 04/30/17 07:57 Pulse Oximetry 82 L 04/30/17 08:48 Height/Weight/BMI: Height 1.73 m Weight 84.9 kg Body Mass Index 29.2 - Constitutional Present: well nourished, well developed - Routine HEENT Exam Eye: Present: EOMI ENT: Present: mucous membranes moist, dentition normal - Routine Respiratory Exam Present: CTA bilaterally. Absent: wheezes - Routine Cardiovascular Exam Present: RRR, S1, S2. Absent: murmur - Routine Abdominal Exam Present: soft, normoactive bowel sounds, non distended. Absent: tenderness - Routine Skin Exam Present: intact, dry, warm - Routine Neurological Exam Present: altered mental status (chronically) - Routine Lymphatic Exam Lymphatic: Absent: adenopathy - Routine Psychiatric Exam Present: unable to assess Results - Labs CBC & Chem 7: 04/30/17 06:52 04/30/17 04:53 Assessment and Plan (1) HTN (hypertension) Current visit: Yes Status: Chronic (2) Atrial fibrillation Current visit: Yes Status: Chronic (3) Right lower lobe pneumonia Current visit: Yes Status: Acute (4) Elevated troponin I level Problem details: NSTEMI type II Current visit: Yes Status: Acute Assessment and Plan: ASSESSMENT Pneumonia Acute respiratory insufficiency Pulmonary edema Elevated troponin - Type II NSTEMI Leukocytosis Acute systolic Heart failure - EF decreased to 40% CAD HTN HDL Chronic afib DURAN Stage III CKD Bipolar affective disorder 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 Repeat Chest X-ray this morning revels improvement of right ling consolidation. Lasix twice a day for gentle diuresis Cardiology consultation- increased Norvasc to 10mg daily Continue with oxygen, BiPAP and scheduled DuoNeb breathing treatments. Ativan as needed for acute behaviors and agitation Continue to trend daily labs, sodium remains slightly elevated 146, creatinine increased to 1.7. Further plan discussed with attending, Dr. Wells Hospital Course Summary Disclaimer: The visit summary below is not to be considered part of the above Progress Note. 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 IVF started - decrease secondary to pulmonary edema and discontinued. Trend troponin and lactate (of note-repeat lactate delayed secondary to patient refusing blood draw) ECHO due to elevated troponin and pulm edema Consult Dr Beck due to elevated troponin. SCD for DVT prevention Monitor lab. DNR as per his requests. Care to return to Dr Bhagat at time of discharge from [facility]. 04/27/17 Cardiology Systolic HF: - EF is 40% - PAP 57 - Diurese with Lasix 20mg IV BID RLL pneumonia Hypoxia Elevated troponin - NSTEMI type II - Trend serial troponins, have been flat: 1)0.738, 2) 0,794, 3) 0.807 AFib: Continue amiodarone. Stop Cardizem, Start Metoprolol 50mg po BID HTN: Amlodipine 5mg and Metoprolol 50mg BID. Continue Imdur and Hydralazine. 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 Continue Lasix 20mg IV BID repeat troponin and BNP 04/28/17 Hospitalist Continue Rocephin for pulmonary coverage, will stop azithromycin secondary to potential interaction with amiodarone. WBC with decrease to 7.7 this morning. Start Mucinex DM BID to help decrease cough and secretions. Ricola prn. Continue with supplemental O2, weaning as able. Lasix 20mg IV BID to help decrease edema. Creatinine stable, potassium with decrease secondary to loop diuretics. Start oral potassium 20mEq BID with meals. Will add lisinopril 5mg at night as EF with decrease. Recheck BMP and Mg in am due to diuretics. Monitor CBC due to pneumonia and leukocytosis. Continue supportive CCU care. Clinically improving, but do not feel stable enough for floor transition. 04/29/17 Hospitalist Pneumonia improving clinically. WBC normalized. O2 needs decreasing. No febrile process. Continue with Rocephin. Recheck CXR for f/u pneumonia and pulmonary edema. Discussed with cardiology about decreasing Lasix - could move to 20mg BID. Sodium with increase to 146. Additional potassium give as potassium low. Diamox 500mg orally x1 as CO2 with increase. Bladder retraining with cath. Work on bowel function. Medically improving, possible floor transfer unless cardiology wants cath. 04/30-Plan Continue on Rocephin for antimicrobial coverage. Repeat Chest X-ray this morning revels improvement of right ling consolidation. Lasix twice a day for gentle diuresis Cardiology consultation- increased Norvasc to 10mg daily Continue with oxygen, BiPAP and scheduled DuoNeb breathing treatments. Ativan as needed for acute behaviors and agitation Continue to trend daily labs, sodium remains slightly elevated 146, creatinine increased to 1.7. Further plan discussed with attending, Dr. Wells <Dennis Wells - Last Filed: 04/30/17 16:00> Objective Vital signs: Temperature 95.4 F L 04/30/17 13:03 Pulse Rate 65 04/30/17 13:03 Respiratory Rate 21 04/30/17 13:03 Blood Pressure 123/76 04/30/17 13:03 Pulse Oximetry 96 04/30/17 13:03 Height/Weight/BMI: Height 1.73 m Weight 84.9 kg Body Mass Index 29.2 Results - Labs CBC & Chem 7: 04/30/17 06:52 04/30/17 04:53 - ABG Interpretation ABG results: 04/30/17 12:38 ABG pH 7.370 ABG pCO2 48 H ABG pO2 89 ABG HCO3 28 H ABG Total CO2 29 H ABG O2 Saturation 96.0 ABG Base Excess 2.0 Assessment and Plan (1) Right lower lobe pneumonia Current visit: Yes Status: Acute (2) Elevated troponin I level Problem details: NSTEMI type II Current visit: Yes Status: Acute (3) HTN (hypertension) Current visit: Yes Status: Chronic (4) Atrial fibrillation Current visit: Yes Status: Chronic DVT Prophylaxis: SCD's, SQ Heparin Resuscitation Status: Do Not Resuscitate Assessment and Plan: ASSESSMENT Pneumonia Acute respiratory insufficiency Pulmonary edema Elevated troponin - Type II NSTEMI Leukocytosis Acute systolic Heart failure - EF decreased to 40% CAD HTN HDL Chronic afib DURAN - treated with CPAP Stage III CKD Bipolar affective disorder 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 Chart reviewed. Case discussed with my HOUSE STEWARD/STEWARDESS. Care plan developed with my supervision; agree with above. Rough morning-more SOA and hypoxic. Needed BiPAP for support. Doing better this afternoon-breathing comfortably on RA. Notes some SOA and cough/congestion. No pain with breathing . Lungs: decreased, no distress CV: irregularly irregular AB: soft nt/nd BS decreased EXT: thin, no edema MSE: awake alert Plan: Continue Rocephin for pulmonary coverage. Monitor breathing off BiPAP. has brought his home CPAP. Monitor lab. Increase activities as able- patient chronically unsteady and ataxic. Will decrease Lasix to 20mg daily as creatinine with increase. - Time spent with patient Time with patient PN: 25 minutes Hospital Course Summary Disclaimer: The visit summary below is not to be considered part of the above Progress Note.
--- NOTE | 2017-04-30 18:01 | Cardiology Progress Note ---
Subjective Principal diagnosis: systolic HF, elevated troponin, afib <Jennifer Caicedo - 18:06> Interval history: John is seen in in his room on Medical to follow up for systolic heart failure , elevated troponins -NSTEMI, typeII,. and Afib. He is in bed and states that he "is goofy today." He denies chest pain or palpitations. <Jennifer Caicedo - 04/30/17 18:06> Exam Vital signs: Temperature 98.5 F 05/03/17 08:00 Pulse Rate 71 05/03/17 08:00 Respiratory Rate 20 05/03/17 08:00 Blood Pressure 139/82 05/03/17 08:00 Pulse Oximetry 96 05/03/17 08:00 <Benjie Beck - 05/03/17 13:12> Temperature 96.3 F L 04/30/17 16:00 Pulse Rate 72 04/30/17 16:00 Respiratory Rate 18 04/30/17 16:00 Blood Pressure 147/88 H 04/30/17 16:00 Pulse Oximetry 92 04/30/17 16:00 <Jennifer Caicedo - 04/30/17 18:06> - Constitutional no acute distress, well nourished, cooperative <Jennifer Caicedo - 04/30/17 18: 06> - Routine HEENT Exam Head: Present: normocephalic <Jennifer Caicedo - 04/30/17 18:06> ENT: Present: mucous membranes moist <Jennifer Caicedo - 04/30/17 18:06> - Routine Neck Exam Absent: JVD, carotid bruit <Jennifer Caicedo - 04/30/17 18:06> - Routine Chest/Breast/Axilla Exam Chest wall: Absent: tenderness <Jennifer Caicedo - 04/30/17 18:06> - Routine Respiratory Exam Present: CTA bilaterally. Absent: respiratory distress, wheezes <Jennifer Caicedo - 04/30/17 18:06> - Routine Cardiovascular Exam Present: RRR, no murmur. Absent: JVD <Jennifer Caicedo - 04/30/17 18:06> - Routine Abdominal Exam Present: soft, normoactive bowel sounds <Jennifer Caicedo - 04/30/17 18:06> - Routine Extremities Exam Present: no edema <Jennifer Caicedo - 04/30/17 18:06> - Routine Skin Exam Present: intact, dry, warm <Jennifer Caicedo - 04/30/17 18:06> - Routine Neurological Exam Present: alert, oriented X3 <Jennifer Caicedo - 04/30/17 18:06> - Additional findings Additional findings: Laboratory Results - last 24 hr 04/30/17 04/30/17 04/30/17 04:53 06:52 12:38 WBC 7.7 RBC 3.32 L Hgb 10.0 L Hct 32.6 L MCV 98.2 MCH 30.1 MCHC 30.7 L RDW Std Deviation 48.5 Plt Count 149 MPV 9.7 Immature Gran % (Auto) 0.1 Neut % (Auto) 84.2 H Lymph % (Auto) 5.9 L [place] % (Auto) 7.2 Eos % (Auto) 2.2 Baso % (Auto) 0.4 Neut # (Auto) 6.5 Lymph # (Auto) 0.5 L [place] # (Auto) 0.6 Eos # (Auto) 0.2 Baso # (Auto) 0.0 Abs Immat Gran (auto) 0.01 ABG pH 7.370 ABG pCO2 48 H ABG pO2 89 ABG HCO3 28 H ABG Total CO2 29 H ABG O2 Saturation 96.0 ABG Base Excess 2.0 O2 Delivery Method Bpap, % FiO2 % 35 Turbidity < 20 Sodium 146 H Potassium 3.7 Chloride 108 H Carbon Dioxide 27 Anion Gap 11 BUN 30.0 H Creatinine 1.7 H D GFR Calculation 39 BUN/Creatinine Ratio 18 Glucose 83 Calculated Osmolality 286 H Calcium 9.2 Icterus Index < 2 Specimen Hemolysis 38 H Acetaminophen (Tylenol) 500 mg PO Q4H PRN PRN Reason: Pain Albuterol/Ipratropium (Duoneb) 3 ml AEROSOL BID [facility] Last Admin: 04/30/17 08:38 Dose: 3 ml Albuterol/Ipratropium (Duoneb) 3 ml AEROSOL PRN PRN Amiodarone HCl (Pacerone) 200 mg PO DAILY [facility] Last Admin: 04/30/17 10:20 Dose: 200 mg Amlodipine Besylate (Norvasc) 10 mg PO DAILY [facility] Last Admin: 10/06/17 10:21 Dose: 10 mg Aspirin (Ecotrin) 81 mg PO DAILY [facility] Last Admin: 04/30/17 10:21 Dose: 81 mg Atorvastatin Calcium (Lipitor) 10 mg PO HS [facility] Last Admin: 04/29/17 21:59 Dose: 10 mg Bisacodyl (Dulcolax) 10 mg RECTALLY DAILY PRN PRN Reason: Constipation Budesonide (Pulmicort Inhalation) 0.5 mg AEROSOL RTBID [facility] Last Admin: 04/30/17 08:37 Dose: 0.5 mg Bupropion HCl (Wellbutrin Xl) 300 mg PO DAILY [facility] Last Admin: 04/30/17 10:21 Dose: 300 mg Clonazepam (Klonopin) 1 mg PO HS [facility] Last Admin: 04/29/17 21:59 Dose: 1 mg Clopidogrel Bisulfate (Plavix) 75 mg PO DAILY [facility] Last Admin: 04/30/17 10:20 Dose: 75 mg Famotidine (Pepcid) 20 mg PO DAILY [facility] Last Admin: 04/30/17 10:22 Dose: 20 mg Furosemide (Lasix) 20 mg PO DAILY [facility] Guaifenesin/Dextromethorphan (Mucinex Dm) 1 tab PO BID [facility] Last Admin: 04/30/17 10:21 Dose: 1 tab Heparin Sodium (Porcine) (Heparin Sq) 5,000 units SQ Q8HR [facility] Last Admin: 04/30/17 17:17 Dose: 5,000 units Hydralazine HCl (Apresoline) 25 mg PO TIDWM [facility] Last Admin: 04/30/17 17:17 Dose: 25 mg Ceftriaxone Sodium 1 g/ Sodium (Chloride) 100 mls @ 200 mls/hr IV Q24H [facility] Last Infusion: 04/30/17 06:51 Dose: Infused Isosorbide Mononitrate (Imdur) 30 mg PO BID/E [facility] Last Admin: 04/30/17 05:47 Dose: 30 mg Lactobacillus Acidophilus (Culturelle) 1 cap PO DAILY [facility] Last Admin: 04/30/17 10:19 Dose: 1 cap Lisinopril (Prinivil) 5 mg PO HS [facility] Last Admin: 04/29/17 21:59 Dose: 5 mg Lorazepam (Ativan Inj) 0.5 mg IVP Q6H PRN Last Admin: 04/30/17 12:23 Dose: 0.5 mg Magnesium Hydroxide (Mom) 30 ml PO DAILY PRN PRN Reason: Constipation Menthol (Ricola Sf) 1 lozenge MM PRN PRN PRN Reason: Cough Metoprolol Tartrate (Lopressor) 50 mg PO BIDWM [facility] Last Admin: 04/30/17 17:17 Dose: 50 mg Morphine Sulfate (Morphine Sulfate Inj) 1 - 2 mg IVP Q2H PRN PRN Reason: Pain Last Admin: 04/27/17 19:38 Dose: 2 mg Nitroglycerin (Nitrostat) 0.4 mg SL Q5MIN PRN PRN Reason: CHEST PAIN Ondansetron HCl (Zofran) 4 mg IVP Q6H PRN PRN Reason: Nausea Polyethylene Glycol (Miralax) 17 gm PO DAILY [facility] Last Admin: 04/30/17 10:22 Dose: 17 gm Potassium Chloride (K-Dur) 20 meq PO BIDWM [facility] Last Admin: 04/30/17 17:17 Dose: 20 meq Prednisone (Deltasone) 10 mg PO WB [facility] Last Admin: 04/30/17 10:20 Dose: 10 mg Senna/Docusate Sodium (Senna Plus Tablet) 2 tab PO BID [facility] Last Admin: 04/30/17 10:22 Dose: 2 tab Sertraline HCl (Zoloft) 150 mg PO DAILY [facility] Last Admin: 04/30/17 10:20 Dose: 150 mg Sodium Chloride (Iv Flush) 10 - 80 ml IVF PRN PRN PRN Reason: Flushing Last Admin: 04/30/17 12:24 Dose: 10 ml Sodium Chloride (Normal Saline) 500 ml IV PRN PRN Last Admin: 04/30/17 06:01 Dose: 500 ml <Jennifer Caicedo - 04/30/17 18:06> - Urinary Catheter Management Urethral Cath placed during this visit: no <Benjie Beck - 05/03/17 13:12> yes <Jennifer Caicedo - 04/30/17 18:06> Insertion date: 04/27/17 <Jennifer Caicedo - 04/30/17 18:06> Insertion time: 09:24 <Jennifer Caicedo - 04/30/17 18:06> Assessment and Plan - Assessment and Plan (1) HTN (hypertension) Current visit: Yes Status: Chronic (2) Atrial fibrillation Current visit: Yes Status: Chronic (3) CKD stage G3b/A1, 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 mg/g Current visit: No Status: Chronic (4) Pacemaker Current visit: No Status: Chronic (5) Hypoxia Current visit: No Status: Acute (6) Right lower lobe pneumonia Current visit: Yes Status: Acute (7) Elevated troponin I level Problem details: NSTEMI type II Current visit: Yes Status: Acute (8) Systolic CHF Current visit: Yes Status: Acute <Benjie Beck - 05/03/17 13:12> (1) Right lower lobe pneumonia Current visit: Yes Status: Acute (2) Elevated troponin I level Problem details: NSTEMI type II Current visit: Yes Status: Acute (3) Hypoxia Current visit: No Status: Acute (4) Pacemaker Current visit: No Status: Chronic (5) Atrial fibrillation Current visit: Yes Status: Chronic (6) HTN (hypertension) Current visit: Yes Status: Chronic (7) CKD stage G3b/A1, 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 I am involved in the formulation of the patient's plan of care. <Benjie Beck - 05/03/17 13:12> Hospital Course Summary Disclaimer: The visit summary below is not to be considered part of the above Progress Note. <Benjie Beck - 05/03/17 13:12> The visit summary below is not to be considered part of the above Progress Note. <Jennifer Caicedo - 04/30/17 18:06> Hospital Course: 04/27/17 Systolic HF: - EF is 40% - PAP 57 - Diurese with Lasix 20mg IV BID RLL pneumonia Hypoxia Elevated troponin - NSTEMI type II - Trend serial troponins, have been flat: 1)0.738, 2) 0,794, 3) 0.807 AFib: Continue amiodarone. Stop Cardizem, Start Metoprolol 50mg po BID HTN: Amlodipine 5mg and Metoprolol 50mg BID. Continue Imdur and Hydralazine. PPM: [employer] CKD 04/28/17 Increase Amlodipine to 10mg daily. Continue Lasix 20mg IV BID repeat troponin and BNP 04/29/17 16:48 Change Lasix to oral, continue to monitor. 04/30/17 Stable, remains confused. <Jennifer Caicedo - 04/30/17 18:06>
[2017-04-30] MEDS: ATORVASTATIN 10 MG TABLET PO SCH (22:24)
[2017-04-30] MEDS: LISINOPRIL 5 MG TABLET PO SCH (22:24)
[2017-04-30] MEDS: ClonazePAM 1 MG TABLET PO SCH (22:24)
[2017-05-01] MEDS: HEPARIN SUB-Q 5,000 UNITS/0.5 ML INJECTION SQ SCH ×3 (02:28→17:47)
[2017-05-01] MEDS: CEFTRIAXONE 1 G in NS 100 ML IV SCH (06:16)
[2017-05-01] MEDS: ISOSORBIDE MONONITRATE ER 30 MG TABLET PO SCH ×2 (06:36→20:50)
[2017-05-01] MEDS: BUDESONIDE INH.SOLN 0.5mg/2ml NEB AEROSOL SCH ×2 (07:49→21:48)
[2017-05-01] MEDS: ALBUTEROL/IPRATROPIUM 2.5mg-0.5mg/3ml NEB AEROSOL SCH ×2 (07:49→21:48)
[2017-05-01] MEDS: SENNA + DOCUSATE TABLET PO SCH ×2 (09:20→20:52)
[2017-05-01] MEDS: FAMOTIDINE 20 MG TABLET PO SCH (09:20)
[2017-05-01] MEDS: FUROSEMIDE 20 MG TABLET PO SCH (09:20)
[2017-05-01] MEDS: ASPIRIN *EC* 81 MG TABLET PO SCH (09:20)
[2017-05-01] MEDS: LACTOBACILLUS (15B cfu) CAPSULE PO SCH (09:20)
[2017-05-01] MEDS: SERTRALINE 100 MG TABLET PO SCH (09:20)
[2017-05-01] MEDS: GUAIFENESIN/D-METHORPHAN 600mg/30mg TABLET PO SCH ×2 (09:20→20:50)
[2017-05-01] MEDS: CLOPIDOGREL 75 MG TABLET PO SCH (09:20)
[2017-05-01] MEDS: BuPROPion XL 300mg (24HR) TABLET PO SCH (09:21)
[2017-05-01] MEDS: HYDRALAZINE 25 MG TABLET PO SCH ×3 (09:21→17:47)
[2017-05-01] MEDS: PredniSONE 10 MG TABLET PO SCH (09:21)
[2017-05-01] MEDS: AMLODIPINE 10 MG TABLET PO SCH (09:21)
[2017-05-01] MEDS: AMIODARONE 200 MG TABLET PO SCH (09:21)
[2017-05-01] MEDS: POLYETHYL GLYCOL 3350 17gm PACKET PO SCH (09:22)
--- NOTE | 2017-05-01 15:47 | Progress Note ---
Subjective: F/U: Pneumonia, Acute respiratory insufficiency, pulmonary edema, NSTEMI-Type II Has been sleeping all day-went to check on him before and after lunch but sleeping. Still somnolent at this time. Will arouse, but not waking up. No lorazepam or MS given today. Has been able to take his medications. Nursing documents intake of 75% breakfast and 100% of lunch. Breathing comfortably on RA. Not always able to wear CPAP (will take off). Objective Vital signs: Temperature 97.8 F 05/01/17 08:00 Pulse Rate 70 05/01/17 08:00 Respiratory Rate 18 05/01/17 08:00 Blood Pressure 144/74 H 05/01/17 08:00 Pulse Oximetry 92 05/01/17 08:00 Height/Weight/BMI: Height 1.73 m Weight 82 kg Body Mass Index 29.2 - Constitutional Present: well nourished, well developed, somnolent - Routine HEENT Exam Head: Present: normocephalic, atraumatic ENT: Present: mucous membranes moist - Routine Respiratory Exam Present: decreased breath sounds. Absent: respiratory distress, rhonchi, wheezes, crackles - Routine Cardiovascular Exam Present: irregular rhythm, irregularly irregular - Routine Abdominal Exam Present: soft, normoactive bowel sounds, non distended, non tender. Absent: guarding - Routine Extremities Exam Present: no edema, pulses intact. Absent: cyanosis, clubbing - Routine Musculoskeletal Exam Musculoskeletal: Present: no clubbing or cyanosis - Routine Skin Exam Present: dry, warm - Routine Neurological Exam Present: moving all extremities - Routine Psychiatric Exam Comments: Somnolent Results - Labs CBC & Chem 7: 05/01/17 03:59 05/01/17 03:59 - ABG Interpretation ABG results: 04/30/17 12:38 ABG pH 7.370 ABG pCO2 48 H ABG pO2 89 ABG HCO3 28 H ABG Total CO2 29 H ABG O2 Saturation 96.0 ABG Base Excess 2.0 Assessment and Plan (1) Right lower lobe pneumonia Current visit: Yes Status: Acute (2) Elevated troponin I level Problem details: NSTEMI type II Current visit: Yes Status: Acute (3) HTN (hypertension) Current visit: Yes Status: Chronic (4) Atrial fibrillation Current visit: Yes Status: Chronic DVT Prophylaxis: SCD's, SQ Heparin Resuscitation Status: Do Not Resuscitate Assessment and Plan: ASSESSMENT Pneumonia Acute respiratory insufficiency Pulmonary edema Elevated troponin - Type II NSTEMI Leukocytosis Acute systolic Heart failure - EF decreased to 40% CAD HTN HDL Chronic afib DURAN - treated with CPAP Stage III CKD Bipolar affective disorder 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 Creatinine 1.7. Potassium 4.1. CO2 28. Decrease potassium to 10 mEq with breakfast as Lasix decreased. Encourage CPAP when sleeping. Will continue with Rocephin for pulmonary coverage-breathing improving and WBC normal. Continue with supportive care. Time spent with patient care 25 minutes. Hospital Course Summary Disclaimer: The visit summary below is not to be considered part of the above Progress Note. 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 IVF started - decrease secondary to pulmonary edema and discontinued. Trend troponin and lactate (of note-repeat lactate delayed secondary to patient refusing blood draw) ECHO due to elevated troponin and pulm edema Consult Dr Beck due to elevated troponin. SCD for DVT prevention Monitor lab. DNR as per his requests. Care to return to Dr Bhagat at time of [place] [facility] [place] [place] 04/27/17 Cardiology Systolic HF: - EF is 40% - PAP 57 - Diurese with Lasix 20mg IV BID RLL pneumonia Hypoxia Elevated troponin - NSTEMI type II - Trend serial troponins, have been flat: 1)0.738, 2) 0,794, 3) 0.807 AFib: Continue amiodarone. Stop Cardizem, Start Metoprolol 50mg po BID HTN: Amlodipine 5mg and Metoprolol 50mg BID. Continue Imdur and Hydralazine. 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 Continue Lasix 20mg IV BID repeat troponin and BNP 04/28/17 Hospitalist Continue Rocephin for pulmonary coverage, will stop azithromycin secondary to potential interaction with amiodarone. WBC with decrease to 7.7 this morning. Start Mucinex DM BID to help decrease cough and secretions. Ricola prn. Continue with supplemental O2, weaning as able. Lasix 20mg IV BID to help decrease edema. Creatinine stable, potassium with decrease secondary to loop diuretics. Start oral potassium 20mEq BID with meals. Will add lisinopril 5mg at night as EF with decrease. Recheck BMP and Mg in am due to diuretics. Monitor CBC due to pneumonia and leukocytosis. Continue supportive CCU care. Clinically improving, but do not feel stable enough for floor transition. 04/29/17 Hospitalist Pneumonia improving clinically. WBC normalized. O2 needs decreasing. No febrile process. Continue with Rocephin. Recheck CXR for f/u pneumonia and pulmonary edema. Discussed with cardiology about decreasing Lasix - could move to 20mg orally BID. Sodium with increase to 146. Additional potassium give as potassium low. Diamox 500mg orally x1 as CO2 with increase. Bladder retraining with cath. Work on bowel function. Medically improving, transfer to medical floor for continuation of care. 04/29/17 Cardiology Change Lasix to oral, continue to monitor. 04/30/17 Hospitalist Continue on Rocephin for antimicrobial coverage. Repeat Chest X-ray this morning revels improvement of right lung consolidation. Decrease Lasix to once a day. Continue with oxygen, BiPAP and scheduled DuoNeb breathing treatments. Ativan as needed for acute behaviors and agitation. Continue to trend daily labs, sodium remains slightly elevated 146, creatinine increased to 1.7. 04/30/17 Cardiology Stable, remains confused. 05/01/17 Hospitalist Somnolent today, but able to take medications and foods. Creatinine 1.7. Potassium 4.1. CO2 28. Decrease potassium to 10 mEq with breakfast as Lasix decreased. Encourage CPAP when sleeping. Will continue with Rocephin for pulmonary coverage-breathing improving and WBC normal. Continue with supportive care.
[2017-05-01] MEDS: LISINOPRIL 5 MG TABLET PO SCH (20:50)
[2017-05-01] MEDS: ATORVASTATIN 10 MG TABLET PO SCH (20:50)
[2017-05-01] MEDS: ClonazePAM 1 MG TABLET PO SCH (20:53)
[2017-05-02] MEDS: HEPARIN SUB-Q 5,000 UNITS/0.5 ML INJECTION SQ SCH ×3 (01:06→18:16)
[2017-05-02] MEDS: CEFTRIAXONE 1 G in NS 100 ML IV SCH (06:10)
[2017-05-02] MEDS: NS FLUSH BAG 500ml IV PRN (06:11)
[2017-05-02] MEDS: ISOSORBIDE MONONITRATE ER 30 MG TABLET PO SCH ×3 (06:45→21:35)
[2017-05-02] MEDS: CLOPIDOGREL 75 MG TABLET PO SCH (09:44)
[2017-05-02] MEDS: SERTRALINE 100 MG TABLET PO SCH (09:44)
[2017-05-02] MEDS: SENNA + DOCUSATE TABLET PO SCH ×2 (09:44→21:34)
[2017-05-02] MEDS: ASPIRIN *EC* 81 MG TABLET PO SCH (09:44)
[2017-05-02] MEDS: POLYETHYL GLYCOL 3350 17gm PACKET PO SCH (09:44)
[2017-05-02] MEDS: GUAIFENESIN/D-METHORPHAN 600mg/30mg TABLET PO SCH ×2 (09:44→21:35)
[2017-05-02] MEDS: AMLODIPINE 10 MG TABLET PO SCH (09:44)
[2017-05-02] MEDS: FAMOTIDINE 20 MG TABLET PO SCH (09:44)
[2017-05-02] MEDS: AMIODARONE 200 MG TABLET PO SCH (09:45)
[2017-05-02] MEDS: HYDRALAZINE 25 MG TABLET PO SCH ×3 (09:45→18:17)
[2017-05-02] MEDS: BuPROPion XL 300mg (24HR) TABLET PO SCH (09:45)
[2017-05-02] MEDS: FUROSEMIDE 20 MG TABLET PO SCH (09:45)
[2017-05-02] MEDS: PredniSONE 10 MG TABLET PO SCH (09:45)
[2017-05-02] MEDS: LACTOBACILLUS (15B cfu) CAPSULE PO SCH (10:04)
[2017-05-02] MEDS: BUDESONIDE INH.SOLN 0.5mg/2ml NEB AEROSOL SCH ×2 (10:20→19:15)
[2017-05-02] MEDS: ALBUTEROL/IPRATROPIUM 2.5mg-0.5mg/3ml NEB AEROSOL SCH ×2 (10:21→19:15)
[2017-05-02] MEDS: SALINE FLUSH 10ml SYRINGE IVF PRN ×2 (14:23→21:34)
--- NOTE | 2017-05-02 15:02 | Progress Note ---
<Zelda Campos - Last Filed: 05/02/17 15:42> Subjective: Patient is seen lying in bed today. He says he is not doing well. He is nauseous. He 50% of dinner last night and 25% of breakfast this morning. He also complains of back pain. Nurses report that he was more lucid this morning and conversational. Obi was DC'd yesterday. He has been able to urinate since removal - he was incontinent last night. He had a bowel movement yesterday. Objective Vital signs: Temperature 95.7 F L 05/02/17 07:31 Pulse Rate 64 05/02/17 07:31 Respiratory Rate 18 05/02/17 10:21 Blood Pressure 162/86 H 05/02/17 07:31 Pulse Oximetry 95 05/02/17 10:21 Height/Weight/BMI: Height 1.73 m Weight 79.5 kg Body Mass Index 29.2 - Constitutional Present: mild distress (patient is moaning. Has some coughing/gagging during exam. Nurse reports he's been coughing up some mucus, has not had any significant amount of emesis.), well nourished, well developed - Routine Respiratory Exam Present: CTA bilaterally. Absent: wheezes - Routine Cardiovascular Exam Present: irregular rhythm. Absent: murmur - Routine Abdominal Exam Present: soft, normoactive bowel sounds, tenderness (appears to have tenderness to palpation in the right upper quadrant.), non distended - Routine Extremities Exam Present: no edema, normal capillary refill - Routine Skin Exam Present: dry, warm - Routine Neurological Exam Present: alert, moving all extremities - Routine Lymphatic Exam Lymphatic: Absent: adenopathy - Routine Psychiatric Exam Present: cooperative Results - Labs CBC & Chem 7: 05/02/17 04:34 05/02/17 04:34 - ABG Interpretation ABG results: 04/30/17 12:38 ABG pH 7.370 ABG pCO2 48 H ABG pO2 89 ABG HCO3 28 H ABG Total CO2 29 H ABG O2 Saturation 96.0 ABG Base Excess 2.0 Assessment and Plan (1) HTN (hypertension) Current visit: Yes Status: Chronic (2) Atrial fibrillation Current visit: Yes Status: Chronic (3) Right lower lobe pneumonia Current visit: Yes Status: Acute (4) Elevated troponin I level Problem details: NSTEMI type II Current visit: Yes Status: Acute Assessment and Plan: ASSESSMENT Pneumonia Hypernatremia Acute respiratory insufficiency Pulmonary edema Elevated troponin - Type II NSTEMI Leukocytosis Acute systolic Heart failure - EF decreased to 40% CAD HTN HDL Chronic afib DURAN - treated with CPAP Stage III CKD Bipolar affective disorder 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 He was given some Zofran. Will continue to monitor. Sodium levels are gradually climbing. 148 today. DC Lasix Creatinine remains at 1.7. Potassium 3.9. CO2 27. Will continue with Rocephin for pulmonary coverage-breathing improving and WBC normal. Hospital Course Summary Disclaimer: The visit summary below is not to be considered part of the above Progress Note. 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 IVF started - decrease secondary to pulmonary edema and discontinued. Trend troponin and lactate (of note-repeat lactate delayed secondary to patient refusing blood draw) ECHO due to elevated troponin and pulm edema Consult Dr Beck due to elevated troponin. SCD for DVT prevention Monitor lab. DNR as per his requests. Care to return to Dr Bhagat at time of discharge from [facility] [place]. 04/27/17 Cardiology Systolic HF: - EF is 40% - PAP 57 - Diurese with Lasix 20mg IV BID RLL pneumonia Hypoxia Elevated troponin - NSTEMI type II - Trend serial troponins, have been flat: 1)0.738, 2) 0,794, 3) 0.807 AFib: Continue amiodarone. Stop Cardizem, Start Metoprolol 50mg po BID HTN: Amlodipine 5mg and Metoprolol 50mg BID. Continue Imdur and Hydralazine. 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 Continue Lasix 20mg IV BID repeat troponin and BNP 04/28/17 Hospitalist Continue Rocephin for pulmonary coverage, will stop azithromycin secondary to potential interaction with amiodarone. WBC with decrease to 7.7 this morning. Start Mucinex DM BID to help decrease cough and secretions. Ricola prn. Continue with supplemental O2, weaning as able. Lasix 20mg IV BID to help decrease edema. Creatinine stable, potassium with decrease secondary to loop diuretics. Start oral potassium 20mEq BID with meals. Will add lisinopril 5mg at night as EF with decrease. Recheck BMP and Mg in am due to diuretics. Monitor CBC due to pneumonia and leukocytosis. Continue supportive CCU care. Clinically improving, but do not feel stable enough for floor transition. 04/29/17 Hospitalist Pneumonia improving clinically. WBC normalized. O2 needs decreasing. No febrile process. Continue with Rocephin. Recheck CXR for f/u pneumonia and pulmonary edema. Discussed with cardiology about decreasing Lasix - could move to 20mg orally BID. Sodium with increase to 146. Additional potassium give as potassium low. Diamox 500mg orally x1 as CO2 with increase. Bladder retraining with cath. Work on bowel function. Medically improving, transfer to medical floor for continuation of care. 04/29/17 Cardiology Change Lasix to oral, continue to monitor. 04/30/17 Hospitalist Continue on Rocephin for antimicrobial coverage. Repeat Chest X-ray this morning revels improvement of right lung consolidation. Decrease Lasix to once a day. Continue with oxygen, BiPAP and scheduled DuoNeb breathing treatments. Ativan as needed for acute behaviors and agitation. Continue to trend daily labs, sodium remains slightly elevated 146, creatinine increased to 1.7. 04/30/17 Cardiology Stable, remains confused. 05/01/17 Hospitalist Somnolent today, but able to take medications and foods. Creatinine 1.7. Potassium 4.1. CO2 28. Decrease potassium to 10 mEq with breakfast as Lasix decreased. Encourage CPAP when sleeping. Will continue with Rocephin for pulmonary coverage-breathing improving and WBC normal. Continue with supportive care. 05/02/17 Patient currently with nausea and some pain in the right upper quadrant with palpation. He was given some Zofran. Will continue to monitor. Sodium levels are gradually climbing. 148 today. DC Lasix Creatinine remains at 1.7. Potassium 3.9. CO2 27. Will continue with Rocephin for pulmonary coverage-breathing improving and WBC normal. <Dennis Wells - Last Filed: 05/02/17 17:02> Objective Vital signs: Temperature 95.9 F L 05/02/17 15:18 Pulse Rate 70 05/02/17 15:18 Respiratory Rate 20 05/02/17 15:18 Blood Pressure 147/79 H 05/02/17 15:18 Pulse Oximetry 94 05/02/17 15:18 Height/Weight/BMI: Height 1.73 m Weight 79.5 kg Body Mass Index 29.2 Results - Labs CBC & Chem 7: 05/02/17 04:34 05/02/17 04:34 - ABG Interpretation ABG results: 04/30/17 12:38 ABG pH 7.370 ABG pCO2 48 H ABG pO2 89 ABG HCO3 28 H ABG Total CO2 29 H ABG O2 Saturation 96.0 ABG Base Excess 2.0 Assessment and Plan (1) Right lower lobe pneumonia Current visit: Yes Status: Acute (2) Elevated troponin I level Problem details: NSTEMI type II Current visit: Yes Status: Acute (3) HTN (hypertension) Current visit: Yes Status: Chronic (4) Atrial fibrillation Current visit: Yes Status: Chronic DVT Prophylaxis: SQ Heparin Resuscitation Status: Do Not Resuscitate Assessment and Plan: ASSESSMENT Pneumonia Hypernatremia (POA) Acute respiratory insufficiency Pulmonary edema Elevated troponin - Type II NSTEMI Leukocytosis - resolved Acute systolic Heart failure - EF decreased to 40% CAD HTN HDL Chronic afib DURAN - treated with CPAP Stage III CKD Bipolar affective disorder 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 Chart reviewed. Case discussed with my PA. Care plan developed with my supervision; agree with above. Resting peacefully in bed with CPAP on. Easily awakened to verbal stimuli. Feels berthing okay-not congested or SOA. No chest pain. Lungs: decrease bilaterally, but improved air movement. No distress CV: regular AB: soft nt/nd +bs MSE: awake alert appropriate Plan: Will stop Lasix secondary to increasing sodium. Recheck CXR in am for f/u infiltrate and edema. Continue Rocephin for pulmonary coverage. Clinically improving. Possible discharge in upcoming days. Hospital Course Summary Disclaimer: The visit summary below is not to be considered part of the above Progress Note.
[2017-05-02] MEDS: ATORVASTATIN 10 MG TABLET PO SCH (21:35)
[2017-05-02] MEDS: ClonazePAM 1 MG TABLET PO SCH (21:35)
[2017-05-02] MEDS: LISINOPRIL 5 MG TABLET PO SCH (21:35)
[2017-05-03] MEDS: HEPARIN SUB-Q 5,000 UNITS/0.5 ML INJECTION SQ SCH ×3 (01:16→17:26)
[2017-05-03] MEDS ORDERED: FALL RISK - PHARMACY CONSULT XX ONE (01:42)
[2017-05-03] MEDS: CEFTRIAXONE 1 G in NS 100 ML IV SCH (06:28)
[2017-05-03] MEDS: SALINE FLUSH 10ml SYRINGE IVF PRN ×2 (06:28→20:23)
[2017-05-03] MEDS: ISOSORBIDE MONONITRATE ER 30 MG TABLET PO SCH ×2 (06:29→20:23)
[2017-05-03] MEDS: GUAIFENESIN/D-METHORPHAN 600mg/30mg TABLET PO SCH ×2 (08:35→20:23)
[2017-05-03] MEDS: FAMOTIDINE 20 MG TABLET PO SCH (08:35)
[2017-05-03] MEDS: SENNA + DOCUSATE TABLET PO SCH ×2 (08:35→20:22)
[2017-05-03] MEDS: SERTRALINE 100 MG TABLET PO SCH (08:35)
[2017-05-03] MEDS: ASPIRIN *EC* 81 MG TABLET PO SCH (08:35)
[2017-05-03] MEDS: LACTOBACILLUS (15B cfu) CAPSULE PO SCH (08:35)
[2017-05-03] MEDS: BuPROPion XL 300mg (24HR) TABLET PO SCH (08:35)
[2017-05-03] MEDS: POLYETHYL GLYCOL 3350 17gm PACKET PO SCH (08:35)
[2017-05-03] MEDS: CLOPIDOGREL 75 MG TABLET PO SCH (08:36)
[2017-05-03] MEDS: AMIODARONE 200 MG TABLET PO SCH (08:36)
[2017-05-03] MEDS: AMLODIPINE 10 MG TABLET PO SCH (08:36)
[2017-05-03] MEDS: HYDRALAZINE 25 MG TABLET PO SCH ×3 (08:36→17:26)
[2017-05-03] MEDS: PredniSONE 10 MG TABLET PO SCH (08:36)
--- NOTE | 2017-05-03 09:26 | XRay Report ---
Indication: F/U Procedure: XR chest 2V: Encounter: Subsequent Comparison: 04/30/2017, 04/28/2017 Technique: AP and lateral radiographs of the chest were obtained. Findings: Life support devices: Unchanged left pectoral dual-chamber pacer device. Lungs and airways: Decreased lung volumes. No focal airspace consolidation. Normal pulmonary vasculature. Pleura: No pleural effusion or pneumothorax. Heart and mediastinum: Cardiomegaly. Aortic atherosclerosis Osseous structures and soft tissues: No acute osseous abnormality is seen. Postoperative changes of bilateral shoulder arthroplasty, anterior cervical discectomy and fusion, and thoracolumbar fusion. Degenerative disc disease of the thoracic spine. Impression: No acute cardiopulmonary process appreciated with resolution of previously noted right-sided airspace disease. .
--- NOTE | 2017-05-03 12:11 | Progress Note ---
<Yasemin Victor V - Last Filed: 05/03/17 12:08> Subjective: Mr Kyle is seen this morning in follow up. He is pleasant and orientated during examination. He denies having any pain or shortness of breath. He is comfortably breathing on room air without evidence of distress. He verbalizes his wish to be discharged so he can go home. Overall, appetite has improved, he ate 75% of breakfast this morning. Last reported bowel movement 04/30. Objective Vital signs: Temperature 98.5 F 05/03/17 08:00 Pulse Rate 71 05/03/17 08:00 Respiratory Rate 20 05/03/17 08:00 Blood Pressure 139/82 05/03/17 08:00 Pulse Oximetry 96 05/03/17 08:00 Height/Weight/BMI: Height 1.73 m Weight 81 kg Body Mass Index 29.2 - Constitutional Present: no acute distress, well nourished, well developed - Routine HEENT Exam Eye: Present: EOMI ENT: Present: mucous membranes moist, dentition normal - Routine Respiratory Exam Present: CTA bilaterally. Absent: wheezes - Routine Cardiovascular Exam Present: RRR, S1, S2. Absent: murmur - Routine Abdominal Exam Present: soft, normoactive bowel sounds, non distended. Absent: tenderness - Routine Skin Exam Present: intact, dry, warm - Routine Neurological Exam Present: alert, CN II-XII intact, moving all extremities - Routine Lymphatic Exam Lymphatic: Absent: adenopathy - Routine Psychiatric Exam Present: normal affect Results - Labs CBC & Chem 7: 05/03/17 06:45 05/03/17 06:45 - ABG Interpretation ABG results: 04/30/17 12:38 ABG pH 7.370 ABG pCO2 48 H ABG pO2 89 ABG HCO3 28 H ABG Total CO2 29 H ABG O2 Saturation 96.0 ABG Base Excess 2.0 Assessment and Plan (1) HTN (hypertension) Current visit: Yes Status: Chronic (2) Atrial fibrillation Current visit: Yes Status: Chronic (3) Right lower lobe pneumonia Current visit: Yes Status: Acute (4) Elevated troponin I level Problem details: NSTEMI type II Current visit: Yes Status: Acute Assessment and Plan: ASSESSMENT Pneumonia Hypernatremia (POA) Acute respiratory insufficiency Pulmonary edema Elevated troponin - Type II NSTEMI Leukocytosis - resolved Acute systolic Heart failure - EF decreased to 40% CAD HTN HDL Chronic afib DURAN - treated with CPAP Stage III CKD Bipolar affective disorder 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 Breathing on room air without difficulty. Repeat Chest Xray this morning revels improvement in Pneumonia. Lasix was stopped after yesterday's dose. Creatinine today has increased to 2.0. Lisinopril placed on hold. Will continue to monitor. Hopeful to return to [facility] soon. Hospital Course Summary Disclaimer: The visit summary below is not to be considered part of the above Progress Note. 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 IVF started - decrease secondary to pulmonary edema and discontinued. Trend troponin and lactate (of note-repeat lactate delayed secondary to patient refusing blood draw) ECHO due to elevated troponin and pulm edema Consult Dr Beck due to elevated troponin. SCD for DVT prevention Monitor lab. DNR as per his requests. Care to return to Dr Bhagat at time of discharge from [facility] [place]. 04/27/17 Cardiology Systolic HF: - EF is 40% - PAP 57 - Diurese with Lasix 20mg IV BID RLL pneumonia Hypoxia Elevated troponin - NSTEMI type II - Trend serial troponins, have been flat: 1)0.738, 2) 0,794, 3) 0.807 AFib: Continue amiodarone. Stop Cardizem, Start Metoprolol 50mg po BID HTN: Amlodipine 5mg and Metoprolol 50mg BID. Continue Imdur and Hydralazine. 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 Continue Lasix 20mg IV BID repeat troponin and BNP 04/28/17 Hospitalist Continue Rocephin for pulmonary coverage, will stop azithromycin secondary to potential interaction with amiodarone. WBC with decrease to 7.7 this morning. Start Mucinex DM BID to help decrease cough and secretions. Ricola prn. Continue with supplemental O2, weaning as able. Lasix 20mg IV BID to help decrease edema. Creatinine stable, potassium with decrease secondary to loop diuretics. Start oral potassium 20mEq BID with meals. Will add lisinopril 5mg at night as EF with decrease. Recheck BMP and Mg in am due to diuretics. Monitor CBC due to pneumonia and leukocytosis. Continue supportive CCU care. Clinically improving, but do not feel stable enough for floor transition. 04/29/17 Hospitalist Pneumonia improving clinically. WBC normalized. O2 needs decreasing. No febrile process. Continue with Rocephin. Recheck CXR for f/u pneumonia and pulmonary edema. Discussed with cardiology about decreasing Lasix - could move to 20mg orally BID. Sodium with increase to 146. Additional potassium give as potassium low. Diamox 500mg orally x1 as CO2 with increase. Bladder retraining with cath. Work on bowel function. Medically improving, transfer to medical floor for continuation of care. 04/29/17 Cardiology Change Lasix to oral, continue to monitor. 04/30/17 Hospitalist Continue on Rocephin for antimicrobial coverage. Repeat Chest X-ray this morning revels improvement of right lung consolidation. Decrease Lasix to once a day. Continue with oxygen, BiPAP and scheduled DuoNeb breathing treatments. Ativan as needed for acute behaviors and agitation. Continue to trend daily labs, sodium remains slightly elevated 146, creatinine increased to 1.7. 04/30/17 Cardiology Stable, remains confused. 05/01/17 Hospitalist Somnolent today, but able to take medications and foods. Creatinine 1.7. Potassium 4.1. CO2 28. Decrease potassium to 10 mEq with breakfast as Lasix decreased. Encourage CPAP when sleeping. Will continue with Rocephin for pulmonary coverage-breathing improving and WBC normal. Continue with supportive care. 05/02/17 Patient currently with nausea and some pain in the right upper quadrant with palpation. He was given some Zofran. Will continue to monitor. Sodium levels are gradually climbing. 148 today. DC Lasix Creatinine remains at 1.7. Potassium 3.9. CO2 27. Will continue with Rocephin for pulmonary coverage-breathing improving and WBC normal. 05/03/17- Repeat Chest Xray this morning revels improvement in Pneumonia. Lasix was stopped after yesterday's dose. Creatinine today has increased to 2.0. Lisinopril placed on hold. Will continue to monitor. Hopeful to return to [facility] soon. <Aleshia Sands - Last Filed: 05/03/17 19:21> Objective Vital signs: Temperature 96.6 F L 05/03/17 15:46 Pulse Rate 85 05/03/17 17:25 Respiratory Rate 17 05/03/17 17:25 Blood Pressure 106/73 05/03/17 17:25 Pulse Oximetry 96 05/03/17 17:25 Height/Weight/BMI: Height 1.73 m Weight 81 kg Body Mass Index 29.2 Results - Labs CBC & Chem 7: 05/03/17 06:45 05/03/17 06:45 - ABG Interpretation ABG results: 04/30/17 12:38 ABG pH 7.370 ABG pCO2 48 H ABG pO2 89 ABG HCO3 28 H ABG Total CO2 29 H ABG O2 Saturation 96.0 ABG Base Excess 2.0 Assessment and Plan (1) HTN (hypertension) Current visit: Yes Status: Chronic (2) Atrial fibrillation Current visit: Yes Status: Chronic (3) Right lower lobe pneumonia Current visit: Yes Status: Acute (4) Elevated troponin I level Problem details: NSTEMI type II Current visit: Yes Status: Acute Resuscitation Status: Do Not Resuscitate Assessment and Plan: I have independently evaluated and examined this patient. I reviewed the chart, the patient's history, and the [facility]/PA's documented findings as above. We discussed and formulated the assessment and plan as above with additions as below: Mr. Kyle expressed concern about who "all these girls are"and told me he just bought this house. He reported some weakness but denied dyspnea. Patient was pleasantly confused, respirations were nonlabored with good airflow and clear breath sounds Cardiac rhythm is regular, lower extremities without edema Overall doing well however creatinine is up today as is sodium; furosemide on hold-reassess electrolytes/creatinine in a.m. Provided metabolic parameters are stable or improved I anticipate discharge to his home facility tomorrow. Chest x-ray reviewed by myself demonstrating left shoulder replacement, pacemaker, spinal fusion, borderline cardiomegaly but clear lung ramirez. Discussed with nursing and case management. Hospital Course Summary Disclaimer: The visit summary below is not to be considered part of the above Progress Note.
--- NOTE | 2017-05-03 12:54 | Cardiology Progress Note ---
Subjective Principal diagnosis: systolic HF, elevated troponin, afib <Jennifer Caicedo - 12:55> Interval history: John is seen in in his room on Medical to follow up for systolic heart failure , elevated troponins -NSTEMI, typeII,. and Afib. He is sleeping, sitting up in bed and has his noo0n meal in front of him. He is oriented to place and person, but not time. He asks me who I am, as he does every time I see him. He denies chest pain or palpitations or difficulty breathing. <Jennifer Caicedo - 05/03/17 12:55> Exam Vital signs: Temperature 95.3 F L 05/05/17 00:00 Pulse Rate 71 05/05/17 00:00 Respiratory Rate 20 05/05/17 00:00 Blood Pressure 143/78 H 05/05/17 00:00 Pulse Oximetry 96 05/05/17 00:00 <Benjie Beck - 05/05/17 07:39> Temperature 98.5 F 05/03/17 08:00 Pulse Rate 71 05/03/17 08:00 Respiratory Rate 20 05/03/17 08:00 Blood Pressure 139/82 05/03/17 08:00 Pulse Oximetry 96 05/03/17 08:00 <Jennifer Caicedo - 05/03/17 12:55> - Constitutional no acute distress, well nourished, cooperative <Jennifer Caicedo - 05/03/17 12: 55> - Routine HEENT Exam Head: Present: normocephalic <Jennifer Caicedo - 05/03/17 12:55> Eye: Present: cataracts <Jennifer Caicedo - 05/03/17 12:55> ENT: Present: mucous membranes moist <Jennifer Caicedo - 05/03/17 12:55> - Routine Neck Exam Absent: JVD, carotid bruit <Jennifer Caicedo - 05/03/17 12:55> - Routine Chest/Breast/Axilla Exam Chest wall: Absent: tenderness <Jennifer Caicedo - 05/03/17 12:55> - Routine Respiratory Exam Present: CTA bilaterally. Absent: rales, wheezes <Jennifer Caicedo - 05/03/17 12:55> - Routine Cardiovascular Exam Present: RRR, no murmur. Absent: JVD <Jennifer Caicedo - 05/03/17 12:55> - Routine Abdominal Exam Present: soft, normoactive bowel sounds <Jennifer Caicedo - 05/03/17 12:55> - Routine Extremities Exam Present: no edema <Jennifer Caicedo - 05/03/17 12:55> - Routine Skin Exam Present: intact, dry, warm <Jennifer Caicedo - 05/03/17 12:55> - Routine Neurological Exam Present: alert <Jennifer Caicedo - 05/03/17 12:55> - Routine Psychiatric Exam Present: normal affect <Jennifer Caicedo - 05/03/17 12:55> - Additional findings Additional findings: Laboratory Results - last 48 hr 05/02/17 05/02/17 05/03/17 04:34 04:34 06:45 WBC 7.8 6.0 RBC 3.56 L 3.55 L Hgb 10.8 L 10.9 L Hct 34.7 L 34.7 L MCV 97.5 97.7 MCH 30.3 30.7 MCHC 31.1 31.4 RDW Std Deviation 48.5 49.7 Plt Count 166 164 MPV 10.4 10.5 Immature Gran % (Auto) 0.3 0.2 Neut % (Auto) 80.8 H 80.4 H Lymph % (Auto) 6.3 L 8.7 L [place] % (Auto) 8.9 7.9 Eos % (Auto) 3.3 2.3 Baso % (Auto) 0.4 0.5 Neut # (Auto) 6.3 4.8 Lymph # (Auto) 0.5 L 0.5 L [place] # (Auto) 0.7 0.5 Eos # (Auto) 0.3 0.1 Baso # (Auto) 0.0 0.0 Abs Immat Gran (auto) 0.02 0.01 Turbidity < 20 Sodium 148 H Potassium 3.9 Chloride 112 H Carbon Dioxide 27 Anion Gap 9 BUN 32.0 H Creatinine 1.7 H GFR Calculation 39 BUN/Creatinine Ratio 19 Glucose 78 Calculated Osmolality 290 H Calcium 9.6 Icterus Index < 2 Specimen Hemolysis < 15 05/03/17 06:45 WBC RBC Hgb Hct MCV MCH MCHC RDW Std Deviation Plt Count MPV Immature Gran % (Auto) Neut % (Auto) Lymph % (Auto) [place] % (Auto) Eos % (Auto) Baso % (Auto) Neut # (Auto) Lymph # (Auto) [place] # (Auto) Eos # (Auto) Baso # (Auto) Abs Immat Gran (auto) Turbidity < 20 Sodium 147 H Potassium 4.4 Chloride 111 H Carbon Dioxide 28 Anion Gap 8 BUN 36.0 H Creatinine 2.0 H D GFR Calculation 32 BUN/Creatinine Ratio 18 Glucose 79 Calculated Osmolality 289 H Calcium 9.0 Icterus Index < 2 Specimen Hemolysis 26 H Acetaminophen (Tylenol) 500 mg PO Q4H PRN PRN Reason: Pain Last Admin: 05/01/17 15:36 Dose: 500 mg Albuterol/Ipratropium (Duoneb) 3 ml AEROSOL BID [facility] Last Admin: 05/02/17 19:15 Dose: 3 ml Albuterol/Ipratropium (Duoneb) 3 ml AEROSOL PRN PRN Amiodarone HCl (Pacerone) 200 mg PO DAILY [facility] Last Admin: 05/03/17 08:36 Dose: 200 mg Amlodipine Besylate (Norvasc) 10 mg PO DAILY [facility] Last Admin: 05/03/17 08:36 Dose: 10 mg Aspirin (Ecotrin) 81 mg PO DAILY [facility] Last Admin: 05/03/17 08:35 Dose: 81 mg Atorvastatin Calcium (Lipitor) 10 mg PO HS [facility] Last Admin: 05/02/17 21:35 Dose: 10 mg Bisacodyl (Dulcolax) 10 mg RECTALLY DAILY PRN PRN Reason: Constipation Budesonide (Pulmicort Inhalation) 0.5 mg AEROSOL RTBID [facility] Last Admin: 05/02/17 19:15 Dose: 0.5 mg Bupropion HCl (Wellbutrin Xl) 300 mg PO DAILY [facility] Last Admin: 05/03/17 08:35 Dose: 300 mg Clonazepam (Klonopin) 1 mg PO HS [facility] Last Admin: 05/02/17 21:35 Dose: 1 mg Clopidogrel Bisulfate (Plavix) 75 mg PO DAILY [facility] Last Admin: 05/03/17 08:36 Dose: 75 mg Famotidine (Pepcid) 20 mg PO DAILY [facility] Last Admin: 05/03/17 08:35 Dose: 20 mg Guaifenesin/Dextromethorphan (Mucinex Dm) 1 tab PO BID [facility] Last Admin: 05/03/17 08:35 Dose: 1 tab Heparin Sodium (Porcine) (Heparin Sq) 5,000 units SQ Q8HR [facility] Last Admin: 05/03/17 08:35 Dose: 5,000 units Hydralazine HCl (Apresoline) 25 mg PO TIDWM [facility] Last Admin: 05/03/17 12:27 Dose: 25 mg Ceftriaxone Sodium 1 g/ Sodium (Chloride) 100 mls @ 200 mls/hr IV Q24H [facility] Last Infusion: 05/03/17 07:10 Dose: Infused Isosorbide Mononitrate (Imdur) 30 mg PO BID/E [facility] Last Admin: 05/03/17 06:29 Dose: 30 mg Lactobacillus Acidophilus (Culturelle) 1 cap PO DAILY [facility] Last Admin: 05/03/17 08:35 Dose: 1 cap Lisinopril (Prinivil) 5 mg PO HS [facility] Last Admin: 05/02/17 21:35 Dose: 5 mg Lorazepam (Ativan Inj) 0.5 mg IVP Q6H PRN Last Admin: 04/30/17 12:23 Dose: 0.5 mg Magnesium Hydroxide (Mom) 30 ml PO DAILY PRN PRN Reason: Constipation Menthol (Ricola Sf) 1 lozenge MM PRN PRN PRN Reason: Cough Last Admin: 05/02/17 21:35 Dose: 1 lozenge Metoprolol Tartrate (Lopressor) 50 mg PO BIDWM [facility] Last Admin: 05/03/17 08:36 Dose: 50 mg Morphine Sulfate (Morphine Sulfate Inj) 1 - 2 mg IVP Q2H PRN PRN Reason: Pain Last Admin: 04/27/17 19:38 Dose: 2 mg Nitroglycerin (Nitrostat) 0.4 mg SL Q5MIN PRN PRN Reason: CHEST PAIN Ondansetron HCl (Zofran) 4 mg IVP Q6H PRN PRN Reason: Nausea Last Admin: 05/02/17 14:23 Dose: 4 mg Polyethylene Glycol (Miralax) 17 gm PO DAILY [facility] Last Admin: 05/03/17 08:35 Dose: 17 gm Prednisone (Deltasone) 10 mg PO WB [facility] Last Admin: 05/03/17 08:36 Dose: 10 mg Senna/Docusate Sodium (Senna Plus Tablet) 2 tab PO BID [facility] Last Admin: 05/03/17 08:35 Dose: 2 tab Sertraline HCl (Zoloft) 150 mg PO DAILY [facility] Last Admin: 05/03/17 08:35 Dose: 150 mg Sodium Chloride (Iv Flush) 10 - 80 ml IVF PRN PRN PRN Reason: Flushing Last Admin: 05/03/17 06:28 Dose: 10 ml Sodium Chloride (Normal Saline) 500 ml IV PRN PRN Last Admin: 05/02/17 06:11 Dose: 500 ml <Jennifer Caicedo - 05/03/17 12:55> - Urinary Catheter Management Urethral Cath placed during this visit: no <Benjie Beck - 05/05/17 07:39> yes, but has since been removed by the nurse <Jennifer Caicedo - 05/04/17 11:44> Insertion date: 04/27/17 <Jennifer Caicedo - 05/03/17 12:55> Insertion time: 09:24 <Jennifer Caicedo - 05/03/17 12:55> Removal date: 05/01/17 <Jennifer Caicedo - 05/03/17 12:55> Removal time: 12:09 <Jennifer Caicedo - 05/03/17 12:55> Assessment and Plan - Assessment and Plan (1) HTN (hypertension) Current visit: Yes Status: Chronic (2) Atrial fibrillation Current visit: Yes Status: Chronic (3) CKD stage G3b/A1, 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 mg/g Current visit: No Status: Chronic (4) Pacemaker Current visit: No Status: Chronic (5) Hypoxia Current visit: No Status: Acute (6) Right lower lobe pneumonia Current visit: Yes Status: Acute (7) Elevated troponin I level Problem details: NSTEMI type II Current visit: Yes Status: Acute (8) Systolic CHF Current visit: Yes Status: Acute <Benjie Beck - 05/05/17 07:39> (1) Right lower lobe pneumonia Current visit: Yes Status: Acute (2) Elevated troponin I level Problem details: NSTEMI type II Current visit: Yes Status: Acute (3) Hypoxia Current visit: No Status: Acute (4) Pacemaker Current visit: No Status: Chronic (5) Atrial fibrillation Current visit: Yes Status: Chronic (6) HTN (hypertension) Current visit: Yes Status: Chronic (7) CKD stage G3b/A1, 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 I am involved in the formulation of the patient's plan of care. <Benjie Beck - 05/05/17 07:39> Hospital Course Summary Disclaimer: The visit summary below is not to be considered part of the above Progress Note. <Benjie Beck - 05/05/17 07:39> The visit summary below is not to be considered part of the above Progress Note. 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 IVF started - decrease secondary to pulmonary edema and discontinued. Trend troponin and lactate (of note-repeat lactate delayed secondary to patient refusing blood draw) ECHO due to elevated troponin and pulm edema Consult Dr Beck due to elevated troponin. SCD for DVT prevention Monitor lab. DNR as per his requests. Care to return to Dr Bhagat at time of discharge from [facility]. 04/27/17 Cardiology Systolic HF: - EF is 40% - PAP 57 - Diurese with Lasix 20mg IV BID RLL pneumonia Hypoxia Elevated troponin - NSTEMI type II - Trend serial troponins, have been flat: 1)0.738, 2) 0,794, 3) 0.807 AFib: Continue amiodarone. Stop Cardizem, Start Metoprolol 50mg po BID HTN: Amlodipine 5mg and Metoprolol 50mg BID. Continue Imdur and Hydralazine. 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 Continue Lasix 20mg IV BID repeat troponin and BNP 04/28/17 Hospitalist Continue Rocephin for pulmonary coverage, will stop azithromycin secondary to potential interaction with amiodarone. WBC with decrease to 7.7 this morning. Start Mucinex DM BID to help decrease cough and secretions. Ricola prn. Continue with supplemental O2, weaning as able. Lasix 20mg IV BID to help decrease edema. Creatinine stable, potassium with decrease secondary to loop diuretics. Start oral potassium 20mEq BID with meals. Will add lisinopril 5mg at night as EF with decrease. Recheck BMP and Mg in am due to diuretics. Monitor CBC due to pneumonia and leukocytosis. Continue supportive CCU care. Clinically improving, but do not feel stable enough for floor transition. 04/29/17 Hospitalist Pneumonia improving clinically. WBC normalized. O2 needs decreasing. No febrile process. Continue with Rocephin. Recheck CXR for f/u pneumonia and pulmonary edema. Discussed with cardiology about decreasing Lasix - could move to 20mg orally BID. Sodium with increase to 146. Additional potassium give as potassium low. Diamox 500mg orally x1 as CO2 with increase. Bladder retraining with cath. Work on bowel function. Medically improving, transfer to medical floor for continuation of care. 04/29/17 Cardiology Change Lasix to oral, continue to monitor. 04/30/17 Hospitalist Continue on Rocephin for antimicrobial coverage. Repeat Chest X-ray this morning revels improvement of right lung consolidation. Decrease Lasix to once a day. Continue with oxygen, BiPAP and scheduled DuoNeb breathing treatments. Ativan as needed for acute behaviors and agitation. Continue to trend daily labs, sodium remains slightly elevated 146, creatinine increased to 1.7. 04/30/17 Cardiology Stable, remains confused. 05/01/17 Hospitalist Somnolent today, but able to take medications and foods. Creatinine 1.7. Potassium 4.1. CO2 28. Decrease potassium to 10 mEq with breakfast as Lasix decreased. Encourage CPAP when sleeping. Will continue with Rocephin for pulmonary coverage-breathing improving and WBC normal. Continue with supportive care. 05/02/17 Patient currently with nausea and some pain in the right upper quadrant with palpation. He was given some Zofran. Will continue to monitor. Sodium levels are gradually climbing. 148 today. DC Lasix Creatinine remains at 1.7. Potassium 3.9. CO2 27. Will continue with Rocephin for pulmonary coverage-breathing improving and WBC normal. 05/03/17- Repeat Chest Xray this morning revels improvement in Pneumonia. Lasix was stopped after yesterday's dose. Creatinine today has increased to 2.0. Lisinopril placed on hold. Will continue to monitor. Hopeful to return to [facility] soon. <Jennifer Caicedo - 05/04/17 11:44>
[2017-05-03] MEDS: BUDESONIDE INH.SOLN 0.5mg/2ml NEB AEROSOL SCH (19:42)
[2017-05-03] MEDS: ALBUTEROL/IPRATROPIUM 2.5mg-0.5mg/3ml NEB AEROSOL SCH (19:42)
[2017-05-03] MEDS: ClonazePAM 1 MG TABLET PO SCH (20:23)
[2017-05-03] MEDS: ATORVASTATIN 10 MG TABLET PO SCH (20:23)
[2017-05-04] MEDS: HEPARIN SUB-Q 5,000 UNITS/0.5 ML INJECTION SQ SCH ×3 (00:06→17:35)
[2017-05-04] MEDS: ISOSORBIDE MONONITRATE ER 30 MG TABLET PO SCH ×2 (06:16→20:52)
[2017-05-04] MEDS: SALINE FLUSH 10ml SYRINGE IVF PRN ×2 (06:17→10:14)
[2017-05-04] MEDS: NS FLUSH BAG 500ml IV PRN (06:19)
[2017-05-04] MEDS: CEFTRIAXONE 1 G in NS 100 ML IV SCH (06:20)
[2017-05-04] MEDS: BUDESONIDE INH.SOLN 0.5mg/2ml NEB AEROSOL SCH ×3 (08:10→23:03)
[2017-05-04] MEDS: ALBUTEROL/IPRATROPIUM 2.5mg-0.5mg/3ml NEB AEROSOL SCH ×2 (08:10→23:03)
[2017-05-04] MEDS: LACTOBACILLUS (15B cfu) CAPSULE PO SCH (09:25)
[2017-05-04] MEDS: PredniSONE 10 MG TABLET PO SCH (09:25)
[2017-05-04] MEDS: SENNA + DOCUSATE TABLET PO SCH ×2 (09:25→20:53)
[2017-05-04] MEDS: HYDRALAZINE 25 MG TABLET PO SCH ×3 (09:25→17:36)
[2017-05-04] MEDS: AMIODARONE 200 MG TABLET PO SCH (09:26)
[2017-05-04] MEDS: FAMOTIDINE 20 MG TABLET PO SCH (09:26)
[2017-05-04] MEDS: BuPROPion XL 300mg (24HR) TABLET PO SCH (09:26)
[2017-05-04] MEDS: AMLODIPINE 10 MG TABLET PO SCH (09:26)
[2017-05-04] MEDS: CLOPIDOGREL 75 MG TABLET PO SCH (09:26)
[2017-05-04] MEDS: ASPIRIN *EC* 81 MG TABLET PO SCH (09:26)
[2017-05-04] MEDS: GUAIFENESIN/D-METHORPHAN 600mg/30mg TABLET PO SCH ×2 (09:27→20:52)
[2017-05-04] MEDS: POLYETHYL GLYCOL 3350 17gm PACKET PO SCH (09:27)
[2017-05-04] MEDS: SERTRALINE 100 MG TABLET PO SCH (09:45)
[2017-05-04] MEDS ORDERED: NS 1,000 ML IV SCH (10:15)
--- NOTE | 2017-05-04 13:44 | Cardiology Progress Note ---
Subjective Principal diagnosis: systolic HF, elevated troponin, afib <Jennifer Caicedo - 13:44> Interval history: John is seen in in his room on Medical to follow up for systolic heart failure , elevated troponins -NSTEMI, typeII,. and Afib. He is sitting up in in the recliner. He states that he is waiting for someone to come and take him home. He is oriented to place and person, but not time. He denies chest pain or palpitations or difficulty breathing. <Jennifer Caicedo - 05/04/17 13:44> Exam Vital signs: Temperature 97.3 F 05/05/17 08:00 Pulse Rate 84 05/05/17 08:00 Respiratory Rate 18 05/05/17 08:00 Blood Pressure 133/76 05/05/17 08:00 Pulse Oximetry 91 05/05/17 08:00 <SelmaalejandrinasanjivBenjie - 05/05/17 12:23> Temperature 96.7 F L 05/04/17 08:06 Pulse Rate 70 05/04/17 08:06 Respiratory Rate 20 05/04/17 08:06 Blood Pressure 133/80 05/04/17 08:06 Pulse Oximetry 95 05/04/17 08:06 <Jennifer Caicedo - 05/04/17 13:44> - Constitutional no acute distress, well nourished, cooperative <Jennifer Caicedo - 05/04/17 13: 44> - Routine HEENT Exam Head: Present: normocephalic <Jennifer Caicedo 05/04/17 13:44> ENT: Present: mucous membranes moist <Jennifer Caicedo - 05/04/17 13:44> - Routine Neck Exam Absent: JVD, carotid bruit <Jennifer Caicedo 05/04/17 13:44> - Routine Chest/Breast/Axilla Exam Chest wall: Absent: tenderness <Jennifer Caicedo 05/04/17 13:44> - Routine Respiratory Exam Present: CTA bilaterally. Absent: rales, wheezes <Jennifer Caicedo 05/04/17 13:44> - Routine Cardiovascular Exam Present: RRR, no murmur. Absent: JVD <Jennifer Caicedo 05/04/17 13:44> - Routine Abdominal Exam Present: soft, normoactive bowel sounds <Jennifer Caicedo - 05/04/17 13:44> - Routine Extremities Exam Present: no edema <Jennifer Caicedo - 05/04/17 13:44> - Routine Skin Exam Present: intact, dry, warm <Jennifer Caicedo - 05/04/17 13:44> - Routine Neurological Exam Present: alert <Jennifer Caicedo - 05/04/17 13:44> - Routine Psychiatric Exam Present: normal affect, normal thought process <Jennifer Caicedo - 05/04/17 13: 44> - Additional findings Additional findings: Laboratory Results - last 24 hr 05/04/17 04:48 Turbidity < 20 Sodium 147 H Potassium 4.0 Chloride 110 H Carbon Dioxide 28 Anion Gap 9 BUN 38.0 H Creatinine 2.2 H D GFR Calculation 29 BUN/Creatinine Ratio 17 Glucose 74 L Calculated Osmolality 290 H Calcium 9.1 Icterus Index < 2 Specimen Hemolysis < 15 Acetaminophen (Tylenol) 500 mg PO Q4H PRN PRN Reason: Pain Last Admin: 05/01/17 15:36 Dose: 500 mg Albuterol/Ipratropium (Duoneb) 3 ml AEROSOL BID [facility] Last Admin: 05/04/17 08:10 Dose: 3 ml Albuterol/Ipratropium (Duoneb) 3 ml AEROSOL PRN PRN Amiodarone HCl (Pacerone) 200 mg PO DAILY [facility] Last Admin: 05/04/17 09:26 Dose: 200 mg Amlodipine Besylate (Norvasc) 10 mg PO DAILY [facility] Last Admin: 05/04/17 09:26 Dose: 10 mg Aspirin (Ecotrin) 81 mg PO DAILY [facility] Last Admin: 05/04/17 09:26 Dose: 81 mg Atorvastatin Calcium (Lipitor) 10 mg PO HS [facility] Last Admin: 05/03/17 20:23 Dose: 10 mg Bisacodyl (Dulcolax) 10 mg RECTALLY DAILY PRN PRN Reason: Constipation Budesonide (Pulmicort Inhalation) 0.5 mg AEROSOL RTBID [facility] Last Admin: 05/04/17 08:11 Dose: 0.5 mg Bupropion HCl (Wellbutrin Xl) 300 mg PO DAILY [facility] Last Admin: 05/04/17 09:26 Dose: 300 mg Clonazepam (Klonopin) 1 mg PO HS [facility] Last Admin: 05/03/17 20:23 Dose: 1 mg Clopidogrel Bisulfate (Plavix) 75 mg PO DAILY [facility] Last Admin: 05/04/17 09:26 Dose: 75 mg Famotidine (Pepcid) 20 mg PO DAILY [facility] Last Admin: 05/04/17 09:26 Dose: 20 mg Guaifenesin/Dextromethorphan (Mucinex Dm) 1 tab PO BID [facility] Last Admin: 05/04/17 09:27 Dose: 1 tab Heparin Sodium (Porcine) (Heparin Sq) 5,000 units SQ Q8HR [facility] Last Admin: 05/04/17 09:26 Dose: 5,000 units Hydralazine HCl (Apresoline) 25 mg PO TIDWM [facility] Last Admin: 05/04/17 12:20 Dose: 25 mg Ceftriaxone Sodium 1 g/ Sodium (Chloride) 100 mls @ 200 mls/hr IV Q24H [facility] Last Infusion: 05/04/17 06:52 Dose: Infused Sodium Chloride (Normal Saline) 1,000 mls @ 100 mls/hr IV .Q10H [facility] Last Admin: 05/04/17 10:13 Dose: 100 mls/hr Isosorbide Mononitrate (Imdur) 30 mg PO BID/E [facility] Last Admin: 05/04/17 06:16 Dose: 30 mg Lactobacillus Acidophilus (Culturelle) 1 cap PO DAILY [facility] Last Admin: 05/04/17 09:25 Dose: 1 cap Lorazepam (Ativan Inj) 0.5 mg IVP Q6H PRN Last Admin: 04/30/17 12:23 Dose: 0.5 mg Magnesium Hydroxide (Mom) 30 ml PO DAILY PRN PRN Reason: Constipation Menthol (Ricola Sf) 1 lozenge MM PRN PRN PRN Reason: Cough Last Admin: 05/02/17 21:35 Dose: 1 lozenge Metoprolol Tartrate (Lopressor) 50 mg PO BIDWM [facility] Last Admin: 05/04/17 09:25 Dose: 50 mg Morphine Sulfate (Morphine Sulfate Inj) 1 - 2 mg IVP Q2H PRN PRN Reason: Pain Last Admin: 04/27/17 19:38 Dose: 2 mg Nitroglycerin (Nitrostat) 0.4 mg SL Q5MIN PRN PRN Reason: CHEST PAIN Ondansetron HCl (Zofran) 4 mg IVP Q6H PRN PRN Reason: Nausea Last Admin: 05/02/17 14:23 Dose: 4 mg Polyethylene Glycol (Miralax) 17 gm PO DAILY [facility] Last Admin: 05/04/17 09:27 Dose: 17 gm Prednisone (Deltasone) 10 mg PO WB [facility] Last Admin: 05/04/17 09:25 Dose: 10 mg Senna/Docusate Sodium (Senna Plus Tablet) 2 tab PO BID [facility] Last Admin: 05/04/17 09:25 Dose: 2 tab Sertraline HCl (Zoloft) 150 mg PO DAILY [facility] Last Admin: 05/04/17 09:45 Dose: 150 mg Sodium Chloride (Iv Flush) 10 - 80 ml IVF PRN PRN PRN Reason: Flushing Last Admin: 05/04/17 10:14 Dose: 10 ml Sodium Chloride (Normal Saline) 500 ml IV PRN PRN Last Admin: 05/04/17 06:19 Dose: 500 ml <Jennifer Caicedo - 05/04/17 13:44> - Urinary Catheter Management Urethral Cath placed during this visit: no <Benjie Beck - 05/05/17 12:23> yes, but has since been removed by the nurse <Jennifer Caicedo - 05/04/17 13:44> Insertion date: 04/27/17 <Jennifer Caicedo - 05/04/17 13:44> Insertion time: 09:24 <Jennifer Caicedo - 05/04/17 13:44> Removal date: 05/01/17 <Jennifer Caicedo - 05/04/17 13:44> Removal time: 12:09 <Jennifer Caicedo - 05/04/17 13:44> Assessment and Plan - Assessment and Plan (1) HTN (hypertension) Current visit: Yes Status: Chronic (2) Atrial fibrillation Current visit: Yes Status: Chronic (3) CKD stage G3b/A1, 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 mg/g Current visit: No Status: Chronic (4) Pacemaker Current visit: No Status: Chronic (5) Hypoxia Current visit: No Status: Acute (6) Right lower lobe pneumonia Current visit: Yes Status: Acute (7) Elevated troponin I level Problem details: NSTEMI type II Current visit: Yes Status: Acute (8) Systolic CHF Current visit: Yes Status: Acute <Benjie Beck - 05/05/17 12:23> (1) Right lower lobe pneumonia Current visit: Yes Status: Acute (2) Elevated troponin I level Problem details: NSTEMI type II Current visit: Yes Status: Acute (3) Hypoxia Current visit: No Status: Acute (4) Pacemaker Current visit: No Status: Chronic (5) Atrial fibrillation Current visit: Yes Status: Chronic (6) HTN (hypertension) Current visit: Yes Status: Chronic (7) CKD stage G3b/A1, 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 mg/g Current visit: No Status: Chronic (8) Systolic CHF Current visit: Yes Status: Acute <Jennifer Caicedo - 05/04/17 13:42> - Attestation Attestation Narrative: 05/05/17 12:22 Recommendation After examining the patient I agree with the above assessment. I am involved in the formulation of the patient's plan of care. <Benjie Beck - 05/05/17 12:23> Hospital Course Summary Disclaimer: The visit summary below is not to be considered part of the above Progress Note. <Benjie Beck - 05/05/17 12:23> The visit summary below is not to be considered part of the above Progress Note. 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 IVF started - decrease secondary to pulmonary edema and discontinued. Trend troponin and lactate (of note-repeat lactate delayed secondary to patient refusing blood draw) ECHO due to elevated troponin and pulm edema Consult Dr Beck due to elevated troponin. SCD for DVT prevention Monitor lab. DNR as per his requests. Care to return to Dr Bhagat at time of discharge from [facility]. 04/27/17 Cardiology Systolic HF: - EF is 40% - PAP 57 - Diurese with Lasix 20mg IV BID RLL pneumonia Hypoxia Elevated troponin - NSTEMI type II - Trend serial troponins, have been flat: 1)0.738, 2) 0,794, 3) 0.807 AFib: Continue amiodarone. Stop Cardizem, Start Metoprolol 50mg po BID HTN: Amlodipine 5mg and Metoprolol 50mg BID. Continue Imdur and Hydralazine. 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 Continue Lasix 20mg IV BID repeat troponin and BNP 04/28/17 Hospitalist Continue Rocephin for pulmonary coverage, will stop azithromycin secondary to potential interaction with amiodarone. WBC with decrease to 7.7 this morning. Start Mucinex DM BID to help decrease cough and secretions. Ricola prn. Continue with supplemental O2, weaning as able. Lasix 20mg IV BID to help decrease edema. Creatinine stable, potassium with decrease secondary to loop diuretics. Start oral potassium 20mEq BID with meals. Will add lisinopril 5mg at night as EF with decrease. Recheck BMP and Mg in am due to diuretics. Monitor CBC due to pneumonia and leukocytosis. Continue supportive CCU care. Clinically improving, but do not feel stable enough for floor transition. 04/29/17 Hospitalist Pneumonia improving clinically. WBC normalized. O2 needs decreasing. No febrile process. Continue with Rocephin. Recheck CXR for f/u pneumonia and pulmonary edema. Discussed with cardiology about decreasing Lasix - could move to 20mg orally BID. Sodium with increase to 146. Additional potassium give as potassium low. Diamox 500mg orally x1 as CO2 with increase. Bladder retraining with cath. Work on bowel function. Medically improving, transfer to medical floor for continuation of care. 04/29/17 Cardiology Change Lasix to oral, continue to monitor. 04/30/17 Hospitalist Continue on Rocephin for antimicrobial coverage. Repeat Chest X-ray this morning revels improvement of right lung consolidation. Decrease Lasix to once a day. Continue with oxygen, BiPAP and scheduled DuoNeb breathing treatments. Ativan as needed for acute behaviors and agitation. Continue to trend daily labs, sodium remains slightly elevated 146, creatinine increased to 1.7. 04/30/17 Cardiology Stable, remains confused. 05/01/17 Hospitalist Somnolent today, but able to take medications and foods. Creatinine 1.7. Potassium 4.1. CO2 28. Decrease potassium to 10 mEq with breakfast as Lasix decreased. Encourage CPAP when sleeping. Will continue with Rocephin for pulmonary coverage-breathing improving and WBC normal. Continue with supportive care. 05/02/17 Patient currently with nausea and some pain in the right upper quadrant with palpation. He was given some Zofran. Will continue to monitor. Sodium levels are gradually climbing. 148 today. DC Lasix Creatinine remains at 1.7. Potassium 3.9. CO2 27. Will continue with Rocephin for pulmonary coverage-breathing improving and WBC normal. 05/03/17- Repeat Chest Xray this morning revels improvement in Pneumonia. Lasix was stopped after yesterday's dose. Creatinine today has increased to 2.0. Lisinopril placed on hold. Will continue to monitor. Hopeful to return to [facility] soon. <Jennifer Caicedo - 05/04/17 13:44>
--- NOTE | 2017-05-04 20:41 | Progress Note ---
Subjective: Mr. Kyle was seen earlier today for reassessment and possible discharge. He denied dyspnea, chest pain, nausea, or pain. No fevers reported by nursing. He was cooperative and more lucid than when seen yesterday. Objective Vital signs: Temperature 95.5 F L 05/04/17 15:07 Pulse Rate 71 05/04/17 15:07 Respiratory Rate 18 05/04/17 15:07 Blood Pressure 125/77 05/04/17 15:07 Pulse Oximetry 97 05/04/17 15:07 EXAM General-NAD, up in chair, fluent speech HEENT-conjunctiva clear Lungs-respirations nonlabored, good airflow, breath sounds clear Cardiac-regular rhythm, S1-S2 Abd-soft, nontender Ext-without edema Neuro-MAEW Psych-calm, pleasantly confused when seen - Height/Weight/BMI: Height 1.73 m Weight 81.3 kg Body Mass Index 29.2 Results - Labs CBC & Chem 7: 05/03/17 06:45 05/04/17 15:04 Labs: Sodium this morning 147, BUN 38, creatinine 2.2 - ABG Interpretation ABG results: 04/30/17 12:38 ABG pH 7.370 ABG pCO2 48 H ABG pO2 89 ABG HCO3 28 H ABG Total CO2 29 H ABG O2 Saturation 96.0 ABG Base Excess 2.0 Assessment and Plan (1) Right lower lobe pneumonia Current visit: Yes Status: Acute (2) Atrial fibrillation Current visit: Yes Status: Chronic (3) Elevated troponin I level Problem details: NSTEMI type II Current visit: Yes Status: Acute DVT Prophylaxis: SQ Heparin Resuscitation Status: Do Not Resuscitate Assessment and Plan: ASSESSMENT Pneumonia Hypernatremia (POA) Acute respiratory insufficiency Pulmonary edema Elevated troponin - Type II NSTEMI Leukocytosis - resolved Acute systolic Heart failure - EF decreased to 40% CAD HTN HDL Chronic afib DURAN - treated with CPAP Stage III CKD Bipolar affective disorder 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 Kyle is doing well clinically. Antibiotics have been completed for treatment of pneumonia. Ceftriaxone discontinued today after 8 days treatment. Oxygenating well on room air. Cardiac rhythm stable and no longer in pulmonary edema. However creatinine is slightly higher again today despite holding diuretics/ lisinopril yesterday. Low-volume saline given throughout the day and electrolytes/creatinine repeated midafternoon showing minimal improvement. Will complete 1 L normal saline today, reassess electrolytes/renal function in a.m. and provided no deterioration seen anticipate discharge to home facility tomorrow. Discussed with cardiology. Blood pressure stable off lisinopril. Discussed with case management and the patient's . Hospital Course Summary Disclaimer: The visit summary below is not to be considered part of the above Progress Note. 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 IVF started - decrease secondary to pulmonary edema and discontinued. Trend troponin and lactate (of note-repeat lactate delayed secondary to patient refusing blood draw) ECHO due to elevated troponin and pulm edema Consult Dr Beck due to elevated troponin. SCD for DVT prevention Monitor lab. DNR as per his requests. Care to return to Dr Bhagat at time of discharge from [facility]. 04/27/17 Cardiology Systolic HF: - EF is 40% - PAP 57 - Diurese with Lasix 20mg IV BID RLL pneumonia Hypoxia Elevated troponin - NSTEMI type II - Trend serial troponins, have been flat: 1)0.738, 2) 0,794, 3) 0.807 AFib: Continue amiodarone. Stop Cardizem, Start Metoprolol 50mg po BID HTN: Amlodipine 5mg and Metoprolol 50mg BID. Continue Imdur and Hydralazine. 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 Continue Lasix 20mg IV BID repeat troponin and BNP 04/28/17 Hospitalist Continue Rocephin for pulmonary coverage, will stop azithromycin secondary to potential interaction with amiodarone. WBC with decrease to 7.7 this morning. Start Mucinex DM BID to help decrease cough and secretions. Ricola prn. Continue with supplemental O2, weaning as able. Lasix 20mg IV BID to help decrease edema. Creatinine stable, potassium with decrease secondary to loop diuretics. Start oral potassium 20mEq BID with meals. Will add lisinopril 5mg at night as EF with decrease. Recheck BMP and Mg in am due to diuretics. Monitor CBC due to pneumonia and leukocytosis. Continue supportive CCU care. Clinically improving, but do not feel stable enough for floor transition. 04/29/17 Hospitalist Pneumonia improving clinically. WBC normalized. O2 needs decreasing. No febrile process. Continue with Rocephin. Recheck CXR for f/u pneumonia and pulmonary edema. Discussed with cardiology about decreasing Lasix - could move to 20mg orally BID. Sodium with increase to 146. Additional potassium give as potassium low. Diamox 500mg orally x1 as CO2 with increase. Bladder retraining with cath. Work on bowel function. Medically improving, transfer to medical floor for continuation of care. 04/29/17 Cardiology Change Lasix to oral, continue to monitor. 04/30/17 Hospitalist Continue on Rocephin for antimicrobial coverage. Repeat Chest X-ray this morning revels improvement of right lung consolidation. Decrease Lasix to once a day. Continue with oxygen, BiPAP and scheduled DuoNeb breathing treatments. Ativan as needed for acute behaviors and agitation. Continue to trend daily labs, sodium remains slightly elevated 146, creatinine increased to 1.7. 04/30/17 Cardiology Stable, remains confused. 05/01/17 Hospitalist Somnolent today, but able to take medications and foods. Creatinine 1.7. Potassium 4.1. CO2 28. Decrease potassium to 10 mEq with breakfast as Lasix decreased. Encourage CPAP when sleeping. Will continue with Rocephin for pulmonary coverage-breathing improving and WBC normal. Continue with supportive care. 05/02/17 Patient currently with nausea and some pain in the right upper quadrant with palpation. He was given some Zofran. Will continue to monitor. Sodium levels are gradually climbing. 148 today. DC Lasix Creatinine remains at 1.7. Potassium 3.9. CO2 27. Will continue with Rocephin for pulmonary coverage-breathing improving and WBC normal. 05/03/17- Repeat Chest Xray this morning revels improvement in Pneumonia. Lasix was stopped after yesterday's dose. Creatinine today has increased to 2.0. Lisinopril placed on hold. Will continue to monitor. Hopeful to return to [facility] soon. 05/04/17 Mr. Kyle is doing well clinically. Antibiotics have been completed for treatment of pneumonia. Ceftriaxone discontinued today after 8 days treatment. Oxygenating well on room air. Cardiac rhythm stable and no longer in pulmonary edema. However creatinine is slightly higher again today despite holding diuretics/ lisinopril yesterday. Low-volume saline given throughout the day and electrolytes/creatinine repeated midafternoon showing minimal improvement. Will complete 1 L normal saline today, reassess electrolytes/renal function in a.m. and provided no deterioration seen anticipate discharge to home facility tomorrow. Discussed with cardiology. Blood pressure stable off lisinopril.
[2017-05-04] MEDS: ATORVASTATIN 10 MG TABLET PO SCH (20:52)
[2017-05-04] MEDS: ClonazePAM 1 MG TABLET PO SCH (20:52)
[2017-05-05] MEDS: HEPARIN SUB-Q 5,000 UNITS/0.5 ML INJECTION SQ SCH ×2 (00:57→09:30)
[2017-05-05] MEDS: ISOSORBIDE MONONITRATE ER 30 MG TABLET PO SCH (05:32)
[2017-05-05 09:21] VITALS: BP 133/76; PULSE 84; RESP 18; TEMP 97.3; O2SAT 91
[2017-05-05] MEDS: SENNA + DOCUSATE TABLET PO SCH (09:30)
[2017-05-05] MEDS: SERTRALINE 100 MG TABLET PO SCH (09:30)
[2017-05-05] MEDS: ASPIRIN *EC* 81 MG TABLET PO SCH (09:30)
[2017-05-05] MEDS: AMLODIPINE 10 MG TABLET PO SCH (09:31)
[2017-05-05] MEDS: PredniSONE 10 MG TABLET PO SCH (09:31)
[2017-05-05] MEDS: GUAIFENESIN/D-METHORPHAN 600mg/30mg TABLET PO SCH (09:31)
[2017-05-05] MEDS: HYDRALAZINE 25 MG TABLET PO SCH ×2 (09:31→12:00)
[2017-05-05] MEDS: POLYETHYL GLYCOL 3350 17gm PACKET PO SCH (09:31)
[2017-05-05] MEDS: BuPROPion XL 300mg (24HR) TABLET PO SCH (09:31)
[2017-05-05] MEDS: CLOPIDOGREL 75 MG TABLET PO SCH (09:31)
[2017-05-05] MEDS: LACTOBACILLUS (15B cfu) CAPSULE PO SCH (09:31)
[2017-05-05] MEDS: AMIODARONE 200 MG TABLET PO SCH (09:31)
[2017-05-05] MEDS: FAMOTIDINE 20 MG TABLET PO SCH (09:31)
[2017-05-05] MEDS ORDERED: ALBUTEROL/IPRATROPIUM 2.5mg-0.5mg/3ml NEB AEROSOL PRN (10:00)
--- NOTE | 2017-05-05 10:38 | Discharge Instructions ---
Discharge Plan - Med Rec/Dispo Referrals/Follow Up: Roger Bhagat MD [Family Provider] - (Follow up in 1 week. Will need BMP at that time sent to Dr Bhagat) Prescriptions: New Amlodipine [Norvasc] 10 mg PO DAILY tablet Bisacodyl Supp [Dulcolax] 10 mg RECTALLY DAILY PRN supp PRN Reason: Constipation Hydralazine [Apresoline] 25 mg PO TIDWM tablet Milk of Magnesia [Mom] 30 ml PO DAILY PRN udc PRN Reason: Constipation Albuterol/Ipratropium [Duoneb] 3 ml AEROSOL PRN PRN #30 neb PRN Reason: wheezing Guaifenesin/Dm [Mucinex Dm] 1 tab PO BID tablet Metoprolol Tartrate [Lopressor] 50 mg PO BIDWM tablet Continue Nitroglycerin [Nitrostat] 0.4 mg SL Q5MIN PRN #0 PRN Reason: CHEST PAIN Atorvastatin Calcium 10 mg PO HS #0 Cyanocobalamin (Vitamin B-12) [Vitamin B-12] 1,000 mcg PO DAILY Cholecalciferol (Vitamin D3) [Vitamin D3] 1,000 unit PO DAILY PEG 3350 17gm PACKET [Miralax] 17 gm PO DAILY packet Senna + Docusate [Senna Plus Tablet] 2 tab PO BID tablet BuPROPion XL [Wellbutrin Xl] 300 mg PO DAILY Famotidine [Pepcid] 20 mg PO DAILY predniSONE [Prednisone] 10 mg PO DAILY ClonazePAM [Klonopin] 1 mg PO HS #15 tab Amiodarone HCl 200 mg PO DAILY #0 Ferrous Sulfate [Iron] 325 mg PO BIDLS #0 Sertraline HCl [Zoloft] 150 mg PO DAILY #0 Aspirin [Aspirin EC] 81 mg PO DAILY #0 Isosorbide Mononitrate [Isosorbide Mononitrate ER] 30 mg PO BID #0 Clopidogrel Bisulfate [Clopidogrel] 75 mg PO DAILY Sodium Chloride [[place]] 1 - 2 drop NS Q2H PRN #1 bottle PRN Reason: Nasal Congestion Acetaminophen [Acetaminophen Extra Strength] 500 mg PO Q4H PRN PRN Reason: Pain Lactobacillus Acidophilus [Probiotic] 1 each PO DAILY Discontinued Hydralazine [Apresoline] 25 mg PO HS Hydralazine HCl 25 mg PO BID #0 DiltiaZEM CD [Cardizem Cd] 360 mg PO DAILY #30 capsule Potassium Chloride [K-Dur] 20 meq PO WB #0 Discharge Instructions/Outpatient Orders: Provider Discharge Instructions Location: Determined By Patient - Disposition [facility] ([facility])
--- NOTE | 2017-05-05 10:42 | Extended Care Facility Orders ---
Admission Orders Admit to:: Prison Allergies/Adverse Reactions: Allergies No Known Allergies Allergy (Verified 04/27/17 05:26) Admitting Diagnosis: Pneumonia STEMI Admitting Physician: Dennis Wells MD Attending Physician: Dennis Wells MD Code Status: Do Not Resuscitate Anticiapted Length of Stay: 30 days or less Rehab Potential: fair Rehab Prognosis: fair Diet: 05/04/17 Lunch Regular Diet [DIET] Diet Modifications: Fluid Consistency: SYRNEC Food Consistency: GRMEAT Comment: SOFT DIET WITH GROUND MEAT May use Facility Protocol or Standing Orders: Yes May have flu vaccine: Yes Evaluations/Treatment: Speech, PT, OT Prison Certification: I certify that SNF services are required to be given on an Inpatient basis because of the patients need for longterm care on a continuing basis for the condition(s) for which he/she received inpatient hospital services prior to his/her transfer to the SNF. SNF inpatient care is necessary for the following reasons Indication for Prison: Other (PT,OT,ST) - Additional Information In Event of Arrest: Do Not Start CPR Referrals: Roger Bhagat MD [Family Provider] - (Follow up in 1 week. Will need BMP at that time sent to Dr Bhagat)
--- NOTE | 2017-05-05 10:47 | Discharge Summary ---
<Yasemin Victor V - Last Filed: 05/05/17 10:42> Discharge Information Date of admission: 04/27/17 07:58 Attending Physician: Dennis Wells MD Primary care physician: Roger Bhagat MD Consults: 04/27/17 10:36 Dr [Physician Consult] [CONS] Routine Consulting Provider: Benjie Beck Reason For Exam: Elevated troponin - pulmonary edema Ordering Provider has Notified Lead Network Engineer: Yes 05/03/17 14:55 Doctor [Physician Consult] [CONS] Routine Consulting Provider: Grzegorz Buchanan Reason For Exam: continued care Ordering Provider has Notified Lead Network Engineer: Yes - Discharge Diagnosis (1) Atrial fibrillation Status: Chronic (2) Right lower lobe pneumonia Status: Acute (3) Elevated troponin I level Status: Acute Discharge Diagnosis: Pneumonia Hypernatremia (POA) Acute respiratory insufficiency Pulmonary edema Elevated troponin - Type II NSTEMI Leukocytosis - resolved Acute systolic Heart failure - EF decreased to 40% CAD HTN HDL Chronic afib DURAN - treated with CPAP Stage III CKD Bipolar affective disorder 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 04/27/17-echocardiogram- IMPRESSION 1. Global hypokinesia with ejection fraction of 40%. 2. Pacemaker present in right heart. 3. Biatrial dilation. 4. Left ventricular dilation. 5. Mitral annulus calcification with mild mitral regurgitation. 6. Aortic sclerosis with mild aortic insufficiency. 7. Mild tricuspid regurgitation with moderate pulmonary hypertension with estimated pulmonary artery systolic pressure of 57. 04/28/17-chest [id number] diffuse airspace disease of the right lung 04/30/17-chest [id number] aeration of the lungs 05/03/17- Chest X-ray- Impression: No acute cardiopulmonary process appreciated with resolution of previously noted right-sided airspace disease. - Pathology None History of Present Illness HPI: HPI: 82 y/o male presents to [facility] ED via EMS secondary to difficulty breathing. Uses CPAP at night but not oxygen. Nursing check on patient and found he was having increasing work to breath and saturations low. Applies O2 which helped initially, but about 1 hour later respiratory distress increased and sats very decreased despite high flow O2. Reports cough and chest congestion and pain. No pain with breathing, but hard to take deep breath due to congestion. Reports cough 'for weeks' - but increased overnight. Appetite chronically decreased-not hungry. No pain with eating. Stools chronically slightly loose. No increased pedal edema. More tired, weak, and less active. Hemoglobin has been running low in outpatient setting-uncertain if patient is having any acute GI blood loss ( has Hx of that). Also reports was found to have a 'spot' on CXR - monitoring in outpatient setting for now. Objective Vital signs: Temperature 97.3 F 05/05/17 08:00 Pulse Rate 84 05/05/17 08:00 Respiratory Rate 18 05/05/17 08:00 Blood Pressure 133/76 05/05/17 08:00 Pulse Oximetry 91 05/05/17 08:00 Height/Weight/BMI: Height 1.73 m Weight 81.7 kg Body Mass Index 29.2 - Constitutional Present: no acute distress, well nourished, well developed - Routine HEENT Exam Eye: Present: EOMI ENT: Present: mucous membranes moist, dentition normal - Routine Respiratory Exam Present: CTA bilaterally. Absent: wheezes - Routine Cardiovascular Exam Present: RRR, S1, S2. Absent: murmur - Routine Abdominal Exam Present: soft, normoactive bowel sounds, non distended. Absent: tenderness - Routine Extremities Exam Present: normal capillary refill - Routine Skin Exam Present: dry, warm - Routine Neurological Exam Present: alert, oriented X3, CN II-XII intact - Routine Lymphatic Exam Lymphatic: Absent: adenopathy - Routine Psychiatric Exam Present: normal affect Hospital Course This is a general summary of the patient's hospital course. For more details refer to the complete medical record. 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 IVF started - decrease secondary to pulmonary edema and discontinued. Trend troponin and lactate (of note-repeat lactate delayed secondary to patient refusing blood draw) ECHO due to elevated troponin and pulm edema Consult Dr Beck due to elevated troponin. SCD for DVT prevention Monitor lab. DNR as per his requests. Care to return to Dr Bhagat at time of discharge from [facility]. 04/27/17 Cardiology Systolic HF: - EF is 40% - PAP 57 - Diurese with Lasix 20mg IV BID RLL pneumonia Hypoxia Elevated troponin - NSTEMI type II - Trend serial troponins, have been flat: 1)0.738, 2) 0,794, 3) 0.807 AFib: Continue amiodarone. Stop Cardizem, Start Metoprolol 50mg po BID HTN: Amlodipine 5mg and Metoprolol 50mg BID. Continue Imdur and Hydralazine. 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 Continue Lasix 20mg IV BID repeat troponin and BNP 04/28/17 Hospitalist Continue Rocephin for pulmonary coverage, will stop azithromycin secondary to potential interaction with amiodarone. WBC with decrease to 7.7 this morning. Start Mucinex DM BID to help decrease cough and secretions. Ricola prn. Continue with supplemental O2, weaning as able. Lasix 20mg IV BID to help decrease edema. Creatinine stable, potassium with decrease secondary to loop diuretics. Start oral potassium 20mEq BID with meals. Will add lisinopril 5mg at night as EF with decrease. Recheck BMP and Mg in am due to diuretics. Monitor CBC due to pneumonia and leukocytosis. Continue supportive CCU care. Clinically improving, but do not feel stable enough for floor transition. 04/29/17 Hospitalist Pneumonia improving clinically. WBC normalized. O2 needs decreasing. No febrile process. Continue with Rocephin. Recheck CXR for f/u pneumonia and pulmonary edema. Discussed with cardiology about decreasing Lasix - could move to 20mg orally BID. Sodium with increase to 146. Additional potassium give as potassium low. Diamox 500mg orally x1 as CO2 with increase. Bladder retraining with cath. Work on bowel function. Medically improving, transfer to medical floor for continuation of care. 04/29/17 Cardiology Change Lasix to oral, continue to monitor. 04/30/17 Hospitalist Continue on Rocephin for antimicrobial coverage. Repeat Chest X-ray this morning revels improvement of right lung consolidation. Decrease Lasix to once a day. Continue with oxygen, BiPAP and scheduled DuoNeb breathing treatments. Ativan as needed for acute behaviors and agitation. Continue to trend daily labs, sodium remains slightly elevated 146, creatinine increased to 1.7. 04/30/17 Cardiology Stable, remains confused. 05/01/17 Hospitalist Somnolent today, but able to take medications and foods. Creatinine 1.7. Potassium 4.1. CO2 28. Decrease potassium to 10 mEq with breakfast as Lasix decreased. Encourage CPAP when sleeping. Will continue with Rocephin for pulmonary coverage-breathing improving and WBC normal. Continue with supportive care. 05/02/17 Patient currently with nausea and some pain in the right upper quadrant with palpation. He was given some Zofran. Will continue to monitor. Sodium levels are gradually climbing. 148 today. DC Lasix Creatinine remains at 1.7. Potassium 3.9. CO2 27. Will continue with Rocephin for pulmonary coverage-breathing improving and WBC normal. 05/03/17- Repeat Chest Xray this morning revels improvement in Pneumonia. Lasix was stopped after yesterday's dose. Creatinine today has increased to 2.0. Lisinopril placed on hold. Will continue to monitor. Hopeful to return to [facility] soon. 05/04/17 Mr. Kyle is doing well clinically. Antibiotics have been completed for treatment of pneumonia. Ceftriaxone discontinued today after 8 days treatment. Oxygenating well on room air. Cardiac rhythm stable and no longer in pulmonary edema. However creatinine is slightly higher again today despite holding diuretics/ lisinopril yesterday. Low-volume saline given throughout the day and electrolytes/creatinine repeated midafternoon showing minimal improvement. Will complete 1 L normal saline today, reassess electrolytes/renal function in a.m. and provided no deterioration seen anticipate discharge to home facility tomorrow. Discussed with cardiology. Blood pressure stable off lisinopril. 05/05/17- Discharge Mr Kyle is seen and examined on day of discharge. He is pleasant during exam without complaints. Upon recheck of labs this morning. Renal function appears to be improving as creatinine is trending down to 1.9. Sodium continues to be persistently mildly elevated at 148. Overall John is medically stable, and ready for discharge. He will return to [facility] for skilled rehabilitation for ongoing strengthening. Multiple cardiac medications have changed from admission. Please review discharge med list. Like patient to follow-up with primary care provider, Dr. Bhagat in one week. At that time he will need a BMP to follow electrolytes and renal function. Time spent with patient: discharge greater than 30 minutes Discharge Plan - Med Rec/Dispo Referrals/Follow Up: Roger Bhagat MD [Family Provider] - (Follow up in 1 week. Will need BMP at that time sent to Dr Bhagat) Prescriptions: New Amlodipine [Norvasc] 10 mg PO DAILY tablet Bisacodyl Supp [Dulcolax] 10 mg RECTALLY DAILY PRN supp PRN Reason: Constipation Hydralazine [Apresoline] 25 mg PO TIDWM tablet Milk of Magnesia [Mom] 30 ml PO DAILY PRN udc PRN Reason: Constipation Albuterol/Ipratropium [Duoneb] 3 ml AEROSOL PRN PRN #30 neb PRN Reason: wheezing Guaifenesin/Dm [Mucinex Dm] 1 tab PO BID tablet Metoprolol Tartrate [Lopressor] 50 mg PO BIDWM tablet Continue Nitroglycerin [Nitrostat] 0.4 mg SL Q5MIN PRN #0 PRN Reason: CHEST PAIN Atorvastatin Calcium 10 mg PO HS #0 Cyanocobalamin (Vitamin B-12) [Vitamin B-12] 1,000 mcg PO DAILY Cholecalciferol (Vitamin D3) [Vitamin D3] 1,000 unit PO DAILY PEG 3350 17gm PACKET [Miralax] 17 gm PO DAILY packet Senna + Docusate [Senna Plus Tablet] 2 tab PO BID tablet BuPROPion XL [Wellbutrin Xl] 300 mg PO DAILY Famotidine [Pepcid] 20 mg PO DAILY predniSONE [Prednisone] 10 mg PO DAILY ClonazePAM [Klonopin] 1 mg PO HS #15 tab Amiodarone HCl 200 mg PO DAILY #0 Ferrous Sulfate [Iron] 325 mg PO BIDLS #0 Sertraline HCl [Zoloft] 150 mg PO DAILY #0 Aspirin [Aspirin EC] 81 mg PO DAILY #0 Isosorbide Mononitrate [Isosorbide Mononitrate ER] 30 mg PO BID #0 Clopidogrel Bisulfate [Clopidogrel] 75 mg PO DAILY Sodium Chloride [[place]] 1 - 2 drop NS Q2H PRN #1 bottle PRN Reason: Nasal Congestion Acetaminophen [Acetaminophen Extra Strength] 500 mg PO Q4H PRN PRN Reason: Pain Lactobacillus Acidophilus [Probiotic] 1 each PO DAILY Discontinued Hydralazine [Apresoline] 25 mg PO HS Hydralazine HCl 25 mg PO BID #0 DiltiaZEM CD [Cardizem Cd] 360 mg PO DAILY #30 capsule Potassium Chloride [K-Dur] 20 meq PO WB #0 Discharge Instructions/Outpatient Orders: Provider Discharge Instructions Location: Determined By Patient - Disposition 03 To U Not [facility] ([facility]) <Dennis Wells - Last Filed: 05/05/17 11:27> Discharge Information Date of admission: 04/27/17 07:58 Attending Physician: Dennis Wells MD Primary care physician: Roger Bhagat MD Consults: 04/27/17 10:36 Dr [Physician Consult] [CONS] Routine Consulting Provider: Benjie eBck Reason For Exam: Elevated troponin - pulmonary edema Ordering Provider has Notified Lead Network Engineer: Yes 05/03/17 14:55 Doctor [Physician Consult] [CONS] Routine Consulting Provider: Grzegorz Buchanan Reason For Exam: continued care Ordering Provider has Notified Lead Network Engineer: Yes - Discharge Diagnosis (1) Atrial fibrillation Status: Chronic (2) Right lower lobe pneumonia Status: Acute (3) Elevated troponin I level Status: Acute - Laboratory Labs: 05/03/17 06:45 05/05/17 04:26 Objective Vital signs: Temperature 97.3 F 05/05/17 08:00 Pulse Rate 84 05/05/17 08:00 Respiratory Rate 18 05/05/17 08:00 Blood Pressure 133/76 05/05/17 08:00 Pulse Oximetry 91 05/05/17 08:00 Height/Weight/BMI: Height 1.73 m Weight 81.7 kg Body Mass Index 29.2 Hospital Course This is a general summary of the patient's hospital course. For more details refer to the complete medical record. Discharge Plan - Med Rec/Dispo - Attestation Attestation Narrative: 05/05/17 11:25 Have independently interviewed and examined patient prior to discharge. Case discussed with my PLANNING AIDE. Care plan developed with my supervision; agree with above. Doing well this morning. Breathing well-not having SOA or congestion. No chest pain. Feels ready to leave hospital. Lungs; decreased, no distress. CV: irregular AB: soft nt/nd MSE: awake alert appropriate. Plan: Will D/C to [facility] for skilled care. See orders for details.
[2017-05-05] MEDS: BUDESONIDE INH.SOLN 0.5mg/2ml NEB AEROSOL SCH (11:34)
[2017-05-05] MEDS ORDERED: BUDESONIDE INH.SOLN 0.5mg/2ml NEB AEROSOL PRN (11:45)
== END 2017-05-05 13:00 | DRG 193 ==
LOC: ED 05:10 → CCU 07:35 → SUATTDRO 07:58 → CCU 07:58 → MED 04-29 17:45
PROVIDERS: ADMIT Hospitalist; ATTEND Hospitalist

== ENCOUNTER 2017-06-18 20:10 | Inpatient (IN) ==
[2017-06-18] MEDS: ALBUTEROL/IPRATROPIUM 2.5mg-0.5mg/3ml NEB AEROSOL SCH ×3 (20:36→21:24)
--- NOTE | 2017-06-18 20:55 | Emergency Department Report ---
SOB HPI - General Chief Complaint: Shortness of Breath/Dyspnea Stated Complaint: diff breathing Time Seen by Provider: 06/18/17 20:18 Source: patient, EMS, old records reviewed Mode of arrival: EMS Limitations: no limitations - History of Present Illness 82yo man presented to the ER by EMS for evaluation of dyspnea. Pt has a long- standing h/o COPD; also has dementia and does not fully understand the nature of his illness. Pt cannot describe how long his dyspnea has been ongoing or worsening. Is not on O2 at home; is on 2L by GA here to maintain SaO2 > 90%. Complaint: shortness of breath, cough Onset (ago): day(s) Consistency/Duration: constant Relieving factors: oxygen, rest, bronchodilators, upright position Exacerbating factors: lying flat, exertion, movement, coughing Known history of: COPD Associated symptoms: cough, wheezing Treatment prior to arrival: oxygen - Related Data Home oxygen amount: none Home Medications Medication Instructions Recorded Confirmed Ferrous Sulfate [Iron] 325 mg PO BID #0 09/16/15 06/18/17 Aspirin [Aspirin EC] 81 mg PO DAILY #0 02/02/16 06/18/17 Isosorbide Mononitrate [Isosorbide 30 mg PO BID #0 02/02/16 06/18/17 Mononitrate ER] Clopidogrel Bisulfate [Clopidogrel] 75 mg PO DAILY 01/09/17 06/18/17 Cyanocobalamin (Vitamin B-12) 1,000 mcg PO DAILY 01/09/17 06/18/17 [Vitamin B-12] Acetaminophen [Acetaminophen Extra 500 mg PO QID PRN 03/27/17 06/18/17 Strength] Lactobacillus Acidophilus 1 each PO DAILY 05/14/17 06/18/17 [Probiotic] Cholecalciferol (Vitamin D3) 1,000 unit PO DAILY 05/20/17 06/18/17 [Vitamin D3] Allergies Allergy/AdvReac Type Severity Reaction Status Date / Time No Known Allergies Allergy Verified 05/20/17 13:23 Review of Systems All systems: reviewed and negative except as stated Respiratory: Reports: as per HPI, cough, dyspnea, wheezes. Denies: hemoptysis, stridor PFSH Patient Stated Medical History Cerebrovascular Accident Yes: 2005 Dementia Yes Peripheral Neuropathy Yes Cataracts Yes Cardiac Arrhythmia Yes: Afib hx Coronary Artery Disease Yes: stents Hypertension Yes Pneumonia Yes Sleep Apnea Yes Diabetes Mellitus Type 1 No Gastroesophageal Reflux Yes Disease Gastrointestinal Bleeding Yes Ulcer Yes Other GI Yes: Constipation at times. Hx Incontinence Yes Hx Kidney Stones Yes Hx Renal Disease Yes Anemia Yes Clotting Problems Yes: ON PLAVIX MRSA Yes: Nasal Shingles Yes Anesthesia Reactions No Malignant Hyperthermia No Bipolar Disorder Yes Clinic Medical History (Last Reviewed 02/25/17 @ 11:05 by YOLANDA Louis) Right lower lobe pneumonia (Acute Medical) Elevated troponin I level (Acute Medical) NSTEMI type II Systolic CHF (Acute Medical) Elevated LFTs (Acute Medical) Anemia (Chronic Medical) Thrombocytopenia (Resolved Medical) Pacemaker (Chronic Medical) Dementia (Chronic Medical) Cholelithiasis and acute cholecystitis without obstruction (Acute Medical) Postoperative ecchymosis (Acute Medical) Hypoxia (Acute Medical) Hypokalemia (Acute Medical) DURAN (obstructive sleep apnea) (Chronic Medical) HTN (hypertension) (Chronic Medical) UTI (urinary tract infection) (Ruled-out Medical) Atrial fibrillation (Chronic Medical) CKD stage G3b/A1, 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 mg/g (Chronic Medical) Abnormal gait (Acute Medical) Anxiety (Acute Medical) Arthritis (Acute Medical) Carpal tunnel syndrome (Acute Medical) Chronic kidney disease, stage 4 (severe) (Acute Medical) Coronary artery disease (Acute Medical) Depression (Acute Medical) Essential hypertension (Acute Medical) Hyperlipemia (Acute Medical) Low back pain at multiple sites (Acute Medical) Osteoarthritis (Acute Medical) Renal cancer (Acute Medical) Sleep apnea (Acute Medical) Abrasion (Inactive Medical) Cholelithiasis and acute cholecystitis with obstruction (Inactive Medical) Fall (Inactive Medical) Fall (Inactive Medical) Fall on same level (Inactive Medical) Head injury (Inactive Medical) Low back pain (Inactive Medical) Strain of right hip (Inactive Medical) Surgical History: Colonoscopy 2014. Heart pacemaker 2010. Coronary artery stents 03/2014. Back surgeries x5 Family History: Family History (Last Reviewed 02/25/17 @ 11:05 by YOLANDA Louis) Mother Stroke Migraine Depression Father High blood pressure Congestive heart failure due to hypertension Sister Migraine - Social History Smoking status: Unknown if ever smoked Physical Exam - Limitations Limitations: altered mental status (dementia) - General General appearance: alert, in no apparent distress - Normal Exams: Head:: Normocephalic without trauma Eyes:: Pupils are PERRLA w/ EOMI, No scleral icterus, irritation, or foreign bodies noted ENMT:: No facial trauma, nasal exudates, pharyngeal erythema, or exudates are noted Neck:: Full range of motion, without adenopathy Lymphatic:: No lymphadenopathy Musculoskeletal:: No tenderness, or deformity noted Integumentary:: No rashes, hives, or bruising noted Neurological:: Patient is alert, and oriented Psychiatric:: Patient exhibits, appropriate attention - Chest Chest inspection: Present: normal inspection, symmetric chest wall rise. Absent : tenderness, rash - Respiratory Respiratory exam: Present: wheezes (In left lung), crackles (in right lung ramirez). Absent: normal lung sounds bilaterally, respiratory distress, prolonged expiratory phase - Cardiovascular Cardiovascular exam: Present: regular rate, normal rhythm, normal heart sounds Course - Consultations Consultation #1: Telehospitalist: Will admit pt for further eval/treatment. Requests solu-medrol 60mg q6hr. Time: 21:38 Vital Signs Temperature 98.8 F 06/18/17 20:10 Pulse Rate 71 06/18/17 20:10 Respiratory Rate 24 06/18/17 20:10 Blood Pressure 135/73 06/18/17 20:10 Pulse Oximetry 94 06/18/17 20:10 Temperature 98.8 F 06/18/17 20:10 Pulse Rate 100 06/18/17 21:00 Respiratory Rate 18 06/18/17 21:24 Blood Pressure 155/74 H 06/18/17 21:00 Pulse Oximetry 95 06/18/17 21:24 Shortness of Breath/Dyspnea - [facility] Narrative Medical decision making narrative: Pt with HCAP, ARF/CRF, and COPD exacerbation. Contacted hospitalist for admission. - Differential Diagnosis Likely: acute exacerbation of chronic obstructive airways disease, congestive heart failure, community acquired pneumonia, pulmonary embolism - Medical Records Attestation: I reviewed the patient's medical records. - Lab Data Attestation: I reviewed the patient's lab results. Result diagrams: 06/18/17 20:55 06/18/17 20:55 Lab Results 06/18/17 06/18/17 06/18/17 Range/Units 20:55 20:55 20:55 WBC 9.5 (4.5-11.0) T/MM3 RBC 3.54 L (4.50-5.90) M/MM3 Hgb 11.1 L (13.5-17.5) GM/DL Hct 34.8 L (41-53) % MCV 98.3 (80-100) UM3 MCH 31.4 (26-34) UUG MCHC 31.9 (31-37) GM/DL RDW Std Deviation 53.4 H (36.9-50.2) FL Plt Count 92 L (130-400) T/MM3 MPV 10.9 (9.4-12.4) UM3 Immature Gran % (Auto) Not performed Neut % (Auto) Not performed Lymph % (Auto) Not performed [place] % (Auto) Not performed Eos % (Auto) Not performed Baso % (Auto) Not performed Neut # (Auto) Not performed Lymph # (Auto) Not performed [place] # (Auto) Not performed Eos # (Auto) Not performed Baso # (Auto) Not performed Abs Immat Gran (auto) Not performed Neutrophils % (Manual) 95.0 H (33-66) % Band Neutrophils % 1.0 (0-6) % Lymphocytes % (Manual) 4.0 L (23-45) % Neutrophils # (Manual) 9.0 H (1.8-7.7) T/MM3 Band Neutrophils # 0.1 T/MM3 Lymphocytes # (Manual) 0.4 L (1-4.8) T/MM3 RBC Morph Comment Normal INR 1.10 (0.99-1.21) Turbidity < 20 (0-20) Sodium 139 (134-144) MEQ/L Potassium 4.3 (3.6-5) MEQ/L Chloride 97 L (98-107) MEQ/L Carbon Dioxide 32 H (22-30) MEQ/L Anion Gap 10 (5-15) MEQ/L BUN 41.0 H (9-20) MG/DL Creatinine 2.1 H (0.8-1.5) MG/DL GFR Calculation 30 BUN/Creatinine Ratio 20 (6-26) RATIO Glucose 87 (75-110) MG/DL Calculated Osmolality 277 (261-280) MOSM/KG Calcium 8.7 (8.4-10.2) MG/DL Icterus Index < 2 (0-7) Troponin I < 0.012 (0-0.12) ng/ml B-Natriuretic Peptide 8970 H (0-175) pg/mL Specimen Hemolysis < 15 (0-25) - Radiology Data Attestation: I reviewed the patient's radiology results. CXR: Increased haziness in lateral right lower lobe. Otherwise stable CXR. Likely RLL PNA. - EKG Data EKG #1 EKG attestation: Yes: I reviewed and interpreted this EKG. EKG results narrative: Electronically paced. Disposition Clinical Impression: HCAP (healthcare-associated pneumonia), COPD exacerbation ARF (acute renal failure) Qualifiers: Acute renal failure type: unspecified Qualified Code(s): N17.9 - Acute kidney failure, unspecified CRF (chronic renal failure) Qualifiers: Chronic kidney disease stage: unspecified stage Qualified Code(s): N18.9 - Chronic kidney disease, unspecified Disposition: 02 To [facility] Acute Care Print Language: Salvadorean Condition: Improved Prescriptions: No Action Cyanocobalamin (Vitamin B-12) [Vitamin B-12] 1,000 mcg PO DAILY Lactobacillus Acidophilus [Probiotic] 1 each PO DAILY Cholecalciferol (Vitamin D3) [Vitamin D3] 1,000 unit PO DAILY Ferrous Sulfate [Iron] 325 mg PO BID #0 Aspirin [Aspirin EC] 81 mg PO DAILY #0 Isosorbide Mononitrate [Isosorbide Mononitrate ER] 30 mg PO BID #0 Clopidogrel Bisulfate [Clopidogrel] 75 mg PO DAILY Acetaminophen [Acetaminophen Extra Strength] 500 mg PO QID PRN PRN Reason: Pain Referrals: Roger Bhagat MD [Family Provider] - Time of Disposition: 21:46 - Seen By: physician
--- OUTSIDE RECORDS SUMMARY | 2017-06-18 21:04 | External Medical Summary ---
[...] Medications Results No Known Results Summary Purpose [employer] Matrix Submission
--- OUTSIDE RECORDS SUMMARY | 2017-06-18 21:05 | External Medical Summary ---
[...] Status Dosage [place] [address]-73 75 MG Orally qd 1 tab Bisulfate 14-05 BuPROPion HCl [facility] [place] 95478-17 150 MG Orally qd 3 tabs 80-01 Isosorbide [facility] [place] 80715-97 60 MG Orally 1 tablet Mononitrate CR 60-01 [place] [address]-92 150 MG Orally hs 1.5 tab 73-01 [place] [address]-91 50 MG Orally bid 1 tablet as 58-01 [place] [address]-08 325 (65 Fe) MG 1 tablet 28-01 Orally [place] [address]-17 120 MG Orally 1 tablet 21-01 [place] [address]-83 20 MG Orally 1 tab 97-25 [place] [address]-27 20 MG Orally 1 tablet at 63-31 Once a day bedtime Lexapro NDC 30821-18 20 MG Orally qd 3 tabs 20-01 MiraLax NDC 02493-90 Orally Once a 1 packet 34-01 day mixed with 8 ounces of fluid Nitrostat NDC 52255-08 0.4 MG not defined 18-13 Sublingual Potassium NDC 43023-92 20 MEQ qd 1 tab Chloride 98-01 Risperidone NDC 82704-83 0.25 MG Orally 1tab 21-05 qd Multivitamins NDC 74160-31 Orally qd 1 tablet 041 Oxygen NDC [address] Vitamin C NDC 02356-57 500 MG Orally 1 tablet 44-20 Once a day Nystatin NDC 77385-45 not defined 42-00 Clonazepam NDC 45286-71 2 MG Orally qd 1 tab 34-01 C-PAP NDC 0 qhs as directed Famotidine NDC 36506-53 20 MG Orally qd 1 tab 28-00 Procedures Procedure Coding System Code Date Ofc Program PM Dual, Staff CPT-4 23482 Jun 26, 2015 Office Visit, Est Pt., Level 3 CPT-4 29967 Jun 26, 2015 Vital Signs Date/Time: Jun 26, 2015 BMI 38.39 Index Weight 260 lbs Height 5 ft 9 in in Cardiac Monitoring Heart Rate 81 /min Oximetry 95 % Blood Pressure Diastolic 80 mm Hg Blood Pressure Systolic 120 mm Hg Results No Known Results Summary Purpose eClinicalWorks Submission
--- OUTSIDE RECORDS SUMMARY | 2017-06-18 21:05 | External Medical Summary ---
[...] End Status Dosage System Date Date Furosemide [facility] 10124-63 20 MG Orally 1 tab 97-25 Once a day BuPROPion HCl [facility] 54269-22 150 MG Orally qd 3 tabs 80-01 Metoprolol [facility] 10153-55 50 MG Orally 1 tablet Tartrate 33-01 Twice a day Trazodone HCl [facility] 07034-98 100 MG Orally hs 1.5 tab 60-00 Diltiazem HCl [facility] 72558-87 120 MG Orally 1 tablet 21-01 bid before meals Risperidone [facility] 28626-36 0.25 MG Orally 1tab 21-05 qd Gemfibrozil [facility] 04481-35 600 MG Orally 1 tab 70-05 bid Digoxin [facility] 94975-03 125 MCG Orally 1 tablet 11-01 Once a day Clonazepam [facility] 09507-54 2 MG Orally qd 1 tab 34-01 Famotidine NDC 68641-91 20 MG Orally qd 1 tab 28-00 Ferrous Sulfate NDC 67758-33 325 (65 Fe) MG 1 tablet 28-01 Orally Once a day Potassium NDC 65770-10 20 MEQ qd 1 tab Chloride 98-01 Tramadol HCl NDC 33047-50 50 MG Orally bid 1 tablet as 58-01 needed Oxygen NDC 0 qhs [address] dir Multivitamins NDC 16433-66 Orally qd 1 tablet 041 Lexapro NDC 15948-22 20 MG Orally qd 3 tabs 20-01 Vitamin C NDC 53537-65 500 MG Orally 1 tablet 44-20 Once a day Isosorbide NDC 43227-25 60 MG Orally 1 tablet Mononitrate CR 60-01 Once a day Clopidogrel NDC 36456-01 75 MG Orally qd 1 tab Bisulfate 14-05 C-PAP NDC 0 qhs as directed Procedures Procedure Coding System Code Date Ofc Program PM Dual, Staff CPT-4 92303 February 20, 2015 Office Visit, Est Pt., Level 4 CPT-4 64163 February 20, 2015 Vital Signs Date/Time: February 20, 2015 BMI 36.15 Index Weight 244.8 lbs Height 5 ft 9 in in Cardiac Monitoring Heart Rate 84 /min Oximetry 94% % Blood Pressure Diastolic 64 mm Hg Blood Pressure Systolic 110 mm Hg Results No Known Results Summary Purpose eClinicalWorks Submission
--- OUTSIDE RECORDS SUMMARY | 2017-06-18 21:07 | External Medical Summary | Continuity of Care Document ---
:1935 Author Organization Via [facility] Allergies Active Description Code Type [...] 14 014 1-2 tabs, HYDROcodone-aceta Oral, q4hr, minophen([place] 5 PRN: Pain mg-325 mg oral Moderate [...] 017 1 tabs, HYDROcodone-aceta Oral, q4hr, MAY minophen([place] 5 HAVE 3 DOSES IN mg-325 mg [...] 7 days, ORDERS GIVEN TO DENITA AT [facility], 0 Refill(s) 1 caps 03/12/20 Oral 10 mEq potassium 17 017 10 mEq=1 chloride(potassiu caps, Oral, m chloride 10 mEq Daily, for 3 oral capsule, days, ORDERS extended release) GIVEN TO DENITA AT [facility], 0 Refill(s) 1 tabs 03/12/20 Oral 20 mg 17 017 20 mg=1 furosemide(Lasix tabs, Oral, 20 mg oral Daily, for 3 tablet) days, ORDERS GIVEN TO [facility], 0 Refill(s) Problems Date Dx Attending Type [...] 07/26/2012 Tiffany NULL, R Final 414.01 [place] VESSEL Alexis 07/26/2012 Tiffany NULL, R Final [...] D 10/30/2012 Daylin NULL, Final 414.01 [place] V[facility] Jose D 10/30/2012 Daylin NULL, Final [...] K 12/05/2012 Vallapu Leslie Final 414.01 [place] V[place] , Master K 12/05/2012 Vall[place]u Leslie [...] 07/13/2013 Tiffany NULL, R Final 414.01 [place] VESSEL Alexis 07/13/2013 Tiffany NULL, R Final [...] 08/04/2013 Tiffany NULL, R Final 414.01 [place] VESSEL Alexis 08/04/2013 Tiffany NULL, R Final [...] Hillary F 414.01 CORONARY T ATHEROSCLEROSIS OF [place] CORONARY VESSEL 05/11/2014 Nay NULL, Hillary F [...] V15.88 HISTORY OF FALL T 05/11/2014 Nay UNLL, Hillary F 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 IN T [...] Joan Final I25.119 Atherosclerotic heart disease of [place] coronary artery with unspecified an 05/31/2015 Asaf Yanga Final I48.91 Unspecified atrial fibrillation 05/31/2015 Tannoury, Joan Admitting K92.2 Gastrointestinal hemorrhage, unspecified 05/31/2015 Asaf Yanga Final N18.3 Chronic kidney disease, stage 3 (moderate) 05/31/2015 Asaf Yanga Final 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 05/31/2015 Asaf Yanga Final Z66 Do not resuscitate 05/31/2015 Asaf Yanga Final Z79.82 [facility] (current) use of aspirin 07/02/2015 Asaf Yanga Final K57.31 Diverticulosis of large intestine without perforation or abscess with bleed 12/16/2015 Goering, Final 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 Goering, Final I10 Essential (primary) Roger V hypertension 2016 Goering, Final I25.10 Atherosclerotic heart Roger V disease of [place] coronary artery without angina pectoris 2016 Goering, [...] I25.10 Atherosclerotic heart Roger V disease of [place] coronary artery without angina pectoris 08/31/2016 Goering, [...] I25.10 Atherosclerotic heart Sampson Santiago disease of [place] coronary artery without angina pectoris 12/25/2016 Luinstra, [...] I25.10 Atherosclerotic heart Roger V disease of [place] coronary artery without angina pectoris 02/11/2017 Goering, [...] Personal history of Roger V pneumonia (recurrent) 05/17/2017 Goering, Final R29.6 Repeated falls Roger V 05/17/2017 Goering, Final S30.0XXA Contusion of lower Roger V back and pelvis, initial encounter 05/17/2017 Goering, Final S40.029A Contusion of Roger V unspecified upper arm, initial encounter 05/17/2017 Goering, Final Z91.81 History of falling Roger V 05/17/2017 Goering, Final D64.89 Other specified Roger V anemias 05/17/2017 Goering, Final F03.90 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 Procedures Code Description Performed By Performed On Gael NULL, Walker N 03/23/2012 27777 CYSTOSCOPY AND TREATMENT Gael NLUL, Walker N 03/23/2012 31309 CYSTOURETERO W/LITHOTRIPSY EGD Karina Allen MD 07/28/2012 45.16 WITH CLOSED BIOPSY Karina Allen MD 08/04/2013 47867 DIAGNOSTIC COLONOSCOPY Nay NULL, Hillary T 05/11/2014 93.90 NON-INVASIVE MECHANICAL VENTILATION 05/21/2015 [id number] Fluoroscopy of Superior Mesenteric Artery using Low Osmolar Contrast 05/26/2015 [id number] Inspection of Lower Intestinal Tract, Via Natural or Artificial Opening End 2016 50739 Radiologic examination, chest, 2 views, frontal and lateral; 2016 80029 Immunization administration (includes percutaneous, intradermal, subcutaneous, or intramuscular injections); 1 vaccine (single or combination vaccine/toxoid).. 2016 00394 Pneumococcal conjugate vaccine, 13 valent (PCV13), for intramuscular use Office 01/03/201689440 or other outpatient visit for the evaluation and management of an established patient, which requires at least 2 of these 3 dumont components: A detailed history; A detailed examination; Medical d Office 01/30/2016 42773 or other outpatient visit for the evaluation and management of an established patient, which requires at least 2 of these 3 dumont components: A detailed history; A detailed examination; Medical d Office 02/20/201622917 or other outpatient visit for the evaluation and management of an established patient, which requires at least 2 of these 3 dumont components: A comprehensive history; A comprehensive examination; Office 03/05/2016 30895 or other outpatient visit for the evaluation and management of an established patient, which requires at least 2 of these 3 dumont components: An expanded problem focused history; An expanded prob Office 03/09/2016 37749 or other outpatient visit for the evaluation and management of an established patient, which requires at least 2 of these 3 dumont components: A comprehensive history; A comprehensive examination; 03/09/2016 08376 Advance care planning including the explanation and discussion of advance directives such as standard forms (with completion of such forms, when performed), by the physician or other qualified health 03/23/2016 57388 Radiologic examination, chest, 2 views, frontal and lateral; Office 03/23/201662986 or other outpatient visit for the evaluation and management of an established patient, which requires at least 2 of these 3 dumont components: A detailed history; A detailed examination; Medical d 03/31/2016 47005 Radiologic examination, chest, 2 views, frontal and lateral; Office 03/31/2016 31886 or other outpatient visit for the evaluation and management of an established patient, which requires at least 2 of these 3 dumont components: A detailed history; A detailed examination; Medical d Office 05/22/2016 25983 or other outpatient visit for the evaluation and management of an established patient, which requires at least 2 of these 3 dumont components: A detailed history; A detailed examination; Medical d Office 06/25/2016 24021 or other outpatient visit for the evaluation and management of an established patient, which requires at least 2 of these 3 dumont components: A detailed history; A detailed examination; Medical d Office 07/31/2016 55842 or other outpatient visit for the evaluation and management of an established patient, which requires at least 2 of these 3 dumont components: An expanded problem focused history; An expanded prob Office 08/21/2016 25250 or other outpatient visit for the evaluation and management of an established patient, which requires at least 2 of these 3 dumont components: An expanded problem focused history; An expanded prob Office 08/31/2016 99714 or other outpatient visit for the evaluation and management of an established patient, which requires at least 2 of these 3 dumont components: A detailed history; A detailed examination; Medical d Office 10/29/201653208 or other outpatient visit for the evaluation and management of an established patient, which requires at least 2 of these 3 dumont components: A detailed history; A detailed examination; Medical d Office 11/10/2016 49926 or other outpatient visit for the evaluation and management of an established patient, which requires at least 2 of these 3 dumont components: An expanded problem focused history; An expanded prob Office 12/22/2016 32352 or other outpatient visit for the evaluation and management of an established patient, which requires at least 2 of these 3 dumont components: A detailed history; A detailed examination; Medical d 12/25/2016 55972 Radiologic examination, chest, 2 views, frontal and lateral; Office 12/25/201660159 or other outpatient visit for the evaluation and management of an established patient, which requires at least 2 of these 3 dumont components: A comprehensive history; A comprehensive examination; Office 01/04/2017 58063 or other outpatient visit for the evaluation and management of an established patient, which requires at least 2 of these 3 dumont components: A detailed history; A detailed examination; Medical d Office 01/28/2017 76768 or other outpatient visit for the evaluation and management of an established patient, which requires at least 2 of these 3 dumont components: An expanded problem focused history; An expanded prob 02/02/2017 99443 Postoperative follow-up visit, normally included in the surgical package, to indicate that an evaluation and management service was performed during a postoperative period for a reason(s) related to t Office 02/11/2017 46029 or other outpatient visit for the evaluation and management of an established patient, which requires at least 2 of these 3 dumont components: A detailed history; A detailed examination; Medical d Office 03/01/2017 08556 or other outpatient visit for the evaluation and management of an established patient, which requires at least 2 of these 3 dumont components: A comprehensive history; A comprehensive examination; Office 03/23/2017 61600 or other outpatient visit for the evaluation and management of an established patient, which requires at least 2 of these 3 dumont components: An expanded problem focused history; An expanded prob Office 04/08/2017 05581 or other outpatient visit for the evaluation and management of an established patient, which requires at least 2 of these 3 dumont components: A comprehensive history; A comprehensive examination; Office 05/17/2017 86637 or other outpatient visit for the evaluation and management of an established patient, which requires at least 2 of these 3 dumont components: A detailed history; A detailed examination; Medical d Encounters ACCT No. Visit Discharge Status Pt. Type Provider Facility Loc./Unit Complaint Date/Time [id number] 06/30/2013 06/30/2013 CLS Outpatien 11:18:00 23:59:59 t [id number] 10/03/2013 10/03/2013 CLS Outpérez Mayo MD, Via TOP 3 10:01:00 23:59:59 jose [facility] [id number] 08/04/2013 08/04/2013 CLS Outpatien Tiffany Via FOP 5 06:08:00 23:59:59 Karina garcia MD [facility] [id number] 08/04/2013 08/04/2013 DIS Outpatien Tiffany Via F3E 0 06:27:00 17:45:00 Karina garcia MD [facility] [id number] 07/13/2013 07/15/2013 DIS Outpatien Tiffany Via F5SE 9 12:40:00 18:16:00 Karina garcia MD [facility] [id number] 06/04/2013 06/04/2013 CLS Emergency Dena NULL, Via JERM 8 02:24:00 23:59:59 [facility] [id number] 05/29/2013 05/29/2013 DIS Emergency Joshua III Via FERM 9 16:25:00 17:35:00 , [facility] [id number] 04/24/2013 04/24/2013 CLS Emergency Other Via JERM 7 18:27:00 23:59:59 Doctor[facility] [id number] 12/05/2012 12/07/2012 DIS Inpatient Vallapu Via F4SE 2 11:20:00 17:40:00 Anuj NULL, [facility] [id number] 10/30/2012 10/30/2012 DIS Emergency Meinecke Via FERM 8 09:15:00 12:25:00 Jose NULL [facility] [id number] 09/29/2012 09/29/2012 CLS Amanda Mayo MD, Via FOP 9 09:29:00 23:59:59 [facility] [id number] 09/26/2012 09/26/2012 CLS Amanda Mayo MD, Via FOP 2 09:45:00 23:59:59 [facility] [id number] 07/26/2012 07/29/2012 DIS Inpatient Tiffany Via F8SE 3 13:53:00 12:22:00 Karina NULL [facility] [id number] 03/01/2012 04/22/2012 DIS Amanda Mayo MD, Via JOP 2 10:00:00 18:45:00 [facility] [id number] 03/23/2012 03/24/2012 DIS Amanda Mayo MD, Via J7W 1 12:32:00 10:10:00 t [facility] [place] [id number] 03/01/2012 03/01/2012 CLS Outpatibecca Mayo MD, Via JOP 8 11:09:00 23:59:59 t [facility] [place] [id number] 05/11/2014 05/16/2014 DIS Inpatient Nay Meraz7TN 67 13:40:00 16:28:00 , [facility] [id number] 05/20/2017 Document 81 19:26:00 Registrat ion [id number] 08/03/2014 Document 84 15:00:00 Registrat ion [id number] 03/27/2015 03/27/2015 CLS Outpatien [id number] 16:53:41 23:59:59 t 1 [id number] 03/27/2015 03/27/2015 CLS Outpatien [id number] 14:22:19 23:59:59 t 9 [id number] 03/27/2015 03/27/2015 CLS Outpatien [id number] 14:22:13 23:59:59 t 3 [id number] 03/27/2015 03/27/2015 CLS Outpatien [id number] 14:21:37 23:59:59 t 7 [id number] 03/27/2015 03/27/2015 CLS Outpatien [id number] 14:20:20 23:59:59 t 0 [id number] 03/27/2015 03/27/2015 DIS Outpatien [id number] 14:19:42 14:19:45 t 2 [id number] 03/28/2015 Document 1058 07:10:58 Registrat ion [id number] 03/28/2015 Document 1056 07:10:56 Registrat ion [id number] 03/28/2015 Document 1053 07:10:53 Registrat ion [id number] 03/28/2015 Document 1051 07:10:51 Registrat ion [id number] 03/28/2015 Document 1048 07:10:48 Registrat ion [id number] 03/28/2015 Document 1045 07:10:45 Registrat ion [id number] 03/28/2015 Document 1043 07:10:43 Registrat ion [id number] 03/28/2015 Document 1040 07:10:40 Registrat ion [id number] 03/28/2015 Document 1037 07:10:37 Registrat ion [id number] 03/28/2015 Document 1035 07:10:35 Registrat ion [id number] 03/28/2015 Document 1031 07:10:31 Registrat ion [id number] 03/28/2015 Document 1029 07:10:29 Registrat ion [id number] 03/28/2015 Document 1026 07:10:26 Registrat ion [id number] 03/28/2015 Document 1023 07:10:23 Registrat ion [id number] 03/28/2015 Document 1021 07:10:21 Registrat ion [id number] 03/28/2015 Document 1018 07:10:18 Registrat ion [id number] 03/28/2015 Document 1015 07:10:15 Registrat ion [id number] 03/28/2015 Document 1012 07:10:12 Registrat ion [id number] 03/28/2015 Document 1004 07:10:04 Registrat ion [id number] 03/28/2015 Document 1002 07:10:02 Registrat ion [id number] 03/28/2015 Document 0956 07:09:56 Registrat ion [id number] 03/28/2015 Document 0953 07:09:53 Registrat ion [id number] 03/28/2015 Document 0951 07:09:51 Registrat ion [id number] 03/28/2015 Document 0948 07:09:48 Registrat ion [id number] 03/28/2015 Document 0945 07:09:45 Registrat ion [id number] 03/28/2015 Document 0943 07:09:43 Registrat ion [id number] 03/28/2015 Document 0937 07:09:37 Registrat ion [id number] 03/28/2015 Document 0935 07:09:35 Registrat ion [id number] 03/28/2015 Document 0932 07:09:32 Registrat ion [id number] 03/28/2015 Document 0918 07:09:18 Registrat ion [id number] 03/28/2015 Document 0915 07:09:15 Registrat ion [id number] 03/27/2015 Document [id number] 14:35:00 Registrat ion [id number] 03/27/2015 Document [id number] 14:34:00 Registrat ion [id number] 05/20/2015 05/27/2015 DIS Inpatient Trey, [facility] Bleed 74 18:41:00 14:18:00 [facility] [place] [id number] 03/13/2017 Document 1623 05:16:23 Registrat ion [id number] 02/03/2017 Document 1532 05:15:32 Registrat ion [id number] 01/09/2017 Document 1552 05:15:52 Registrat ion [id number] 12/31/2016 Document 1550 05:15:50 Registrat ion [id number] 12/23/2016 Document 1553 05:15:53 Registrat ion [id number] 04/29/2016 Document 1629 05:16:29 Registrat ion [id number] 04/23/2016 Document 1655 05:16:55 Registrat ion [id number] 04/21/2016 Document 1631 05:16:31 Registrat ion [id number] 04/16/2016 Document 1728 05:17:28 Registrat ion [id number] 04/15/2016 Document 1707 05:17:07 Registrat ion [id number] 03/24/2016 Document 1857 05:18:57 Registrat ion [id number] 02/26/2016 Document 1610 05:16:10 Registrat ion [id number] 01/04/2016 Document 1644 05:16:44 Registrat ion [id number] 12/17/2015 Document 1657 05:16:57 Registrat ion [id number] 12/03/2015 Document 1702 05:17:02 Registrat ion [id number] 11/19/2015 Document 1701 05:17:01 Registrat ion [id number] 11/05/2015 Document 1714 05:17:14 Registrat ion [id number] 11/01/2015 Document 1554 05:15:54 Registrat ion [id number] 10/17/2015 Document 1615 05:16:15 Registrat ion [id number] 09/10/2015 Document 1701 05:17:01 Registrat ion [id number] 08/28/2015 Document 1706 05:17:06 Registrat ion [id number] 08/15/2015 Document 1651 05:16:51 Registrat ion [id number] 06/14/2015 Document 1630 05:16:30 Registrat ion [id number] 06/05/2015 Document 1611 05:16:11 Registrat ion [id number] 05/28/2015 Document 1614 05:16:14 Registrat ion [id number] 05/27/2015 Document 1531 05:15:31 Registrat ion [id number] 05/26/2015 Document 1537 05:15:37 Registrat ion [id number] 05/25/2015 Document 1626 05:16:26 Registrat ion [id number] 05/24/2015 Document 1640 05:16:40 Registrat ion [id number] 05/23/2015 Document 1552 05:15:52 Registrat ion [id number] 05/22/2015 Document 1821 05:18:21 Registrat ion [id number] 05/21/2015 Document 1645 05:16:45 Registrat ion [id number] 05/15/2015 Document 1226 13:12:26 Registrat ion [id number] 05/15/2015 Document 0444 13:04:44 Registrat ion [id number] 05/15/2015 Document 4340 12:43:40 Registrat ion [id number] 05/15/2015 Document 3547 12:35:47 Registrat ion [id number] 05/15/2015 Document 2831 12:28:31 Registrat ion [id number] 05/15/2015 Document 2120 12:21:20 Registrat ion [id number] 05/15/2015 Document 1437 12:14:37 Registrat ion [id number] 05/15/2015 Document 0727 12:07:27 Registrat ion [id number] 05/15/2015 Document 0031 12:00:31 Registrat ion [id number] 05/15/2015 Document 4727 11:47:27 Registrat ion [id number] 05/15/2015 Document 3313 11:33:13 Registrat ion [id number] 05/15/2015 Document 4932 10:49:32 Registrat ion [id number] 05/15/2015 Document 3143 10:31:43 Registrat ion [id number] 05/15/2015 Document 2634 10:26:34 Registrat ion [id number] 05/15/2015 Document 2114 10:21:14 Registrat ion [id number] 05/15/2015 Document 5806 09:58:06 Registrat ion [id number] 05/15/2015 Document 5311 09:53:11 Registrat ion [id number] 05/15/2015 Document 3703 09:37:03 Registrat ion [id number] 05/15/2015 Document 2708 09:27:08 Registrat ion [id number] 05/15/2015 Document 1903 09:19:03 Registrat ion [id number] 02/24/2015 Document 85 10:44:00 Registrat ion [id number] 09/19/2015 10/03/2015 DIS Inpatient Frank NULL, Bryan MoonT4 43 20:00:00 13:10:00 [facility] & [id number] 05/17/2017 05/17/2017 DIS Outpatien Goering, Via [facility] skilled 20 16:17:00 23:59:00 t Roger [facility] nursing Clinic visit [id number] 05/10/2017 05/10/2017 DIS Outpatien Tandoc, Via [facility] New FM hosp fu 71 13:46:00 23:59:00 jose [facility] Clinic [id number] 04/08/2017 04/08/2017 DIS Outpatien Goering, Via [facility] New FM recheck per 66 11:16:00 23:59:00 jose Bhagat Clinic request [id number] 03/23/2017 03/23/2017 DIS Outpatien Kevin, Via [facility] Sleep REF BY 95 13:15:00 23:59:00 jose Wolf CP VINOD 4 Clinic TO 8 WK CK CPAP [id number] 03/11/2017 03/11/2017 DIS Outpatien Goering, Via [facility] New 80 13:03:00 23:59:00 jose Wolf Rad Clinic [id number] 03/01/2017 03/01/2017 DIS Outpatien Goering, Via [facility] FM 20LB WEIGHT 92 15:39:00 23:59:00 jose Wolf LOSS IN Clinic LAST MONTH [id number] 02/11/2017 02/11/2017 DIS Outpatien Goering, Via [facility] FM 2 mo 01 09:57:00 23:59:00 jose [facility] [id number] 02/02/2017 02/02/2017 DIS Outpatien Dorian Via [facility] New post op 50 13:13:00 23:59:00 [place] [facility] [id number] 01/28/2017 01/28/2017 DIS Outpatien Tandoc, Via [facility] FM TCM, IP, 95 08:23:00 23:59:00 jose [facility] 01/19/17 [id number] 01/04/2017 01/04/2017 CLS Outpatien Vinod Via [facility] Sleep MASK FIT 10 14:35:00 23:59:59 Maryann Parra CP [facility] [id number] 01/04/2017 01/04/2017 CLS Outpatien Vinod Via [facility] Sleep 2 mo ck 89 13:25:00 23:59:59 Maryann Parra CP with new [facility] supplies [id number] 12/25/2016 12/25/2016 DIS Outpatien Luinstra, Via [facility] FM DOC Fever 48 15:02:00 23:59:00 t Sampson [facility] [id number] 12/22/2016 12/22/2016 DIS Outpatien Goering, Via [facility] consult 94 13:10:00 23:59:00 t [facility] living [id number] 11/10/2016 11/10/2016 DIS Outpatien Tandoc, Via [facility] FM TCM ER [facility] 72 14:59:00 23:59:00 jose Wolf 11.05.2016 Clinic FALL FOLLOW UP [id number] 10/29/2016 10/29/2016 DIS Outpatien Goering, Via [facility] FOLLOW UP 69 09:14:00 23:59:00 jose Wolf HIGH BP Clinic [id number] 08/31/2016 08/31/2016 DIS Outpatien Goering, Via [facility] 2 mth F/U 52 10:17:00 23:59:00 jose Wolf Clinic [id number] 08/21/2016 08/21/2016 DIS Outpatien Vinod Via [facility] Sleep 3 week rck 96 09:27:00 23:59:00 Maryann Parra CP cpap [facility] [id number] 07/31/2016 07/31/2016 DIS Outpatien Vinod Via [facility] Sleep 1 yr rck 86 10:41:00 23:59:00 Maryann Parra CP cpap [facility] [id number] 06/25/2016 06/25/2016 DIS Outpatien Goering, Via [facility] FM 1 mth 23 11:15:00 23:59:00 [facility] [id number] 05/22/2016 05/22/2016 DIS Outpatien Mckeon, Via [facility] 1 wk fu 81 10:19:00 23:59:00 jose Wolf from hosp A Clinic [id number] 03/31/2016 03/31/2016 DIS Outpatien Mckeon, Via [facility] 1 week 32 10:36:00 23:59:00 jose Wolf follow up A Clinic [id number] 03/23/2016 03/23/2016 CLS Outpatien Mckeon, Via [facility] POSSIBLE 22 13:05:00 23:59:59 jose Wolf SINUS A Clinic INFECTION [id number] 03/09/2016 03/09/2016 DIS Outpatien Goering, Via [facility] TCPA 53 09:28:00 23:59:00 jose Wolf hallucinati Clinic on. falling [id number] 03/05/2016 03/05/2016 DIS Outpatien Goering, Via [facility] TCPA follow 14 16:11:00 23:59:00 jose Wolf up from Clinic 7.28 [id number] 02/20/2016 02/20/2016 DIS Outpatien Goering, Via [facility] no balance 99 09:39:00 23:59:00 jose Wolf ongoing Clinic issue [id number] 01/30/2016 01/30/2016 DIS Outpatien Goering, Via [facility] FINISHED 17 10:14:00 23:59:00 jose Wolf ANTIBIOTIC Clinic STILL HAS COLD SX [id number] 2016 2016 CLS Outpatien Goering, Via [facility] 2 WK RCK 90 12:55:00 23:59:59 jose Wolf FROM Clinic 5.23.16 [id number] 12/16/2015 12/16/2015 DIS Outpatien Goering, Via [facility] CONCERNS 77 12:55:00 23:59:00 t Roger Wolf FOR Clinic HEMOTOMA PER FEELS HE IS DECLINING [id number] 11/18/2015 11/18/2015 DIS Outpatien Goering, Via [facility] 2-3 week 43 12:44:00 23:59:00 t Roger Wolf follow up Clinic [id number] 10/31/2015 10/31/2015 DIS Outpatien Goering, Via [facility] WOULD 44 13:47:00 23:59:00 t Roger Wolf LIKE TO Clinic HAVE HIM GO HOME FROM CARE HOME [id number] 10/16/2015 10/16/2015 DIS Outpatien Goering, Via [facility] FM follow up 20 09:51:00 23:59:00 jose Wolf from ER Clinic [id number] 10/11/2015 10/11/2015 DIS Outpatien Mckeon, Via [facility] FM RCK RT 92 10:17:00 23:59:00 jose Wolf SHOULDER A Clinic AFTER ER VISIT ON 3.16 [id number] 08/05/2015 08/05/2015 DIS Outpatien Goering, Via [facility] FM RECHECK 59 11:21:00 23:59:00 jose Wolf Clinic [id number] 08/02/2015 08/02/2015 CLS Outpatien Vinod Via [facility] Sleep YRLY GEORGE 27 11:08:00 23:59:59 Maryann Parra CPAP [facility] MEDICARE [id number] 06/27/2015 06/27/2015 DIS Outpatien Goering, Via [facility] FM SNU follow 32 14:48:00 23:59:00 jose Wolf up Clinic [id number] 06/04/2015 06/04/2015 DIS Outpatien Goering, Via [facility] HOS FU NEW 51 15:43:00 23:59:00 jose Wolf RES TO Clinic [facility] [id number] 06/04/2015 06/04/2015 DIS Outpatien Goering, Via [facility] HOS FU NEW 27 14:53:00 23:59:00 t Roger Wolf RES Clinic [id number] 02/12/2015 02/12/2015 DIS Outpatien Goering, Via [facility] New FM FU HOS STAY 91 10:22:00 23:59:00 jose Wolf [facility] ANEMIA [id number] 02/05/2015 02/05/2015 DIS Outpatien Goering, Via [facility] New FM 3 month 72 10:53:00 23:59:00 jose Wolf followup Clinic [id number] 01/15/2015 01/15/2015 DIS Outpatien Goering, Via [facility] New FM 1mth fu bp 81 09:45:00 23:59:00 t Roger Wolf Clinic [id number] 09/06/2014 09/06/2014 DIS Outpatien Goering, Via [facility] New FM NPT EST 40 09:56:00 23:59:00 jose Wolf VISIT Clinic [id number] 07/30/2014 07/30/2014 DIS Outpatien [place]inner, [facility] Cyp FM med check 89 10:23:00 23:59:00 jose Wolf [facility] [id number] 07/03/2014 07/03/2014 DIS Outpatien [facility] Sleep ref dr 79 10:18:00 23:59:00 jose [facility] sl apnea/pst [place] pt [id number] 12/03/2014 Document 75 09:49:00 Registrat ion [id number] 11/28/2014 Document 70 10:33:00 Registrat ion [id number] 11/06/2014 Document 25 09:53:00 Registrat ion
[2017-06-18] MEDS: SALINE FLUSH 10ml SYRINGE IVF PRN (21:11)
[2017-06-18] MEDS ORDERED: LEVOFLOXACIN PB 750 MG/150 ML BAG IV SCH (21:30)
[2017-06-18] MEDS ORDERED: METHYLPREDNISOLONE SOD SUCC 125mg/2ml INJECTION IVP ONE ×2 (21:42→21:54)
--- NOTE | 2017-06-18 21:53 | History & Physical Report ---
History of Present Illness Date: 06/19/17 Chief complaint: trouble breathing HPI: Pleasant 82-year-old white male brought to the emergency room for breathing problems that I can understand. He is demented and [facility] in a jail. He is currently under the combination of being very tired and demented, therefore my ability to obtain an accurate history is impaired. His nurse also says that he came in because he fell on his head although there was no report from EMS to the emergency room. I've been essentially unable to obtain a history, he denies any feelings of illness at this time he denies any chest pain shortness of breath or abdominal pain. He denies any nausea. Otherwise any timeline of his HPIs unfortunately will need to be referred to the emergency room record. Review of Systems ROS unobtainable: due to mental status [facility] Patient Stated Medical History Cerebrovascular Accident Yes: 2005 Dementia Yes Peripheral Neuropathy Yes Cataracts Yes Cardiac Arrhythmia Yes: Afib hx Coronary Artery Disease Yes: stents Hypertension Yes Pneumonia Yes Sleep Apnea Yes Diabetes Mellitus Type 1 No Gastroesophageal Reflux Yes Disease Gastrointestinal Bleeding Yes Ulcer Yes Other GI Yes: Constipation at times. Hx Incontinence Yes Hx Kidney Stones Yes Hx Renal Disease Yes Anemia Yes Clotting Problems Yes: ON PLAVIX MRSA Yes: Nasal Shingles Yes Anesthesia Reactions No Malignant Hyperthermia No Bipolar Disorder Yes Clinic Medical History (Last Reviewed 02/25/17 @ 11:05 by YOLANDA Louis) Right lower lobe pneumonia (Acute Medical) Elevated troponin I level (Acute Medical) NSTEMI type II Systolic CHF (Acute Medical) HCAP (healthcare-associated pneumonia) (Acute Medical) COPD exacerbation (Acute Medical) ARF (acute renal failure) (Acute Medical) CRF (chronic renal failure) (Acute Medical) Elevated LFTs (Acute Medical) Anemia (Chronic Medical) Thrombocytopenia (Resolved Medical) Pacemaker (Chronic Medical) Dementia (Chronic Medical) Cholelithiasis and acute cholecystitis without obstruction (Acute Medical) Postoperative ecchymosis (Acute Medical) Hypoxia (Acute Medical) Hypokalemia (Acute Medical) DURAN (obstructive sleep apnea) (Chronic Medical) HTN (hypertension) (Chronic Medical) UTI (urinary tract infection) (Ruled-out Medical) Atrial fibrillation (Chronic Medical) CKD stage G3b/A1, 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 mg/g (Chronic Medical) Abnormal gait (Acute Medical) Anxiety (Acute Medical) Arthritis (Acute Medical) Carpal tunnel syndrome (Acute Medical) Chronic kidney disease, stage 4 (severe) (Acute Medical) Coronary artery disease (Acute Medical) Depression (Acute Medical) Essential hypertension (Acute Medical) Hyperlipemia (Acute Medical) Low back pain at multiple sites (Acute Medical) Osteoarthritis (Acute Medical) Renal cancer (Acute Medical) Sleep apnea (Acute Medical) Abrasion (Inactive Medical) Cholelithiasis and acute cholecystitis with obstruction (Inactive Medical) Fall (Inactive Medical) Fall (Inactive Medical) Fall on same level (Inactive Medical) Head injury (Inactive Medical) Low back pain (Inactive Medical) Strain of right hip (Inactive Medical) Surgical History: Colonoscopy 2014. Heart pacemaker 2010. Coronary artery stents 03/2014. Back surgeries x5 Family History: Family History (Last Reviewed 02/25/17 @ 11:05 by YOLANDA Louis) Mother Stroke Migraine Depression Father High blood pressure Congestive heart failure due to hypertension Sister Migraine - Social History Smoking status: Unknown if ever smoked Medications Home Medications Medication Instructions Recorded Confirmed Type Aspirin [Aspirin EC] 81 mg PO DAILY #0 02/02/16 06/18/17 History Isosorbide Mononitrate [Isosorbide 30 mg PO BID #0 02/02/16 06/18/17 History Mononitrate ER] Clopidogrel Bisulfate [Clopidogrel] 75 mg PO DAILY 01/09/17 06/18/17 History Cyanocobalamin (Vitamin B-12) 1,000 mcg PO DAILY 01/09/17 06/18/17 History [Vitamin B-12] Acetaminophen [Acetaminophen Extra 500 mg PO QID PRN 03/27/17 06/18/17 History Strength] Lactobacillus Acidophilus 1 each PO DAILY 05/14/17 06/18/17 History [Probiotic] Cholecalciferol (Vitamin D3) 1,000 unit PO DAILY 05/20/17 06/18/17 History [Vitamin D3] Acetaminophen [Acetaminophen Extra 500 mg PO QID 06/18/17 06/18/17 History Strength] Amiodarone [Pacerone] 200 mg PO DAILY 06/18/17 06/18/17 History Atorvastatin [Lipitor] 1 tab PO HS 06/18/17 06/18/17 History Bumetanide Tab [Bumex Tab] 1 mg PO BID 06/18/17 06/18/17 History Clopidogrel [Plavix] 1 tab PO DAILY 06/18/17 06/18/17 History Famotidine [Pepcid] 1 tab PO DAILY 06/18/17 06/18/17 History Ferrous Sulfate [Feosol] 325 mg PO BID 06/18/17 06/18/17 History Hydralazine [Apresoline] 25 mg PO TID 06/18/17 06/18/17 History Isosorbide Mononitrate ER [Imdur] 30 mg PO BID 06/18/17 06/18/17 History Lactobacillus Acidophilus 1 each PO DAILY 06/18/17 06/18/17 History [Probiotic] Metoprolol Tartrate [Lopressor] 50 mg PO BIDWM 06/18/17 06/18/17 History PEG 3350 17gm PACKET [Miralax] 17 gm PO DAILY 06/18/17 06/18/17 History Potassium Chloride [Klor-Con 10] 20 meq PO BID 06/18/17 06/18/17 History PredniSONE [Deltasone] 8 mg PO WB 06/18/17 06/18/17 History RisperiDONE [RisperDAL] 0.5 mg PO DAILY 06/18/17 06/18/17 History RisperiDONE [RisperDAL] 1 mg PO DAILY 06/18/17 06/18/17 History Senna + Docusate [Senna Plus 1 tab PO BID 06/18/17 06/18/17 History Tablet] Sertraline [Zoloft] 150 mg PO DAILY 06/18/17 06/18/17 History buPROPion HCl [Wellbutrin Xl] 300 mg PO DAILY 06/18/17 06/18/17 History clonazePAM [Klonopin] 0.25 tab PO HS 06/18/17 06/18/17 History guaiFENesin [Mucinex] 600 mg PO BID 06/18/17 06/18/17 History Allergies Allergy/AdvReac Type Severity Reaction Status Date / Time No Known Allergies Allergy Verified 05/20/17 13:23 Exam Vital Signs: Temperature 98.8 F 06/18/17 20:10 Pulse Rate 69 06/18/17 21:30 Respiratory Rate 18 06/18/17 21:24 Blood Pressure 143/69 H 06/18/17 21:30 Pulse Oximetry 94 06/18/17 21:30 Paced: atrial paced Height/Weight/BMI: Height 1.78 m Weight 73 kg Comments: prolonged QTc, prolonged QRS - Constitutional Present: no acute distress - Routine Neck Exam Present: supple - Routine Respiratory Exam Present: wheezes, crackles (bilaterally). Absent: accessory muscle use, respiratory distress - Routine Cardiovascular Exam Present: RRR, S1, S2, no murmur - Routine Abdominal Exam Present: soft, normoactive bowel sounds, non distended, non tender - Routine Extremities Exam Present: no edema. Absent: cyanosis, clubbing - Routine Neurological Exam Present: alert. Absent: oriented X3 - Routine Psychiatric Exam Present: normal affect Results - Labs CBC & Chem 7: 06/18/17 20:55 06/19/17 04:22 - ECG Data Tracing #1 atrial paced, prolonged QT, intraventricular conduction delay, nonspecific T- wave changes - Imaging and Cardiology Chest x-ray Status: image reviewed by me Additional comments: bilateral shoulder replacements, pacemaker, borderline cardiomegaly, diminished lung ramirez, I don't see any obvious infiltrates, though the on-site emergency provider thought perhaps right lower lobe pneumonia. Formal interpretation is pending Assessment and Plan (1) Right lower lobe pneumonia Current visit: No Status: Acute (2) HCAP (healthcare-associated pneumonia) Current visit: Yes Status: Acute (3) COPD exacerbation Current visit: Yes Status: Acute (4) ARF (acute renal failure) Current visit: Yes Status: Acute (5) CRF (chronic renal failure) Current visit: Yes Status: Acute Assessment and Plan: 1 possible right lower lobe pneumonia or healthcare associated with recent hospital stays 2. Acute exacerbation of COPD the case with wheezing bilaterally 3. History of congestive heart failure, I don't think that he is fluid overloaded at the moment. 4. acute on chronic renal failure, baseline creatinine about 1.6. 5. Dementia we'll treat for acute exacerbation of COPD with Solu-Medrol and nebulizers I provided IV antibiotics for healthcare associated pneumonia Patient has prolonged QTC, rule out atypicals, then perhaps stopping the Levaquin would be appropriate with this order sputum culture, and labs for Legionella strep pneumo and mycoplasma and if those are negative then stopping certainly Levaquin and perhaps all antibiotics would be appropriate Patient is a DO NOT RESUSCITATE Palliative care may be appropriately considered if not already done so. Russell 06/19/17 1127 Have independently interviewed and examined patient. Chart reviewed. Reviewed above note and concur. CC: Difficulty breathing, low O2. HPI: 82 y/o male with CAD, afib, DURAN, and dementia presents to ED secondary to difficulty breathing. Reside in [place] secondary to dementia and chronic ataxia. Apparently started having increasing difficult breathing. Sats low. Presents to ED for evaluation. History difficult to obtain from patient due to his dementia. Was very tired when tele-hospitalist interviewed patient. This morning at my interview, he was awake and alert. Denies significant respiratory problems. Not reporting cough or congestion. Denies pain with breathing. No chest pressure or discomfort. No sinus pressure or fullness-denies pain. No chest heaviness, fullness or palpitations. Denies ab pain or nausea. Stools stable. No increased leg edema. Overall says he is feeling well. Did receive steroids, which may be helping him feel better. Reviewed weight from admission in early April-essential stable to discharge weight. CXR showing slight increased pulm edema and infiltrate, but edema not as marked as at prior admission (my interpretation). RSV positive. PMHx: CAD, Chronic systolic HF-EF 40%, HTN, HDL, Afib, DURAN-on CPAP, Stage III CKD, OA, Dementia (multi infarct), Bipolar, Chronic ataxia ALL: NKDA MEDS: see MAR SHx: resides at [facility]. . No smoking. [facility] PCP FHx: Mother:Stroke, Migraine,Depression. Father: High blood pressure, Congestive heart failure due to hypertension. Sister:Migraine. ROS: as in HPI. Remainder of 10 point ROS discussed with patient and negative. Dementia limits accurate ROS. Exam Gen: [id number] Awake and alert. Appears weak and ill. HEENT: NC/AT PERRLA EOMI MMM Neck: supple, midline. No tracheal deviation Lungs: Decreased bilaterally with diminished air movement. Basilar crackles bilaterally. Breathing comfortably with O2. CV: Sounding regular at this time. AB: soft nt/ND BS decreased EXT: No LE edema. Pulses intact. SCD in place Skin: warm and dry Neuro: CN II-XII intact. No focal motor deficits PSYCH: awake alert, converses at baseline. Not agitated or restless. MS: normal muscle mass LAB: noted CXR: reviewed: slight increased pulm edema and infiltrate, but edema not as marked as at prior admission (my interpretation). 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 With patient's multiple medical comorbidities, anticipate greater than 2 midnights of hospital care needed. Will start Cefepime and vancomycin for pulmonary coverage - avoid levofloxacin as patient of amiodarone. Supplemental O2 as needed - weaning as able. Neb treatments of Duoneb and budesonide. Steroids started by Telehospitalist - will client renewal specialist as able. Continue home medications. SCD for DVT prevention - patient has Hx of GI Bleeding. Monitor lab. DNR as per his requests. Care to return to Dr Bhagat at time of discharge from [facility] [place]. DVT Prophylaxis: SCD's Resuscitation Status: Do Not Resuscitate Hospital Course Summary Disclaimer: The visit summary below is not to be considered part of the above Progress Note. Hospital Course: 06/18/17 Telehospitalist admission Assessment Possible right lower lobe pneumonia or healthcare associated with recent hospital stays Acute exacerbation of COPD the case with wheezing bilaterally History of congestive heart failure, I don't think that he is fluid overloaded at the moment. Acute on chronic renal failure, baseline creatinine about 1.6. Dementia Plan we'll treat for acute exacerbation of COPD with Solu-Medrol and nebulizers I provided IV antibiotics for healthcare associated pneumonia Patient has prolonged QTC, rule out atypicals, then perhaps stopping the Levaquin would be appropriate with this order sputum culture, and labs for Legionella strep pneumo and mycoplasma and if those are negative then stopping certainly Levaquin and perhaps all antibiotics would be appropriate Patient is a DO NOT RESUSCITATE Palliative care may be appropriately considered if not already done so. 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 With patient's multiple medical comorbidities, anticipate greater than 2 midnights of hospital care needed. Will start Cefepime and vancomycin for pulmonary coverage - avoid levofloxacin as patient of amiodarone. Supplemental O2 as needed - weaning as able. Neb treatments of Duoneb and budesonide. Steroids started by Telehospitalist - will client renewal specialist as able. Continue home medications. SCD for DVT prevention - patient has Hx of GI Bleeding. Monitor lab. DNR as per his requests. Care to return to Dr Bhagat at time of discharge from [facility]. Addendum entered and electronically signed by Martell Up MD 06/19/17 06:44: RSV positive on resp panel will dc abx for now
[2017-06-18 22:38] VITALS: BMI 25.2
[2017-06-18] MEDS: METHYLPREDNISOLONE SOD SUCC 40mg/ml INJECTION IM SCH (22:47)
[2017-06-18] MEDS ORDERED: SENNA + DOCUSATE TABLET PO PRN (23:02)
[2017-06-18] MEDS ORDERED: ONDANSETRON 4 MG/2 ML INJECTION IVP PRN (23:02)
[2017-06-18] MEDS ORDERED: CEFEPIME 1 GM in NS 100 ML IV SCH (23:02)
[2017-06-18] MEDS ORDERED: VANCOMYCIN - PHARMACY CONSULT MC ONE (23:02)
[2017-06-18] MEDS ORDERED: MORPHINE SULFATE 4mg INJECTION IVP PRN (23:02)
[2017-06-19] MEDS ORDERED: ALBUTEROL 2.5mg/3ml (0.083%) NEB AEROSOL PRN (00:16)
[2017-06-19] MEDS: METHYLPREDNISOLONE SOD SUCC 40mg/ml INJECTION IM SCH (03:04)
[2017-06-19] MEDS: METHYLPREDNISOLONE SOD SUCC 125mg/2ml INJECTION IVP SCH ×4 (03:05→21:38)
[2017-06-19] MEDS: ACETAMINOPHEN 325 MG TABLET PO PRN (05:38)
[2017-06-19] MEDS ORDERED: METHYLPREDNISOLONE SOD SUCC 40mg/ml INJECTION IVP SCH (09:00)
[2017-06-19] MEDS: CLOPIDOGREL 75 MG TABLET PO SCH (10:20)
[2017-06-19] MEDS: AMIODARONE 200 MG TABLET PO SCH (10:20)
--- NOTE | 2017-06-19 11:30 | Pharmacy Consult-Antibiotics ---
Pharmacy Consult-Vancomycin - Laboratory Information WBC 9.5 T/MM3 (4.5-11.0) 06/18/17 20:55 BUN 38.0 MG/DL (9-20) H 06/19/17 04:22 Creatinine 1.9 MG/DL (0.8-1.5) H D 06/19/17 04:22 - Consult Information VANCOMYCIN CONSULT: 82 YO MALE PT 5'10" 175 LBS Dx: COPD EXACERBATION,RSV POSITIVE,DEMENTIA Current Renal Fx: SCr = 1.9 mg/dl. Will give Vancomycin 1500 mg IV q24hrs. Will continue to monitor and adjust regimen to maintain therapeutic levels. Thank you. Rahel Quintanilla, PharmD
[2017-06-19] MEDS: SALINE FLUSH 10ml SYRINGE IVF PRN ×3 (11:48→15:15)
[2017-06-19] MEDS: CEFEPIME 1 GM in NS 100 ML IV SCH (11:48)
[2017-06-19] MEDS: NS FLUSH BAG 500ml IV PRN (11:48)
[2017-06-19] MEDS: ClonazePAM 0.5 MG TABLET PO SCH (21:36)
[2017-06-19] MEDS: SENNA + DOCUSATE TABLET PO SCH (21:36)
[2017-06-19] MEDS: ATORVASTATIN 10 MG TABLET PO SCH (21:36)
[2017-06-19] MEDS: FERROUS SULFATE 324 MG TABLET PO SCH (21:36)
[2017-06-19] MEDS: GUAIFENESIN LA 600 MG TABLET PO SCH (21:37)
[2017-06-20] MEDS: HALOPERIDOL 5 MG/ML INJECTION IVP PRN ×2 (01:20→10:18)
[2017-06-20] MEDS: CEFEPIME 1 GM in NS 100 ML IV SCH ×2 (01:24→13:04)
[2017-06-20] MEDS: METHYLPREDNISOLONE SOD SUCC 125mg/2ml INJECTION IVP SCH ×2 (03:00→09:18)
[2017-06-20] MEDS ORDERED: FALL RISK - PHARMACY CONSULT XX ONE (04:10)
[2017-06-20] MEDS: POLYETHYL GLYCOL 3350 17gm PACKET PO SCH (09:14)
[2017-06-20] MEDS: GUAIFENESIN LA 600 MG TABLET PO SCH ×2 (09:15→21:41)
[2017-06-20] MEDS: FERROUS SULFATE 324 MG TABLET PO SCH ×2 (09:15→21:39)
[2017-06-20] MEDS: SERTRALINE 100 MG TABLET PO SCH (09:15)
[2017-06-20] MEDS: ASPIRIN *EC* 81 MG TABLET PO SCH (09:15)
[2017-06-20] MEDS: SENNA + DOCUSATE TABLET PO SCH ×2 (09:15→21:38)
[2017-06-20] MEDS: FAMOTIDINE 20 MG TABLET PO SCH (09:16)
[2017-06-20] MEDS: BuPROPion XL 300mg (24HR) TABLET PO SCH (09:16)
[2017-06-20] MEDS: CYANOCOBALAMIN (B-12) 500mcg TABLET PO SCH (09:16)
[2017-06-20] MEDS: AMIODARONE 200 MG TABLET PO SCH (09:17)
[2017-06-20] MEDS: CLOPIDOGREL 75 MG TABLET PO SCH (09:17)
[2017-06-20] MEDS: ALBUTEROL/IPRATROPIUM 2.5mg-0.5mg/3ml NEB AEROSOL SCH ×3 (09:36→19:20)
[2017-06-20] MEDS: BUDESONIDE INH.SOLN 0.5mg/2ml NEB AEROSOL SCH ×2 (09:37→19:22)
--- NOTE | 2017-06-20 09:43 | XRay Report ---
Indication: Dyspnea PROCEDURE: XR chest 1V: Encounter: Initial Comparison: June 07, 2017 Findings: Increased groundglass type opacity in the left lung and right lower lobe. No pneumothorax or definite pleural effusion. Heart size and mediastinal contours are stable. Left pacemaker. Spinal hardware and shoulder replacements. Impression: Areas of groundglass opacity could be due to mild edema or atypical/viral pneumonia. .
[2017-06-20] MEDS: SALINE FLUSH 10ml SYRINGE IVF PRN ×2 (10:19→17:51)
[2017-06-20] MEDS: ISOSORBIDE MONONITRATE ER 30 MG TABLET PO SCH ×2 (13:03→21:40)
[2017-06-20] MEDS: BUMETANIDE 1 MG TABLET PO SCH ×2 (13:03→14:59)
--- NOTE | 2017-06-20 14:24 | Progress Note ---
- Date 06/20/17 Subjective: F/U: Pneumonia, RSV positive, Acute respiratory insufficiency with hypoxia Feels a little better today. Notes some cough; not able to mobilize secretions. Denies pain with breathing of chest wall pain. Appetite fair. No nausea or ab pain. No pain/discomfort with chewing or swallowing. No f/c. Has been restless at times. Calls out frequently for nursing. Objective Vital signs: Temperature 97.1 F 06/20/17 07:30 Pulse Rate 72 06/20/17 08:09 Respiratory Rate 22 06/20/17 09:42 Blood Pressure 169/81 H 06/20/17 07:30 Pulse Oximetry 94 06/20/17 09:42 Height/Weight/BMI: Height 1.78 m Weight 82.6 kg Body Mass Index 25.2 - Constitutional Present: well nourished, well developed, average body habitus - Routine HEENT Exam Head: Present: normocephalic, atraumatic Eye: Present: EOMI, PERRL ENT: Present: mucous membranes moist - Routine Respiratory Exam Present: decreased breath sounds, wheezes, diminished air movement. Absent: respiratory distress - Routine Cardiovascular Exam Present: RRR, no murmur - Routine Abdominal Exam Present: soft, normoactive bowel sounds, non distended, non tender - Routine Extremities Exam Present: no edema. Absent: cyanosis, clubbing - Routine Musculoskeletal Exam Musculoskeletal: Present: no clubbing or cyanosis, normal strength - Routine Skin Exam Present: dry, warm - Routine Neurological Exam Present: alert, CN II-XII intact, moving all extremities, vision grossly intact , hearing grossly intact. Absent: motor deficit - Routine Psychiatric Exam Present: cooperative Results - Labs CBC & Chem 7: 06/20/17 08:13 06/20/17 08:13 Assessment and Plan (1) Right lower lobe pneumonia Current visit: No Status: Acute (2) HCAP (healthcare-associated pneumonia) Current visit: Yes Status: Acute (3) COPD exacerbation Current visit: Yes Status: Acute (4) ARF (acute renal failure) Current visit: Yes Status: Acute (5) CRF (chronic renal failure) Current visit: Yes Status: Acute Assessment and Plan: ASSESSMENT Pneumonia RSV positive Acute respiratory insufficiency Pulmonary edema - mild COPD with acute exacerbation CAD Chronic systolic HF - EF 40% HTN HDL Chronic afib (not anticoagulated secondary to frequent falls) DURAN address with CPAP Stage III CKD Bipolar affective disorder 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 Plan Continue Cefepime and vancomycin for pulmonary coverage - avoid levofloxacin as patient of amiodarone. Will discontinue Solu-Medrol as patient getting agitated at times. Continue breathing treatment. Supplemental O2 as needed - weaning as able. Patient not always adherent with wearing O2. Recheck CMP in am to due to elevated liver enzymes and CKD. Recheck CBC in am due to pneumonia. CBC increased today - likely steroid effect. Case discussed with nursing and patient's . Time spent with patient care 25 minutes. DVT Prophylaxis: SCD's Resuscitation Status: Do Not Resuscitate - Time spent with patient Time with patient PN: 25 minutes Hospital Course Summary Disclaimer: The visit summary below is not to be considered part of the above Progress Note. Hospital Course: 06/18/17 Telehospitalist admission Assessment Possible right lower lobe pneumonia or healthcare associated with recent hospital stays Acute exacerbation of COPD the case with wheezing bilaterally History of congestive heart failure, I don't think that he is fluid overloaded at the moment. Acute on chronic renal failure, baseline creatinine about 1.6. Dementia Plan We'll treat for acute exacerbation of COPD with Solu-Medrol and nebulizers I provided IV antibiotics for healthcare associated pneumonia Patient has prolonged QTC, rule out atypicals, then perhaps stopping the Levaquin would be appropriate with this Order sputum culture, and labs for Legionella strep pneumo and mycoplasma and if those are negative then stopping certainly Levaquin and perhaps all antibiotics would be appropriate Patient is a DO NOT RESUSCITATE Palliative care may be appropriately considered if not already done so. 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 With patient's multiple medical comorbidities, anticipate greater than 2 midnights of hospital care needed. Will start Cefepime and vancomycin for pulmonary coverage - avoid levofloxacin as patient of amiodarone. Supplemental O2 as needed - weaning as able. Neb treatments of Duoneb and budesonide. RSV positive - respiratory precautions implemented. Steroids started by Telehospitalist - will box spring frame builder as able. Continue home medications. SCD for DVT prevention - patient has Hx of GI Bleeding. Monitor lab. DNR as per his requests. Care to return to Dr Bhagat at time of discharge from [facility]. 06/20/17 Continue Cefepime and vancomycin for pulmonary coverage - avoid levofloxacin as patient of amiodarone. Will discontinue Solu-Medrol as patient getting agitated at times. Continue breathing treatment. Supplemental O2 as needed - weaning as able. Patient not always adherent with wearing O2. Recheck CMP in am to due to elevated liver enzymes and CKD. Recheck CBC in am due to pneumonia. CBC increased today - likely steroid effect.
[2017-06-20] MEDS: NS FLUSH BAG 500ml IV PRN (17:52)
[2017-06-20] MEDS ORDERED: BUDESONIDE INH.SOLN 0.5mg/2ml NEB AEROSOL SCH (19:02)
[2017-06-20] MEDS ORDERED: ALBUTEROL/IPRATROPIUM 2.5mg-0.5mg/3ml NEB AEROSOL SCH (19:04)
[2017-06-20] MEDS: ClonazePAM 0.5 MG TABLET PO SCH (21:39)
[2017-06-20] MEDS: ATORVASTATIN 10 MG TABLET PO SCH (21:41)
[2017-06-20] MEDS ORDERED: LEVOFLOXACIN PB 750 MG/150 ML BAG IV SCH (22:15)
[2017-06-21] MEDS: CEFEPIME 1 GM in NS 100 ML IV SCH ×2 (00:59→11:29)
[2017-06-21] MEDS: ISOSORBIDE MONONITRATE ER 30 MG TABLET PO SCH ×2 (06:32→20:41)
[2017-06-21] MEDS: ACETAMINOPHEN 325 MG TABLET PO PRN (06:32)
[2017-06-21] MEDS: SALINE FLUSH 10ml SYRINGE IVF PRN (06:34)
[2017-06-21] MEDS: HYDROCODONE/APAP 5mg/325mg TABLET PO PRN ×2 (07:37→18:47)
[2017-06-21] MEDS: ALBUTEROL/IPRATROPIUM 2.5mg-0.5mg/3ml NEB AEROSOL SCH ×4 (07:46→20:08)
[2017-06-21] MEDS: BUDESONIDE INH.SOLN 0.5mg/2ml NEB AEROSOL SCH ×2 (07:47→20:08)
[2017-06-21] MEDS: ASPIRIN *EC* 81 MG TABLET PO SCH (08:33)
[2017-06-21] MEDS: GUAIFENESIN LA 600 MG TABLET PO SCH ×2 (08:33→20:41)
[2017-06-21] MEDS: SERTRALINE 100 MG TABLET PO SCH (08:33)
[2017-06-21] MEDS: CLOPIDOGREL 75 MG TABLET PO SCH (08:34)
[2017-06-21] MEDS: POLYETHYL GLYCOL 3350 17gm PACKET PO SCH (08:34)
[2017-06-21] MEDS: FAMOTIDINE 20 MG TABLET PO SCH (08:35)
[2017-06-21] MEDS: AMIODARONE 200 MG TABLET PO SCH (08:35)
[2017-06-21] MEDS: CYANOCOBALAMIN (B-12) 500mcg TABLET PO SCH (08:35)
[2017-06-21] MEDS: BuPROPion XL 300mg (24HR) TABLET PO SCH (08:35)
[2017-06-21] MEDS: BUMETANIDE 1 MG TABLET PO SCH ×2 (08:35→14:18)
[2017-06-21] MEDS: FERROUS SULFATE 324 MG TABLET PO SCH ×2 (08:35→17:02)
[2017-06-21] MEDS: SENNA + DOCUSATE TABLET PO SCH ×2 (08:36→20:41)
--- NOTE | 2017-06-21 14:42 | Progress Note ---
- Date 06/21/17 Subjective: The patient was seen in his room this afternoon. He was sleeping but awakened easily. He stated he was still feeling tired and admitted to shortness of breath and cough. While I was in seeing him he did not have any cough. He states he's eating and drinking well. He denies any difficulty urinating. He states he's not having diarrhea or constipation. I spoke with the patient's nurse and she stated that he appeared much less agitated today. He reportedly slept well last night. He has a CPAP at his longterm but does not use it. Objective Vital signs: Temperature 97.9 F 06/21/17 07:24 Pulse Rate 71 06/21/17 08:06 Respiratory Rate 18 06/21/17 07:50 Blood Pressure 123/95 H 06/21/17 07:24 Pulse Oximetry 92 06/21/17 07:50 Height/Weight/BMI: Height 1.78 m Weight 79.2 kg Body Mass Index 25.2 Comments: Weight is stable at 79 kg He was on 4 L of oxygen initially and now is down to 1 L. He reportedly has CPAP at the longterm but has not been using it. Vital signs are fairly stable GEN-alert, pleasant, no acute distress HEENT-sclera anicteric NECK-supple CV-regular rate and rhythm CHEST-mild bilateral wheezing ABD-abdomen is soft, nontender, nondistended with positive bowel sounds -no Crocker EXT-no edema NEURO-no focal deficits SKIN-warm and dry Results - Labs CBC & Chem 7: 06/21/17 03:56 06/21/17 03:56 Labs: AST is 80 down from 97, ALT is 125 down from 119. TSH is normal. Magnesium is mildly elevated at 2.4. Assessment and Plan (1) Right lower lobe pneumonia Current visit: No Status: Acute (2) HCAP (healthcare-associated pneumonia) Current visit: Yes Status: Acute (3) COPD exacerbation Current visit: Yes Status: Acute (4) ARF (acute renal failure) Current visit: Yes Status: Acute (5) CRF (chronic renal failure) Current visit: Yes Status: Acute Assessment and Plan: ASSESSMENT Pneumonia -on vancomycin and cefepime RSV positive Acute hypoxic respiratory earlier Pulmonary edema - mild COPD with acute exacerbation CAD Chronic systolic HF - EF 40% HTN HDL Chronic afib (not anticoagulated secondary to frequent falls) DURAN patient is supposed to be on CPAP with 2 L of oxygen at night, but the patient refuses at the longterm. They put him on 2 L at night and he frequently takes it off, per [facility] nurses. 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 Hypokalemia Plan Chart, labs, radiology reviewed On day 3 of Cefepime and vancomycin for pneumonia - avoid levofloxacin as patient of amiodarone. Hypoxic respiratory failure is improving with decreased oxygen needs. Wean off of oxygen except for 2 L with sleep. Patient is tolerating DC of Solu-Medrol (it was discontinued to see if it would help with his agitation). Continue breathing treatments. Encephalopathy is better today. Liver enzymes are slowly improving CBC, renal panel, pro-calcitonin tomorrow. Oral potassium today for hypokalemia and recheck tomorrow Chest x-ray PA and lateral tomorrow Discontinue vancomycin. Possible change to oral antibiotics soon. Possible discharge back to the longterm in the next few days. Discussed with patient's nurse. Greater than 35 minutes of time spent seeing and evaluating the patient, reviewing chart, and determining care plan. Hospital Course Summary Disclaimer: The visit summary below is not to be considered part of the above Progress Note. Hospital Course: 06/18/17 Telehospitalist admission Assessment Possible right lower lobe pneumonia or healthcare associated with recent hospital stays Acute exacerbation of COPD the case with wheezing bilaterally History of congestive heart failure, I don't think that he is fluid overloaded at the moment. Acute on chronic renal failure, baseline creatinine about 1.6. Dementia Plan We'll treat for acute exacerbation of COPD with Solu-Medrol and nebulizers I provided IV antibiotics for healthcare associated pneumonia Patient has prolonged QTC, rule out atypicals, then perhaps stopping the Levaquin would be appropriate with this Order sputum culture, and labs for Legionella strep pneumo and mycoplasma and if those are negative then stopping certainly Levaquin and perhaps all antibiotics would be appropriate Patient is a DO NOT RESUSCITATE Palliative care may be appropriately considered if not already done so. 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 With patient's multiple medical comorbidities, anticipate greater than 2 midnights of hospital care needed. Will start Cefepime and vancomycin for pulmonary coverage - avoid levofloxacin as patient of amiodarone. Supplemental O2 as needed - weaning as able. Neb treatments of Duoneb and budesonide. RSV positive - respiratory precautions implemented. Steroids started by Telehospitalist - will animal caretaker as able. Continue home medications. SCD for DVT prevention - patient has Hx of GI Bleeding. Monitor lab. DNR as per his requests. Care to return to Dr Bhagat at time of discharge from [facility] [place]. 06/20/17 Continue Cefepime and vancomycin for pulmonary coverage - avoid levofloxacin as patient of amiodarone. Will discontinue Solu-Medrol as patient getting agitated at times. Continue breathing treatment. Supplemental O2 as needed - weaning as able. Patient not always adherent with wearing O2. Recheck CMP in am to due to elevated liver enzymes and CKD. Recheck CBC in am due to pneumonia. CBC increased today - likely steroid effect.
[2017-06-21] MEDS: HALOPERIDOL 0.5 MG TABLET PO PRN (18:48)
[2017-06-21] MEDS: ATORVASTATIN 10 MG TABLET PO SCH (20:41)
[2017-06-21] MEDS: ClonazePAM 0.5 MG TABLET PO SCH (20:41)
[2017-06-21] MEDS: BENZONATATE 200 MG CAPSULE PO SCH (20:41)
[2017-06-22] MEDS: CEFEPIME 1 GM in NS 100 ML IV SCH ×2 (00:13→11:25)
[2017-06-22] MEDS: HYDROCODONE/APAP 5mg/325mg TABLET PO PRN (01:04)
[2017-06-22] MEDS: HALOPERIDOL 0.5 MG TABLET PO PRN (04:30)
[2017-06-22] MEDS: ALBUTEROL/IPRATROPIUM 2.5mg-0.5mg/3ml NEB AEROSOL SCH ×4 (05:10→21:12)
[2017-06-22] MEDS: BUDESONIDE INH.SOLN 0.5mg/2ml NEB AEROSOL SCH ×2 (05:10→21:12)
[2017-06-22] MEDS: ISOSORBIDE MONONITRATE ER 30 MG TABLET PO SCH ×2 (06:09→20:19)
[2017-06-22] MEDS ORDERED: PredniSONE 5 MG TABLET PO SCH (08:00)
--- NOTE | 2017-06-22 08:37 | XRay Report ---
INDICATION: hypoxia PROCEDURE: CHEST 2-VIEWS UPRIGHT (PA & LAT) Encounter: Initial COMPARISON: June 18, 2017 FINDINGS: Lungs are stable in appearance with scattered centrally predominant groundglass opacity. A few air bronchograms in the left lower lobe. No new or worsening airspace disease. No significant pleural effusion. No pneumothorax. Heart size and mediastinal contours are stable. Left pacemaker. Impression: No significant change. .
[2017-06-22] MEDS: BUMETANIDE 1 MG TABLET PO SCH ×2 (09:38→14:11)
[2017-06-22] MEDS: ASPIRIN *EC* 81 MG TABLET PO SCH (09:38)
[2017-06-22] MEDS: FERROUS SULFATE 324 MG TABLET PO SCH ×2 (09:39→17:58)
[2017-06-22] MEDS: AMIODARONE 200 MG TABLET PO SCH (09:41)
[2017-06-22] MEDS: CLOPIDOGREL 75 MG TABLET PO SCH (09:42)
[2017-06-22] MEDS: BuPROPion XL 300mg (24HR) TABLET PO SCH (09:42)
[2017-06-22] MEDS: CYANOCOBALAMIN (B-12) 500mcg TABLET PO SCH (09:42)
[2017-06-22] MEDS: FAMOTIDINE 20 MG TABLET PO SCH (09:43)
[2017-06-22] MEDS: POLYETHYL GLYCOL 3350 17gm PACKET PO SCH (09:43)
[2017-06-22] MEDS: GUAIFENESIN LA 600 MG TABLET PO SCH ×2 (09:43→20:16)
[2017-06-22] MEDS: SERTRALINE 100 MG TABLET PO SCH (09:44)
[2017-06-22] MEDS: SENNA + DOCUSATE TABLET PO SCH ×2 (09:44→20:18)
[2017-06-22] MEDS: BENZONATATE 200 MG CAPSULE PO SCH ×3 (11:15→20:16)
--- NOTE | 2017-06-22 13:50 | Progress Note ---
- Date 06/22/17 Subjective: The patient continues to have intermittent agitation. This afternoon, he is calm and pleasant. He did not sleep well last night and required almost one-to- one care. He was given Haldol for agitation and [place] for pain. He complains of a cough and some chest and back pain with coughing. He also complains of some mid abdominal pain with coughing. He has incontinence of urination. He is eating and drinking okay. Objective Vital signs: Temperature 95.7 F L 06/22/17 07:53 Pulse Rate 70 06/22/17 08:00 Respiratory Rate 20 06/22/17 11:32 Blood Pressure 146/81 H 06/22/17 07:53 Pulse Oximetry 93 06/22/17 11:32 Height/Weight/BMI: Height 1.78 m Weight 80.4 kg Body Mass Index 25.2 Comments: GEN-alert, oriented to self and hospital, but he thought he was in [place] HEENT-sclerae anicteric NECK-supple CV-regular rate and rhythm CHEST-mild rhonchi, expiratory wheezes throughout, difficult to examine due to coughing with each inspiration ABD-soft, nontender with positive bowel sounds -no Crocker EXT-no edema NEURO-no focal deficits, significant for dementia SKIN-warm and dry and without rashes Telemetry shows no significant abnormality, frequent paced rhythm, occasional ectopy Results - Labs CBC & Chem 7: 06/22/17 04:20 06/22/17 04:20 Labs: Strep pneumonia antigen is negative. Pro-calcitonin is mildly elevated at 0.74. Microbiology Results: Microbiology 06/19/17 12:35 Urine Streptococcus pneumoniae Antigen (M - Final - Impressions PROCEDURE: CHEST 2-VIEWS UPRIGHT (PA & LAT) Encounter: Initial COMPARISON: June 18, 2017 FINDINGS: Lungs are stable in appearance with scattered centrally predominant groundglass opacity. A few air bronchograms in the left lower lobe. No new or worsening airspace disease. No significant pleural effusion. No pneumothorax. Heart size and mediastinal contours are stable. Left pacemaker. Impression: No significant change. . Assessment and Plan (1) Right lower lobe pneumonia Current visit: No Status: Acute (2) HCAP (healthcare-associated pneumonia) Current visit: Yes Status: Acute (3) COPD exacerbation Current visit: Yes Status: Acute (4) ARF (acute renal failure) Current visit: Yes Status: Acute (5) CRF (chronic renal failure) Current visit: Yes Status: Acute Assessment and Plan: ASSESSMENT Pneumonia -currently on day 4 of cefepime. Vancomycin discontinued yesterday RSV positive Acute hypoxic respiratory failure Pulmonary edema - mild COPD with acute exacerbation Encephalopathy CAD Chronic systolic HF - EF 40% HTN HDL Chronic afib (not anticoagulated secondary to frequent falls) DURAN patient is supposed to be on CPAP with 2 L of oxygen at night, but the patient refuses at the skilled nursing. They put him on 2 L at night and he frequently takes it off, per [facility] nurses. 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 Hypokalemia Plan On day 4 of cefepime. Vancomycin discontinued yesterday.- avoid levofloxacin as patient of amiodarone. Hypoxic respiratory failure is improving with decreased oxygen needs. Wean off of oxygen as tolerated except for 2 L with sleep. Solu-Medrol was discontinued to see if this would help with agitation. It does not seem to have made a difference. We'll restart prednisone 30 mg once daily for COPD exacerbation with continued wheezing. At home the patient was on 8 mg prednisone daily. Chest x-ray reviewed today on my read and per radiology shows no significant changes and infiltrates. Continue breathing treatments. Encephalopathy is intermittent and requires when necessary Haldol Recheck renal panel, liver enzymes and CBC tomorrow Oral potassium today for hypokalemia and recheck tomorrow I did call and update the patient's . She stated that the intermittent agitation is not unusual for him at the skilled nursing, but he appears to be having more agitation than usual here in the hospital while he is ill and out of his normal surroundings. Discussed with patient's nurse. DVT Prophylaxis: SCD's Hospital Course Summary Disclaimer: The visit summary below is not to be considered part of the above Progress Note. Hospital Course: 06/18/17 Telehospitalist admission Assessment Possible right lower lobe pneumonia or healthcare associated with recent hospital stays Acute exacerbation of COPD the case with wheezing bilaterally History of congestive heart failure, I don't think that he is fluid overloaded at the moment. Acute on chronic renal failure, baseline creatinine about 1.6. Dementia Plan We'll treat for acute exacerbation of COPD with Solu-Medrol and nebulizers I provided IV antibiotics for healthcare associated pneumonia Patient has prolonged QTC, rule out atypicals, then perhaps stopping the Levaquin would be appropriate with this Order sputum culture, and labs for Legionella strep pneumo and mycoplasma and if those are negative then stopping certainly Levaquin and perhaps all antibiotics would be appropriate Patient is a DO NOT RESUSCITATE Palliative care may be appropriately considered if not already done so. 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 With patient's multiple medical comorbidities, anticipate greater than 2 midnights of hospital care needed. Will start Cefepime and vancomycin for pulmonary coverage - avoid levofloxacin as patient of amiodarone. Supplemental O2 as needed - weaning as able. Neb treatments of Duoneb and budesonide. RSV positive - respiratory precautions implemented. Steroids started by Telehospitalist - will carpenter helper hardwood flooring as able. Continue home medications. SCD for DVT prevention - patient has Hx of GI Bleeding. Monitor lab. DNR as per his requests. Care to return to Dr Bhagat at time of discharge from [facility] [place]. 06/20/17 Continue Cefepime and vancomycin for pulmonary coverage - avoid levofloxacin as patient of amiodarone. Will discontinue Solu-Medrol as patient getting agitated at times. Continue breathing treatment. Supplemental O2 as needed - weaning as able. Patient not always adherent with wearing O2. Recheck CMP in am to due to elevated liver enzymes and CKD. Recheck CBC in am due to pneumonia. CBC increased today - likely steroid effect. 06/21/2017 Plan Chart, labs, radiology reviewed On day 3 of Cefepime and vancomycin for pneumonia - avoid levofloxacin as patient of amiodarone. Hypoxic respiratory failure is improving with decreased oxygen needs. Wean off of oxygen except for 2 L with sleep. Patient is tolerating DC of Solu-Medrol (it was discontinued to see if it would help with his agitation). Continue breathing treatments. Encephalopathy is better today. Liver enzymes are slowly improving CBC, renal panel, pro-calcitonin tomorrow. Oral potassium today for hypokalemia and recheck tomorrow Chest x-ray PA and lateral tomorrow Discontinue vancomycin. Possible change to oral antibiotics soon. Possible discharge back to the skilled nursing in the next few days. Discussed with patient's nurse. Greater than 35 minutes of time spent seeing and evaluating the patient, reviewing chart, and determining care plan.
[2017-06-22] MEDS ORDERED: PredniSONE 10 MG TABLET PO SCH (13:58)
[2017-06-22] MEDS: ATORVASTATIN 10 MG TABLET PO SCH (20:19)
[2017-06-22] MEDS: ClonazePAM 0.5 MG TABLET PO SCH (20:20)
[2017-06-23] MEDS: CEFEPIME 1 GM in NS 100 ML IV SCH ×3 (00:38→23:55)
[2017-06-23] MEDS: NS FLUSH BAG 500ml IV PRN ×2 (00:39→23:54)
[2017-06-23] MEDS: SALINE FLUSH 10ml SYRINGE IVF PRN (00:40)
[2017-06-23] MEDS: ISOSORBIDE MONONITRATE ER 30 MG TABLET PO SCH ×2 (06:10→21:55)
[2017-06-23] MEDS: ALBUTEROL/IPRATROPIUM 2.5mg-0.5mg/3ml NEB AEROSOL SCH ×4 (07:38→20:39)
[2017-06-23] MEDS: BUDESONIDE INH.SOLN 0.5mg/2ml NEB AEROSOL SCH ×2 (07:38→20:38)
[2017-06-23] MEDS ORDERED: HALOPERIDOL 5 MG/ML INJECTION IVP PRN (09:33)
--- NOTE | 2017-06-23 09:42 | Progress Note ---
- Date 06/23/17 Subjective: The patient was seen in his room this morning. He was yelling out for his nurse and stating that he wanted to leave. He thinks he is at the doctor's office. He denies pain anywhere. He denies shortness of breath. He is taken off his oxygen. His breakfast tray shows he has eaten over 75% of his meal. He denies any complaints except he just wants to go home. Objective Vital signs: Temperature 95.8 F L 06/23/17 08:04 Pulse Rate 67 06/23/17 08:04 Respiratory Rate 20 06/23/17 08:04 Blood Pressure 151/86 H 06/23/17 08:04 Pulse Oximetry 94 06/23/17 08:04 Height/Weight/BMI: Height 1.78 m Weight 79.1 kg Body Mass Index 25.2 Comments: Oxygen level on bedside oximetry with his oxygen off as 74%. I restarted oxygen at 2 L with O2 sat up to the mid 80s. The patient was then placed on 4 L and oxygen level appeared to rise into the low 90s. Then he refused to wear the bedside oximetry any further. GEN-the patient is alert, agitated, appears in no physical distress HEENT-sclera anicteric, oropharynx is moist NECK-supple CV-regular rate and rhythm CHEST-occasional scattered coarse breath sounds, no wheezes ABD-soft, nontender with positive bowel sounds -no Crocker EXT-no edema NEURO-no focal deficits, patient is oriented to self only SKIN-warm and dry and without rashes Results - Labs CBC & Chem 7: 06/23/17 04:34 06/23/17 04:34 Labs: Laboratory Tests 06/23/17 06/23/17 04:34 08:31 Calcium 8.9 Total Bilirubin 0.50 AST 55 ALT 91 H Alkaline Phosphatase 90 Ammonia < 9 L Total Protein 6.2 L Albumin 2.9 L Globulin 3.3 Albumin/Globulin Ratio 0.9 L Microbiology Results: Microbiology 06/19/17 12:35 Urine Streptococcus pneumoniae Antigen (M - Final Assessment and Plan (1) Right lower lobe pneumonia Current visit: No Status: Acute (2) HCAP (healthcare-associated pneumonia) Current visit: Yes Status: Acute (3) COPD exacerbation Current visit: Yes Status: Acute (4) ARF (acute renal failure) Current visit: Yes Status: Acute (5) CRF (chronic renal failure) Current visit: Yes Status: Acute Assessment and Plan: ASSESSMENT Pneumonia -currently on day 4 of cefepime. Vancomycin discontinued yesterday RSV positive Acute hypoxic respiratory failure Pulmonary edema - mild COPD with acute exacerbation Encephalopathy CAD Chronic systolic HF - EF 40% HTN HDL Chronic afib (not anticoagulated secondary to frequent falls) DURAN patient is supposed to be on CPAP with 2 L of oxygen at night, but the patient refuses at the assisted. They put him on 2 L at night and he frequently takes it off[facility]. 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 Hypokalemia- Hypernatremia Plan On day 5 of cefepime. Vancomycin discontinued 06/21/2017.- avoid levofloxacin as patient on amiodarone. Hypoxic respiratory failure worse this morning with the patient refusing to keep his oxygen on Wean off of oxygen as tolerated except for 2 L with sleep. Wheezing is better today after restarting prednisone 30 mg yesterday. Will decrease to 20 mg today. At home the patient was on 8 mg prednisone daily. Continue breathing treatments. Recheck chest x-ray tomorrow Encephalopathy is intermittent and requires when necessary Haldol-we'll consult psychiatry. Liver enzymes are improving. Likely elevated from his acute illness. Ammonia level is normal. Oral potassium today for hypokalemia Hold Bumex today because of hypernatremia Recheck basic metabolic and CBC tomorrow Discussed with patient's nurse. Hospital Course Summary Disclaimer: The visit summary below is not to be considered part of the above Progress Note. Hospital Course: 06/18/17 Telehospitalist admission Assessment Possible right lower lobe pneumonia or healthcare associated with recent hospital stays Acute exacerbation of COPD the case with wheezing bilaterally History of congestive heart failure, I don't think that he is fluid overloaded at the moment. Acute on chronic renal failure, baseline creatinine about 1.6. Dementia Plan We'll treat for acute exacerbation of COPD with Solu-Medrol and nebulizers I provided IV antibiotics for healthcare associated pneumonia Patient has prolonged QTC, rule out atypicals, then perhaps stopping the Levaquin would be appropriate with this Order sputum culture, and labs for Legionella strep pneumo and mycoplasma and if those are negative then stopping certainly Levaquin and perhaps all antibiotics would be appropriate Patient is a DO NOT RESUSCITATE Palliative care may be appropriately considered if not already done so. 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 With patient's multiple medical comorbidities, anticipate greater than 2 midnights of hospital care needed. Will start Cefepime and vancomycin for pulmonary coverage - avoid levofloxacin as patient of amiodarone. Supplemental O2 as needed - weaning as able. Neb treatments of Duoneb and budesonide. RSV positive - respiratory precautions implemented. Steroids started by Telehospitalist - will medical record coder as able. Continue home medications. SCD for DVT prevention - patient has Hx of GI Bleeding. Monitor lab. DNR as per his requests. Care to return to Dr Bhagat at time of discharge from [facility] [place]. 06/20/17 Continue Cefepime and vancomycin for pulmonary coverage - avoid levofloxacin as patient of amiodarone. Will discontinue Solu-Medrol as patient getting agitated at times. Continue breathing treatment. Supplemental O2 as needed - weaning as able. Patient not always adherent with wearing O2. Recheck CMP in am to due to elevated liver enzymes and CKD. Recheck CBC in am due to pneumonia. CBC increased today - likely steroid effect. 06/21/2017 Plan Chart, labs, radiology reviewed On day 3 of Cefepime and vancomycin for pneumonia - avoid levofloxacin as patient of amiodarone. Hypoxic respiratory failure is improving with decreased oxygen needs. Wean off of oxygen except for 2 L with sleep. Patient is tolerating DC of Solu-Medrol (it was discontinued to see if it would help with his agitation). Continue breathing treatments. Encephalopathy is better today. Liver enzymes are slowly improving CBC, renal panel, pro-calcitonin tomorrow. Oral potassium today for hypokalemia and recheck tomorrow Chest x-ray PA and lateral tomorrow Discontinue vancomycin. Possible change to oral antibiotics soon. Possible discharge back to the assisted in the next few days. Discussed with patient's nurse. Greater than 35 minutes of time spent seeing and evaluating the patient, reviewing chart, and determining care plan. 06/22/2017 Plan On day 4 of cefepime. Vancomycin discontinued yesterday.- avoid levofloxacin as patient of amiodarone. Hypoxic respiratory failure is improving with decreased oxygen needs. Wean off of oxygen as tolerated except for 2 L with sleep. Solu-Medrol was discontinued to see if this would help with agitation. It does not seem to have made a difference. We'll restart prednisone 30 mg once daily for COPD exacerbation with continued wheezing. At home the patient was on 8 mg prednisone daily. Chest x-ray reviewed today on my read and per radiology shows no significant changes and infiltrates. Continue breathing treatments. Encephalopathy is intermittent and requires when necessary Haldol Recheck renal panel, liver enzymes and CBC tomorrow Oral potassium today for hypokalemia and recheck tomorrow I did call and update the patient's . She stated that the intermittent agitation is not unusual for him at the assisted, but he appears to be having more agitation than usual here in the hospital while he is ill and out of his normal surroundings. Discussed with patient's nurse.
[2017-06-23] MEDS ORDERED: PredniSONE 20 MG TABLET PO SCH (09:49)
[2017-06-23] MEDS: FAMOTIDINE 20 MG TABLET PO SCH (09:49)
[2017-06-23] MEDS: CLOPIDOGREL 75 MG TABLET PO SCH (09:50)
[2017-06-23] MEDS: BuPROPion XL 300mg (24HR) TABLET PO SCH ×2 (09:50→12:14)
[2017-06-23] MEDS: HALOPERIDOL 0.5 MG TABLET PO PRN ×2 (09:51→18:51)
[2017-06-23] MEDS: ASPIRIN *EC* 81 MG TABLET PO SCH ×2 (09:51→12:13)
[2017-06-23] MEDS: FERROUS SULFATE 324 MG TABLET PO SCH ×3 (09:52→18:51)
[2017-06-23] MEDS: POLYETHYL GLYCOL 3350 17gm PACKET PO SCH (09:52)
[2017-06-23] MEDS: BENZONATATE 200 MG CAPSULE PO SCH ×4 (09:52→22:03)
[2017-06-23] MEDS: GUAIFENESIN LA 600 MG TABLET PO SCH ×3 (09:53→22:03)
[2017-06-23] MEDS: CYANOCOBALAMIN (B-12) 500mcg TABLET PO SCH (09:57)
[2017-06-23] MEDS: SERTRALINE 100 MG TABLET PO SCH ×2 (09:58→12:17)
[2017-06-23] MEDS: AMIODARONE 200 MG TABLET PO SCH ×2 (09:58→12:16)
[2017-06-23] MEDS ORDERED: PredniSONE 20 MG TABLET PO ONE (10:15)
[2017-06-23] MEDS: SENNA + DOCUSATE TABLET PO SCH ×2 (12:20→22:02)
[2017-06-23] MEDS ORDERED: D5W 500 ML IV SCH (13:30)
--- NOTE | 2017-06-23 18:46 | Neuropsychiatric Consult ---
[facility] Date: 06/23/17 Requesting Physician: Alanna Bill Reason for Consultation: Agitation Start Time: 15:00 Stop Time: 16:20 History of Present Illness: Patient is an 82-year-old , retired male admitted from [facility] and being treated for pneumonia and RSV. Patient has reportedly had several falls in recent months and this is his 3rd recent recurrence of pneumonia per daughter's report. On interview, patient is guarded, labile and dismisses me fairly quickly. 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 His daughter/DPOA tells me that he does in fact have a PhD in theology and went to [employer], but he is saying other things that are not true. It is clear he is disorganized and disoriented. Patient has a history of bipolar disorder per past records (has been in [facility] in the past) and per daughter's report. He sees Dr. Escalante for psychiatric care. His daughter reports that dementia was a concern starting ~6 years ago but has become much more severe in the past 3 years. He has become more irritable and became unmanageable at home with his thus was placed into [facility]. Per primary team, patient has been agitated, demanding to leave and uncooperative with care (such as pulling out IV, refusing to wear O2). [facility], LAT[facility] Patient Stated Medical History Cerebrovascular Accident Yes: 2004 Dementia Yes Peripheral Neuropathy Yes Cataracts Yes Cardiac Arrhythmia Yes: Afib hx Coronary Artery Disease Yes: stents Hypertension Yes Pneumonia Yes Sleep Apnea Yes Gastroesophageal Reflux Yes Disease Gastrointestinal Bleeding Yes Ulcer Yes Other GI Yes: Constipation at times. Hx Incontinence Yes Hx Kidney Stones Yes Hx Renal Disease Yes Anemia Yes Clotting Problems Yes: ON PLAVIX MRSA Yes: Nasal Shingles Yes Bipolar Disorder Yes Clinic Medical History (Last Reviewed 02/25/17 @ 11:05 by YOLANDA Louis) Dementia (Acute Medical) Prolonged Q-T interval on ECG (Acute Medical) Right lower lobe pneumonia (Acute Medical) Elevated troponin I level (Acute Medical) NSTEMI type II Systolic CHF (Acute Medical) HCAP (healthcare-associated pneumonia) (Acute Medical) COPD exacerbation (Acute Medical) ARF (acute renal failure) (Acute Medical) CRF (chronic renal failure) (Acute Medical) Elevated LFTs (Acute Medical) Anemia (Chronic Medical) Thrombocytopenia (Resolved Medical) Pacemaker (Chronic Medical) Dementia (Chronic Medical) Cholelithiasis and acute cholecystitis without obstruction (Acute Medical) Postoperative ecchymosis (Acute Medical) Hypoxia (Acute Medical) Hypokalemia (Acute Medical) DURAN (obstructive sleep apnea) (Chronic Medical) HTN (hypertension) (Chronic Medical) UTI (urinary tract infection) (Ruled-out Medical) Atrial fibrillation (Chronic Medical) CKD stage G3b/A1, 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 mg/g (Chronic Medical) Abnormal gait (Acute Medical) Anxiety (Acute Medical) Arthritis (Acute Medical) Carpal tunnel syndrome (Acute Medical) Chronic kidney disease, stage 4 (severe) (Acute Medical) Coronary artery disease (Acute Medical) Depression (Acute Medical) Essential hypertension (Acute Medical) Hyperlipemia (Acute Medical) Low back pain at multiple sites (Acute Medical) Osteoarthritis (Acute Medical) Renal cancer (Acute Medical) Sleep apnea (Acute Medical) Abrasion (Inactive Medical) Cholelithiasis and acute cholecystitis with obstruction (Inactive Medical) Fall (Inactive Medical) Fall (Inactive Medical) Fall on same level (Inactive Medical) Head injury (Inactive Medical) Low back pain (Inactive Medical) Strain of right hip (Inactive Medical) Surgical History: Colonoscopy 2014. Heart pacemaker 2010. Coronary artery stents 03/2014. Back surgeries x5 Family History: Family History (Last Reviewed 02/25/17 @ 11:05 by YOLANDA Louis) Mother Stroke Migraine Depression Father High blood pressure Congestive heart failure due to hypertension Sister Migraine - Social History Smoking status: Unknown if ever smoked Housing: [facility] ([facility]) Review of Systems ROS unobtainable: other (due to patient refusal to cooperate in interview) - Psychiatric Psychiatric: Present: as per HPI, abnormal sleep pattern, behavioral changes, mood swings Mental Status Exam Vitals: Last Vital Signs Temp 96.5 F L 06/23/17 14:51 Pulse 76 06/23/17 14:51 Resp 18 06/23/17 14:51 BP 150/77 H 06/23/17 14:51 Pulse Ox 93 06/23/17 14:51 Height: 1.78 m Weight: 79.1 kg - Mental Status Exam Muscle Strength/Tone: Normal Dressing: Casual Grooming: Fair Attitude: Uncooperative, Guarded, Argumentative Motor Activity: Normal Eye Contact: Good Speech: Normal Volume: Loud Rhythm: Appropriate Rhythm Sensory: Alert Orientation: Disoriented to time, Disoriented to place, Disoriented to situation , Oriented to person Mood: Irritable, Angry Affect: Angry, Hostile, Manic Rate of Thoughts: Appropriate Rate Thought Organization: Disorganized, Confused Associations: Illogical Abstract Reasoning: Impaired, concrete Thought Content: Paranoia, Grandeur Perception/Psychotic: Perception Normal Fund of Knowledge: Other (decreased) Memory: Poor-immediate, Poor-recent Suicidal Ideation: Denies Homicidal Ideation: Denies Insight: Impaired Judgement: Impaired Impulse Control: Poor - Laboratory Result Diagrams: 06/23/17 04:34 06/23/17 04:34 Laboratory Results - last 24 hr 06/22/17 06/22/17 06/23/17 17:35 20:57 04:34 WBC 7.7 RBC 3.36 L Hgb 10.3 L Hct 32.8 L MCV 97.6 MCH 30.7 MCHC 31.4 RDW Std Deviation 50.1 Plt Count 114 L MPV 10.7 Immature Gran % (Auto) Not performed Neut % (Auto) Not performed Lymph % (Auto) Not performed Brewster % (Auto) Not performed Eos % (Auto) Not performed Baso % (Auto) Not performed Neut # (Auto) Not performed Lymph # (Auto) Not performed Brewster # (Auto) Not performed Eos # (Auto) Not performed Baso # (Auto) Not performed Abs Immat Gran (auto) Not performed Neutrophils % (Manual) 93.0 H Lymphocytes % (Manual) 3.0 L Monocytes % (Manual) 4.0 Neutrophils # (Manual) 7.2 Lymphocytes # (Manual) 0.2 L Monocytes # (Manual) 0.3 Poikilocytosis 1+ Anisocytosis 1+ RBC Morph Comment Abnormal Turbidity Sodium Potassium Chloride Carbon Dioxide Anion Gap BUN Creatinine GFR Calculation BUN/Creatinine Ratio Glucose Glucometer 180 220 Calculated Osmolality Calcium Total Bilirubin Icterus Index AST ALT Alkaline Phosphatase Ammonia Total Protein Albumin Globulin Albumin/Globulin Ratio Specimen Hemolysis 06/23/17 06/23/17 06/23/17 04:34 06:35 08:31 WBC RBC Hgb Hct MCV MCH MCHC RDW Std Deviation Plt Count MPV Immature Gran % (Auto) Neut % (Auto) Lymph % (Auto) Brewster % (Auto) Eos % (Auto) Baso % (Auto) Neut # (Auto) Lymph # (Auto) Brewster # (Auto) Eos # (Auto) Baso # (Auto) Abs Immat Gran (auto) Neutrophils % (Manual) Lymphocytes % (Manual) Monocytes % (Manual) Neutrophils # (Manual) Lymphocytes # (Manual) Monocytes # (Manual) Poikilocytosis Anisocytosis RBC Morph Comment Turbidity < 20 Sodium 148 H Potassium 3.4 L Chloride 104 Carbon Dioxide 34 H Anion Gap 10 BUN 44.0 H Creatinine 1.5 D GFR Calculation 45 BUN/Creatinine Ratio 29 H Glucose 122 H Glucometer 135 Calculated Osmolality 296 H Calcium 8.9 Total Bilirubin 0.50 Icterus Index < 2 AST 55 ALT 91 H Alkaline Phosphatase 90 Ammonia < 9 L Total Protein 6.2 L Albumin 2.9 L Globulin 3.3 Albumin/Globulin Ratio 0.9 L Specimen Hemolysis < 15 06/23/17 11:07 WBC RBC Hgb Hct MCV MCH MCHC RDW Std Deviation Plt Count MPV Immature Gran % (Auto) Neut % (Auto) Lymph % (Auto) Brewster % (Auto) Eos % (Auto) Baso % (Auto) Neut # (Auto) Lymph # (Auto) Brewster # (Auto) Eos # (Auto) Baso # (Auto) Abs Immat Gran (auto) Neutrophils % (Manual) Lymphocytes % (Manual) Monocytes % (Manual) Neutrophils # (Manual) Lymphocytes # (Manual) Monocytes # (Manual) Poikilocytosis Anisocytosis RBC Morph Comment Turbidity Sodium Potassium Chloride Carbon Dioxide Anion Gap BUN Creatinine GFR Calculation BUN/Creatinine Ratio Glucose Glucometer 134 Calculated Osmolality Calcium Total Bilirubin Icterus Index AST ALT Alkaline Phosphatase Ammonia Total Protein Albumin Globulin Albumin/Globulin Ratio Specimen Hemolysis Assessment and Plan (1) Bipolar disorder, manic Problem details: Bipolar 1 disorder, current episode manic Current visit: Yes Status: Acute (2) Delirium Problem details: due to multiple etiologies, including pneumonia and hypoxemia Current visit: Yes Status: Acute (3) Major neurocognitive disorder Problem details: vascular vs. Alzheimer's Current visit: Yes Status: Acute Patient seen and chart reviewed. Patient's current presentation likely a combination of the following: dementia with behavioral disturbance, delirium due to medical conditions and refusal to wear oxygen, and bipolar disorder as he appears to be manic. Reviewing patient's medical chart, I have the following recommendations in regards to medications. However, I discussed these with patient's DPOA and she is hesitant to have psychotropic medications changed as it has gone poorly in the past, even though she understands that current meds are not treating bipolar disorder and could in fact be exacerbating it and increasing his irritability. In regards to bipolar disorder: Patient is on 2 antidepressants, both of which could trigger maru in a bipolar patient without a mood stabilizer on board (which he does not have). In addition, prednisone itself will likely trigger maru in a bipolar patient though I understand it may be medically necessary at this point. If I were treating this patient, I would taper and discontinue the antidepressants and start him on a mood stabilizer such as Depakote - however, his DPOA will likely refuse this option. In regards to delirium: - Narcotics can exacerbate confusion/agitation, attempt to minimize use as much as possible - Clonazepam can accumulate in the elderly leading to increased confusion and falls, I would stop it at this point as it will take some time to clear from his system He is getting PRN Haldol for delirium. QTc is slightly prolonged but he does have a pacemaker, which lowers risk. Optimizing K, Mg levels will help minimize QTc prolongation. Although I typically like to minimize Ativan use in elderly patients, you may consider a trial of Ativan 0.5mg PO/IV/IM q 4 hrs PRN anxiety/agitation as it may calm his maru and he may be more willing to leave O2 on. Optimizing oxygen , sleep, nutrition, etc. is of course quite helpful in treating all of the above conditions. May also consider holding statin as patient's severity of dementia will likely limit his lifespan to the point that he will not derive the real benefit of this medication and it can lead to some agitation and/or sleep disruption in elderly patients. I have discussed all of the above with patient's DPOA and Dr. Bill, and will allow further decisions to be made by the primary treatment team. Once patient is more medically stable, could consider transfer to [facility] for treatment of maru if DPOA is willing. Please call me if you have questions or need further assistance. Thank you for this consult.
[2017-06-23] MEDS ORDERED: LORazepam 0.5 MG TABLET PO PRN (20:17)
[2017-06-24] MEDS: ISOSORBIDE MONONITRATE ER 30 MG TABLET PO SCH ×2 (05:42→21:00)
[2017-06-24] MEDS: ALBUTEROL/IPRATROPIUM 2.5mg-0.5mg/3ml NEB AEROSOL SCH ×4 (07:07→19:47)
[2017-06-24] MEDS: BUDESONIDE INH.SOLN 0.5mg/2ml NEB AEROSOL SCH ×2 (07:08→19:47)
--- NOTE | 2017-06-24 08:58 | XRay Report ---
INDICATION: hypoxia PROCEDURE: CHEST 2-VIEWS UPRIGHT (PA & LAT) Encounter: Initial COMPARISON: June 22, 2017 FINDINGS: Lungs appear grossly stable. No new or worsening airspace disease. No pneumothorax. Trace effusions. Heart size and mediastinal contours are stable. Left pacemaker. Pulmonary vascularity remains mildly prominent. Old right rib fractures. Impression: Stable appearance of the chest. .
[2017-06-24] MEDS: CLOPIDOGREL 75 MG TABLET PO SCH (09:09)
[2017-06-24] MEDS: BENZONATATE 200 MG CAPSULE PO SCH ×3 (09:10→21:00)
[2017-06-24] MEDS: SERTRALINE 100 MG TABLET PO SCH (09:11)
[2017-06-24] MEDS: CYANOCOBALAMIN (B-12) 500mcg TABLET PO SCH (09:12)
[2017-06-24] MEDS: GUAIFENESIN LA 600 MG TABLET PO SCH ×2 (09:12→21:00)
[2017-06-24] MEDS: BuPROPion XL 300mg (24HR) TABLET PO SCH (09:12)
[2017-06-24] MEDS: FAMOTIDINE 20 MG TABLET PO SCH (09:12)
[2017-06-24] MEDS: BUMETANIDE 1 MG TABLET PO SCH ×2 (09:13→14:34)
[2017-06-24] MEDS: AMIODARONE 200 MG TABLET PO SCH (09:13)
[2017-06-24] MEDS: PredniSONE 10 MG TABLET PO SCH (09:14)
[2017-06-24] MEDS: FERROUS SULFATE 324 MG TABLET PO SCH ×2 (09:14→18:39)
[2017-06-24] MEDS: SENNA + DOCUSATE TABLET PO SCH ×2 (09:14→21:01)
[2017-06-24] MEDS: ASPIRIN *EC* 81 MG TABLET PO SCH (09:14)
[2017-06-24] MEDS: POLYETHYL GLYCOL 3350 17gm PACKET PO SCH (09:16)
[2017-06-24] MEDS: CEFEPIME 1 GM in NS 100 ML IV SCH (12:57)
--- NOTE | 2017-06-24 15:50 | Neuropsych Progress Note ---
[facility] Date: 06/24/17 - Sujective/Severity of Illness Medications: Acetaminophen (Tylenol) 325 - 650 mg PO Q5H PRN PRN Reason: Discomfort Last Admin: 06/21/17 06:32 Dose: 650 mg Hydrocodone Bitart/Acetaminophen ([place] 5/325) 1 tab PO Q6H PRN PRN Reason: Pain Last Admin: 06/22/17 01:04 Dose: 1 tab Albuterol Sulfate (Proventil Neb (0.083%)) 2.5 mg AEROSOL Q2H PRN Last Admin: 06/21/17 23:28 Dose: 2.5 mg Albuterol/Ipratropium (Duoneb) 3 ml AEROSOL RTQID [facility] Last Admin: 06/24/17 10:36 Dose: 3 ml Amiodarone HCl (Pacerone) 200 mg PO DAILY [facility] Last Admin: 06/24/17 09:13 Dose: 200 mg Aspirin (Ecotrin) 81 mg PO DAILY [facility] Last Admin: 06/24/17 09:14 Dose: 81 mg Atorvastatin Calcium (Lipitor) 10 mg PO HS [facility] Last Admin: 06/22/17 20:19 Dose: 10 mg Benzonatate (Tessalon Perles) 200 mg PO TID [facility] Last Admin: 06/24/17 14:34 Dose: 200 mg Budesonide (Pulmicort Inhalation) 0.5 mg AEROSOL RTBID [facility] Last Admin: 06/24/17 07:08 Dose: 0.5 mg Bumetanide (Bumex Tab) 1 mg PO [id number] [facility] Last Admin: 06/24/17 14:34 Dose: 1 mg Bupropion HCl (Wellbutrin Xl) 300 mg PO DAILY [facility] Last Admin: 06/24/17 09:12 Dose: 300 mg Cholecalciferol (Vit. D-3) 1,000 unit PO DAILY [facility] Last Admin: 06/24/17 09:12 Dose: 1,000 unit Clonazepam (Klonopin) 0.125 mg PO HS [facility] Last Admin: 06/22/17 20:20 Dose: 0.125 mg Clopidogrel Bisulfate (Plavix) 75 mg PO DAILY [facility] Last Admin: 06/24/17 09:09 Dose: 75 mg Cyanocobalamin (Vit. B-12) 1,000 mcg PO DAILY [facility] Last Admin: 06/24/17 09:12 Dose: 1,000 mcg Famotidine (Pepcid) 20 mg PO DAILY [facility] Last Admin: 06/24/17 09:12 Dose: 20 mg Ferrous Sulfate (Feosol) 324 mg PO BIDWM [facility] Last Admin: 06/24/17 09:14 Dose: 324 mg Guaifenesin (Mucinex La) 600 mg PO BID [facility] Last Admin: 06/24/17 09:12 Dose: 600 mg Haloperidol (Haldol) 0.5 mg PO Q6H PRN PRN Reason: Agitation Last Admin: 06/23/17 18:51 Dose: 0.5 mg Haloperidol Lactate (Haldol) 0.5 mg IVP Q6H PRN PRN Reason: Agitation Last Admin: 06/24/17 15:11 Dose: 0.5 mg Cefepime HCl 1 gm/ Sodium (Chloride) 100 mls @ 200 mls/hr IV Q12H [facility] Last Infusion: 06/24/17 14:36 Dose: Infused Isosorbide Mononitrate (Imdur) 30 mg PO BID/E [facility] Last Admin: 06/24/17 05:42 Dose: 30 mg Lorazepam (Ativan Inj) 0.5 mg IVP Q6H PRN Last Admin: 06/24/17 15:08 Dose: 0.5 mg Lorazepam (Ativan) 0.5 mg PO Q4H PRN PRN Reason: Agitation Lorazepam (Ativan Inj) 0.5 mg IM Q4H PRN Lorazepam (Ativan) 0.5 mg PO [facility] Metoprolol Tartrate (Lopressor) 50 mg PO BIDWM [facility] Last Admin: 06/24/17 09:10 Dose: 50 mg Polyethylene Glycol (Miralax) 17 gm PO DAILY [facility] Last Admin: 06/24/17 09:16 Dose: 17 gm Potassium Chloride (K-Dur) 20 meq PO BIDWM [facility] Last Admin: 06/24/17 09:15 Dose: 20 meq Prednisone (Deltasone) 10 mg PO WB [facility] Last Admin: 06/24/17 09:14 Dose: 10 mg Senna/Docusate Sodium (Senna Plus Tablet) 1 tab PO BID PRN PRN Reason: Constipation Senna/Docusate Sodium (Senna Plus Tablet) 1 tab PO BID [facility] Last Admin: 06/24/17 09:14 Dose: 1 tab Sertraline HCl (Zoloft) 150 mg PO DAILY [facility] Last Admin: 06/24/17 09:11 Dose: 150 mg Sodium Chloride (Iv Flush) 10 - 80 ml IVF PRN PRN PRN Reason: Flushing Last Admin: 06/23/17 00:40 Dose: 10 ml Sodium Chloride (Normal Saline) 500 ml IV PRN PRN Last Admin: 06/23/17 23:54 Dose: 500 ml Subjective: Patient seen and chart reviewed. Case discussed with treatment team. On interview, patient is significantly more pleasant than when seen yesterday though continues to be quite confused and disoriented. (Likely not oriented at baseline secondary to dementia). Patient denies any SI, HI or AVH. Patient denies any adverse side effects related to psychotropic medications. Nursing staff report cooperation has been quite variable. He is wearing his oxygen when I saw him. Start Time: 07:00 Stop Time: 07:15 Mental Status Exam Vitals: Last Vital Signs Temp 96.5 F L 06/24/17 14:00 Pulse 68 06/24/17 14:00 Resp 20 06/24/17 14:00 BP 141/76 H 06/24/17 14:00 Pulse Ox 96 06/24/17 14:00 Height: 1.78 m Weight: 80 kg - Mental Status Exam Muscle Strength/Tone: Normal Dressing: Casual Grooming: Fair Attitude: Cooperative (varies per staff) Motor Activity: Normal Eye Contact: Good Speech: Normal Volume: Normal Rhythm: Appropriate Rhythm Orientation: Disoriented to time, Disoriented to place, Disoriented to situation , Oriented to person Mood: Neutral (affect continues to be labile) Rate of Thoughts: Delayed Thought Organization: Disorganized, Confused Associations: Illogical Abstract Reasoning: Impaired, concrete Thought Content: Other (no insight into hospitalization, no other abnormal thought content elicited on today's interview) Perception/Psychotic: Perception Normal Fund of Knowledge: Other (decreased) Memory: Poor-immediate, Poor-recent Suicidal Ideation: Denies Homicidal Ideation: Denies Insight: Impaired Judgement: Impaired Impulse Control: Poor - Laboratory Result Diagrams: 06/24/17 04:12 06/24/17 04:12 Laboratory Results - last 24 hr 06/23/17 06/23/17 06/24/17 18:44 19:31 04:12 WBC 8.0 RBC 3.40 L Hgb 10.5 L Hct 33.3 L MCV 97.9 MCH 30.9 MCHC 31.5 RDW Std Deviation 49.5 Plt Count 137 MPV 10.7 Immature Gran % (Auto) Not performed Neut % (Auto) Not performed Lymph % (Auto) Not performed Gila % (Auto) Not performed Eos % (Auto) Not performed Baso % (Auto) Not performed Neut # (Auto) Not performed Lymph # (Auto) Not performed Gila # (Auto) Not performed Eos # (Auto) Not performed Baso # (Auto) Not performed Abs Immat Gran (auto) Not performed Neutrophils % (Manual) 91.0 H Band Neutrophils % 1.0 Lymphocytes % (Manual) 7.0 L Monocytes % (Manual) 1.0 Neutrophils # (Manual) 7.3 Band Neutrophils # 0.1 Lymphocytes # (Manual) 0.6 L Monocytes # (Manual) 0.1 RBC Morph Comment Normal Turbidity Sodium Potassium Chloride Carbon Dioxide Anion Gap BUN Creatinine GFR Calculation BUN/Creatinine Ratio Glucose Glucometer 236 147 Calculated Osmolality Calcium Icterus Index Specimen Hemolysis 06/24/17 06/24/17 06/24/17 04:12 05:37 11:52 WBC RBC Hgb Hct MCV MCH MCHC RDW Std Deviation Plt Count MPV Immature Gran % (Auto) Neut % (Auto) Lymph % (Auto) Gila % (Auto) Eos % (Auto) Baso % (Auto) Neut # (Auto) Lymph # (Auto) Gila # (Auto) Eos # (Auto) Baso # (Auto) Abs Immat Gran (auto) Neutrophils % (Manual) Band Neutrophils % Lymphocytes % (Manual) Monocytes % (Manual) Neutrophils # (Manual) Band Neutrophils # Lymphocytes # (Manual) Monocytes # (Manual) RBC Morph Comment Turbidity < 20 Sodium 143 Potassium 3.6 Chloride 103 Carbon Dioxide 32 H Anion Gap 8 BUN 38.0 H Creatinine 1.3 D GFR Calculation 53 BUN/Creatinine Ratio 29 H Glucose 63 L Glucometer 94 166 Calculated Osmolality 282 H Calcium 8.7 Icterus Index < 2 Specimen Hemolysis < 15 Assessment and Plan (1) Bipolar disorder, manic Problem details: Bipolar 1 disorder, current episode manic Current visit: Yes Status: Acute (2) Delirium Problem details: due to multiple etiologies, including pneumonia and hypoxemia Current visit: Yes Status: Acute (3) Major neurocognitive disorder Problem details: vascular vs. Alzheimer's Current visit: Yes Status: Acute Hospital Course Summary Disclaimer: The visit summary below is not to be considered part of the above Progress Note. Hospital Course: 06/18/17 Telehospitalist admission Assessment Possible right lower lobe pneumonia or healthcare associated with recent hospital stays Acute exacerbation of COPD the case with wheezing bilaterally History of congestive heart failure, I don't think that he is fluid overloaded at the moment. Acute on chronic renal failure, baseline creatinine about 1.6. Dementia Plan We'll treat for acute exacerbation of COPD with Solu-Medrol and nebulizers I provided IV antibiotics for healthcare associated pneumonia Patient has prolonged QTC, rule out atypicals, then perhaps stopping the Levaquin would be appropriate with this Order sputum culture, and labs for Legionella strep pneumo and mycoplasma and if those are negative then stopping certainly Levaquin and perhaps all antibiotics would be appropriate Patient is a DO NOT RESUSCITATE Palliative care may be appropriately considered if not already done so. 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 With patient's multiple medical comorbidities, anticipate greater than 2 midnights of hospital care needed. Will start Cefepime and vancomycin for pulmonary coverage - avoid levofloxacin as patient of amiodarone. Supplemental O2 as needed - weaning as able. Neb treatments of Duoneb and budesonide. RSV positive - respiratory precautions implemented. Steroids started by Telehospitalist - will menagerie caretaker as able. Continue home medications. SCD for DVT prevention - patient has Hx of GI Bleeding. Monitor lab. DNR as per his requests. Care to return to Dr Bhagat at time of discharge from [facility]. 06/20/17 Continue Cefepime and vancomycin for pulmonary coverage - avoid levofloxacin as patient of amiodarone. Will discontinue Solu-Medrol as patient getting agitated at times. Continue breathing treatment. Supplemental O2 as needed - weaning as able. Patient not always adherent with wearing O2. Recheck CMP in am to due to elevated liver enzymes and CKD. Recheck CBC in am due to pneumonia. CBC increased today - likely steroid effect. 06/21/2017 Plan Chart, labs, radiology reviewed On day 3 of Cefepime and vancomycin for pneumonia - avoid levofloxacin as patient of amiodarone. Hypoxic respiratory failure is improving with decreased oxygen needs. Wean off of oxygen except for 2 L with sleep. Patient is tolerating DC of Solu-Medrol (it was discontinued to see if it would help with his agitation). Continue breathing treatments. Encephalopathy is better today. Liver enzymes are slowly improving CBC, renal panel, pro-calcitonin tomorrow. Oral potassium today for hypokalemia and recheck tomorrow Chest x-ray PA and lateral tomorrow Discontinue vancomycin. Possible change to oral antibiotics soon. Possible discharge back to the senior living in the next few days. Discussed with patient's nurse. Greater than 35 minutes of time spent seeing and evaluating the patient, reviewing chart, and determining care plan. 06/22/2017 Plan On day 4 of cefepime. Vancomycin discontinued yesterday.- avoid levofloxacin as patient of amiodarone. Hypoxic respiratory failure is improving with decreased oxygen needs. Wean off of oxygen as tolerated except for 2 L with sleep. Solu-Medrol was discontinued to see if this would help with agitation. It does not seem to have made a difference. We'll restart prednisone 30 mg once daily for COPD exacerbation with continued wheezing. At home the patient was on 8 mg prednisone daily. Chest x-ray reviewed today on my read and per radiology shows no significant changes and infiltrates. Continue breathing treatments. Encephalopathy is intermittent and requires when necessary Haldol Recheck renal panel, liver enzymes and CBC tomorrow Oral potassium today for hypokalemia and recheck tomorrow I did call and update the patient's . She stated that the intermittent agitation is not unusual for him at the senior living, but he appears to be having more agitation than usual here in the hospital while he is ill and out of his normal surroundings. Discussed with patient's nurse. 06/24/17 Psych: No additional recommendations since 06/23 - will continue to follow and assess whether patient is appropriate for transfer to [facility] once medically stable.
--- NOTE | 2017-06-24 20:39 | Progress Note ---
- Date 06/24/17 Subjective: The patient was seen in his room earlier today. He is very pleasant but is confused. He reportedly didn't sleep well last night. He denies any pain. He denies any shortness of breath. When I saw him he was on room air with normal oxygen saturation. He did receive oral Haldol 1 last evening. Objective Vital signs: Temperature 96.5 F L 06/24/17 14:00 Pulse Rate 84 06/24/17 17:00 Respiratory Rate 18 06/24/17 19:48 Blood Pressure 141/76 H 06/24/17 14:00 Pulse Oximetry 95 06/24/17 19:48 Height/Weight/BMI: Height 1.78 m Weight 80 kg Body Mass Index 25.2 Comments: GEN-alert, pleasantly confused, no acute distress. Sitting up in a chair on room air with normal oxygenation HEENT-sclera anicteric, oropharynx is moist NECK-supple CV-regular rate and rhythm CHEST-clear to auscultation ABD-soft, nontender with positive bowel sounds -no Crocker EXT-no edema NEURO-pleasantly confused, no acute distress SKIN-warm and dry and without rashes Results - Labs CBC & Chem 7: 06/24/17 04:12 06/24/17 04:12 Microbiology Results: Microbiology 06/19/17 12:35 Urine Streptococcus pneumoniae Antigen (M - Final Assessment and Plan (1) Right lower lobe pneumonia Current visit: No Status: Acute (2) HCAP (healthcare-associated pneumonia) Current visit: Yes Status: Acute (3) COPD exacerbation Current visit: Yes Status: Acute (4) ARF (acute renal failure) Current visit: Yes Status: Acute (5) CRF (chronic renal failure) Current visit: Yes Status: Acute Assessment and Plan: ASSESSMENT Pneumonia -currently on day 6 of cefepime. Vancomycin discontinued yesterday RSV positive Acute hypoxic respiratory failure Pulmonary edema - mild COPD with acute exacerbation Encephalopathy CAD Chronic systolic HF - EF 40% HTN HDL Chronic afib (not anticoagulated secondary to frequent falls) DURAN patient is supposed to be on CPAP with 2 L of oxygen at night, but the patient refuses at the group home. They put him on 2 L at night and he frequently takes it off, per Blayne Buchanan nurses. 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 Hypokalemia-resolved Hypernatremia-resolved Plan On day 6 of cefepime or pneumonia. Vancomycin discontinued 06/21/2017.- avoid levofloxacin as patient on amiodarone. The patient did wear his oxygen last night. Today he is on room air sitting up straight. Prednisone is being tapered again because of concerns for possible maru. Currently he has no wheezing. Will decrease to 10 mg prednisone tomorrow. At home the patient was on 8 mg prednisone daily. Continue breathing treatments. Chest x-ray today is stable. Agitation is better today. Appreciate Dr. Go evaluation and recommendations. I did talk with the patient's daughter Alanna who his DPOA. She stated she did not want to make any significant medication changes. She is agreeable to discontinuation of Klonopin and trying Ativan instead She states that she thinks her father's agitation is due to hypoxia or CO2 retention. We will monitor for this. We will continue to encourage use of oxygen at night and as needed during the day. Hypernatremia is improved after IV fluids yesterday. We'll discontinue Accu-Cheks. Patient is not diabetic and steroids are being decreased.. Hospital Course Summary Disclaimer: The visit summary below is not to be considered part of the above Progress Note. Hospital Course: 06/18/17 Telehospitalist admission Assessment Possible right lower lobe pneumonia or healthcare associated with recent hospital stays Acute exacerbation of COPD the case with wheezing bilaterally History of congestive heart failure, I don't think that he is fluid overloaded at the moment. Acute on chronic renal failure, baseline creatinine about 1.6. Dementia Plan We'll treat for acute exacerbation of COPD with Solu-Medrol and nebulizers I provided IV antibiotics for healthcare associated pneumonia Patient has prolonged QTC, rule out atypicals, then perhaps stopping the Levaquin would be appropriate with this Order sputum culture, and labs for Legionella strep pneumo and mycoplasma and if those are negative then stopping certainly Levaquin and perhaps all antibiotics would be appropriate Patient is a DO NOT RESUSCITATE Palliative care may be appropriately considered if not already done so. 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 With patient's multiple medical comorbidities, anticipate greater than 2 midnights of hospital care needed. Will start Cefepime and vancomycin for pulmonary coverage - avoid levofloxacin as patient of amiodarone. Supplemental O2 as needed - weaning as able. Neb treatments of Duoneb and budesonide. RSV positive - respiratory precautions implemented. Steroids started by Telehospitalist - will reservoir caretaker as able. Continue home medications. SCD for DVT prevention - patient has Hx of GI Bleeding. Monitor lab. DNR as per his requests. Care to return to Dr Bhagat at time of discharge from [facility]. 06/20/17 Continue Cefepime and vancomycin for pulmonary coverage - avoid levofloxacin as patient of amiodarone. Will discontinue Solu-Medrol as patient getting agitated at times. Continue breathing treatment. Supplemental O2 as needed - weaning as able. Patient not always adherent with wearing O2. Recheck CMP in am to due to elevated liver enzymes and CKD. Recheck CBC in am due to pneumonia. CBC increased today - likely steroid effect. 06/21/2017 Plan Chart, labs, radiology reviewed On day 3 of Cefepime and vancomycin for pneumonia - avoid levofloxacin as patient of amiodarone. Hypoxic respiratory failure is improving with decreased oxygen needs. Wean off of oxygen except for 2 L with sleep. Patient is tolerating DC of Solu-Medrol (it was discontinued to see if it would help with his agitation). Continue breathing treatments. Encephalopathy is better today. Liver enzymes are slowly improving CBC, renal panel, pro-calcitonin tomorrow. Oral potassium today for hypokalemia and recheck tomorrow Chest x-ray PA and lateral tomorrow Discontinue vancomycin. Possible change to oral antibiotics soon. Possible discharge back to the group home in the next few days. Discussed with patient's nurse. Greater than 35 minutes of time spent seeing and evaluating the patient, reviewing chart, and determining care plan. 06/22/2017 Plan On day 4 of cefepime. Vancomycin discontinued yesterday.- avoid levofloxacin as patient of amiodarone. Hypoxic respiratory failure is improving with decreased oxygen needs. Wean off of oxygen as tolerated except for 2 L with sleep. Solu-Medrol was discontinued to see if this would help with agitation. It does not seem to have made a difference. We'll restart prednisone 30 mg once daily for COPD exacerbation with continued wheezing. At home the patient was on 8 mg prednisone daily. Chest x-ray reviewed today on my read and per radiology shows no significant changes and infiltrates. Continue breathing treatments. Encephalopathy is intermittent and requires when necessary Haldol Recheck renal panel, liver enzymes and CBC tomorrow Oral potassium today for hypokalemia and recheck tomorrow I did call and update the patient's . She stated that the intermittent agitation is not unusual for him at the group home, but he appears to be having more agitation than usual here in the hospital while he is ill and out of his normal surroundings. Discussed with patient's nurse. 06/23/2017 Plan On day 5 of cefepime. Vancomycin discontinued 06/21/2017.- avoid levofloxacin as patient on amiodarone. Hypoxic respiratory failure worse this morning with the patient refusing to keep his oxygen on Wean off of oxygen as tolerated except for 2 L with sleep. Wheezing is better today after restarting prednisone 30 mg yesterday. Will decrease to 20 mg today. At home the patient was on 8 mg prednisone daily. Continue breathing treatments. Recheck chest x-ray tomorrow Encephalopathy is intermittent and requires when necessary Haldol-we'll consult psychiatry. Liver enzymes are improving. Likely elevated from his acute illness. Ammonia level is normal. Oral potassium today for hypokalemia Hold Bumex today because of hypernatremia Recheck basic metabolic and CBC tomorrow Discussed with patient's nurse. 06/24/17 Psych: No additional recommendations since 06/23 - will continue to follow and assess whether patient is appropriate for transfer to [facility] once medically stable.
[2017-06-24] MEDS ORDERED: LORazepam 0.5 MG TABLET PO SCH (21:00)
[2017-06-25] MEDS: CEFEPIME 1 GM in NS 100 ML IV SCH ×2 (00:29→13:22)
[2017-06-25] MEDS: SALINE FLUSH 10ml SYRINGE IVF PRN (00:35)
[2017-06-25] MEDS: ISOSORBIDE MONONITRATE ER 30 MG TABLET PO SCH (05:55)
[2017-06-25] MEDS: BUDESONIDE INH.SOLN 0.5mg/2ml NEB AEROSOL SCH (07:05)
[2017-06-25] MEDS: ALBUTEROL/IPRATROPIUM 2.5mg-0.5mg/3ml NEB AEROSOL SCH ×3 (07:05→14:51)
[2017-06-25 07:41] VITALS: BP 156/80; TEMP 96.6
[2017-06-25 08:23] VITALS: PULSE 74
[2017-06-25] MEDS: BENZONATATE 200 MG CAPSULE PO SCH ×2 (08:35→16:55)
[2017-06-25] MEDS: CLOPIDOGREL 75 MG TABLET PO SCH (08:35)
[2017-06-25] MEDS: BUMETANIDE 1 MG TABLET PO SCH ×2 (08:35→13:22)
[2017-06-25] MEDS: CYANOCOBALAMIN (B-12) 500mcg TABLET PO SCH (08:35)
[2017-06-25] MEDS: SERTRALINE 100 MG TABLET PO SCH (08:35)
[2017-06-25] MEDS: ASPIRIN *EC* 81 MG TABLET PO SCH (08:36)
[2017-06-25] MEDS: AMIODARONE 200 MG TABLET PO SCH (08:36)
[2017-06-25] MEDS: GUAIFENESIN LA 600 MG TABLET PO SCH (08:36)
[2017-06-25] MEDS: BuPROPion XL 300mg (24HR) TABLET PO SCH (08:36)
[2017-06-25] MEDS: FERROUS SULFATE 324 MG TABLET PO SCH (08:36)
[2017-06-25] MEDS: FAMOTIDINE 20 MG TABLET PO SCH (08:36)
[2017-06-25] MEDS: SENNA + DOCUSATE TABLET PO SCH (08:36)
[2017-06-25] MEDS: PredniSONE 10 MG TABLET PO SCH (08:36)
[2017-06-25] MEDS: POLYETHYL GLYCOL 3350 17gm PACKET PO SCH (08:37)
--- NOTE | 2017-06-25 13:19 | Discharge Summary ---
<MarileeIrais Emeka - Last Filed: 06/25/17 13:32> Discharge Information Date of admission: 06/18/17 22:08 Anticipated date of discharge: 06/25/17 Attending Physician: Alanna Bill MD Primary care physician: Roger Bhagat MD Consults: Consulting Provider: Shahida Venegas - Discharge Diagnosis (1) Right lower lobe pneumonia Status: Acute (2) COPD exacerbation Status: Resolved (3) ARF (acute renal failure) Status: Resolved (4) CRF (chronic renal failure) Status: Chronic DISCHARGE DIAGNOSES AND ASSOCIATED CONDITIONS Pneumonia - completed course of cefepime and vancomycin RSV positive Acute hypoxic respiratory failure - improving Pulmonary edema - mild COPD with acute exacerbation Encephalopathy - improving JENNIFER - resolved Hypokalemia - resolved Hypernatremia - resolved Elevated liver enzymes - improving COMORBIDITIES CAD Chronic systolic HF - EF 40% HTN HDL Chronic a-fib (not anticoagulated secondary to frequent falls) DURAN patient is supposed to be on CPAP with 2 L of oxygen at night, but the patient refuses at the [facility]. 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 Repeat CXR 06/22/17: No significant change Repeat CXR 06/24/17: Stable. History of Present Illness HPI: 82 y/o male with CAD, afib, DURAN, and dementia presents to ED secondary to difficulty breathing. Reside in MD secondary to dementia and chronic ataxia. Apparently started having increasing difficult breathing. Sats low. Presents to ED for evaluation. History difficult to obtain from patient due to his dementia. Was very tired when tele-hospitalist interviewed patient. This morning at my interview, he was awake and alert. Denies significant respiratory problems. Not reporting cough or congestion. Denies pain with breathing. No chest pressure or discomfort. No sinus pressure or fullness-denies pain. No chest heaviness, fullness or palpitations. Denies ab pain or nausea. Stools stable. No increased leg edema. Overall says he is feeling well. Did receive steroids, which may be helping him feel better. Reviewed weight from admission in early April-essential stable to discharge weight. CXR showing slight increased pulm edema and infiltrate, but edema not as marked as at prior admission (my interpretation). RSV positive. Objective Vital signs: Temperature 96.6 F L 06/25/17 07:39 Pulse Rate 74 06/25/17 08:22 Respiratory Rate 20 06/25/17 11:15 Blood Pressure 156/80 H 06/25/17 07:39 Pulse Oximetry 95 06/25/17 11:15 Height/Weight/BMI: Height 1.78 m Weight 78.2 kg Body Mass Index 25.2 - Constitutional Present: no acute distress, well nourished, well developed - Routine HEENT Exam Eye: Absent: conjunctival icterus, scleral injection ENT: Present: mucous membranes moist, oropharynx clear - Routine Respiratory Exam Present: CTA bilaterally Comments: Coughs occasionally. - Routine Cardiovascular Exam Present: RRR, S1, S2 - Routine Abdominal Exam Present: soft, normoactive bowel sounds, non tender - Routine Extremities Exam Present: no edema - Routine Skin Exam Present: intact, dry, warm - Routine Neurological Exam Present: alert - Routine Psychiatric Exam Present: cooperative Hospital Course This is a general summary of the patient's hospital course. For more details refer to the complete medical record. Hospital course: Mr. Kyle was admitted on 06/18/17. He was started on cefepime and vancomycin for possible healthcare assoc. pneumonia. Levaquin was not given secondary to serious interaction with amiodarone. Vancomycin was discontinued after a 3-day course and cefepime was discontinued after 7 days. In addition, he was given Solu-Medrol for COPD exacerbation, and DuoNeb treatments were scheduled. Solu- Medrol was discontinued on hospital day #2 because of increasing agitation, though Prednisone 30 mg daily was started on 06/22/17 for persistent wheezing. He was found to be RSV positive and was placed in precautions. He required 4L of oxygen on admission, but by day of discharge he was down to 2L; he was not consistently compliant with wearing supplemental oxygen. Creatinine was elevated on admission at 2.1 - well above his baseline of 1.6. This trended down over his hospital course and his creatinine was 1.3 on day of discharge. LFTs were mildly elevated, thought to be secondary to acute illness - these were improving by discharge (AST 55, ALT 91*H, AP 90, Tbili 0.5). He had mild hypokalemia which was corrected with oral replacement, and K was stable at 3.6 on day of discharge. He developed mild hypernatremia on 06/22/17 and his Bumex was temporarily placed on hold. Na actually increased to 148 before returning to a normal level of 143 on 06/25/17. His encephalopathy and behaviors were variable - he required PRN doses of Haldol for agitation, but hadn't required any for 36+ hours prior to discharge. Dr. Venegas was consulted and recommended to discontinue clonazepam b/c it can accumulate in the elderly and contribute to more confusion and falls. In John's case, lorazepam may be appropriate to help reduce symptoms of maru and might help with willingness to keep oxygen in place. She also suggested to hold his statin since this may cause agitation/sleep disruption - will defer this decision to Dr. Bhagat. Dr. Venegas also suggested to start a mood stabilizer such as Depakote, but John's DPOA was hesitant to make too many changes. He was medically stable for transfer back to [facility], though continues to require 2L of oxygen during the day. He is supposed to be on nocturnal O2 but he doesn' t consistently wear it. Antibiotic course was completed during hospitalization, and his steroids will be resumed at his usual home dose of 8 mg. New Rx included lorazepam 0.5 mg hs and q6h PRN; DuoNeb QID; Pulmicort BID; and Tessalon Perles PRN. Clonazepam was discontinued. DC to SNF @ [facility] to monitor respiratory status and to help recover from his acute illness. Recommend to have BMP rechecked on 06/28/17 to F/U on JENNIFER, hypokalemia, and hypernatremia. F/ U with Dr. Bhagat next week. Time spent with patient: discharge greater than 30 minutes Discharge Plan - Discharge Disposition Discharge Date: 06/25/17 Disposition: 03 To SNU Not [facility] ([facility]) *Condition: Improved Reason For Visit (Visit label in EMR): Pneumonia - Discharge Medications *Discharge Medications: New Budesonide Inhalation [Pulmicort Inhalation] 0.5 mg AEROSOL RTBID vial LORazepam [Ativan] 0.5 mg PO HS #30 tab Albuterol/Ipratropium [Duoneb] 3 ml AEROSOL RTQID neb Benzonatate [Tessalon Perles] 200 mg PO TID PRN #20 cap PRN Reason: Cough LORazepam [Ativan] 0.5 mg PO Q6H PRN #12 tab PRN Reason: Agitation Continue Cyanocobalamin (Vitamin B-12) [Vitamin B-12] 1,000 mcg PO DAILY Lactobacillus Acidophilus [Probiotic] 1 each PO DAILY Cholecalciferol (Vitamin D3) [Vitamin D3] 1,000 unit PO DAILY Atorvastatin [Lipitor] 1 tab PO HS guaiFENesin [Mucinex] 600 mg PO BID Isosorbide Mononitrate ER [Imdur] 30 mg PO BID Acetaminophen [Acetaminophen Extra Strength] 500 mg PO QID Potassium Chloride [Klor-Con 10] 20 meq PO BID Bumetanide Tab [Bumex Tab] 1 mg PO BID Hydralazine [Apresoline] 25 mg PO TID Amiodarone [Pacerone] 200 mg PO DAILY buPROPion HCl [Wellbutrin Xl] 300 mg PO DAILY Senna + Docusate [Senna Plus Tablet] 1 tab PO BID Lactobacillus Acidophilus [Probiotic] 1 each PO DAILY PredniSONE [Deltasone] 8 mg PO WB Aspirin [Aspirin EC] 81 mg PO DAILY #0 Isosorbide Mononitrate [Isosorbide Mononitrate ER] 30 mg PO BID #0 Clopidogrel Bisulfate [Clopidogrel] 75 mg PO DAILY Acetaminophen [Acetaminophen Extra Strength] 500 mg PO QID PRN PRN Reason: Pain Famotidine [Pepcid] 1 tab PO DAILY Ferrous Sulfate [Feosol] 325 mg PO BID Sertraline [Zoloft] 150 mg PO DAILY Metoprolol Tartrate [Lopressor] 50 mg PO BIDWM Clopidogrel [Plavix] 1 tab PO DAILY PEG 3350 17gm PACKET [Miralax] 17 gm PO DAILY Discontinued clonazePAM [Klonopin] 0.25 tab PO HS - Discharge Packet/Instructions *Diet: Syrup-thickened liquids, ground meat, soft diet. 2 gram sodium restriction. 2000 kcal/day *Activity: As tolerated. No restrictions. Implement facility precautions for RSV, which was diagnosed on 06/19/17. Oxygen @ 2-4L 24/ to maintain saturations at or >90%. *Pain Management/Treatment: Tylenol PRN. *Wound Care: N/A *Expected Signs/Symptoms: Cough and any shortness of breath should improve over the next several days. He may be weaker and fatigue more quickly as he recovers from this illness. Monitor for signs of thrush. *Notify Physician if: Fever, difficulty breathing, chest pain, behavioral changes, diarrhea, vomiting, stroke-like symptoms, or any new concerns. *During Business Hours Contact: Dr. Bhagat's office. *After Business Hours Contact: The on-call provider for [facility]. *Pending Lab/Results: No Pending Lab Outpatient Orders: BMP - Basic Metabolic - AMS Time Frame: 3 Days, Facility: [facility] , Location: Determined By Patient - Referrals/Follow Up *Referrals/Follow Up: Roger Bhagat MD [Family Provider] - 1 Week - Patient Handouts Patient Handouts: COPD (Chronic Obstructive Pulmonary Disease) (GEN) - Dismissal Complete Discharge Instructions are:: Complete <Dennis Wells - Last Filed: 06/25/17 14:40> Discharge Information Date of admission: 06/18/17 22:08 Attending Physician: Alanna Bill MD Primary care physician: Roger Bhagat MD Consults: 06/22/17 14:19 Doctor [Physician Consult] [CONS] Routine Consulting Provider: Grzegorz Buchanan Reason For Exam: Continued care Ordering Provider has Notified Pug Mill Operator Helper: Yes 06/23/17 09:32 Physician Consult [CONS] Routine Consulting Provider: Shahida Venegas Reason For Exam: agitation, dementia Ordering Provider has Notified Pug Mill Operator Helper: Yes Comment: [facility] nurse notified - Discharge Diagnosis (1) Right lower lobe pneumonia Status: Acute (2) COPD exacerbation Status: Resolved (3) ARF (acute renal failure) Status: Resolved (4) CRF (chronic renal failure) Status: Chronic - Laboratory Labs: 06/24/17 04:12 06/24/17 04:12 - Microbiology Microbiology 06/19/17 12:35 Urine Streptococcus pneumoniae Antigen (M - Final Objective Vital signs: Temperature 96.6 F L 06/25/17 07:39 Pulse Rate 74 06/25/17 08:22 Respiratory Rate 20 06/25/17 11:15 Blood Pressure 156/80 H 06/25/17 07:39 Pulse Oximetry 95 06/25/17 11:15 Height/Weight/BMI: Height 1.78 m Weight 78.2 kg Body Mass Index 25.2 Hospital Course This is a general summary of the patient's hospital course. For more details refer to the complete medical record. Attestation Narriative - Attestation Attestation Narrative: 06/25/17 14:37 I have independently interviewed and examined patient prior to discharge. Chart reviewed. Case discussed with CM and my ADJUNCT MATHEMATICS INSTRUCTOR. Care plan developed with my supervision; agree with above. Resting comfortably this afternoon. Breathing well with O2. No distress CV: irregular Lungs: decrease, no wheezes or distress AB: soft nt/nd Plan: Will discharge to [facility] for skilled care. Psychiatric medications adjusted. Wean O2 as able. See orders for details. Medically stable for discharger to Skilled.
[2017-06-25] MEDS: NS FLUSH BAG 500ml IV PRN (13:22)
--- NOTE | 2017-06-25 14:28 | Extended Care Facility Orders ---
Admission Orders Admit to:: [facility] Allergies/Adverse Reactions: Allergies No Known Allergies Allergy (Verified 05/20/17 13:23) Admitting Diagnosis: Pneumonia Admitting Physician: Alanna Bill MD Attending Physician: Alanna Bill MD Code Status: Do Not Resuscitate Anticiapted Length of Stay: 30 days or less Rehab Potential: fair Rehab Prognosis: fair Diet: Syrup-thickened liquids, ground meat, soft diet. 2 gram sodium restriction. 2000 kcal/day Wound/Incision Care: N/A May use Facility Protocol or Standing Orders: Yes May have flu vaccine: Yes Evaluations/Treatment: PT, OT, RT [facility] Certification: I certify that SNF services are required to be given on an Inpatient basis because of the patient's need for detention care on a continuing basis for the condition(s) for which he received inpatient hospital services prior to his transfer to the SNF. SNF inpatient care is necessary for the following reasons Indication for [facility]: Other (Pneumonia requiring oxygen 24/7; RSV positive (continue facility precautions per protocol)) - Additional Information In Event of Arrest: Do Not Start CPR Resident is Aware of Diagnosis: No (Dementia) Laboratory/Radiology: Please have BMP drawn on 06/28/17 to f/u on hypokalemia, hypernatremia, and recent acute kidney injury. Fax results to Dr. Bhagat. Referrals: Roger Bhagat MD [Family Provider] - 1 Week
[2017-06-25 14:55] VITALS: RESP 16; O2SAT 93
== END 2017-06-25 15:45 | DRG 193 ==
LOC: ED 20:10 → SUATTDRO 22:08 → MED 22:08
PROVIDERS: ADMIT Pediatrics; ATTEND Internal Medicine